=== PATIENT | female | born 1940 | race Caucasian/White ===

== ENCOUNTER 2019-12-02 08:35 | Outpatient (CLI) | payer OTHER, SELFPAY ==
[2019-12-02 08:59] LABS: Basophils Percent Auto 0.6 % (0.2-1.2); Eosinophils Absolute Auto 0.2 K/mm3 (0-0.3); Eosinophils Percent Auto 3.6 % (0-4.4); Hematocrit 39.8 % (37.0-47.0); Hemoglobin 13.2 g/dL (12.0-15.0); Immature Granulocyte Absolute 0.02 K/mm3 (0.00-0.031); Immature Granulocyte Percent A 0.3 % (0-0.5); Lymphocytes Absolute Auto 2.37 K/mm3 (0.9-3.2); Lymphocytes Percent Auto 35.9 % (18.3-44.2); Mean Corpuscular HGB Conc 33.2 g/dl (32-36); Mean Corpuscular Hemoglobin 30.2 pg (26-34); Mean Corpuscular Volume 91.1 fl (80-100); Mean Platelet Volume 9.9 fl (7.4-10.4); Monocytes Absolute Auto 0.5 K/mm3 (0.1-0.6); Neutrophils Absolute Auto 3.5 K/mm3 (1.3-6.7); Neutrophils Percent Auto 52.6 % (45.5-73.1); Platelet Count Result 306 k/mm3 (150-375); Red Blood Count 4.37 M/mm3 (4.2-5.4); Red Cell Distribution Width 13.2 % (11.5-14.5); White Blood Count 6.6 K/mm3 (4.5-10.0)
[2019-12-02 09:17] LABS: Alanine Aminotransferase 15 U/L (4-35); Albumin Level 4.1 g/dL (3.5-5.1); Alkaline Phosphatase 53 U/L (38-126); Anion Gap 4 mmol/L (8-16); Aspartate Amino Transferase 24 U/L (14-36); Bilirubin,Total 0.4 mg/dL (0.2-1.3); Blood Urea Nitrogen 13 mg/dL (7-17); Calcium 9.6 mg/dL (8.4-10.2); Carbon Dioxide 29 mmol/L (22-30); Chloride 105 mmol/L (98-107); Cholesterol 244 mg/dL (0-200); Estimated Glomerular Filt Rate > 60; Glucose 124 mg/dL (65-105); HDL Direct 53 mg/dL; Potassium 4.1 mmol/L (3.4-5.0); Sodium 138 mmol/L (137-145); Triglycerides 188 mg/dL (<150)
[2019-12-02 09:19] LABS: Hemoglobin A1C 6.3 % (<5.7)
[2019-12-02 09:25] LABS: LDL Cholesterol Direct 137 mg/dL
[2019-12-02 09:29] LABS: Iron 104 ug/dL (37-170)
[2019-12-02 09:38] LABS: Percent Iron Saturation 31 % (20-50)
[2019-12-02 09:48] LABS: Vitamin D 25 Hydroxy 37.4 ng/mL
== END 2019-12-02 08:36 | disposition home or self-care (01) ==
PROVIDERS: PCP Internal Medicine; Visit Provider Nurse Practitioner
DX: E03.9 Hypothyroidism, unspecified (principal); E78.2 Mixed hyperlipidemia; E55.9 Vitamin D deficiency, unspecified; R73.03 Prediabetes; D50.9 Iron deficiency anemia, unspecified
CPT/HCPCS: 36415; 80053; 80061; 82306; 83036; 83540; 83550; 84443; 85025

== ENCOUNTER 2020-03-24 06:54 | Outpatient (NON) | payer OTHER, SELFPAY ==
[2020-03-24 22:46] LABS: SARS-CoV-2 RNA PCR Negative
== END 2020-03-24 06:55 ==
LOC: ANHCOVIDDT 07:06
PROVIDERS: PCP Internal Medicine; Visit Provider Internal Medicine
DX: Z20.822 Contact with and (suspected) exposure to COVID-19 (principal); R68.89 Other general symptoms and signs
CPT/HCPCS: C9803; U0003; U0005

== ENCOUNTER 2020-07-11 10:41 | Emergency (ER) | payer OTHER, SELFPAY ==
--- NOTE | 2020-07-11 10:55 | ED.URI ---
HPI - URI/Sore Throat General Chief Complaint: Nausea/Vomiting/Diarrhea Stated Complaint: upper respiratory infection Time Seen by Provider: 07/11/20 11:10 Source: patient and RN notes reviewed Mode of arrival: ambulatory Limitations: no limitations History of Present Illness HPI Narrative: 80-year-old female presents with concern for 5-day history of cough, 2-day history of nausea, diarrhea, body aches and fatigue. Reports cough symptoms have improved with [id number] medications. Reports she is able to tolerate fluids, small amounts of food. She denies shortness of breath, chest pain. She reports she is urinating at least once every 6 hours. She denies loss of sense of taste or smell. MD elicited complaint: cough Related Data Home Medications Medication Instructions Recorded Confirmed loratadine 10 mg tablet 10 mg PO DAILY 01/27/19 05/27/20 Allergies Allergy/AdvReac Type Severity Reaction Status Date / Time ciprofloxacin Allergy Unknown Joint pain Verified 05/27/20 11:36 latex Allergy Unknown Itching Verified 05/27/20 11:36 amoxicillin [From Augmentin] Allergy Nausea and Verified 07/11/20 11:12 Vomiting clavulanic acid Allergy Nausea and Verified 07/11/20 11:12 [From Augmentin] Vomiting Review of Systems Review of Systems: Narrative: CONSTITUTIONAL: Reports malaise, fatigue. Denies chills, sweats, or fever. EYES: Denies visual changes, redness, or discharge. ENT: Reports rhinorrhea, congestion. Denies sinus pain, otalgia and sore throat. CARDIOVASCULAR: Denies chest pain, palpitations, or edema. RESPIRATORY: Reports cough. Denies dyspnea. GASTROINTESTINAL: Denies abdominal pain, nausea, vomiting, diarrhea SKIN: Denies rash or itching. MUSCULOSKELETAL: Reports myalgia. NEUROLOGIC: Denies headache. All systems reviewed & are unremarkable except as noted in HPI and below PMFSH Past Medical History Medical History Cataract fragments in eye following surgery Cholecystectomy planned Polyarthritis Skin tag Surgical History Surgical History H/O knee surgery History of breast biopsy (~2012) History of hysterectomy (~1984) Hx of appendectomy (~1981) Previous back surgery (~1979) Family History Family History Mother Family history of malignant neoplasm Carcinoma of colon Sibling Family history of Parkinson's disease Family history of heart disease in male family member before age 55 Patient's sister is in good health Family history of cardiovascular disease Father Family history of chronic obstructive pulmonary disease Family history of cardiovascular disease Other Family history of lung cancer Family history of lung disease Family history of malignant neoplasm of breast Social History Social History Smoking status: Never smoker Alcohol intake: never Comments At time of signature, agree with nursing past medical, surgical, social and family history. There is no relevant family history pertinent to the presenting complaint Exam Narrative: Exam Narrative: GENERAL: Well-appearing, well-nourished, and in no acute distress. HEAD: Normocephalic EYES: PERRLA, conjunctivae clear ENT: Nares clear, turbinates erythematous, clear discharge. Mucous membranes moist. TM pearly tionco with sharp light reflex bilaterally; no tragal tenderness. NECK: Supple. No lymphadenopathy CHEST: Clear to auscultation, breath sounds equal. No wheezing, rhonchi, rales, or stridor. No respiratory distress, speaks in full sentences. HEART: Regular rate and rhythm. No murmur heard. ABDOMEN: Normal bowel sounds, nontender SKIN: Warm, dry, no rash. NEURO: Alert and oriented x3. PSYCH: Normal mood and affect Course Course Emergency Course: Patient is aware of diagnosis, understands and a
[2020-07-11 10:57] VITALS: BP 167/78; PULSE 97; RESP 20; TEMP 37.5; O2SAT 97
== END 2020-07-11 11:37 | disposition home or self-care (01) ==
PROVIDERS: Emergency Provider Nurse Practitioner; PCP Internal Medicine
DX: U07.1 COVID-19 (principal); M19.90 Unspecified osteoarthritis, unspecified site
CPT/HCPCS: 87426; 99213; C9803; G0463

== ENCOUNTER 2020-07-14 06:47 | Inpatient (IN) | payer OTHER, SELFPAY ==
[2020-07-14] VITALS (31 sets, daily range): BP systolic 116–166; BP diastolic 63–101; PULSE 72–93; RESP 12–29; TEMP 36.3–39.2; O2SAT 55–97; BMI 38.1
--- NOTE | ~2020-07-14 | XR_ITS ---
XR chest 1V portable DATE: 07/22/2020 13:07 INDICATION: Covid TECHNIQUE: Portable upright AP chest on 07/22/2020 at 1307 hours COMPARISON: 07/17/2020 CT pulmonary scan 07/27/2020 portable AP chest FINDINGS: There are scattered patchy infiltrates involving particularly the mid and to a greater exte nt lower lung zones consistent with bilateral pneumonia, with significant improvement bilaterally sin ce 07/27/2020. Normal heart size. Aortic calcification. No pleural effusion or pulmonary vascular congestion or pneumothorax. 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 Status post cholecystectomy IMPRESSION: Moderate patchy bilateral mid and especially lower lung zone infiltrates, significantly improved however since 07/27/2020 Reviewed, dictated and finalized at location A. IMPRESSION: Moderate patchy bilateral mid and especially lower lung zone infil trates, significantly improved however since 07/27/2020
--- NOTE | ~2020-07-14 | XR_ITS ---
XR chest 1V portable 07/17/2020 08:57 Indication: Pneumonia. Hypoxia. Procedure: AP portable chest Comparison: 07/14/2020 Findings: Interval progression of diffuse bilateral airspace disease, compatible with pneumonia. No s ignificant effusion or pneumothorax. No acute osseous abnormality. Heart size normal. Impression: 1: Interval progression of extensive bilateral airspace disease, compatible with progression of pneum onia. Reviewed, dictated and finalized at location A. Impression: 1: Interval progression of extensive bilateral airspace disease, compatible wit h progression of pneumonia.
--- NOTE | ~2020-07-14 | CT_ITS ---
EXAMINATION: CTA chest PE protocol DATE: 07/17/2020 12:10 CDT INDICATION: Shortness of breath TECHNIQUE: Computed tomographic angiography (CTA) of the chest was performed with 100 mL Omnipaque-35 0 intravenous contrast. The dose-length product was 591.04 mGy-cm. Maximum intensity projection 3D-re constructions of the aorta and other arteries were constructed by the technologist on a separate work station. Automated exposure control and iterative reconstruction technique were employed. COMPARISON: Chest x-ray dated 07/17/2020. FINDINGS: Study is technically adequate without evidence for pulmonary embolism. There is mediastinal lymphadenopathy, likely reactive. Cardiomegaly. There is atherosclerosis of the aorta and coronary a rteries. There is extensive patchy groundglass opacification and consolidation throughout all lobes of both christopher ngs, consistent with pneumonia. No significant pleural effusion. No pneumothorax. IMPRESSION: 1. Extensive combination of groundglass opacification and consolidation, consistent with widespread p neumonia. 2: No evidence for pulmonary embolism. 3: Mediastinal lymphadenopathy, likely reactive. Reviewed, dictated and finalized at location A. IMPRESSION: 1. Extensive combination of groundglass opacification and consolidation, consis tent with widespread pneumonia. 2: No evidence for pulmonary embolism. 3: Mediastinal lymphadenopathy, likely reactive.
--- NOTE | ~2020-07-14 | CT_ITS ---
EXAMINATION: CT abdomen pelvis w con EXAM DATE: 07/14/2020 09:17 INDICATION: Abdominal distention, increased weakness. Nausea. TECHNIQUE: Spiral CT of the abdomen and pelvis was performed following intravenous injection of 100 m L Omnipaque 350. Axial, coronal and sagittal images of the abdomen and pelvis were reviewed. The do se-length product (DLP) for this examination was 1100.30 mGy-cm. The exposure was tailored according to patient size (auto mA exposure control), and iterative reconstruction (ASIR) was used as addition al dose reduction technique. There is no prior study for comparison. FINDINGS: There is moderate amount of bibasilar peripheral groundglass airspace disease, distribution and appearance is consistent with acute COVID pneumonia. The liver, spleen, adrenal glands and panc reas are unremarkable. There are cholecystectomy clips. Portal and splenic veins are patent. Kidne ys enhance symmetrically. There is no hydronephrosis. The uterus is not identified and has likely been surgically resected. The bladder is unremarkable. There is no retroperitoneal or pelvic lympha denopathy. There is mild scattered arteriosclerotic disease. The appendix is not positively visualized. There is no pericecal inflammatory change to suggest appe ndicitis. There is mild sigmoid colonic diverticulosis. There is no adjacent inflammatory change to suggest diverticulitis. The stomach and small bowel are unremarkable. There is expected amount of c olonic stool. No free intraperitoneal gas. The heart is normal in size. There are no pericardial or pleural effusions. There are no osteoblastic or osteolytic lesions identified. IMPRESSION: 1. Moderate basilar acute COVID pneumonia. 2. No acute intra-abdominal findings. 3. Mild sigmoid diverticulosis. Reviewed, dictated and finalized at location B.
--- NOTE | ~2020-07-14 | XR_ITS ---
EXAMINATION: XR chest 1V portable EXAM DATE: 07/14/2020 08:04 INDICATION: COVID positive. Weakness and shortness of breath since . TECHNIQUE: Portable AP frontal chest x-ray was obtained. There is no prior study for comparison. FINDINGS: Scattered small to moderate amount of bilateral ill-defined mid and lower lung zone acute a irspace disease, appearance is consistent with COVID pneumonia. No pneumothorax or pleural effusion. Cardiomediastinal silhouette is normal. Cholecystectomy clips. IMPRESSION: Small to moderate scattered bilateral acute airspace disease consistent with COVID pneumo braeden. Reviewed, dictated and finalized at location B. IMPRESSION: Small to moderate scattered bilateral acute airspace disease consis tent with COVID pneumonia.
[2020-07-14 07:42] LABS: Basophils Percent Auto 0.2 % (0.2-1.2); Hematocrit 34.7 % (37.0-47.0); Hemoglobin 11.7 g/dL (12.0-15.0); Immature Granulocyte Absolute 0.02 K/mm3 (0.00-0.031); Immature Granulocyte Percent A 0.5 % (0-0.5); Lymphocytes Absolute Auto 1.26 K/mm3 (0.9-3.2); Lymphocytes Percent Auto 29.7 % (18.3-44.2); Mean Corpuscular HGB Conc 33.7 g/dl (32-36); Mean Corpuscular Hemoglobin 29.8 pg (26-34); Mean Corpuscular Volume 88.5 fl (80-100); Mean Platelet Volume 10.1 fl (7.4-10.4); Monocytes Absolute Auto 0.2 K/mm3 (0.1-0.6); Neutrophils Absolute Auto 2.7 K/mm3 (1.3-6.7); Neutrophils Percent Auto 64.6 % (45.5-73.1); Platelet Count Result 203 k/mm3 (150-375); Red Blood Count 3.92 M/mm3 (4.2-5.4); Red Cell Distribution Width 13.2 % (11.5-14.5); White Blood Count 4.2 K/mm3 (4.5-10.0)
[2020-07-14 07:51] LABS: Lactic Acid Reflex 0.8 mmol/L (0.7-2.1)
--- NOTE | 2020-07-14 07:52 | ED.FEVER ---
HPI - Fever General Chief Complaint: Fever Stated Complaint: Dehydrated, covid+ Time Seen by Provider: 07/14/20 07:10 History of Present Illness HPI Narrative: 80 yo female w/ h/o hypothyroidism presents to the ED for nausea and vomiting. She reports not feeling well for several days. Her primary symptoms is nausea and vomiting. She reports that she has been able to keep anything down for days. She has also developed some mild abdominal pain and bloating as well. In addition to this she has had some body aches, fatigue, and malaise. She denies SOB, although she has been intermittently hypoxic. Related Data Home Medications Medication Instructions Recorded Confirmed loratadine 10 mg tablet 10 mg PO DAILY 01/27/19 05/27/20 Allergies Allergy/AdvReac Type Severity Reaction Status Date / Time ciprofloxacin Allergy Unknown Joint pain Verified 07/14/20 07:55 latex Allergy Unknown Itching Verified 07/14/20 07:55 amoxicillin [From Augmentin] Allergy Nausea and Verified 07/14/20 07:55 Vomiting clavulanic acid Allergy Nausea and Verified 07/14/20 07:55 [From Augmentin] Vomiting Review of Systems Review of Systems: All systems reviewed & are unremarkable except as noted in HPI and below Constitutional: Constitutional: Reports chills, Reports fatigue and Denies fever(s) ENT: Denies sore throat Cardiovascular: Cardiovascular: Denies chest pain Respiratory: Respiratory: Denies dyspnea Gastrointestinal: Gastrointestinal: Reports abdominal pain, Denies diarrhea, Reports nausea and Reports vomiting Genitourinary: Genitourinary: Denies hematuria and Denies dysuria Musculoskeletal: Musculoskeletal: Reports myalgias Integumentary/Breasts: Skin/Breast: Denies rash Neurologic: Reports weakness PMFSH Past Medical History Medical History Cataract fragments in eye following surgery Cholecystectomy planned Polyarthritis Skin tag Surgical History Surgical History H/O knee surgery History of breast biopsy (~2012) History of hysterectomy (~1984) Hx of appendectomy (~1981) Previous back surgery (~1979) Family History Family History Mother Family history of malignant neoplasm Carcinoma of colon Sibling Family history of Parkinson's disease Family history of heart disease in male family member before age 55 Patient's sister is in good health Family history of cardiovascular disease Father Family history of chronic obstructive pulmonary disease Family history of cardiovascular disease Other Family history of lung cancer Family history of lung disease Family history of malignant neoplasm of breast Social History Social History Smoking status: Never smoker Alcohol intake: never Gender identity (if verbalized by the patient): Female Exam Const: General: no acute distress, alert and ill appearing Orientation/consciousness: patient oriented x3 HENMT: Head: normal to inspection Neck: Neck: normal visual inspection Resp: Effort & Inspection: normal respiratory effort Auscultation: crackles Cardio: Rate: regular rate Rhythm: regular rhythm GI: Inspection: distended GI Palp: No Tenderness to palpation present (GI) Skin: General skin exam: normal color Neuro: General: patient oriented x3, moves all extremities, no focal motor deficits and CN's II-XI intact bilaterally Speech: normal speech Extrem: General: normal to inspection and no edema Other: no calf tenderness Course Vital Signs Vital signs: Vital Signs Temperature 39.2 C H 07/14/20 06:57 Pulse Rate 93 07/14/20 06:57 Respiratory Rate 12 07/14/20 06:57 Blood Pressure 166/64 H 07/14/20 06:57 Pulse Oximetry 92 07/14/20 06:57 Temperature 39.2 C H 07/14/20 07:20 Pulse Rate 93 05
[2020-07-14] MEDS: SODIUM CHLORIDE 0.9% IV 500 ML 999 ML IV CONT (08:03)
[2020-07-14] MEDS: ONDANSETRON INJ 4 MG/2 ML VIAL IV PUSH (08:03)
[2020-07-14 08:19] LABS: Alveolar/Arterial O2 Gradient 47.9 mmHg; Base Excess ABG 2.3 mEq/l (+/-2.0); Carboxyhemoglobin 0.3 % THb (0-2.0); Fractional Inspired Oxygen 21 %; Methemoglobin ABG 0.3 %THb (0-1.5); Oxygen Content ABG 15.2 %vol (16.0-22.0); Oxygen Saturation ABG 91.6 % (95.0-100.0); PCO2 ABG 36.9 mmHg (35.0-45.0); PO2 ABG 57.6 mmHg (80.0-100.0); PO2 FiO2 Ratio Arterial Blood 2.74 %; Reduced Hemoglobin 8.4 %THb (0-5.0); Total Hemoglobin 11.9 g/dL (12.0-18.0); pH ABG 7.465 (7.350-7.450)
[2020-07-14 08:23] LABS: Device ROOM AIR; Site Drawn LEFT BRACHIAL
[2020-07-14] MEDS: DEXAMETHASONE SOD PHOS INJ 4 MG/ML VIAL 10 MG IV PUSH (08:27)
[2020-07-14 08:58] LABS: Anion Gap 3 mmol/L (8-16); Blood Urea Nitrogen 8 mg/dL (7-17); Calcium 8.2 mg/dL (8.4-10.2); Carbon Dioxide 33 mmol/L (22-30); Chloride 93 mmol/L (98-107); Estimated CRCL calculation 74 ml/min; Estimated Glomerular Filt Rate > 60; Glucose 136 mg/dL (65-105); Potassium 3.4 mmol/L (3.4-5.0); Sodium 129 mmol/L (137-145)
[2020-07-14 11:45] LABS: Alanine Aminotransferase 29 U/L (4-35); Albumin Level 3.5 g/dL (3.5-5.1); Alkaline Phosphatase 46 U/L (38-126); Aspartate Amino Transferase 51 U/L (14-36); Bilirubin,Total 0.3 mg/dL (0.2-1.3); Magnesium 1.8 mg/dL (1.6-2.3)
[2020-07-14 11:48] LABS: Hemoglobin A1C 7.2 % (<5.7)
[2020-07-14] MEDS: LACTATED RINGERS 1,000 ML 50 ML IV CONT (13:30)
[2020-07-14] MEDS: DOCUSATE SODIUM 100 MG CAPSULE PO (17:44)
[2020-07-14] MEDS: ALBUTEROL SULFATE NEB 2.5 MG/0.5 ML INH 5 MG INHALATION (20:40)
[2020-07-14] MEDS: IPRATROPIUM BR 0.02% INH SOLN 0.5 MG/2.5 ML VIAL INHALATION (20:40)
--- NOTE | 2020-07-14 20:40 | PM.IMHP ---
H&P: HPI History of Present Illness Date/Time: 07/14/20 20:40 80 yo female w/ h/o hypothyroidism presents to the ED for nausea and vomiting and not feeling overall. She reports not feeling well for several days. Her primary symptoms is nausea and vomiting. She reports that she has been able to keep anything down for days. She has also developed some mild abdominal pain and bloating as well. In addition to this she has had some body aches, fatigue, and malaise. She denies SOB, although she has been intermittently hypoxic in the ED. she was tested positive for COVID recently. she started having symptoms with fever, cough, diarrhea and abdominal pain. Chief Complaint: nausea, vomiting, shortness of breath Review of Systems Review of Systems: Narrative: - CONSTITUTIONAL: Denies weight loss, reports some fever and chills. - HEENT: Denies changes in vision and hearing - RESPIRATORY: reports SOB and cough. - CV: Denies palpitations and CP. - GI: reports abdominal pain, nausea, vomiting and diarrhea. - : Denies dysuria and urinary frequency. - MSK: Denies myalgia and joint pain. - SKIN: Denies rash and pruritus. - NEUROLOGICAL: Denies headache and syncope. - PSYCHIATRIC: Denies recent changes in mood. Denies anxiety and depression. All systems reviewed & are unremarkable except as noted in HPI and below Constitutional: Constitutional: Reports fatigue and Reports weakness Neurologic: Reports weakness Endocrine: Endocrine: Reports fatigue PMFSH Past Medical History Medical History Cataract fragments in eye following surgery Cholecystectomy planned Polyarthritis Skin tag Surgical History Surgical History H/O knee surgery History of breast biopsy (~2012) History of hysterectomy (~1984) Hx of appendectomy (~1981) Previous back surgery (~1979) Family History Family History Mother Family history of malignant neoplasm Carcinoma of colon Sibling Family history of Parkinson's disease Family history of heart disease in male family member before age 55 Patient's sister is in good health Family history of cardiovascular disease Father Family history of chronic obstructive pulmonary disease Family history of cardiovascular disease Other Family history of lung cancer Family history of lung disease Family history of malignant neoplasm of breast Social History Social History Smoking status: Never smoker Alcohol intake: never Substance use: never Gender identity (if verbalized by the patient): Female Spiritual care concerns: No Meds Home Medications and Allergies Home Medications Medication Instructions Recorded Confirmed Type loratadine 10 mg tablet 10 mg PO DAILY PRN 01/27/19 07/14/20 History levothyroxine 100 mcg PO QAM 07/14/20 07/14/20 History Allergies Allergy/AdvReac Type Severity Reaction Status Date / Time ciprofloxacin Allergy Unknown Joint pain Verified 07/14/20 07:55 latex Allergy Unknown Itching Verified 07/14/20 07:55 amoxicillin [From Augmentin] Allergy Nausea and Verified 07/14/20 07:55 Vomiting clavulanic acid Allergy Nausea and Verified 07/14/20 07:55 [From Augmentin] Vomiting Vital Signs Vital Signs - 24 hr 07/14/20 06:57 07/14/20 07:20 07/14/20 07:31 Temperature 102.6 F H 102.6 F H Pulse Rate 93 93 90 Respiratory Rate 12 20 23 H Blood Pressure 166/64 H 166/64 H Pulse Oximetry 92 92 92 07/14/20 07:45 07/14/20 08:03 07/14/20 08:15 Temperature Pulse Rate 90 89 84 Respiratory Rate 29 H 18 17 Blood Pressure Pulse Oximetry 80 L 97 91 07/14/20 08:30 07/14/20 08:39 07/14/20 08:47 Temperature Pulse Rate 87 87 87 Respiratory Rate 20 18 17 Blood Pressure 155/70 H Pulse Oximetry 90 90 92 07/14/20
[2020-07-14 21:26] LABS: Alanine Aminotransferase 27 U/L (4-35); Estimated CRCL calculation 68 ml/min; Estimated Glomerular Filt Rate > 60
[2020-07-14 21:27] LABS: INR 0.9
[2020-07-14] MEDS: REMDESIVIR 200 MG/NS 250 ML 200 MG/250 ML BAG 250 MG IVPB (22:02)
[2020-07-14] MEDS: ACETAMINOPHEN 325 MG TABLET 650 MG PO (22:14)
[2020-07-14 23:48] LABS: Glucose Point of Care 350 (65-105)
[2020-07-15] VITALS (15 sets, daily range): BP systolic 140–167; BP diastolic 57–79; PULSE 75–95; RESP 18–20; TEMP 36.3–37.6; O2SAT 90–96
[2020-07-15] MEDS: guaiFENesin/DEXTROMETHORPHAN 10 ML UDC PO (01:30)
[2020-07-15] MEDS: IPRATROPIUM BR 0.02% INH SOLN 0.5 MG/2.5 ML VIAL INHALATION ×4 (02:27→21:09)
[2020-07-15] MEDS: ALBUTEROL SULFATE NEB 2.5 MG/0.5 ML INH 5 MG INHALATION ×4 (02:27→21:08)
[2020-07-15] MEDS: LEVOTHYROXINE SODIUM 100 MCG TABLET PO (05:30)
[2020-07-15 06:29] LABS: Prothrombin Time 13.4 Seconds (11.1-14.7)
[2020-07-15 06:30] LABS: Alanine Aminotransferase 25 U/L (4-35); Estimated CRCL calculation 68 ml/min; Estimated Glomerular Filt Rate > 60
[2020-07-15 07:28] LABS: Hematocrit 33.5 % (37.0-47.0); Hemoglobin 11.1 g/dL (12.0-15.0); Mean Corpuscular HGB Conc 33.1 g/dl (32-36); Mean Corpuscular Hemoglobin 29.1 pg (26-34); Mean Corpuscular Volume 87.9 fl (80-100); Mean Platelet Volume 10.6 fl (7.4-10.4); Platelet Count Result 239 k/mm3 (150-375); Red Blood Count 3.81 M/mm3 (4.2-5.4); Red Cell Distribution Width 12.9 % (11.5-14.5); White Blood Count 6.8 K/mm3 (4.5-10.0)
[2020-07-15 07:30] LABS: Anion Gap 6 mmol/L (8-16); Blood Urea Nitrogen 9 mg/dL (7-17); Calcium 8.5 mg/dL (8.4-10.2); Carbon Dioxide 30 mmol/L (22-30); Chloride 99 mmol/L (98-107); Estimated CRCL calculation 68 ml/min; Estimated Glomerular Filt Rate > 60; Glucose 295 mg/dL (65-105); Potassium 3.5 mmol/L (3.4-5.0); Sodium 135 mmol/L (137-145)
[2020-07-15 08:06] LABS: Glucose Point of Care 246 (65-105)
--- NOTE | 2020-07-15 08:24 | P.PNIM_ITS ---
Progress Note: A&P Assessment and Plan (1) Acute hypoxemic respiratory failure: Code(s): J96.01 - Acute respiratory failure with hypoxia Status: Acute Assessment and Plan: * Covid positive 07/11/20 * Blood gas showed PaO2 57.6 * Room air, no complaints of shortness of breath * No reports of nausea, vomiting * weakness noted: PT/OT ordered * Increase glucose: medication induced sliding scale ordered * Dehydration: LR at 50ml/hr and encourage PO intake * Lovenox (2) COVID-19: Code(s): U07.1 - COVID-19 Status: Acute Assessment and Plan: * See plan above (3) Pneumonia due to 2019-nCoV: Code(s): U07.1 - COVID-19; J12.82 - Pneumonia due to coronavirus disease 2019 Status: Acute Assessment and Plan: * Covid pneumonia noted on CT and Chest xray * No symptoms noted on exam * No reported nausea or vomiting * Better appetite * remedesvir and steroids * Supplemental oxygen if needed to maintain saturations above 90% (4) Nausea & vomiting: Code(s): R11.2 - Nausea with vomiting, unspecified Status: Acute Assessment and Plan: * No nausea or vomiting noted * PRN Zofran ordered * Tolerating diet (5) Hyperglycemia, drug-induced: Code(s): R73.9 - Hyperglycemia, unspecified; T50.905A - Adverse effect of unspecified drugs, medicaments and biological substances, initial encounter Status: Acute Assessment and Plan: * Glucose elevated: 295 per am labs, A1c 7.2 at admission * Most likely medication induced from steroids * Sliding scale ordered * Trend glucose * increase sliding scale as needed * Diet changed to diabetic diet (6) Hypokalemia, inadequate intake: Code(s): E87.6 - Hypokalemia Status: Acute Assessment and Plan: * Potassium 3.4 upon admission and 3.5 with am labs * 40mcq of potassium ordered for replacement * Trend potassium * replace as needed (7) Hypertension: Code(s): I10 - Essential (primary) hypertension Status: Acute Assessment and Plan: * Blood pressure elevated: 153/61 * Trend blood pressure * Educate patient about salt intake Time Spent With Patient Time with patient: 25 - 35 minutes Subjective Date/time seen: 07/15/20 08:24 Patient is an 80 year old female that came in with a complaint of nausea and lack of appetite weakness. Patient was sitting at bedside eating breakfast she stated that she is feeling better today. At home she said at home she did have a lack of appetite and would try to eat things like soup (Chicken noodle or tomato), and would also drink fluids like gatorade, pedilyte, or sprite. However, she did not eat like she would normally eat. She did state that she does try to eat a banana or apple everyday. She denies taking any other medications but what is listed. She denies chest pain, shortness of breath, nausea, vomiting, lack of taste/smell, or abdominal pain. She admits to be in tired and weak, and has a productive cough with what she described as being thick and green. She did state that she would like to get up and move around, which PT/OT has been ordered. Patient did mention concern about her blood pressure and her glucose levels. It was assured that this was from some of the medications. Potassium was 3.5 and Sodium 135 this am. Patient is on fluids, and potassium replaced. Re
--- NOTE | 2020-07-15 08:24 | PM.IMPN ---
Progress Note: A&P Assessment and Plan (1) Acute hypoxemic respiratory failure: Code(s): J96.01 - Acute respiratory failure with hypoxia Status: Acute Assessment and Plan: Covid positive 07/11/20 Blood gas showed PaO2 57.6 Room air, no complaints of shortness of breath No reports of nausea, vomiting weakness noted: PT/OT ordered Increase glucose: medication induced sliding scale ordered Dehydration: LR at 50ml/hr and encourage PO intake Lovenox (2) COVID-19: Code(s): U07.1 - COVID-19 Status: Acute Assessment and Plan: See plan above (3) Pneumonia due to 2019-nCoV: Code(s): U07.1 - COVID-19; J12.82 - Pneumonia due to coronavirus disease 2019 Status: Acute Assessment and Plan: Covid pneumonia noted on CT and Chest xray No symptoms noted on exam No reported nausea or vomiting Better appetite remedesvir and steroids Supplemental oxygen if needed to maintain saturations above 90% (4) Nausea & vomiting: Code(s): R11.2 - Nausea with vomiting, unspecified Status: Acute Assessment and Plan: No nausea or vomiting noted PRN Zofran ordered Tolerating diet (5) Hyperglycemia, drug-induced: Code(s): R73.9 - Hyperglycemia, unspecified; T50.905A - Adverse effect of unspecified drugs, medicaments and biological substances, initial encounter Status: Acute Assessment and Plan: Glucose elevated: 295 per am labs, A1c 7.2 at admission Most likely medication induced from steroids Sliding scale ordered Trend glucose increase sliding scale as needed Diet changed to diabetic diet (6) Hypokalemia, inadequate intake: Code(s): E87.6 - Hypokalemia Status: Acute Assessment and Plan: Potassium 3.4 upon admission and 3.5 with am labs 40mcq of potassium ordered for replacement Trend potassium replace as needed (7) Hypertension: Code(s): I10 - Essential (primary) hypertension Status: Acute Assessment and Plan: Blood pressure elevated: 153/61 Trend blood pressure Educate patient about salt intake Time Spent With Patient Time with patient: 25 - 35 minutes Subjective Date/time seen: 07/15/20 08:24 Patient is an 80 year old female that came in with a complaint of nausea and lack of appetite weakness. Patient was sitting at bedside eating breakfast she stated that she is feeling better today. At home she said at home she did have a lack of appetite and would try to eat things like soup (Chicken noodle or tomato), and would also drink fluids like gatorade, pedilyte, or sprite. However, she did not eat like she would normally eat. She did state that she does try to eat a banana or apple everyday. She denies taking any other medications but what is listed. She denies chest pain, shortness of breath, nausea, vomiting, lack of taste/smell, or abdominal pain. She admits to be in tired and weak, and has a productive cough with what she described as being thick and green. She did state that she would like to get up and move around, which PT/OT has been ordered. Patient did mention concern about her blood pressure and her glucose levels. It was assured that this was from some of the medications. Potassium was 3.5 and Sodium 135 this am. Patient is on fluids, and potassium replaced. Review of Systems Review of Systems: All systems reviewed & are unremarkable except as noted in HPI and below Exam Const: General: cooperative, healthy appearing, comfortable, awake, Physically active and tired appearing Nutritional Appearance: well nourished Orientation/consciousness: patient oriented x3 Limitations: no limitations HENMT: Ears: TM's normal bilaterally Eyes: General: appearance normal, both eyes and all related structures Neck: Neck: no JVD Resp: Effort & Inspection: normal respiratory effort Auscultation:
[2020-07-15] MEDS: INSULIN ASPART (*BKC) 100 UNITS/ML SUB-Q ×3 (09:11→17:31)
[2020-07-15] MEDS: ENOXAPARIN 40 MG/0.4 ML SYRINGE SUB-Q (09:12)
[2020-07-15] MEDS: DEXAMETHASONE SOD PHOS INJ 4 MG/ML VIAL 6 MG IV PUSH (09:12)
[2020-07-15] MEDS: LORATADINE 10 MG TABLET PO (09:12)
[2020-07-15] MEDS: POTASSIUM CHLORIDE 20 MEQ TABLET 40 MEQ PO (09:15)
[2020-07-15] MEDS: LACTATED RINGERS 1,000 ML 50 ML IV CONT (09:35)
[2020-07-15 12:23] LABS: Glucose Point of Care 313 (65-105)
[2020-07-15 17:26] LABS: Glucose Point of Care 271 (65-105)
[2020-07-15] MEDS: REMDESIVIR 100 MG/NS 250 ML 100 MG/250 ML BAG 250 MG IVPB (20:50)
[2020-07-15 21:09] LABS: Glucose Point of Care 295 (65-105)
[2020-07-16] VITALS (16 sets, daily range): BP systolic 157–179; BP diastolic 69–93; PULSE 88–98; RESP 16–24; TEMP 36.4–37.5; O2SAT 90–96
[2020-07-16] MEDS: IPRATROPIUM BR 0.02% INH SOLN 0.5 MG/2.5 ML VIAL INHALATION ×4 (02:48→20:37)
[2020-07-16] MEDS: ALBUTEROL SULFATE NEB 2.5 MG/0.5 ML INH 5 MG INHALATION ×4 (02:48→20:37)
[2020-07-16] MEDS: LACTATED RINGERS 1,000 ML 50 ML IV CONT (05:54)
[2020-07-16] MEDS: LEVOTHYROXINE SODIUM 100 MCG TABLET PO (05:56)
[2020-07-16 06:09] LABS: Alanine Aminotransferase 25 U/L (4-35); Estimated CRCL calculation 80 ml/min; Estimated Glomerular Filt Rate > 60
[2020-07-16 08:05] LABS: Anion Gap 4 mmol/L (8-16); Blood Urea Nitrogen 13 mg/dL (7-17); Calcium 8.7 mg/dL (8.4-10.2); Carbon Dioxide 34 mmol/L (22-30); Chloride 97 mmol/L (98-107); Estimated CRCL calculation 68 ml/min; Estimated Glomerular Filt Rate > 60; Glucose 200 mg/dL (65-105); Magnesium 1.9 mg/dL (1.6-2.3); Phosphorus 2.5 mg/dL (2.5-4.5); Sodium 135 mmol/L (137-145)
[2020-07-16 08:22] LABS: Glucose Point of Care 189 (65-105)
[2020-07-16] MEDS: ENOXAPARIN 40 MG/0.4 ML SYRINGE SUB-Q (08:31)
[2020-07-16] MEDS: DEXAMETHASONE SOD PHOS INJ 4 MG/ML VIAL 6 MG IV PUSH (08:32)
[2020-07-16 12:27] LABS: Glucose Point of Care 312 (65-105)
[2020-07-16] MEDS: INSULIN ASPART (*BKC) 100 UNITS/ML SUB-Q ×2 (12:31→17:14)
[2020-07-16 13:22] LABS: Glucose Point of Care 324 (65-105)
[2020-07-16 14:47] LABS: Glucose Point of Care 271 (65-105)
--- NOTE | 2020-07-16 15:01 | P.PNIM_ITS ---
Progress Note: A&P Assessment and Plan (1) Acute hypoxemic respiratory failure: Code(s): J96.01 - Acute respiratory failure with hypoxia Status: Acute Assessment and Plan: * Covid positive 07/11/20 * Room air, no complaints of shortness of breath * Desaturation with some activity * No reports of nausea, vomiting * weakness noted: PT/OT ordered * Increase glucose: Sliding scale was increased * Dehydration: Encourage PO intake * Lovenox (2) COVID-19: Code(s): U07.1 - COVID-19 Status: Acute Assessment and Plan: * See plan above (3) Pneumonia due to 2019-nCoV: Code(s): U07.1 - COVID-19; J12.82 - Pneumonia due to coronavirus disease 2019 Status: Acute Assessment and Plan: * Covid pneumonia noted on CT and Chest xray * No symptoms noted on exam * No reported nausea or vomiting * Better appetite * remedesvir and steroids * Supplemental oxygen if needed to maintain saturations above 90% * Home oxygen for tomorrow (4) Nausea & vomiting: Code(s): R11.2 - Nausea with vomiting, unspecified Status: Acute Assessment and Plan: * No nausea or vomiting noted * PRN Zofran ordered * Tolerating diet (5) Hyperglycemia, drug-induced: Code(s): R73.9 - Hyperglycemia, unspecified; T50.905A - Adverse effect of unspecified drugs, medicaments and biological substances, initial encounter Status: Acute Assessment and Plan: * Glucose elevated high sliding scale ordered * Most likely medication induced from steroids * Trend glucose * Diet changed to diabetic diet (6) Hypokalemia, inadequate intake: Code(s): E87.6 - Hypokalemia Status: Acute Assessment and Plan: * Potassium 4.0 today * replace as needed (7) Hypertension: Code(s): I10 - Essential (primary) hypertension Status: Acute Assessment and Plan: * Blood pressure elevated * Trend blood pressure * Educate patient about salt intake Time Spent With Patient Time with patient: Greater than 35 minutes Subjective Date/time seen: 07/16/20 15:01 Patient is an 80 year old female that came in with a complaint of nausea and lack of appetite weakness. Today upon initial exam the patient was sitting in the chair and stating that she was hungry and that she was ready for breakfast. Talked to the patient about possible discharge today. She stated that she was not having any chest pain, shortness of breath, nausea, vomiting, abdominal pain, lightheadedness, weakness, or fatigue. She did admit to having a cough that would not subside and kept her up for most of the night. She also stated that she was having a slight headache that she contributed to being hungry. She denies loss of appetite, smell, or taste. At 1330 upon reexamination patient was sitting in the chair complaining of pain in her right side. She admits to having had a small bowel movement, but unsure if it was enough. Pt called me shortly after and stated that the patient did desat with movement, and that she took some time for recovery. Respiratory gave patient a breathing treatment and the patient was able to recover. Review of Systems Review of Systems: All systems reviewed & are unremarkable except as noted in HPI and below Exam Const: General: cooperative, healthy appearing, no acute distress,
--- NOTE | 2020-07-16 15:01 | PM.IMPN ---
Progress Note: A&P Assessment and Plan (1) Acute hypoxemic respiratory failure: Code(s): J96.01 - Acute respiratory failure with hypoxia Status: Acute Assessment and Plan: Covid positive 07/11/20 Room air, no complaints of shortness of breath Desaturation with some activity No reports of nausea, vomiting weakness noted: PT/OT ordered Increase glucose: Sliding scale was increased Dehydration: Encourage PO intake Lovenox (2) COVID-19: Code(s): U07.1 - COVID-19 Status: Acute Assessment and Plan: See plan above (3) Pneumonia due to 2019-nCoV: Code(s): U07.1 - COVID-19; J12.82 - Pneumonia due to coronavirus disease 2019 Status: Acute Assessment and Plan: Covid pneumonia noted on CT and Chest xray No symptoms noted on exam No reported nausea or vomiting Better appetite remedesvir and steroids Supplemental oxygen if needed to maintain saturations above 90% Home oxygen for tomorrow (4) Nausea & vomiting: Code(s): R11.2 - Nausea with vomiting, unspecified Status: Acute Assessment and Plan: No nausea or vomiting noted PRN Zofran ordered Tolerating diet (5) Hyperglycemia, drug-induced: Code(s): R73.9 - Hyperglycemia, unspecified; T50.905A - Adverse effect of unspecified drugs, medicaments and biological substances, initial encounter Status: Acute Assessment and Plan: Glucose elevated high sliding scale ordered Most likely medication induced from steroids Trend glucose Diet changed to diabetic diet (6) Hypokalemia, inadequate intake: Code(s): E87.6 - Hypokalemia Status: Acute Assessment and Plan: Potassium 4.0 today replace as needed (7) Hypertension: Code(s): I10 - Essential (primary) hypertension Status: Acute Assessment and Plan: Blood pressure elevated Trend blood pressure Educate patient about salt intake Time Spent With Patient Time with patient: Greater than 35 minutes Subjective Date/time seen: 07/16/20 15:01 Patient is an 80 year old female that came in with a complaint of nausea and lack of appetite weakness. Today upon initial exam the patient was sitting in the chair and stating that she was hungry and that she was ready for breakfast. Talked to the patient about possible discharge today. She stated that she was not having any chest pain, shortness of breath, nausea, vomiting, abdominal pain, lightheadedness, weakness, or fatigue. She did admit to having a cough that would not subside and kept her up for most of the night. She also stated that she was having a slight headache that she contributed to being hungry. She denies loss of appetite, smell, or taste. At 1330 upon reexamination patient was sitting in the chair complaining of pain in her right side. She admits to having had a small bowel movement, but unsure if it was enough. Pt called me shortly after and stated that the patient did desat with movement, and that she took some time for recovery. Respiratory gave patient a breathing treatment and the patient was able to recover. Review of Systems Review of Systems: All systems reviewed & are unremarkable except as noted in HPI and below Exam Const: General: cooperative, healthy appearing, no acute distress, well developed, alert, awake and tired appearing Nutritional Appearance: average body habitus and well nourished Orientation/consciousness: patient oriented x3 Limitations: no limitations HENMT: Ears: TM's normal bilaterally Eyes: General: appearance normal, both eyes and all related structures Neck: Neck: no JVD Resp: Effort & Inspection: normal respiratory effort, able to speak in complete sentences and symmetric chest movement Auscultation: diminished lung sounds (In the bases) bilateral Cardio: Rate: regular rate Rhythm: regular rhythm GI:
[2020-07-16 17:18] LABS: Glucose Point of Care 244 (65-105)
[2020-07-16] MEDS: REMDESIVIR 100 MG/NS 250 ML 100 MG/250 ML BAG 250 MG IVPB (21:08)
[2020-07-16] MEDS: ACETAMINOPHEN 325 MG TABLET 650 MG PO (21:18)
[2020-07-16 22:59] LABS: Glucose Point of Care 289 (65-105)
[2020-07-17] VITALS (21 sets, daily range): BP systolic 160–185; BP diastolic 76–89; PULSE 87–97; RESP 18–30; TEMP 36.3–36.8; O2SAT 82–97
[2020-07-17] MEDS: ALBUTEROL SULFATE NEB 2.5 MG/0.5 ML INH 5 MG INHALATION ×4 (02:16→20:38)
[2020-07-17] MEDS: IPRATROPIUM BR 0.02% INH SOLN 0.5 MG/2.5 ML VIAL INHALATION ×4 (02:16→20:38)
[2020-07-17] MEDS: LEVOTHYROXINE SODIUM 100 MCG TABLET PO (05:40)
[2020-07-17 06:16] LABS: Hematocrit 33.5 % (37.0-47.0); Hemoglobin 11.2 g/dL (12.0-15.0); Mean Corpuscular HGB Conc 33.4 g/dl (32-36); Mean Corpuscular Hemoglobin 29.2 pg (26-34); Mean Corpuscular Volume 87.5 fl (80-100); Platelet Count Result 315 k/mm3 (150-375); Red Blood Count 3.83 M/mm3 (4.2-5.4); White Blood Count 9.2 K/mm3 (4.5-10.0)
[2020-07-17 06:26] LABS: Prothrombin Time 14.2 Seconds (11.1-14.7)
[2020-07-17 06:46] LABS: Alanine Aminotransferase 26 U/L (4-35); Anion Gap 1 mmol/L (8-16); Blood Urea Nitrogen 11 mg/dL (7-17); Calcium 8.2 mg/dL (8.4-10.2); Carbon Dioxide 38 mmol/L (22-30); Chloride 95 mmol/L (98-107); Estimated CRCL calculation 80 ml/min; Estimated Glomerular Filt Rate > 60; Glucose 279 mg/dL (65-105); Potassium 3.6 mmol/L (3.4-5.0); Sodium 134 mmol/L (137-145)
[2020-07-17 07:49] LABS: Glucose Point of Care 260 (65-105)
[2020-07-17] MEDS: DOCUSATE SODIUM 100 MG CAPSULE PO ×2 (08:26→16:38)
[2020-07-17] MEDS: ENOXAPARIN 40 MG/0.4 ML SYRINGE SUB-Q (08:26)
[2020-07-17] MEDS: DEXAMETHASONE SOD PHOS INJ 4 MG/ML VIAL 6 MG IV PUSH (08:26)
[2020-07-17] MEDS: INSULIN ASPART (*BKC) 100 UNITS/ML SUB-Q ×3 (08:27→16:36)
--- NOTE | 2020-07-17 08:46 | P.PNIM_ITS ---
Progress Note: A&P Assessment and Plan (1) Acute hypoxemic respiratory failure: Code(s): J96.01 - Acute respiratory failure with hypoxia Status: Acute Assessment and Plan: * Covid positive 07/11/20 * Increased oxygen demand Oxymizer at 10L sating 98%. ABG showed PaO2 43.4 with a saturation of 82.3. * Chest xray increasing pneumonia, Pulmonary consult recommendation appreciated * Azithromycin and ceftriaxone for prophylactic coverage * Convalescent plasma also ordered and pending * CTA completed and showed no PE, but did show furthering pneumonia * Continuous Pulsox * cardiac monitoring for increase respiratory problems * 40mg of lasix * Desaturation with activity. * No reports of nausea, vomiting. * weakness noted: PT/OT ordered encourage movement * Increase glucose: Sliding scale was increased * Dehydration: Encourage PO intake * Prophylactic Lovenox (2) COVID-19: Code(s): U07.1 - COVID-19 Status: Acute Assessment and Plan: * See plan above (3) Pneumonia due to 2019-nCoV: Code(s): U07.1 - COVID-19; J12.82 - Pneumonia due to coronavirus disease 2019 Status: Acute Assessment and Plan: * Covid pneumonia noted on CT and Chest xray * Shortness of breath with exertion * Increased O2 demands. ABG show low PaO2 and saturation * No reported nausea or vomiting * remedesvir Day 4 and steroids Day 4, well complete for 10 day course per pulmonology * Supplemental oxygen if needed to maintain saturations above 90% (4) Nausea & vomiting: Code(s): R11.2 - Nausea with vomiting, unspecified Status: Acute Assessment and Plan: * No nausea or vomiting noted * PRN Zofran ordered * Tolerating diet (5) Hyperglycemia, drug-induced: Code(s): R73.9 - Hyperglycemia, unspecified; T50.905A - Adverse effect of unspecified drugs, medicaments and biological substances, initial encounter Status: Acute Assessment and Plan: * Glucose elevated high sliding scale ordered * Most likely medication induced from steroids * Trend glucose * Diet changed to diabetic diet (6) Hypokalemia, inadequate intake: Code(s): E87.6 - Hypokalemia Status: Acute Assessment and Plan: * Potassium 3.6 today * replace as needed (7) Hypertension: Code(s): I10 - Essential (primary) hypertension Status: Acute Assessment and Plan: * Blood pressure elevated at 185/88 * Trend blood pressure * Educate patient about salt intake Time Spent With Patient Time: 60 minutes spent at bedside managing oxygen, saturation, and stabilizing patient Time with patient: Greater than 35 minutes Subjective Date/time seen: 07/17/20 08:46 Patient is an 80-year-old female who came in originally for nausea vomiting and dehydration. Patient has not needed oxygen for the last couple days yesterday evening patient was placed on 2 L. Today she was increased 3 L. patient states that she feels worse today, and just can't get head. Patient denies shortness of breath, chest pain, nausea, vomiting, abdominal pain, numbness and tingling, or abnormal swelling. Patient does admit to weakness and fatigue and a productive cough producing clear sputum. She also states that she is having hard time getting a deep breath. On her IS this morning she was not able to show Volume inhaled. Patient up this morn
--- NOTE | 2020-07-17 08:46 | PM.IMPN ---
Progress Note: A&P Assessment and Plan (1) Acute hypoxemic respiratory failure: Code(s): J96.01 - Acute respiratory failure with hypoxia Status: Acute Assessment and Plan: Covid positive 07/11/20 Increased oxygen demand Oxymizer at 10L sating 98%. ABG showed PaO2 43.4 with a saturation of 82.3. Chest xray increasing pneumonia, Pulmonary consult recommendation appreciated Azithromycin and ceftriaxone for prophylactic coverage Convalescent plasma also ordered and pending CTA completed and showed no PE, but did show furthering pneumonia Continuous Pulsox cardiac monitoring for increase respiratory problems 40mg of lasix Desaturation with activity. No reports of nausea, vomiting. weakness noted: PT/OT ordered encourage movement Increase glucose: Sliding scale was increased Dehydration: Encourage PO intake Prophylactic Lovenox (2) COVID-19: Code(s): U07.1 - COVID-19 Status: Acute Assessment and Plan: See plan above (3) Pneumonia due to 2019-nCoV: Code(s): U07.1 - COVID-19; J12.82 - Pneumonia due to coronavirus disease 2019 Status: Acute Assessment and Plan: Covid pneumonia noted on CT and Chest xray Shortness of breath with exertion Increased O2 demands. ABG show low PaO2 and saturation No reported nausea or vomiting remedesvir Day 4 and steroids Day 4, well complete for 10 day course per pulmonology Supplemental oxygen if needed to maintain saturations above 90% (4) Nausea & vomiting: Code(s): R11.2 - Nausea with vomiting, unspecified Status: Acute Assessment and Plan: No nausea or vomiting noted PRN Zofran ordered Tolerating diet (5) Hyperglycemia, drug-induced: Code(s): R73.9 - Hyperglycemia, unspecified; T50.905A - Adverse effect of unspecified drugs, medicaments and biological substances, initial encounter Status: Acute Assessment and Plan: Glucose elevated high sliding scale ordered Most likely medication induced from steroids Trend glucose Diet changed to diabetic diet (6) Hypokalemia, inadequate intake: Code(s): E87.6 - Hypokalemia Status: Acute Assessment and Plan: Potassium 3.6 today replace as needed (7) Hypertension: Code(s): I10 - Essential (primary) hypertension Status: Acute Assessment and Plan: Blood pressure elevated at 185/88 Trend blood pressure Educate patient about salt intake Time Spent With Patient Time: 60 minutes spent at bedside managing oxygen, saturation, and stabilizing patient Time with patient: Greater than 35 minutes Subjective Date/time seen: 07/17/20 08:46 Patient is an 80-year-old female who came in originally for nausea vomiting and dehydration. Patient has not needed oxygen for the last couple days yesterday evening patient was placed on 2 L. Today she was increased 3 L. patient states that she feels worse today, and just can't get head. Patient denies shortness of breath, chest pain, nausea, vomiting, abdominal pain, numbness and tingling, or abnormal swelling. Patient does admit to weakness and fatigue and a productive cough producing clear sputum. She also states that she is having hard time getting a deep breath. On her IS this morning she was not able to show Volume inhaled. Patient up this morning for breakfast sitting on the side of the bed for breakfast SpO2 while sitting was 80 %. Oxygen was increased to 6 L ABG was taken. PA O2 on ABG was 43.4 with an O2 sat of 82.3 patients switched to Oxymizer. Continuous pulse ox was ordered and chest x-ray. Chest xray showed increasing pneumonia. 07/17/20 1444: Rechecked patient and told her the results from her CTA which showed no PE. Currently patient is sitting in chair just finishing her lunch. She is on 3 L sating about 93%. BMP was elevated at 617 and patient was given 40mg of lasix
[2020-07-17 08:47] LABS: Base Excess ABG 8.3 mEq/l (+/-2.0); Carboxyhemoglobin 0.3 % THb (0-2.0); Fractional Inspired Oxygen 44 %; HCO3 ABG 32.8 mEq/l (22.0-26.0); Methemoglobin ABG 0.3 %THb (0-1.5); Oxygen Content ABG 15.3 %vol (16.0-22.0); Oxyhemoglobin 82.8 % THb (90.0-100.0); PO2 FiO2 Ratio Arterial Blood 0.99 %; Reduced Hemoglobin 16.6 %THb (0-5.0); Total Hemoglobin 13.2 g/dL (12.0-18.0); pH ABG 7.481 (7.350-7.450)
[2020-07-17 08:48] LABS: PO2 ABG 43.4 mmHg (80.0-100.0)
[2020-07-17 08:49] LABS: Device NASAL CANNULA; Modified Allen's Test Pass; Oxygen Saturation ABG 82.3 % (95.0-100.0); Site Drawn RIGHT RADIAL
--- NOTE | 2020-07-17 10:19 | PM.CNPUL ---
Assessment and Plan Assessment and plan (1) Pneumonia due to 2019-nCoV: Code(s): U07.1 - COVID-19; J12.82 - Pneumonia due to coronavirus disease 2019 Status: Acute Assessment and Plan: Patient tested positive for COVID-19 on 07/11 and started on remdesivir on 07/14, Dexamethasone started 07/14. Convalescent plasma ordered 07/17. Emperically started on ceftriaxone and azithromycin on 07/17. - Remdesivir 100 mg for total 10 days - Dexamethasone 6 mg IV for total 10 days - Continuous pulse oximetry - attempt Prone positioning as tolerated. - Avoid any fluid overload, lasix 40 IV today on 07/17. Check BNP now. - emperic azithromycin and ceftraixone for CAP. -Obtain echo to assess LV function on 07/18. - Check D dimer and if positive CTA to exclude PE. 04/19 patient is 13 L nasal cannula with sats 95%. Goal saturations are 90-94% and will utilize nasal cannula oxygen to achieve this. If faile high flow NC at 15L then high-flow NC with airvo, if fails then BiPAP, and if fails then mechanical ventilation. Family Two discuss level of care including BiPAP, mechanical ventilation and ACLS later this afternoon. full code for now Will follow with you. (2) Acute hypoxemic respiratory failure: Code(s): J96.01 - Acute respiratory failure with hypoxia Status: Acute Assessment and Plan: patient with acute hypoxemic respiratory failure likely from COVID pneumonia. As above I will empirically treat for community-acquired pneumonia pending blood cultures and assess for pulmonary embolism. 07/14 14:15 on nasal cannula 2 L oxygen with saturations 92% 07/15 at 7:45 a.m. room air saturations were 94% 07/16 at 8:00 a.m. room air saturations were 90%. Patient had desaturations with physical therapy to 84% on room air and was placed on 3 L cannula at 2:15 p.m. with saturations 96%. 07/17 at 8:43 a.m. patient had a blood gas on 6 L nasal cannula oxygen with a pH of 7.48/45/44. Patient was increased to 13 L high flow nasal cannula with saturations 95%. Goal saturations 90-94%. History of Present Illness History of Present Illness Consult date: 07/17/20 Requesting physician: Suresh Haq APN-C Reason for consult: hypoxemia and other (COVID pneumonia) Chief complaint: acute respiratory w hypoxia covid 19,pneumonia, Narrative: This is a new patient consult for COVID pneumonia with hypoxemic respiratory failure. Patient is an 80-year-old female with a history of hypothyroidism who tested positive for COVID antigen on 07/11/2020. Patient presented to the hospital on 07/14 with nausea vomiting, minimal shortness of breath, a chest x-ray that showed scattered bilateral infiltrates, a blood gas that was with a pH of 7.47/37/57 on room air, a CT scan of the abdomen that demonstrated diffuse alveolar multifocal infiltrates in the lower lung emanuel and no abdominal pathology. Patient was placed on nasal cannula 2 L oxygen with saturations 92% and admitted to the floor. Remdesivir and dexamethasone were started on 07/14. on 07/15 at 7:45 a.m. room air saturations were 94%. On 07/16 at 8:00 a.m. room air saturations were 90%. Patient had desaturations with physical therapy to 84% on room air and was placed on 3 L cannula at 2:15 p.m. with saturations 96%. On 07/17 at 0 8:43 a.m. patient had a blood gas on 6 L nasal cannula oxygen with a pH of 7.48/45/44. Patient was increased to 13 L high flow nasal cannula with saturations 95%. 07/17 when I spoke to the patient this morning she is complaining of some mild shortness of breath. She denies any chest pain. She does produce a minimal amount of clear phlegm. Patient denies hemoptysis. Patient has no specific complaints of chest pain. Chest x-ray obtained this morning demonstrates increased bilateral interstitial and alveolar infiltrates since 07/14/2020. I spoke with the patient and the patient's family regarding convalescent plasma and they are in agreement to initiate that treatment today
[2020-07-17] MEDS: FUROSEMIDE INJ 40 MG/4 ML VIAL IV PUSH (10:20)
[2020-07-17 11:07] LABS: D Dimer 0.89 ug/mL (<0.48)
[2020-07-17 11:13] LABS: NT Pro B Type Natriuretic Pept 617 pg/mL (5-100)
--- NOTE | 2020-07-17 11:45 | PCOTNOTE ---
Patient declined treatment this date due to increased fatigue and pending medical procedure. Per nursing, patient had bedrest orders with bedside commode privileges and receiving high flow O2 due to desat with activity.
--- NOTE | 2020-07-17 11:48 | PC.NURSE ---
Patient to CTA per bed.
--- NOTE | 2020-07-17 12:01 | PC.NURSE ---
Patient returned from CTA per bed.
[2020-07-17 13:06] LABS: Glucose Point of Care 341 (65-105)
[2020-07-17 16:36] LABS: Glucose Point of Care 390 (65-105)
[2020-07-17] MEDS: REMDESIVIR 100 MG/NS 250 ML 100 MG/250 ML BAG 250 MG IVPB (20:52)
[2020-07-17 22:15] LABS: Glucose Point of Care 242 (65-105)
[2020-07-18] VITALS (32 sets, daily range): BP systolic 144–197; BP diastolic 66–108; PULSE 76–111; RESP 16–32; TEMP 36.3–36.9; O2SAT 83–98
[2020-07-18] MEDS: ALBUTEROL SULFATE NEB 2.5 MG/0.5 ML INH 5 MG INHALATION ×3 (01:44→20:32)
[2020-07-18] MEDS: IPRATROPIUM BR 0.02% INH SOLN 0.5 MG/2.5 ML VIAL INHALATION ×3 (01:44→20:32)
[2020-07-18] MEDS: MAG HYDROX/AL HYDROX/SIMETH 30 ML UDC PO (05:31)
[2020-07-18] MEDS: hydrALAZINE HCL 20 MG/ML VIAL 10 MG IV PUSH (05:36)
[2020-07-18] MEDS: SODIUM CHLORIDE 0.9% IV 250 ML 30 ML IV CONT (05:40)
[2020-07-18] MEDS: LEVOTHYROXINE SODIUM 100 MCG TABLET PO (05:42)
[2020-07-18 06:10] LABS: Hematocrit 37.7 % (37.0-47.0); Hemoglobin 12.4 g/dL (12.0-15.0); Mean Corpuscular HGB Conc 32.9 g/dl (32-36); Mean Corpuscular Hemoglobin 28.4 pg (26-34); Mean Corpuscular Volume 86.5 fl (80-100); Mean Platelet Volume 9.8 fl (7.4-10.4); Platelet Count Result 360 k/mm3 (150-375); Red Blood Count 4.36 M/mm3 (4.2-5.4); Red Cell Distribution Width 12.7 % (11.5-14.5); White Blood Count 8.8 K/mm3 (4.5-10.0)
[2020-07-18 06:23] LABS: Prothrombin Time 13.6 Seconds (11.1-14.7)
[2020-07-18 06:29] LABS: Alanine Aminotransferase 28 U/L (4-35); Albumin Level 3.3 g/dL (3.5-5.1); Alkaline Phosphatase 58 U/L (38-126); Aspartate Amino Transferase 40 U/L (14-36); Bilirubin,Total 0.6 mg/dL (0.2-1.3); Blood Urea Nitrogen 14 mg/dL (7-17); Calcium 8.1 mg/dL (8.4-10.2); Carbon Dioxide > 40 mmol/L (22-30); Chloride 91 mmol/L (98-107); Estimated CRCL calculation 80 ml/min; Estimated Glomerular Filt Rate > 60; Glucose 255 mg/dL (65-105); Phosphorus 2.7 mg/dL (2.5-4.5); Potassium 3.3 mmol/L (3.4-5.0); Sodium 134 mmol/L (137-145)
[2020-07-18] MEDS: ENOXAPARIN 40 MG/0.4 ML SYRINGE SUB-Q (08:03)
[2020-07-18] MEDS: FUROSEMIDE INJ 40 MG/4 ML VIAL IV PUSH ×2 (08:03→18:18)
[2020-07-18] MEDS: DEXAMETHASONE SOD PHOS INJ 4 MG/ML VIAL 6 MG IV PUSH (08:03)
[2020-07-18] MEDS: POTASSIUM CHLORIDE 20 MEQ PACKET (FOR LIQUID) 40 MEQ PO (08:03)
[2020-07-18 08:05] LABS: Glucose Point of Care 281 (65-105)
[2020-07-18] MEDS: MAGNESIUM HYDROXIDE SUSP 30 ML UDC PO (08:08)
--- NOTE | 2020-07-18 08:09 | PC.NURSE ---
Patient has had increased O2 demand with activity. She has been between 1-15 lpm via high flow NC. While sleeping, she required O2 as low as 2 lpm with an SpO2 of 97% (with desats, snores, signs of sleep apnea). O2 was often turned up with even minor activity like coughing or using the commode. At 0440, hospitalist was called for an elevated BP per automatic cuff, confirmed by manual BP by RN. A telephone order for hydralazine was placed PRN for elevated BP's. Arvin, a laborer wharf called at 2250 saying there was a crack in the bag of her ordered plasma. A replacement was called in at 0435 for an already thawed bag of plasma. Convalescent plasma was tolerated well though she complained of increased anxiety and was indecisive about needing the commode while receiving it. She had some urinary hesitancy afterward when she agreed to use the commode.
[2020-07-18] MEDS: INSULIN ASPART (*BKC) 100 UNITS/ML SUB-Q ×4 (08:20→18:37)
--- NOTE | 2020-07-18 08:33 | PM.PNPUL ---
Progress Note: A&P Assessment and Plan (1) Pneumonia due to 2019-nCoV: Code(s): U07.1 - COVID-19; J12.82 - Pneumonia due to coronavirus disease 2019 Status: Acute Assessment and Plan: Patient tested positive for COVID-19 on 07/11 and started on remdesivir on 07/14, Dexamethasone started 07/14. Convalescent plasma ordered 07/17. Emperically started on ceftriaxone and azithromycin on 07/17. - Remdesivir 100 mg for total 10 days - Dexamethasone 6 mg IV for total 10 days - Continuous pulse oximetry - attempt Prone positioning as tolerated. - Avoid any fluid overload, lasix 40 IV today on 07/17. Check BNP now. - emperic azithromycin and ceftraixone for CAP. -Obtain echo to assess LV function on 07/18. - Check D dimer and if positive CTA to exclude PE. 07/17 patient is 13 L nasal cannula with sats 95%. Goal saturations are 90-94% and will utilize nasal cannula oxygen to achieve this. If faile high flow NC at 15L then high-flow NC with airvo, if fails then BiPAP, and if fails then mechanical ventilation. Family to discuss level of care including BiPAP, mechanical ventilation and ACLS later this afternoon. full code for now. D dimer 0.89, CTA without PE but with worsening bilateral interstitial and alveolar infiltrates from 07/14. BNP 617 and diuresed 2500 with lasix 40 IV. 07/18 Remdesivir day 5, dexamethasone day 5, given convalescent plasma today at 05:00, ceftraixone and azithro Day 2 (blood cultures 07/14 negative X 2, blood X 2 from 07/17 pending). Echo today. Will follow with you. (2) Acute hypoxemic respiratory failure: Code(s): J96.01 - Acute respiratory failure with hypoxia Status: Acute Assessment and Plan: patient with acute hypoxemic respiratory failure likely from COVID pneumonia. As above I will empirically treat for community-acquired pneumonia pending blood cultures and assess for pulmonary embolism. 07/14 14:15 on nasal cannula 2 L oxygen with saturations 92% 07/15 at 7:45 a.m. room air saturations were 94% 07/16 at 8:00 a.m. room air saturations were 90%. Patient had desaturations with physical therapy to 84% on room air and was placed on 3 L cannula at 2:15 p.m. with saturations 96%. 07/17 at 8:43 a.m. patient had a blood gas on 6 L nasal cannula oxygen with a pH of 7.48/45/44. Patient was increased to 13 L high flow nasal cannula with saturations 95%. 07/18 at 07:00 on NC 10 L with sats 95% (per nurse at bedside, charting in EMR is incorrect). Decreased to 8L NC and ssats now 91%. Wean as tolerated. Goal saturations 90-94%. Subjective Date/time seen: 07/18/20 08:33 Interval history: Patient is an 80-year-old female with a history of hypothyroidism who tested positive for COVID antigen on 07/11/2020. Patient presented to the hospital on 07/14 with nausea vomiting, minimal shortness of breath, a chest x-ray that showed scattered bilateral infiltrates, a blood gas that was with a pH of 7.47/37/57 on room air, a CT scan of the abdomen that demonstrated diffuse alveolar multifocal infiltrates in the lower lung emanuel and no abdominal pathology. Patient was placed on nasal cannula 2 L oxygen with saturations 92% and admitted to the floor. Remdesivir and dexamethasone were started on 07/14. on 07/15 at 7:45 a.m. room air saturations were 94%. On 07/16 at 8:00 a.m. room air saturations were 90%. Patient had desaturations with physical therapy to 84% on room air and was placed on 3 L cannula at 2:15 p.m. with saturations 96%. 07/17 at 0 8:43 a.m. patient had a blood gas on 6 L nasal cannula oxygen with a pH of 7.48/45/44. Patient was increased to 13 L high flow nasal cannula with saturations 95%. 07/17 when I spoke to the patient this morning she is complaining of some mild shortness of breath. She denies any chest pain. She does produce a minimal amount of clear phlegm. Patient denies hemoptysis. Patient has no specific complaints of chest pain. Chest x-ray obtained this morning demonstrates increas
--- NOTE | 2020-07-18 09:45 | PCPTNOTE ---
PT held this A.M. due to change in medical status with increased O2 needs. PT will await further orders to resume.
[2020-07-18] MEDS: DOCUSATE SODIUM 100 MG CAPSULE PO ×2 (09:59→18:36)
[2020-07-18 12:23] LABS: Glucose Point of Care 302 (65-105)
--- NOTE | 2020-07-18 13:26 | P.PNIM_ITS ---
Progress Note: A&P Assessment and Plan (1) Acute hypoxemic respiratory failure: Code(s): J96.01 - Acute respiratory failure with hypoxia Status: Acute Assessment and Plan: * Covid positive 07/11/20 * Transfer to IMU * Increased oxygen demand Oxymizer at 15L sating 90%. Patient placed on Airvo 60L 100% sating 98% * Wean Oxygen to maintain saturation above 90% * Chest xray increasing pneumonia, Pulmonary consult recommendation appreciated * Azithromycin and ceftriaxone for prophylactic coverage * Convalescent plasma (07/17/20) * CTA completed and showed no PE, but did show furthering pneumonia * Continuous Pulsox * cardiac monitoring for increase respiratory problems * 40mg of lasix * Desaturation with activity. * No reports of nausea, vomiting. * weakness noted: PT/OT ordered encourage movement * Increase glucose: Sliding scale was increased * Dehydration: Encourage PO intake * Prophylactic Lovenox (2) COVID-19: Code(s): U07.1 - COVID-19 Status: Acute Assessment and Plan: * See plan above (3) Pneumonia due to 2019-nCoV: Code(s): U07.1 - COVID-19; J12.82 - Pneumonia due to coronavirus disease 2019 Status: Acute Assessment and Plan: * Covid pneumonia noted on CT and Chest xray * Shortness of breath with exertion * Increased O2 demands. ABG show low PaO2 and saturation * No reported nausea or vomiting * remedesvir Day 5 and steroids Day 5, will complete for 10 day course per pulmonology * Supplemental oxygen if needed to maintain saturations above 90% (4) Nausea & vomiting: Code(s): R11.2 - Nausea with vomiting, unspecified Status: Acute Assessment and Plan: * No nausea or vomiting noted * PRN Zofran ordered * Tolerating diet (5) Hyperglycemia, drug-induced: Code(s): R73.9 - Hyperglycemia, unspecified; T50.905A - Adverse effect of unspecified drugs, medicaments and biological substances, initial encounter Status: Acute Assessment and Plan: * Glucose elevated high sliding scale ordered * Add 3 unit of aspart before meals * Most likely medication induced from steroids * Trend glucose * Diet changed to diabetic diet (6) Hypokalemia, inadequate intake: Code(s): E87.6 - Hypokalemia Status: Acute Assessment and Plan: * Potassium 3.3 today * Likely from the lasix * Replaced with 40mcq PO (7) Hypertension: Code(s): I10 - Essential (primary) hypertension Status: Acute Assessment and Plan: * Blood pressure elevated at 155/77 * Trend blood pressure * Educate patient about salt intake * Diuresing patient Subjective Date/time seen: 07/18/20 13:26 Patient is an 80-year-old female with past medical history of hypothyroid who presented to the ED after finding out that she was COVID positive for nausea and vomiting. Patient was rehydrated and was doing well on room air. Yesterday patient had increased demand for oxygen which reached 13 L high-flow cannula. She was titrated down to 2 L. Today initial exam she was on 8 L high-flow cannula with complaints of constipation shortness of breath and slight abdominal pain. Upon re-examination patient was then on 15 L high-flow cannula and being transitioned to Airvo at its 60 L 100%. Patient was only sating 91%. Patient was then transferred to IMU and air was continued on airvo
--- NOTE | 2020-07-18 13:26 | PM.IMPN ---
Progress Note: A&P Assessment and Plan (1) Acute hypoxemic respiratory failure: Code(s): J96.01 - Acute respiratory failure with hypoxia Status: Acute Assessment and Plan: Covid positive 07/11/20 Transfer to IMU Increased oxygen demand Oxymizer at 15L sating 90%. Patient placed on Airvo 60L 100% sating 98% Wean Oxygen to maintain saturation above 90% Chest xray increasing pneumonia, Pulmonary consult recommendation appreciated Azithromycin and ceftriaxone for prophylactic coverage Convalescent plasma (07/17/20) CTA completed and showed no PE, but did show furthering pneumonia Continuous Pulsox cardiac monitoring for increase respiratory problems 40mg of lasix Desaturation with activity. No reports of nausea, vomiting. weakness noted: PT/OT ordered encourage movement Increase glucose: Sliding scale was increased Dehydration: Encourage PO intake Prophylactic Lovenox (2) COVID-19: Code(s): U07.1 - COVID-19 Status: Acute Assessment and Plan: See plan above (3) Pneumonia due to 2019-nCoV: Code(s): U07.1 - COVID-19; J12.82 - Pneumonia due to coronavirus disease 2019 Status: Acute Assessment and Plan: Covid pneumonia noted on CT and Chest xray Shortness of breath with exertion Increased O2 demands. ABG show low PaO2 and saturation No reported nausea or vomiting remedesvir Day 5 and steroids Day 5, will complete for 10 day course per pulmonology Supplemental oxygen if needed to maintain saturations above 90% (4) Nausea & vomiting: Code(s): R11.2 - Nausea with vomiting, unspecified Status: Acute Assessment and Plan: No nausea or vomiting noted PRN Zofran ordered Tolerating diet (5) Hyperglycemia, drug-induced: Code(s): R73.9 - Hyperglycemia, unspecified; T50.905A - Adverse effect of unspecified drugs, medicaments and biological substances, initial encounter Status: Acute Assessment and Plan: Glucose elevated high sliding scale ordered Add 3 unit of aspart before meals Most likely medication induced from steroids Trend glucose Diet changed to diabetic diet (6) Hypokalemia, inadequate intake: Code(s): E87.6 - Hypokalemia Status: Acute Assessment and Plan: Potassium 3.3 today Likely from the lasix Replaced with 40mcq PO (7) Hypertension: Code(s): I10 - Essential (primary) hypertension Status: Acute Assessment and Plan: Blood pressure elevated at 155/77 Trend blood pressure Educate patient about salt intake Diuresing patient Subjective Date/time seen: 07/18/20 13:26 Patient is an 80-year-old female with past medical history of hypothyroid who presented to the ED after finding out that she was COVID positive for nausea and vomiting. Patient was rehydrated and was doing well on room air. Yesterday patient had increased demand for oxygen which reached 13 L high-flow cannula. She was titrated down to 2 L. Today initial exam she was on 8 L high-flow cannula with complaints of constipation shortness of breath and slight abdominal pain. Upon re-examination patient was then on 15 L high-flow cannula and being transitioned to Airvo at its 60 L 100%. Patient was only sating 91%. Patient was then transferred to IMU and air was continued on airvo. Airvo was weaned down to 30 L and 85%. Patient stated that she was feeling a little better. At this time patient denied chest pain, shortness of breath, nausea, vomiting, diarrhea, constipation, numbness and tingling, or headache. Patient did state that she felt that her abdomen is a little bit distended and that she had a bowel movement prior to being moved to her new room. She also admits to feeling warm, but does not feel as she did this morning. Prior to examination 40 mg of Lasix was ordered and given to the patient. Per nursing staff
--- NOTE | 2020-07-18 13:37 | PCOTNOTE ---
Per RN hold Occupational Therapy treatment for today 07/18/2020 due to increased O2 needs, will follow.
[2020-07-18 17:04] LABS: Glucose Point of Care 319 (65-105)
[2020-07-18 21:16] LABS: Glucose Point of Care 291 (65-105)
[2020-07-18] MEDS: INSULIN GLARGINE (*BKC) 100 UNITS/ML 14 UNITS SUB-Q (21:21)
[2020-07-18] MEDS: REMDESIVIR 100 MG/NS 250 ML 100 MG/250 ML BAG 250 MG IVPB (21:21)
[2020-07-18] MEDS: ONDANSETRON INJ 4 MG/2 ML VIAL IV PUSH (22:34)
[2020-07-19] VITALS (26 sets, daily range): BP systolic 137–184; BP diastolic 69–89; PULSE 79–105; RESP 16–24; TEMP 35.6–36.7; O2SAT 87–98
[2020-07-19] MEDS: IPRATROPIUM BR 0.02% INH SOLN 0.5 MG/2.5 ML VIAL INHALATION ×4 (02:27→20:48)
[2020-07-19] MEDS: ALBUTEROL SULFATE NEB 2.5 MG/0.5 ML INH 5 MG INHALATION ×4 (02:27→20:48)
[2020-07-19 05:09] LABS: Hematocrit 36.5 % (37.0-47.0); Hemoglobin 12.1 g/dL (12.0-15.0); Mean Corpuscular HGB Conc 33.2 g/dl (32-36); Mean Corpuscular Hemoglobin 29.5 pg (26-34); Mean Platelet Volume 9.7 fl (7.4-10.4); Platelet Count Result 387 k/mm3 (150-375); Red Cell Distribution Width 12.9 % (11.5-14.5)
[2020-07-19 05:11] LABS: Alveolar/Arterial O2 Gradient 191.6 mmHg; Base Excess ABG 14.6 mEq/l (+/-2.0); Fractional Inspired Oxygen 44 %; HCO3 ABG 39.2 mEq/l (22.0-26.0); Oxygen Content ABG 17.3 %vol (16.0-22.0); Oxyhemoglobin 93.4 % THb (90.0-100.0); PCO2 ABG 47.9 mmHg (35.0-45.0); PO2 ABG 67.5 mmHg (80.0-100.0); PO2 FiO2 Ratio Arterial Blood 1.53 %; Total Hemoglobin 13.2 g/dL (12.0-18.0)
[2020-07-19 05:15] LABS: Device HIGH FLOW NASAL CANN; Modified Allen's Test Pass; Site Drawn RIGHT RADIAL; pH ABG 7.531 (7.350-7.450)
[2020-07-19 05:18] LABS: INR 1.1; Prothrombin Time 14.4 Seconds (11.1-14.7)
[2020-07-19 05:29] LABS: Alanine Aminotransferase 24 U/L (4-35); Blood Urea Nitrogen 17 mg/dL (7-17); Calcium 7.8 mg/dL (8.4-10.2); Carbon Dioxide > 40 mmol/L (22-30); Chloride 90 mmol/L (98-107); Estimated CRCL calculation 59 ml/min; Estimated Glomerular Filt Rate > 60; Glucose 198 mg/dL (65-105); Potassium 3.3 mmol/L (3.4-5.0); Sodium 134 mmol/L (137-145)
[2020-07-19] MEDS: LEVOTHYROXINE SODIUM 100 MCG TABLET PO (06:06)
[2020-07-19 07:07] LABS: Glucose Point of Care 191 (65-105)
--- NOTE | 2020-07-19 07:13 | ECHO_ITS ---
Patient Info Name: Heike Prescott Age: 80 years : 1940 Gender: Female Ht: 62 in Wt: 208 lbs BSA: 2.08 m2 HR: 100 bpm BP: 174 / 82 mmHg Technical Quality: Fair Exam Date: 07/19/2020 8:46 AM Exam Location: [facility] Patient Status: Inpatient Admit Date: 07/15/2020 Staff Ordering Physician: Lester Mccarty MD Health Program Manager: Anna Attending Provider: Radha Stephens MD Referring Physician: Lul RUSH; Exam Type: CA echo doppler w bubble study Study Info Indications J96.91 - Respiratory failure, unspecified with hypoxia Complete two-dimensional, color flow and Doppler transthoracic echocardiogram is performed with agitated saline. Summary 1. Left ventricular chamber dimension is normal. 2. Left ventricular systolic function is normal, estimated at 65-70%. 3. There is mildly increased left ventricular wall thickness. 4. The left ventricular diastolic function is grade I diastolic dysfunction. 5. E/e '19 is elevated. 6. The aortic valve is not well visualized. Cannot determine number of aortic valve leaflets. 7. There is mild to moderate aortic valve stenosis based on a peak velocity of 243 cm/s, mean gradient of 17 mmHg, and aortic valve area of 1.5 cm2. 8. There is mild aortic valve sclerosis. 9. The mitral valve has moderately calcified annulus. 10. No pulmonary hypertension, estimated pulmonary arterial systolic pressure is 15 mmHg. Left Ventricle E/e '19 is elevated. Left ventricular chamber dimension is normal. Left ventricular systolic function is normal, estimated at 65-70%. There is mildly increased left ventricular wall thickness. The left ventricular diastolic function is grade I diastolic dysfunction. Right Ventricle Right ventricular chamber dimension is normal. Right ventricular systolic function is normal. Left Atria Left atrial chamber dimension is normal. Right Atria Right atrial chamber dimension is normal. Atrial Septum Agitated saline injection with and without valsalva maneuver opacified right cardiac chambers without shunt to left cardiac chambers. Intact interatrial septum visualized by agitated saline imaging. Aortic Valve The aortic valve is not well visualized. Cannot determine number of aortic valve leaflets. There is mild to moderate aortic valve stenosis based on a peak velocity of 243 cm/s, mean gradient of 17 mmHg, and aortic valve area of 1.5 cm2. There is mild aortic valve sclerosis. There is no aortic valve regurgitation. Pulmonic Valve There is no pulmonic regurgitation. Mitral Valve The mitral valve has moderately calcified annulus. There is no mitral valve stenosis. There is no mitral valve regurgitation. Tricuspid Valve There is no tricuspid valve regurgitation. No pulmonary hypertension, estimated pulmonary arterial systolic pressure is 15 mmHg. Pericardium/Pleural There is no pericardial effusion. Inferior Vena Cava Normal inferior vena cava with >50% collapse upon inspiration consistent with normal right atrial pressure, 5 mmHg. Aorta The aortic root size at the sinus of Valsalva is normal. Left Ventricular Outflow Tract Name Value Normal LVOT 2D LVOT Diameter 1.7 cm LVOT Do
--- NOTE | 2020-07-19 08:12 | P.PNIM_ITS ---
Progress Note: A&P Assessment and Plan (1) Acute hypoxemic respiratory failure: Code(s): J96.01 - Acute respiratory failure with hypoxia Status: Acute Assessment and Plan: * Covid positive 07/11/20 * Increased oxygen demand Oxymizer at 6L sating 93%. * Wean Oxygen to maintain saturation above 90% * Chest xray increasing pneumonia, Pulmonary consult recommendation appreciated * Azithromycin and ceftriaxone for prophylactic coverage * Blood cultures show no growth Day 2 * Will discontinue antibiotics if no growth on cultures. * Convalescent plasma (07/17/20) * CTA completed and showed no PE, but did show furthering pneumonia * Continuous Pulsox * cardiac monitoring for increase respiratory problems * 40mg of lasix BID * Desaturation with activity. * weakness noted: PT/OT ordered encourage movement * Glucose is better controlled. * Dehydration: Encourage PO intake * Prophylactic Lovenox (2) COVID-19: Code(s): U07.1 - COVID-19 Status: Acute Assessment and Plan: * See plan above (3) Pneumonia due to 2019-nCoV: Code(s): U07.1 - COVID-19; J12.82 - Pneumonia due to coronavirus disease 2019 Status: Acute Assessment and Plan: * Covid pneumonia noted on CT and Chest xray * Shortness of breath with exertion * Increased O2 demands. ABG show PaO2 67.5 and saturation 95% * No reported nausea or vomiting * remedesvir Day 6 and steroids Day 6, will complete for 10 day course per pulmonology * Supplemental oxygen if needed to maintain saturations above 90% (4) Nausea & vomiting: Code(s): R11.2 - Nausea with vomiting, unspecified Status: Acute Assessment and Plan: * No nausea or vomiting noted * PRN Zofran ordered * Tolerating diet (5) Hyperglycemia, drug-induced: Code(s): R73.9 - Hyperglycemia, unspecified; T50.905A - Adverse effect of unspecified drugs, medicaments and biological substances, initial encounter Status: Acute Assessment and Plan: * Glucose this am was 191 * Glucose elevated high sliding scale ordered * Add 3 unit of aspart before meals * Most likely medication induced from steroids * Trend glucose * Diet changed to diabetic diet (6) Hypokalemia, inadequate intake: Code(s): E87.6 - Hypokalemia Status: Acute Assessment and Plan: * Potassium 3.3 today * Likely from the lasix * Replaced with 40mcq PO * Recheck K at 1400 (7) Hypertension: Qualifiers: Hypertension type: unspecified secondary hypertension Qualified Code(s): I15.9 - Secondary hypertension, unspecified Code(s): I10 - Essential (primary) hypertension Status: Acute Assessment and Plan: * Blood pressure elevated at 184/70 * Trend blood pressure * Educate patient about salt intake * Diuresing patient * Start patient on 5 of lisinopril Time Spent With Patient Time with patient: 15 - 25 minutes Subjective Date/time seen: 07/19/20 08:12 Patient is an 80 year old female with history of hypothyroidism that originally came to the ED with complaints of nausea vomiting. Since admission patient has been requiring oxygen. With her maximum demand being 15 L nasal cannula transition to Airvo of 60 L 100%. She was transferred to IMU yesterday for the increased oxygen needs. Since the patient has been weaned down to 6 L nasal c
--- NOTE | 2020-07-19 08:12 | PM.PNPUL ---
Progress Note: A&P Assessment and Plan (1) Pneumonia due to 2019-nCoV: Code(s): U07.1 - COVID-19; J12.82 - Pneumonia due to coronavirus disease 2019 Status: Acute Assessment and Plan: Patient tested positive for COVID-19 on 07/11 and started on remdesivir on 07/14, Dexamethasone started 07/14. Convalescent plasma ordered 07/17. Emperically started on ceftriaxone and azithromycin on 07/17. - Remdesivir 100 mg for total 10 days - Dexamethasone 6 mg IV for total 10 days - Continuous pulse oximetry - attempt Prone positioning as tolerated. - Avoid any fluid overload, lasix 40 IV today on 07/17. Check BNP now. - emperic azithromycin and ceftraixone for CAP. -Obtain echo to assess LV function on 07/18. - Check D dimer and if positive CTA to exclude PE. 07/17 patient is 13 L nasal cannula with sats 95%. Goal saturations are 90-94% and will utilize nasal cannula oxygen to achieve this. If faile high flow NC at 15L then high-flow NC with airvo, if fails then BiPAP, and if fails then mechanical ventilation. Family to discuss level of care including BiPAP, mechanical ventilation and ACLS later this afternoon. full code for now. D dimer 0.89, CTA without PE but with worsening bilateral interstitial and alveolar infiltrates from 07/14. BNP 617 and diuresed 2500 with lasix 40 IV. 07/18 Remdesivir day 5, dexamethasone day 5, given convalescent plasma today at 05:00, ceftraixone and azithro Day 2 (blood cultures 07/14 negative X 2, blood X 2 from 07/17 pending). Echo today. 07/19 Patient states she is a little better today. Day 08/18 remdesivir, day 08/18 dexamethsone. Echo to exclude alternative etiologies of hypoxia. Blood cultures 07/17 negative, if remain negative will DC ceftraixone and azithromycin on 07/19. I have informed the patient that she is receiving maximal recommended medical therapy for COVID pneumonia at this time and that we hope she can continue to slowly improve with time. I explained that if she recovers, the recovery will be slow and likely take months. No additional pulmonary specific recommendations at this time. (2) Acute hypoxemic respiratory failure: Code(s): J96.01 - Acute respiratory failure with hypoxia Status: Acute Assessment and Plan: patient with acute hypoxemic respiratory failure likely from COVID pneumonia. As above I will empirically treat for community-acquired pneumonia pending blood cultures and assess for pulmonary embolism. 07/14 14:15 on nasal cannula 2 L oxygen with saturations 92% 07/15 at 7:45 a.m. room air saturations were 94% 07/16 at 8:00 a.m. room air saturations were 90%. Patient had desaturations with physical therapy to 84% on room air and was placed on 3 L cannula at 2:15 p.m. with saturations 96%. 07/17 at 8:43 a.m. patient had a blood gas on 6 L nasal cannula oxygen with a pH of 7.48/45/44. Patient was increased to 13 L high flow nasal cannula with saturations 95%. 07/18 at 07:00 on NC 10 L with sats 95% (per nurse at bedside, charting in EMR is incorrect). Decreased to 8L NC and sats now 91%. Required high flow for 3 hours later in day (45L and 83%), then on high flow NC at 6L remainder of day.. 07/19 at 08:00 on NC 6 L with sats 90%. ABG on 6L 7.53/48/68. Desats with activity. Wean as tolerated. Goal saturations 90-94%. Will need home O2 assessment and overnight oximetry prior to discharge to determine appropriate oxygen requirements. Will need CXR prior to discharge to serve as discharge baseline . Discussed wtih Suresh Haq, will sign off, please call with any questions. Subjective Date/time seen: 07/19/20 08:12 Interval history: Patient is an 80-year-old female with a history of hypothyroidism who tested positive for COVID antigen on 07/11/2020. Patient presented to the hospital on 07/14 with nausea vomiting, minimal shortness of breath, a chest x-ray that showed scattered bilateral infiltrates, a blood gas that was with a pH of 7.47/37/57 on room air, a CT scan of
--- NOTE | 2020-07-19 08:12 | PM.IMPN ---
Progress Note: A&P Assessment and Plan (1) Acute hypoxemic respiratory failure: Code(s): J96.01 - Acute respiratory failure with hypoxia Status: Acute Assessment and Plan: Covid positive 07/11/20 Increased oxygen demand Oxymizer at 6L sating 93%. Wean Oxygen to maintain saturation above 90% Chest xray increasing pneumonia, Pulmonary consult recommendation appreciated Azithromycin and ceftriaxone for prophylactic coverage Blood cultures show no growth Day 2 Will discontinue antibiotics if no growth on cultures. Convalescent plasma (07/17/20) CTA completed and showed no PE, but did show furthering pneumonia Continuous Pulsox cardiac monitoring for increase respiratory problems 40mg of lasix BID Desaturation with activity. weakness noted: PT/OT ordered encourage movement Glucose is better controlled. Dehydration: Encourage PO intake Prophylactic Lovenox (2) COVID-19: Code(s): U07.1 - COVID-19 Status: Acute Assessment and Plan: See plan above (3) Pneumonia due to 2019-nCoV: Code(s): U07.1 - COVID-19; J12.82 - Pneumonia due to coronavirus disease 2019 Status: Acute Assessment and Plan: Covid pneumonia noted on CT and Chest xray Shortness of breath with exertion Increased O2 demands. ABG show PaO2 67.5 and saturation 95% No reported nausea or vomiting remedesvir Day 6 and steroids Day 6, will complete for 10 day course per pulmonology Supplemental oxygen if needed to maintain saturations above 90% (4) Nausea & vomiting: Code(s): R11.2 - Nausea with vomiting, unspecified Status: Acute Assessment and Plan: No nausea or vomiting noted PRN Zofran ordered Tolerating diet (5) Hyperglycemia, drug-induced: Code(s): R73.9 - Hyperglycemia, unspecified; T50.905A - Adverse effect of unspecified drugs, medicaments and biological substances, initial encounter Status: Acute Assessment and Plan: Glucose this am was 191 Glucose elevated high sliding scale ordered Add 3 unit of aspart before meals Most likely medication induced from steroids Trend glucose Diet changed to diabetic diet (6) Hypokalemia, inadequate intake: Code(s): E87.6 - Hypokalemia Status: Acute Assessment and Plan: Potassium 3.3 today Likely from the lasix Replaced with 40mcq PO Recheck K at 1400 (7) Hypertension: Qualifiers: Hypertension type: unspecified secondary hypertension Qualified Code(s): I15.9 - Secondary hypertension, unspecified Code(s): I10 - Essential (primary) hypertension Status: Acute Assessment and Plan: Blood pressure elevated at 184/70 Trend blood pressure Educate patient about salt intake Diuresing patient Start patient on 5 of lisinopril Time Spent With Patient Time with patient: 15 - 25 minutes Subjective Date/time seen: 07/19/20 08:12 Patient is an 80 year old female with history of hypothyroidism that originally came to the ED with complaints of nausea vomiting. Since admission patient has been requiring oxygen. With her maximum demand being 15 L nasal cannula transition to Airvo of 60 L 100%. She was transferred to IMU yesterday for the increased oxygen needs. Since the patient has been weaned down to 6 L nasal cannula where she stabilized and is sating 93%. Patient stated she is feeling better today admits to shortness of breath, weakness, fatigue. Patient stated that she would prefer to get out of bed. Patient also states that her abdomen is better than yesterday. She also states she has an increased appetite and would like to eat oatmeal. Patient denies chest pain, worsening cough, nausea, vomiting, constipation, diarrhea, abdominal pain, numbness and tingling, headache, or syncope dizziness. Patient currently has a urinary catheter for strict I&Os. Patient has been giv
[2020-07-19] MEDS: DEXAMETHASONE SOD PHOS INJ 4 MG/ML VIAL 6 MG IV PUSH (08:19)
[2020-07-19] MEDS: FUROSEMIDE INJ 40 MG/4 ML VIAL IV PUSH ×2 (08:19→16:18)
[2020-07-19] MEDS: DOCUSATE SODIUM 100 MG CAPSULE PO ×2 (08:20→16:18)
[2020-07-19] MEDS: ENOXAPARIN 40 MG/0.4 ML SYRINGE SUB-Q (08:20)
[2020-07-19] MEDS: INSULIN ASPART (*BKC) 100 UNITS/ML SUB-Q ×5 (08:23→18:11)
[2020-07-19] MEDS: POTASSIUM CHLORIDE 20 MEQ TABLET 40 MEQ PO (08:56)
[2020-07-19] MEDS: ONDANSETRON INJ 4 MG/2 ML VIAL IV PUSH (11:13)
[2020-07-19 11:25] LABS: Glucose Point of Care 321 (65-105)
[2020-07-19] MEDS: lisinopriL 5 MG TABLET PO (12:29)
[2020-07-19 14:16] LABS: Blood Urea Nitrogen 17 mg/dL (7-17); Calcium 7.8 mg/dL (8.4-10.2); Carbon Dioxide > 40 mmol/L (22-30); Chloride 87 mmol/L (98-107); Estimated CRCL calculation 59 ml/min; Estimated Glomerular Filt Rate > 60; Glucose 342 mg/dL (65-105); Potassium 3.9 mmol/L (3.4-5.0); Sodium 130 mmol/L (137-145)
[2020-07-19] MEDS: POTASSIUM CHLORIDE 20 MEQ PACKET (FOR LIQUID) 40 MEQ PO (15:11)
[2020-07-19 16:42] LABS: Glucose Point of Care 303 (65-105)
[2020-07-19 20:27] LABS: Glucose Point of Care 349 (65-105)
[2020-07-19] MEDS: REMDESIVIR 100 MG/NS 250 ML 100 MG/250 ML BAG 250 MG IVPB (21:30)
[2020-07-19] MEDS: INSULIN GLARGINE (*BKC) 100 UNITS/ML 14 UNITS SUB-Q (21:31)
[2020-07-20] VITALS (22 sets, daily range): BP systolic 132–148; BP diastolic 57–80; PULSE 74–102; RESP 18–26; TEMP 36.4–36.7; O2SAT 82–97
[2020-07-20] MEDS: IPRATROPIUM BR 0.02% INH SOLN 0.5 MG/2.5 ML VIAL INHALATION ×4 (02:36→20:16)
[2020-07-20] MEDS: ALBUTEROL SULFATE NEB 2.5 MG/0.5 ML INH 5 MG INHALATION ×4 (02:36→20:16)
[2020-07-20 05:06] LABS: Hematocrit 38.8 % (37.0-47.0); Hemoglobin 12.5 g/dL (12.0-15.0); Mean Corpuscular HGB Conc 32.2 g/dl (32-36); Mean Corpuscular Hemoglobin 28.8 pg (26-34); Mean Corpuscular Volume 89.4 fl (80-100); Mean Platelet Volume 9.4 fl (7.4-10.4); Platelet Count Result 415 k/mm3 (150-375); Red Blood Count 4.34 M/mm3 (4.2-5.4); White Blood Count 10.3 K/mm3 (4.5-10.0)
[2020-07-20 05:21] LABS: INR 1.1
[2020-07-20 05:27] LABS: Alanine Aminotransferase 22 U/L (4-35); Albumin Level 3.2 g/dL (3.5-5.1); Alkaline Phosphatase 51 U/L (38-126); Aspartate Amino Transferase 33 U/L (14-36); Bilirubin,Total 0.5 mg/dL (0.2-1.3); Blood Urea Nitrogen 21 mg/dL (7-17); Calcium 8.1 mg/dL (8.4-10.2); Carbon Dioxide > 40 mmol/L (22-30); Chloride 91 mmol/L (98-107); Estimated CRCL calculation 59 ml/min; Estimated Glomerular Filt Rate > 60; Glucose 184 mg/dL (65-105); Magnesium 2.2 mg/dL (1.6-2.3); Potassium 3.9 mmol/L (3.4-5.0); Sodium 133 mmol/L (137-145)
[2020-07-20] MEDS: LEVOTHYROXINE SODIUM 100 MCG TABLET PO (05:57)
--- NOTE | 2020-07-20 08:31 | P.PNIM_ITS ---
Progress Note: A&P Assessment and Plan (1) Acute hypoxemic respiratory failure: Code(s): J96.01 - Acute respiratory failure with hypoxia Status: Acute Assessment and Plan: * Covid positive 07/11/20 * Increased oxygen demand Oxymizer at 10L sating 92%., Currently 4L NC sating 96% * Did desat overnight to 82%, oxygen was increased * Wean Oxygen to maintain saturation above 90% * Chest xray increasing pneumonia, Will repeat today * Pulmonary consult recommendation appreciated * Azithromycin and ceftriaxone will discontinue * Blood cultures show no growth * Convalescent plasma (07/17/20) * CTA completed and showed no PE, but did show furthering pneumonia * Continuous Pulsox * cardiac monitoring for increase respiratory problems * 40mg of lasix, recieved a total of 5 doses * Diamox 500 IV one time for increased HCO3 and PaCO2 Will repeat one more dose * BMP at 1400, CO2 34 * Will repeat ABG at 1400, showed HCO3 29.1, PaCO2 43.9 * weakness noted: PT/OT ordered, Up to chair with meals for 2hr minimum * Glucose: is more elevated. Increased lantus from 14 to 20 HS, and Aspart 7 units with meals * Dehydration: Encourage PO intake * Prophylactic Lovenox: will increase dose to 40mg BID for covid, and increased time in bed. (2) COVID-19: Code(s): U07.1 - COVID-19 Status: Acute Assessment and Plan: * See plan above (3) Pneumonia due to 2019-nCoV: Code(s): U07.1 - COVID-19; J12.82 - Pneumonia due to coronavirus disease 2019 Status: Acute Assessment and Plan: * Covid pneumonia noted on CT and Chest xray * Shortness of breath with exertion * Increased O2 demands. ABG show PaO2 67.5 and saturation 95% will repeat today * No reported vomiting, however, has nausea Zofran 4mg IV PRN * remedesvir Day 7 and steroids Day 7, will complete for 10 day course per pulmonology * Supplemental oxygen if needed to maintain saturations above 90% (4) Nausea & vomiting: Code(s): R11.2 - Nausea with vomiting, unspecified Status: Acute Assessment and Plan: * No vomiting noted, however did report nausea * PRN Zofran ordered * One time Reglan 10mg IV * Tolerating diet (5) Hyperglycemia, drug-induced: Code(s): R73.9 - Hyperglycemia, unspecified; T50.909U - Adverse effect of unspecified drugs, medicaments and biological substances, initial encounter Status: Acute Assessment and Plan: * Glucose this am was 184 per labs, 303-349 with POC * Glucose elevated high sliding scale ordered * Add 7 unit of aspart before meals * Most likely medication induced from steroids * Trend glucose * Diet changed to diabetic diet (6) Hypokalemia, inadequate intake: Code(s): E87.6 - Hypokalemia Status: Acute Assessment and Plan: * Potassium 3.9 today * Likely from the Lasix, Lasix DC'd * Replaced with 40mcq KCL PO * trend Potassium replace as needed (7) Hypertension: Qualifiers: Hypertension type: unspecified secondary hypertension Qualified Code(s): I15.9 - Secondary hypertension, unspecified Code(s): I10 - Essential (primary) hypertension Status: Acute Assessment and Plan: * Blood pressure currently 132/80 * Trend blood pressure * Educate patient about salt intake * Continue patient on 5mg of lisinopril PO Subjective Date/chriss
--- NOTE | 2020-07-20 08:31 | PM.IMPN ---
Progress Note: A&P Assessment and Plan (1) Acute hypoxemic respiratory failure: Code(s): J96.01 - Acute respiratory failure with hypoxia Status: Acute Assessment and Plan: Covid positive 07/11/20 Increased oxygen demand Oxymizer at 10L sating 92%., Currently 4L NC sating 96% Did desat overnight to 82%, oxygen was increased Wean Oxygen to maintain saturation above 90% Chest xray increasing pneumonia, Will repeat today Pulmonary consult recommendation appreciated Azithromycin and ceftriaxone will discontinue Blood cultures show no growth Convalescent plasma (07/17/20) CTA completed and showed no PE, but did show furthering pneumonia Continuous Pulsox cardiac monitoring for increase respiratory problems 40mg of lasix, recieved a total of 5 doses Diamox 500 IV one time for increased HCO3 and PaCO2 Will repeat one more dose BMP at 1400, CO2 34 Will repeat ABG at 1400, showed HCO3 29.1, PaCO2 43.9 weakness noted: PT/OT ordered, Up to chair with meals for 2hr minimum Glucose: is more elevated. Increased lantus from 14 to 20 HS, and Aspart 7 units with meals Dehydration: Encourage PO intake Prophylactic Lovenox: will increase dose to 40mg BID for covid, and increased time in bed. (2) COVID-19: Code(s): U07.1 - COVID-19 Status: Acute Assessment and Plan: See plan above (3) Pneumonia due to 2019-nCoV: Code(s): U07.1 - COVID-19; J12.82 - Pneumonia due to coronavirus disease 2019 Status: Acute Assessment and Plan: Covid pneumonia noted on CT and Chest xray Shortness of breath with exertion Increased O2 demands. ABG show PaO2 67.5 and saturation 95% will repeat today No reported vomiting, however, has nausea Zofran 4mg IV PRN remedesvir Day 7 and steroids Day 7, will complete for 10 day course per pulmonology Supplemental oxygen if needed to maintain saturations above 90% (4) Nausea & vomiting: Code(s): R11.2 - Nausea with vomiting, unspecified Status: Acute Assessment and Plan: No vomiting noted, however did report nausea PRN Zofran ordered One time Reglan 10mg IV Tolerating diet (5) Hyperglycemia, drug-induced: Code(s): R73.9 - Hyperglycemia, unspecified; T50.905A - Adverse effect of unspecified drugs, medicaments and biological substances, initial encounter Status: Acute Assessment and Plan: Glucose this am was 184 per labs, 303-349 with POC Glucose elevated high sliding scale ordered Add 7 unit of aspart before meals Most likely medication induced from steroids Trend glucose Diet changed to diabetic diet (6) Hypokalemia, inadequate intake: Code(s): E87.6 - Hypokalemia Status: Acute Assessment and Plan: Potassium 3.9 today Likely from the Lasix, Lasix DC'd Replaced with 40mcq KCL PO trend Potassium replace as needed (7) Hypertension: Qualifiers: Hypertension type: unspecified secondary hypertension Qualified Code(s): I15.9 - Secondary hypertension, unspecified Code(s): I10 - Essential (primary) hypertension Status: Acute Assessment and Plan: Blood pressure currently 132/80 Trend blood pressure Educate patient about salt intake Continue patient on 5mg of lisinopril PO Subjective Date/time seen: 07/20/20 08:31 Patient is 80-year-old female with a past medical history of hypothyroidism who presented originally with COVID-19 nausea vomiting. Patient continues to require oxygen this morning she was 10 L Oxymizer and still sating 92%. Yesterday patient remained at 6 L however overnight desated down to 82% and required increased oxygen. Met with respiratory this morning about IPAP therapy. And short IPAP therapy will help increase PEEP palpitation take deeper breaths. Patient does report feeling about the same this a.m. Patient denies chest pain, vomiting, davian
[2020-07-20] MEDS: INSULIN ASPART (*BKC) 100 UNITS/ML 7 UNITS SUB-Q ×3 (08:47→18:54)
[2020-07-20] MEDS: DOCUSATE SODIUM 100 MG CAPSULE PO ×2 (08:47→16:11)
[2020-07-20] MEDS: ENOXAPARIN 40 MG/0.4 ML SYRINGE SUB-Q (08:48)
[2020-07-20] MEDS: DEXAMETHASONE SOD PHOS INJ 4 MG/ML VIAL 6 MG IV PUSH (08:48)
[2020-07-20] MEDS: lisinopriL 5 MG TABLET PO (08:48)
[2020-07-20] MEDS: acetaZOLAMIDE SODIUM FOR INJ 500 MG VIAL IV PUSH (08:54)
[2020-07-20] MEDS: MAGNESIUM HYDROXIDE SUSP 30 ML UDC PO (08:54)
[2020-07-20 08:55] LABS: Glucose Point of Care 154 (65-105)
[2020-07-20] MEDS: WATER, STERILE FOR INJECTION 10 ML VIAL XX (08:58)
[2020-07-20] MEDS: INSULIN ASPART (*BKC) 100 UNITS/ML SUB-Q (12:50)
[2020-07-20] MEDS: BISACODYL 5 MG TABLET EC PO (12:53)
[2020-07-20 12:56] LABS: Glucose Point of Care 258 (65-105)
[2020-07-20] MEDS: METOCLOPRAMIDE HCL INJ 10 MG/2 ML VIAL IV PUSH (13:34)
[2020-07-20 13:58] LABS: Anion Gap 5 mmol/L (8-16); Blood Urea Nitrogen 22 mg/dL (7-17); Calcium 8.6 mg/dL (8.4-10.2); Carbon Dioxide 34 mmol/L (22-30); Chloride 92 mmol/L (98-107); Estimated CRCL calculation 46 ml/min; Estimated Glomerular Filt Rate 60; Glucose 329 mg/dL (65-105); Potassium 4.3 mmol/L (3.4-5.0); Sodium 131 mmol/L (137-145)
[2020-07-20 14:22] LABS: Alveolar/Arterial O2 Gradient 133.7 mmHg; Base Excess ABG 4.3 mEq/l (+/-2.0); Fractional Inspired Oxygen 36 %; HCO3 ABG 29.1 mEq/l (22.0-26.0); Oxygen Content ABG 18.8 %vol (16.0-22.0); Oxyhemoglobin 93.4 % THb (90.0-100.0); PCO2 ABG 43.9 mmHg (35.0-45.0); PO2 ABG 72.1 mmHg (80.0-100.0); Total Hemoglobin 14.3 g/dL (12.0-18.0); pH ABG 7.439 (7.350-7.450)
[2020-07-20 14:23] LABS: Device NASAL CANNULA; Modified Allen's Test Pass; Site Drawn LEFT RADIAL
--- NOTE | 2020-07-20 17:13 | PC.NURSE ---
This patient, Heike Prescott, was transferred to [[id number] ] on 07/20/20 at 1714. Personal belongings sent with patient. Report given to [[phone]]. Appropriate documentation sent with patient.
[2020-07-20 17:38] LABS: Glucose Point of Care 173 (65-105)
[2020-07-20] MEDS: REMDESIVIR 100 MG/NS 250 ML 100 MG/250 ML BAG 250 MG IVPB (21:07)
[2020-07-20] MEDS: INSULIN GLARGINE (*BKC) 100 UNITS/ML 20 UNITS SUB-Q (21:15)
[2020-07-20 23:06] LABS: Glucose Point of Care 278 (65-105)
[2020-07-21] VITALS (18 sets, daily range): BP systolic 128–150; BP diastolic 61–68; PULSE 80–104; RESP 18–24; TEMP 36.2–37.2; O2SAT 90–97
[2020-07-21] MEDS: ALBUTEROL SULFATE NEB 2.5 MG/0.5 ML INH 5 MG INHALATION ×4 (03:15→20:12)
[2020-07-21] MEDS: IPRATROPIUM BR 0.02% INH SOLN 0.5 MG/2.5 ML VIAL INHALATION ×4 (03:15→20:12)
[2020-07-21 06:22] LABS: Hemoglobin 12.7 g/dL (12.0-15.0); Mean Corpuscular HGB Conc 32.6 g/dl (32-36); Mean Corpuscular Hemoglobin 28.5 pg (26-34); Mean Corpuscular Volume 87.6 fl (80-100); Mean Platelet Volume 9.3 fl (7.4-10.4); Platelet Count Result 439 k/mm3 (150-375); Red Blood Count 4.45 M/mm3 (4.2-5.4); Red Cell Distribution Width 13.1 % (11.5-14.5)
[2020-07-21] MEDS: LEVOTHYROXINE SODIUM 100 MCG TABLET PO (06:24)
[2020-07-21 06:33] LABS: Alanine Aminotransferase 23 U/L (4-35); Albumin Level 3.2 g/dL (3.5-5.1); Alkaline Phosphatase 50 U/L (38-126); Anion Gap 4 mmol/L (8-16); Aspartate Amino Transferase 34 U/L (14-36); Bilirubin,Total 0.5 mg/dL (0.2-1.3); Blood Urea Nitrogen 25 mg/dL (7-17); Calcium 8.6 mg/dL (8.4-10.2); Carbon Dioxide 33 mmol/L (22-30); Chloride 96 mmol/L (98-107); Estimated CRCL calculation 50 ml/min; Estimated Glomerular Filt Rate > 60; Glucose 142 mg/dL (65-105); Potassium 3.5 mmol/L (3.4-5.0); Sodium 133 mmol/L (137-145)
[2020-07-21 06:40] LABS: INR 1.1; Prothrombin Time 14.4 Seconds (11.1-14.7)
[2020-07-21 07:40] LABS: Glucose Point of Care 129 (65-105)
[2020-07-21] MEDS: INSULIN ASPART (*BKC) 100 UNITS/ML 7 UNITS SUB-Q ×3 (09:05→18:30)
[2020-07-21] MEDS: acetaZOLAMIDE SODIUM FOR INJ 500 MG VIAL IV PUSH (10:04)
[2020-07-21] MEDS: DEXAMETHASONE SOD PHOS INJ 4 MG/ML VIAL 6 MG IV PUSH (10:05)
[2020-07-21] MEDS: DOCUSATE SODIUM 100 MG CAPSULE PO ×2 (10:05→18:30)
[2020-07-21] MEDS: ENOXAPARIN 40 MG/0.4 ML SYRINGE SUB-Q (10:05)
[2020-07-21] MEDS: lisinopriL 5 MG TABLET PO (10:06)
--- NOTE | 2020-07-21 10:25 | PM.IMPN ---
Progress Note: A&P Assessment and Plan (1) Acute hypoxemic respiratory failure: Code(s): J96.01 - Acute respiratory failure with hypoxia Status: Acute Assessment and Plan: Covid Ag positive 07/11/20. Increased oxygen demand but now down 3L NC. Echo showing EF 65-70% with Grade I diastolic dysfunction and mild-moderate aortic stenosis. CTA Chest 07/19 showing no PE but extensive combination of groundglass opacification and consolidation, consistent with widespread pneumonia. Wean Oxygen to maintain saturation above 90%. Pulmonary consult recommendation appreciated. BCx / negative; BCx 07/17 NGTD. Azithromycin and ceftriaxone stopped. Convalescent plasma given 07/17/20. Diamox 500 IV given x 2 doses. Continue PT/OT. WBC 13K now. COntinue to monitor for now (2) Pneumonia due to 2019-nCoV: Code(s): U07.1 - COVID-19; J12.82 - Pneumonia due to coronavirus disease 2019 Status: Acute Assessment and Plan: Patient with SARS CoV-2 Ag positive on 07/11/20. She was admitted 07/14 for nausea vomiting. Initially was on room air but uultimately required HFNC 45L/min at 83%. Covid pneumonia noted on CT and Chest xray on admission. Was treated with Lasix IV bid for 5 doses. O2 requirement down to 3L. Remedesvir Day 8 and steroids Day 8, will complete for 10 day course per pulmonology. Wean supplemental oxygen to maintain saturations above 90% (3) Nausea & vomiting: Code(s): R11.2 - Nausea with vomiting, unspecified Status: Acute Assessment and Plan: Symptoms better after BM yesterday but recurrent with nausea today. No vomiting. Continue scheduled Colace. Continue to have PRN Zofran ordered (4) Diabetes mellitus: Code(s): E11.9 - Type 2 diabetes mellitus without complications Status: Acute Assessment and Plan: Patient has hx of pre-diabetes with A1c 6.4. A1c now is 7.2. The patient's blood glucose was reviewed on 07/21 Glucose better controlled and was 142 this morning. Complicated by the need for steroids. Hold on Metformin because still has some mild nausea. Continue AccuCheks covering with sliding scale. Hypoglycemia protocol available as needed. Continue current medications with Lantus 20U and Novolog 7U TID. Continue diabetic diet. (5) Hypokalemia, inadequate intake: Code(s): E87.6 - Hypokalemia Status: Acute Assessment and Plan: Resolved. Potassium 3.5 today. (6) Hypertension: Qualifiers: Hypertension type: unspecified secondary hypertension Qualified Code(s): I15.9 - Secondary hypertension, unspecified Code(s): I10 - Essential (primary) hypertension Status: Acute Assessment and Plan: Blood pressure reviewed on 07/21 Blood pressure remains well controlled. Will continue current medications of 5mg of lisinopril. (7) DVT prophylaxis: Code(s): Z29.9 - Encounter for prophylactic measures, unspecified Status: Acute Assessment and Plan: Prophylactic Lovenox Subjective Date/time seen: 07/21/20 10:25 Interval history: 80-year-old female with a history of hypothyroidism who tested positive for COVID antigen on 07/11/2020 who presented to the hospital on 07/14 with nausea, vomiting, minimal shortness of breath and hypoxia. Patient slept well last night. She was up to the chair for breakfast earlier but now back to bed and feels tired. No CP. SOB better. Still with cough productive of green-brown sputum at times. No hemoptysis. Exam Narrative: Exam Narrative: AF 97.2 134/67 87 18 92% 3L HFNC Gen - NARD sitting up in bed Chest - few bibasilar inspiratory crackles, nml RR CV - RRR S1/S2; Tele showing no significnat dyrhythmias Abd - Soft, NT/ND, Positive BS - Hunt secured draining clear yellow urine Ext - No pedal edema Psych - Nml mood and affect Skin - Warm and dry Objective Data Vital Signs Vital Signs: Vital Signs - 24 hr 07/20/20 10:52
[2020-07-21 11:57] LABS: Glucose Point of Care 158 (65-105)
[2020-07-21 17:07] LABS: Glucose Point of Care 145 (65-105)
[2020-07-21] MEDS: REMDESIVIR 100 MG/NS 250 ML 100 MG/250 ML BAG 250 MG IVPB (22:32)
[2020-07-21] MEDS: INSULIN GLARGINE (*BKC) 100 UNITS/ML 20 UNITS SUB-Q (22:49)
[2020-07-22] VITALS (22 sets, daily range): BP systolic 138–158; BP diastolic 56–66; PULSE 67–101; RESP 16–22; TEMP 36.6–37.1; O2SAT 85–97
[2020-07-22 02:08] LABS: Glucose Point of Care 176 (65-105)
[2020-07-22] MEDS: IPRATROPIUM BR 0.02% INH SOLN 0.5 MG/2.5 ML VIAL INHALATION ×4 (02:15→20:44)
[2020-07-22] MEDS: ALBUTEROL SULFATE NEB 2.5 MG/0.5 ML INH 5 MG INHALATION ×4 (02:15→20:45)
[2020-07-22] MEDS: LEVOTHYROXINE SODIUM 100 MCG TABLET PO (05:39)
[2020-07-22 07:10] LABS: Basophils Absolute Auto 0.1 K/mm3 (0.0-0.1); Basophils Percent Auto 0.5 % (0.2-1.2); Eosinophils Percent Auto 0.3 % (0-4.4); Hematocrit 38.6 % (37.0-47.0); Hemoglobin 12.8 g/dL (12.0-15.0); Immature Granulocyte Absolute 0.54 K/mm3 (0.00-0.031); Immature Granulocyte Percent A 4.4 % (0-0.5); Lymphocytes Absolute Auto 1.62 K/mm3 (0.9-3.2); Lymphocytes Percent Auto 13.2 % (18.3-44.2); Mean Corpuscular HGB Conc 33.2 g/dl (32-36); Mean Corpuscular Hemoglobin 29.2 pg (26-34); Mean Corpuscular Volume 87.9 fl (80-100); Mean Platelet Volume 9.5 fl (7.4-10.4); Monocytes Absolute Auto 0.5 K/mm3 (0.1-0.6); Neutrophils Absolute Auto 9.5 K/mm3 (1.3-6.7); Neutrophils Percent Auto 77.6 % (45.5-73.1); Platelet Count Result 406 k/mm3 (150-375); Red Blood Count 4.39 M/mm3 (4.2-5.4); Red Cell Distribution Width 13.2 % (11.5-14.5); White Blood Count 12.3 K/mm3 (4.5-10.0)
[2020-07-22 07:20] LABS: INR 1.1; Prothrombin Time 14.4 Seconds (11.1-14.7)
[2020-07-22 08:15] LABS: Glucose Point of Care 124 (65-105)
[2020-07-22] MEDS: DEXAMETHASONE SOD PHOS INJ 4 MG/ML VIAL 6 MG IV PUSH (10:10)
[2020-07-22] MEDS: lisinopriL 5 MG TABLET PO (10:10)
[2020-07-22] MEDS: ENOXAPARIN 40 MG/0.4 ML SYRINGE SUB-Q (10:10)
[2020-07-22] MEDS: INSULIN ASPART (*BKC) 100 UNITS/ML 7 UNITS SUB-Q ×3 (10:12→17:56)
[2020-07-22] MEDS: DOCUSATE SODIUM 100 MG CAPSULE PO ×2 (10:13→17:56)
[2020-07-22 10:46] LABS: Alanine Aminotransferase 22 U/L (4-35); Anion Gap 4 mmol/L (8-16); Blood Urea Nitrogen 30 mg/dL (7-17); Calcium 8.6 mg/dL (8.4-10.2); Carbon Dioxide 29 mmol/L (22-30); Chloride 99 mmol/L (98-107); Estimated CRCL calculation 45 ml/min; Estimated Glomerular Filt Rate 60; Glucose 131 mg/dL (65-105); Potassium 3.5 mmol/L (3.4-5.0); Sodium 132 mmol/L (137-145)
--- NOTE | 2020-07-22 11:38 | PCNWS ---
Weekly nutritional screen. Patient is tolerating current diet with adequate intake. No weight loss reported. No nutritional needs at this time.
--- NOTE | 2020-07-22 11:54 | PCNSR ---
On 07/22/20, the student, Neelam Franco, provided care and completed [facility] documentation on this patient. I have reviewed the student's documentation and agree with the findings.
[2020-07-22 11:56] LABS: Glucose Point of Care 200 (65-105)
--- NOTE | 2020-07-22 12:38 | PM.IMPN ---
Progress Note: A&P Assessment and Plan (1) Acute hypoxemic respiratory failure: Code(s): J96.01 - Acute respiratory failure with hypoxia Status: Acute Assessment and Plan: Covid Ag positive 07/11/20. Increased oxygen demand but now down 3L NC. Echo showing EF 65-70% with Grade I diastolic dysfunction and mild-moderate aortic stenosis. CTA Chest 07/19 showing no PE but extensive combination of groundglass opacification and consolidation, consistent with widespread pneumonia. Wean Oxygen to maintain saturation above 90%. Pulmonary consult recommendation appreciated. BCx / negative; BCx 07/17 NGTD. Azithromycin and ceftriaxone stopped. Convalescent plasma given 07/17/20. Diamox 500 IV given x 2 doses. Continue PT/OT. WBC 12K now. COntinue to monitor. Home O2 evaluation for planned discharge tomorrow. Family can stay with patient. She refuses SNF but agrees to . (2) Pneumonia due to 2019-nCoV: Code(s): U07.1 - COVID-19; J12.82 - Pneumonia due to coronavirus disease 2018 Status: Acute Assessment and Plan: Patient with SARS CoV-2 Ag positive on 07/11/20. She was admitted 07/14 for nausea vomiting. Initially was on room air but uultimately required HFNC 45L/min at 83% O2. Covid pneumonia noted on CT and Chest xray on admission. Was treated with Lasix IV bid for 5 doses. O2 requirement down to 3L. Remedesvir Day 9 and steroids Day 9, will complete for 10 day course per pulmonology. Wean supplemental oxygen to maintain saturations above 90%. (3) Nausea & vomiting: Code(s): R11.2 - Nausea with vomiting, unspecified Status: Acute Assessment and Plan: Still with intermittent nausea - medication related?. No vomiting. Continue scheduled Colace. Continue to have PRN Zofran ordered (last dose given was 07/19) (4) Diabetes mellitus: Code(s): E11.9 - Type 2 diabetes mellitus without complications Status: Acute Assessment and Plan: Patient has hx of pre-diabetes with A1c 6.4. A1c now is 7.2. The patient's blood glucose was reviewed on 07/22 Glucose better controlled and was 131 this morning. Complicated by the need for steroids. Hold on Metformin because still has some mild nausea. Continue AccuCheks covering with sliding scale. Hypoglycemia protocol available as needed. Continue current medications with Lantus 20U and Novolog 7U TID but will probably stop once off the steroids. Continue diabetic diet. (5) Hypokalemia, inadequate intake: Code(s): E87.6 - Hypokalemia Status: Acute Assessment and Plan: Resolved. Potassium 3.5 again today. (6) Hypertension: Qualifiers: Hypertension type: unspecified secondary hypertension Qualified Code(s): I15.9 - Secondary hypertension, unspecified Code(s): I10 - Essential (primary) hypertension Status: Acute Assessment and Plan: Blood pressure reviewed on 07/22 Blood pressure mildly elevated at times but overall remains well controlled. Will continue current medications of 5mg of lisinopril. (7) DVT prophylaxis: Code(s): Z29.9 - Encounter for prophylactic measures, unspecified Status: Acute Assessment and Plan: Prophylactic Lovenox Subjective Date/time seen: 07/22/20 12:38 Interval history: 80-year-old female with a history of hypothyroidism who tested positive for COVID antigen on 07/11/2020 who presented to the hospital on 07/14 with nausea, vomiting, minimal shortness of breath and hypoxia. Slept off and on last night. SOB better. Minimal assist to get out of chair and with ambulation. Walked to the door this morning. Feels she could do okay at home and refuses SNF. Exam Narrative: Exam Narrative: AF 98.4 158/57 89 18 91% 3L HFNC Gen - NARD sitting up in chair Chest - decreased BS in the left base o/w good air exchange. CV - RRR S1/S2 Abd - Soft, NT/ND, Positive BS Ext - No pedal edema Psych - depressed mood
[2020-07-22 16:53] LABS: Glucose Point of Care 266 (65-105)
--- NOTE | 2020-07-22 17:06 | PCRCNOTE ---
HOME O2 EVAL DONE, PT REQUIRES 3 L REST AND 7 L WITH EXERTION, PT UP FROM BED AND TRANSFERED TO CHAIR FOR DINNER, SATS DROPPED TO 84, DEEP BREATHING ENCOURAGED. CHARGE NURSE NOTIFIED. SAID SHE WILL SPEAK TO
[2020-07-22] MEDS: INSULIN ASPART (*BKC) 100 UNITS/ML SUB-Q (17:57)
--- NOTE | 2020-07-22 18:46 | PC.NURSE ---
nurse Ramesh has been charting telemetry for patient for this shift.
--- NOTE | 2020-07-22 19:00 | PC.NURSE ---
Nurse Ramesh was monitoring telemetry on this patient and charting it during this past 12 hr shift.
[2020-07-22] MEDS: REMDESIVIR 100 MG/NS 250 ML 100 MG/250 ML BAG 250 MG IVPB (19:14)
[2020-07-22 22:08] LABS: Glucose Point of Care 393 (65-105)
[2020-07-22] MEDS: INSULIN GLARGINE (*BKC) 100 UNITS/ML 20 UNITS SUB-Q (22:14)
[2020-07-23] VITALS (17 sets, daily range): BP systolic 139–150; BP diastolic 50–65; PULSE 80–100; RESP 16–24; TEMP 35.9–36.5; O2SAT 91–100
[2020-07-23] MEDS: IPRATROPIUM BR 0.02% INH SOLN 0.5 MG/2.5 ML VIAL INHALATION ×4 (02:26→20:59)
[2020-07-23] MEDS: ALBUTEROL SULFATE NEB 2.5 MG/0.5 ML INH 5 MG INHALATION ×4 (02:26→20:57)
[2020-07-23] MEDS: LEVOTHYROXINE SODIUM 100 MCG TABLET PO (05:51)
[2020-07-23 06:36] LABS: Alanine Aminotransferase 18 U/L (4-35); Estimated CRCL calculation 50 ml/min; Estimated Glomerular Filt Rate > 60
[2020-07-23 06:55] LABS: INR 1.1; Prothrombin Time 15.2 Seconds (11.1-14.7)
[2020-07-23 08:14] LABS: Glucose Point of Care 125 (65-105)
[2020-07-23] MEDS: DEXAMETHASONE SOD PHOS INJ 4 MG/ML VIAL 6 MG IV PUSH (09:04)
[2020-07-23] MEDS: DOCUSATE SODIUM 100 MG CAPSULE PO ×2 (09:05→18:36)
[2020-07-23] MEDS: INSULIN ASPART (*BKC) 100 UNITS/ML 7 UNITS SUB-Q ×3 (09:11→18:34)
[2020-07-23] MEDS: ENOXAPARIN 40 MG/0.4 ML SYRINGE SUB-Q (09:14)
--- NOTE | 2020-07-23 10:27 | PM.IMPN ---
Progress Note: A&P Assessment and Plan (1) Acute hypoxemic respiratory failure: Code(s): J96.01 - Acute respiratory failure with hypoxia Status: Acute Assessment and Plan: Covid Ag positive 07/11/20. Increased oxygen demand but able to get down to 3L NC. Echo showing EF 65-70% with Grade I diastolic dysfunction and mild-moderate aortic stenosis. CTA Chest 07/19 showing no PE but extensive combination of groundglass opacification and consolidation, consistent with widespread pneumonia. Wean oxygen to maintain saturation above 90%. Pulmonary consult recommendation appreciated. BCx 07/14 negative; BCx 07/17 NGTD. Azithromycin and ceftriaxone stopped. Convalescent plasma given 07/17/20. Diamox 500 IV given x 2 doses. Continue PT/OT. Continue to monitor. Home O2 evaluation showing she needs 3L at rest but 7L with activity. She is currently on 7L. She refuses SNF but agrees to HH. CPT started. (2) Pneumonia due to 2019-nCoV: Code(s): U07.1 - COVID-19; J12.82 - Pneumonia due to coronavirus disease 2018 Status: Acute Assessment and Plan: Patient with SARS CoV-2 Ag positive on 07/11/20. She was admitted 07/14 for nausea vomiting. Initially was on room air but ultimately required HFNC 45L/min at 83% O2. Covid pneumonia noted on CT and Chest xray on admission. Was treated with Lasix IV bid for 5 doses. O2 requirement down to 3L but home O2 evaluation showing she needs 7L with exertion. CXR showing much improvement when compared to prior; xray reviewed. Remedesvir Day 10 and steroids Day 10, will stop steroids after today (she received her first dose in the ED). Wean supplemental oxygen to maintain saturations above 90%. (3) Nausea & vomiting: Code(s): R11.2 - Nausea with vomiting, unspecified Status: Acute Assessment and Plan: Nausea better. No vomiting. Continue scheduled Colace. Continue to have PRN Zofran ordered (last dose given was 07/19) (4) Diabetes mellitus: Code(s): E11.9 - Type 2 diabetes mellitus without complications Status: Acute Assessment and Plan: Patient has hx of pre-diabetes with A1c 6.4. A1c now is 7.2. The patient's blood glucose was reviewed on 07/23 Glucose mostly well controlled and was 125 this morning. Complicated by the need for steroids. Nausea better so will start metformin. Continue AccuCheks covering with sliding scale. Hypoglycemia protocol available as needed. Continue current medications with Lantus 20U and Novolog 7U TID but stop after today since she will be off the steroids. Continue diabetic diet. (5) Hypokalemia, inadequate intake: Code(s): E87.6 - Hypokalemia Status: Acute Assessment and Plan: Resolved. Potassium 3.5 yesterday (6) Hypertension: Qualifiers: Hypertension type: unspecified secondary hypertension Qualified Code(s): I15.9 - Secondary hypertension, unspecified Code(s): I10 - Essential (primary) hypertension Status: Acute Assessment and Plan: Blood pressure reviewed on 07/23 Blood pressure mildly elevated at times but overall remains well controlled. Will continue current medications of 5mg of lisinopril. (7) DVT prophylaxis: Code(s): Z29.9 - Encounter for prophylactic measures, unspecified Status: Acute Assessment and Plan: Prophylactic Lovenox Subjective Date/time seen: 07/23/20 10:27 Interval history: 80-year-old female with a history of hypothyroidism who tested positive for COVID antigen on 07/11/2020 who presented to the hospital on 07/14 with nausea, vomiting, minimal shortness of breath and hypoxia. Eating okay. Cough persistent productive of brownish sputum. No hemoptysis. Out of bed to the chair. More hypxoc today. No CP. SOB persistent but no change from yesterday. No n/v. Exam Narrative: Exam Narrative: AF 97.7 148/56 82 20 92% 3L HFNC (on 7L currently) Gen - NARD sitting up in chair C
[2020-07-23 12:26] LABS: Glucose Point of Care 157 (65-105)
[2020-07-23] MEDS: REMDESIVIR 100 MG/NS 250 ML 100 MG/250 ML BAG 250 MG IVPB (12:54)
[2020-07-23] MEDS: lisinopriL 5 MG TABLET PO (13:56)
[2020-07-23 17:21] LABS: Glucose Point of Care 221 (65-105)
[2020-07-23] MEDS: INSULIN ASPART (*BKC) 100 UNITS/ML SUB-Q (18:34)
[2020-07-23] MEDS: metFORMIN HCL 250 MG TABLET PO (18:34)
[2020-07-23] MEDS: DORNASE ALFA INH SOLN 1 MG/ML 2.5 ML AMP 2.5 MG INHALATION (20:57)
[2020-07-23] MEDS: INSULIN GLARGINE (*BKC) 100 UNITS/ML 20 UNITS SUB-Q (22:38)
[2020-07-23 22:52] LABS: Glucose Point of Care 186 (65-105)
[2020-07-24] VITALS (14 sets, daily range): BP systolic 134–150; BP diastolic 60–70; PULSE 87–108; RESP 18–24; TEMP 36.4–36.9; O2SAT 92–97
[2020-07-24] MEDS: ALBUTEROL SULFATE NEB 2.5 MG/0.5 ML INH 5 MG INHALATION ×4 (02:29→20:53)
[2020-07-24] MEDS: IPRATROPIUM BR 0.02% INH SOLN 0.5 MG/2.5 ML VIAL INHALATION ×4 (02:30→20:53)
[2020-07-24] MEDS: LEVOTHYROXINE SODIUM 100 MCG TABLET PO (05:26)
[2020-07-24 07:07] LABS: Hemoglobin 12.1 g/dL (12.0-15.0); Mean Corpuscular HGB Conc 33.6 g/dl (32-36); Mean Corpuscular Hemoglobin 29.4 pg (26-34); Mean Corpuscular Volume 87.6 fl (80-100); Mean Platelet Volume 9.6 fl (7.4-10.4); Platelet Count Result 367 k/mm3 (150-375); Red Blood Count 4.11 M/mm3 (4.2-5.4); Red Cell Distribution Width 13.2 % (11.5-14.5); White Blood Count 13.8 K/mm3 (4.5-10.0)
[2020-07-24 07:16] LABS: Anion Gap 2 mmol/L (8-16); Blood Urea Nitrogen 25 mg/dL (7-17); Calcium 8.3 mg/dL (8.4-10.2); Carbon Dioxide 29 mmol/L (22-30); Chloride 105 mmol/L (98-107); Estimated CRCL calculation 57 ml/min; Estimated Glomerular Filt Rate > 60; Glucose 124 mg/dL (65-105); Sodium 136 mmol/L (137-145)
[2020-07-24 08:08] LABS: Glucose Point of Care 131 (65-105)
[2020-07-24] MEDS: DORNASE ALFA INH SOLN 1 MG/ML 2.5 ML AMP 2.5 MG INHALATION ×2 (08:37→20:54)
[2020-07-24] MEDS: INSULIN ASPART (*BKC) 100 UNITS/ML 7 UNITS SUB-Q ×2 (09:21→11:46)
[2020-07-24] MEDS: lisinopriL 5 MG TABLET PO (09:22)
[2020-07-24] MEDS: metFORMIN HCL 250 MG TABLET PO ×2 (09:22→16:50)
[2020-07-24] MEDS: ENOXAPARIN 40 MG/0.4 ML SYRINGE SUB-Q (09:22)
[2020-07-24] MEDS: LORATADINE 10 MG TABLET PO (09:22)
[2020-07-24] MEDS: DOCUSATE SODIUM 100 MG CAPSULE PO ×2 (09:24→16:52)
[2020-07-24 11:37] LABS: Glucose Point of Care 146 (65-105)
--- NOTE | 2020-07-24 13:51 | PM.IMPN ---
Progress Note: A&P Assessment and Plan (1) Acute hypoxemic respiratory failure: Code(s): J96.01 - Acute respiratory failure with hypoxia Status: Acute Assessment and Plan: COVID Ag positive 07/11/20. Echo showing EF 65-70% with Grade I diastolic dysfunction and mild-moderate aortic stenosis. CTA Chest 07/19 showing no PE but extensive combination of groundglass opacification and consolidation. Increased oxygen demand but able to get down to 3L NC. BCx 07/14 and 07/17 negative. Azithromycin and ceftriaxone stopped. Convalescent plasma given 07/17/20. Diamox 500 IV given x 2 doses. Home O2 evaluation showing she needs 3L at rest but 7L with activity. She refuses SNF but agrees to HH. CPT started. Wean oxygen to maintain saturation above 90%. Pulmonary consult recommendation appreciated. Continue PT/OT. Continue to monitor. (2) Pneumonia due to 2019-nCoV: Code(s): U07.1 - COVID-19; J12.82 - Pneumonia due to coronavirus disease 2018 Status: Acute Assessment and Plan: Patient with SARS CoV-2 Ag positive on 07/11/20. She was admitted 07/14 for nausea vomiting. Initially was on room air but ultimately required HFNC 45L/min at 83% O2. COVID pneumonia noted on CT and Chest xray on admission. Was treated with Lasix IV bid for 5 doses. O2 requirement down to 3L but home O2 evaluation showing she needs 7L with exertion. CXR 07/22 showing much improvement. Completed 10 days of Remedesvir and Dexamethasone on 07/23. Wean supplemental oxygen to maintain saturations above 90%. Repeat home O2 evaluation (3) Nausea & vomiting: Code(s): R11.2 - Nausea with vomiting, unspecified Status: Acute Assessment and Plan: Nausea better. No vomiting. Continue scheduled Colace. Continue to have PRN Zofran ordered (last dose given was 07/19) (4) Diabetes mellitus: Code(s): E11.9 - Type 2 diabetes mellitus without complications Status: Acute Assessment and Plan: Patient has hx of pre-diabetes with A1c 6.4. A1c now is 7.2. The patient's blood glucose was reviewed on 07/24 Glucose well controlled and was 1231 this morning. Complicated by the need for steroids but steroids off now. Will stop Novolog at meal times and cut Lantus dose in half. Continue AccuCheks covering with sliding scale. Hypoglycemia protocol available as needed. Continue diabetic diet. (5) Hypokalemia, inadequate intake: Code(s): E87.6 - Hypokalemia Status: Acute Assessment and Plan: Resolved. Potassium 4 today (6) Hypertension: Qualifiers: Hypertension type: unspecified secondary hypertension Qualified Code(s): I15.9 - Secondary hypertension, unspecified Code(s): I10 - Essential (primary) hypertension Status: Acute Assessment and Plan: Blood pressure reviewed on 07/24 Blood pressure mildly elevated at times but overall remains well controlled - could be related to the steroids. Will continue current medications of 5mg of lisinopril. (7) DVT prophylaxis: Code(s): Z29.9 - Encounter for prophylactic measures, unspecified Status: Acute Assessment and Plan: Prophylactic Lovenox Subjective Date/time seen: 07/24/20 13:51 Interval history: 80-year-old female with a history of hypothyroidism who tested positive for COVID antigen on 07/11/2020 who presented to the hospital on 07/14 with nausea, vomiting, minimal shortness of breath and hypoxia. Cough brown sputum yesterday but light green now. Using the IS and flutter valve. No CP. Exam Narrative: Exam Narrative: AF 97.6 148/60 96 18 96% 3L NC Gen - NARD sitting up in chair Chest - few bibasilar inspiratory crackles CV - RRR S1/S2 Abd - Soft, NT/ND, Positive BS Ext - trace pedal edema. Negative Nivia's sign Psych - depressed mood Skin - Warm and dry Objective Data Vital Signs Vital Signs: Vital Signs - 24 hr 07/23/20 14:00 07/23/20 14:51 07/23/20 1
--- NOTE | 2020-07-24 16:41 | PCOTNOTE ---
Attempt to see Pt for OT tx 2x today. At first attempt, another WASHBURN attempted to see pt however pt was with physical therapy at the time. At 2nd attempt, WASHBURN/L was told from SHEET METAL INSULATOR that patient was eating dinner at this time. Will continue per POC duration/frequency tomorrow.
[2020-07-24 16:46] LABS: Glucose Point of Care 129 (65-105)
[2020-07-24] MEDS: INSULIN GLARGINE (*BKC) 100 UNITS/ML 10 UNITS SUB-Q (21:59)
[2020-07-24 22:11] LABS: Glucose Point of Care 195 (65-105)
[2020-07-25] VITALS (17 sets, daily range): BP systolic 112–134; BP diastolic 59–78; PULSE 84–106; RESP 16–20; TEMP 36.6–37.3; O2SAT 86–99
[2020-07-25] MEDS: IPRATROPIUM BR 0.02% INH SOLN 0.5 MG/2.5 ML VIAL INHALATION ×3 (02:44→14:29)
[2020-07-25] MEDS: ALBUTEROL SULFATE NEB 2.5 MG/0.5 ML INH 5 MG INHALATION ×3 (02:44→14:29)
[2020-07-25] MEDS: LEVOTHYROXINE SODIUM 100 MCG TABLET PO (06:18)
[2020-07-25 08:15] LABS: Glucose Point of Care 90 (65-105)
[2020-07-25] MEDS: ENOXAPARIN 40 MG/0.4 ML SYRINGE SUB-Q (08:18)
[2020-07-25] MEDS: lisinopriL 5 MG TABLET PO (08:18)
[2020-07-25] MEDS: metFORMIN HCL 250 MG TABLET PO ×2 (08:18→17:38)
[2020-07-25] MEDS: LORATADINE 10 MG TABLET PO (08:18)
[2020-07-25] MEDS: DORNASE ALFA INH SOLN 1 MG/ML 2.5 ML AMP 2.5 MG INHALATION (08:51)
--- NOTE | 2020-07-25 10:33 | HOMEO2EVAL ---
Evaluation was performed at [facility] Home Oxygen Evaluation RC: Home Oxygen (O2) Evaluation Start: 07/24/20 14:13 Freq: ONCE Status: Active Protocol: RPE Activity Type Activity Date Activity User E-Sign Co-Sign Detail Recorded Client Recorded Date Recorded By Document 07/25/20 09:45 [email or web address] [email or web address] 07/25/20 10:33 DJO Document 07/25/20 09:50 [email or web address] [email or web address] 07/25/20 10:33 DJO Document 07/25/20 09:55 [email or web address] [email or web address] 07/25/20 10:33 DJO Document 07/25/20 10:00 [email or web address] [email or web address] 07/25/20 10:33 DJO Document 07/25/20 10:05 [email or web address] [email or web address] 07/25/20 10:33 DJO Document 07/25/20 10:10 [email or web address] [email or web address] 07/25/20 10:33 DJO Document 07/25/20 10:25 [email or web address] [email or web address] 07/25/20 10:33 DJO 07/25/20 07/25/20 07/25/20 09:45 09:50 09:55 Home O2 Evaluation Test Phase Resting Resting Resting Oxygen Delivery Room Air Nasal Cannula Nasal Cannula Oxygen Flow Rate (L/min) 1 2 Pulse Oximetry (90-100 %) 86 L 88 L 90 Pulse Rate (60-100 beats/min) 87 85 84 Activity Tolerance Ambulation Distance (feet) Treatment Charges O2 Evaluation - Inpatient 07/25/20 07/25/20 07/25/20 10:00 10:05 10:10 Home O2 Evaluation Test Phase Exercise Exercise Exercise Oxygen Delivery Nasal Cannula Nasal Cannula Nasal Cannula Oxygen Flow Rate (L/min) 2 3 4 Pulse Oximetry (90-100 %) 86 L 88 L 91 Pulse Rate (60-100 beats/min) 102 H 104 H 106 H Activity Tolerance Good Ambulation Distance (feet) 200 Treatment Charges 07/25/20 10:25 Home O2 Evaluation Test Phase Resting Oxygen Delivery Nasal Cannula Oxygen Flow Rate (L/min) 2 Pulse Oximetry (90-100 %) 90 Pulse Rate (60-100 beats/min) 85 Activity Tolerance Ambulation Distance (feet) Treatment Charges
--- NOTE | 2020-07-25 11:17 | PCRCNOTE ---
PT. REQUIRES 2LPM OXYGEN AT REST AND 4LPM WITH ACTIVITY. PT. HAS [employer] INSURANCE. SET PT. UP WITH [facility], REFERENCE SERVICES [facility] WILL DELIVER TANK TODAY. PT. AND DAUGHTER BOTH AWARE. [facility] [phone].
[2020-07-25 12:21] LABS: Glucose Point of Care 165 (65-105)
[2020-07-25 16:25] LABS: Glucose Point of Care 107 (65-105)
--- NOTE | 2020-07-25 16:48 | PM.DS ---
DS: Admitting Diagnosis Admitting Diagnosis Admitting Diagnosis: Nausea and vomiting DS: Discharge Diagnosis Discharge Diagnosis (1) Acute hypoxemic respiratory failure: Code(s): J96.01 - Acute respiratory failure with hypoxia Status: Acute Assessment and Plan: COVID Ag positive 07/11/20. Echo showing EF 65-70% with Grade I diastolic dysfunction and mild-moderate aortic stenosis. CTA Chest 07/19 showing no PE but extensive combination of groundglass opacification and consolidation. Increased oxygen demand but able to get down to 3L NC. BCx 07/14 and 07/17 negative. Azithromycin and ceftriaxone stopped. Convalescent plasma given 07/17/20. Was treated with Lasix IV bid for 5 doses. Diamox 500 IV given x 2 doses. LE venous dopplers ordered due to pedal edema although patient states this happens when she sits too long. She refused the LE dopplers but was on Lovenox during her entire hospital course so DVT less likely (she voiced understanding about not having the ultrasound). Home O2 evaluation showing she needs 3L at rest but 7L with activity so discharge held. She refused SNF but agrees to . CPT started. Repeat Home O2 showing 2L at rest and 4L with exertion now. Home today. (2) Pneumonia due to 2019-nCoV: Code(s): U07.1 - COVID-19; J12.82 - Pneumonia due to coronavirus disease 2019 Status: Acute Assessment and Plan: Patient with SARS CoV-2 Ag positive on 07/11/20. She was admitted 07/14 for nausea vomiting. Initially was on room air but ultimately required HFNC 45L/min at 83% O2. COVID pneumonia noted on CT and Chest xray on admission. O2 requirement down to 3L but initial home O2 evaluation showing she needed 7L with exertion so discharge was held. CXR 07/22 showing much improvement. Completed 10 days of Remedesvir and Dexamethasone on 07/23. She had CPT and other treatments to help improve oxygenation. Repeat home O2 evaluation as above (3) Nausea & vomiting: Code(s): R11.2 - Nausea with vomiting, unspecified Status: Acute Assessment and Plan: Patient presented with nausea and vomiting felt related to COVID. Symptoms improved. Patient eating well. Nml BMs. We had PRN Zofran ordered and last dose given was 6 days before discharge. (4) Diabetes mellitus: Code(s): E11.9 - Type 2 diabetes mellitus without complications Status: Acute Assessment and Plan: Patient has hx of pre-diabetes with A1c 6.4. A1c now is 7.2. The patient's blood glucose was elevated due to the steroids requiring Lantus and Novolog at meal times. She ws monitored closely with AccuCheks covering with sliding scale. Hypoglycemia protocol available as needed. Glucose became better controlled. When steroids were stopped, insulin regiment was stopped as well and she was started on metformin. (5) Hypokalemia, inadequate intake: Code(s): E87.6 - Hypokalemia Status: Acute Assessment and Plan: Potassium low at times to 3.3 and was replaced. Potassium has remained normal majority of her hospital course. (6) Hypertension: Qualifiers: Hypertension type: unspecified secondary hypertension Qualified Code(s): I15.9 - Secondary hypertension, unspecified Code(s): I10 - Essential (primary) hypertension Status: Acute Assessment and Plan: Blood pressure was monitored closely. Blood pressure mildly elevated at times but overall remained well controlled - elevated BP could be related to the steroids. She was treated with 5mg of lisinopril. DS: Summary Hospital Course Reason for hospitalization: 80yo female here for nausea and vomiting found to have COVID. Please see H&P for details. Hospital Course: Please see above for details of hospital course. Status at Discharge Cognitive/behavioral status at discharge: stable Time Spent with Patient Time attestation: Total time spent providing and/or coordinating discharge
== END 2020-07-25 18:05 | disposition home health service (06) | DRG 177 ==
LOC: ANHED 07:41 → ANH3MEDSUR 10:46 → ANHIMU 07-19 18:21 → ANH3MEDSUR 07-20 12:43 → ANHIMU 07-26 15:05
PROVIDERS: Hospitalist; Internal Medicine; Internal Medicine Pulmonary Disease; Nurse Practitioner; Admitting Provider Family Medicine; Emergency Provider Emergency Medicine; PCP Internal Medicine; Visit Provider Internal Medicine
DX: U07.1 COVID-19 (principal); J12.82 Pneumonia due to coronavirus disease 2019; J96.01 Acute respiratory failure with hypoxia; E87.1 Hypo-osmolality and hyponatremia; E11.65 Type 2 diabetes mellitus with hyperglycemia; I15.8 Other secondary hypertension; T38.0X5A Adverse effect of glucocorticoids and synthetic analogues, initial encounter; E86.0 Dehydration; E87.6 Hypokalemia; E03.9 Hypothyroidism, unspecified; M13.0 Polyarthritis, unspecified; Z90.710 Acquired absence of both cervix and uterus; Z90.49 Acquired absence of other specified parts of digestive tract
CPT/HCPCS: 36415; 36430; 36600; 71045; 71275; 74177; 80048; 80053; 80076; 82375; 82565; 82805; 82948; 83036; 83050; 83605; 83735; 83880; 84100; 84439; 84460; 85025; 85027; 85380; 85610; 86900; 86901; 87040; 87070; 87205; 93306; 94618; 94640; 94667; 94668; 96361; 96365; 96372; 96375; 96376; 97110; 97116; 97161; 97165; 97530; 97535; 99291; A9270; G0378; J0360; J0456; J0696; J1100; J1120; J1650; J1815; J1940; J2405; J2765; J7040; J7050; J7120; P9059; Q9967

== ENCOUNTER 2020-08-03 08:22 | Inpatient (IN) | payer OTHER, SELFPAY ==
[2020-08-03] VITALS (28 sets, daily range): BP systolic 149–182; BP diastolic 60–91; PULSE 91–112; RESP 22–44; TEMP 36.9–37.6; O2SAT 91–99; BMI 37.1
--- NOTE | ~2020-08-03 | XR_ITS ---
EXAMINATION: XR chest 1V portable DATE: 08/05/2020 05:27 INDICATION: Acute respiratory distress syndrome. TECHNIQUE: A single frontal view of the chest was obtained. COMPARISON: Chest single view 08/04/2020, chest CT 08/03/2020 FINDINGS: There are airspace opacities in all lung zones bilaterally with relative sparing of left christopher ng apex. No pleural effusion or pneumothorax. The heart size is normal. Surgical clips in the right u pper quadrant are likely from cholecystectomy. IMPRESSION: 1. Stable diffuse lung disease, consistent with pneumonia versus pulmonary edema versus acute respira tory distress syndrome (ARDS). Reviewed, dictated and finalized at location A. IMPRESSION: 1. Stable diffuse lung disease, consistent with pneumonia versus pulmonary francesca a versus acute respiratory distress syndrome (ARDS).
--- NOTE | ~2020-08-03 | XR_ITS ---
EXAMINATION: XR chest 1V portable INDICATION: Pneumonia TECHNIQUE: Portable AP chest at 0513 hours COMPARISON: 07/22/2020 FINDINGS: There are diffuse opacities throughout all lung zones with worsening since the comparison r adiograph but little change since yesterday's CT scan. Small pleural effusions are present. There is no pneumothorax. The cardiomediastinal silhouette is stable. Surgical clips in the right upper quadra nt are likely from prior cholecystectomy. IMPRESSION: 1. Stable diffuse lung disease, consistent with pneumonia and/or pulmonary edema and/or acute respira tory distress syndrome (ARDS). Reviewed, dictated and finalized at location A. IMPRESSION: 1. Stable diffuse lung disease, consistent with pneumonia and/or pulmonary francesca a and/or acute respiratory distress syndrome (ARDS).
--- NOTE | ~2020-08-03 | CT_ITS ---
EXAMINATION: CTA chest PE protocol DATE: 08/03/2020 09:40 INDICATION: COVID positive presenting with dyspnea and worsening hypoxia TECHNIQUE: Computed tomography (CT) pulmonary angiogram of the chest was performed with 100 mL Omnipa que-350 intravenous contrast. Additional 3D reconstructions utilizing coronal maximum intensity proje ction (MIP) were performed. Automated exposure control and iterative reconstruction technique were em ployed. The dose-length product was 535.45 mGy-cm. COMPARISON: 07/17/2020 FINDINGS: Excellent contrast opacification of the pulmonary arteries. There is mild streak artifact from dense contrast in the superior vena cava and right atrium. Mild scattered respiratory motion artifact which decreases sensitivity in some of the smaller subsegmental pulmonary arteries. No pulmonary embolism. Interval increase in size of still small bilateral posteriorly layering pleural effusions. There has also been significant progression in the diffuse bilateral patchy groundglass opacities and consolid ation. No pneumothorax. Heart size is normal. No pericardial effusion. Mild mitral annular and minima l aortic valve calcification. Scattered atherosclerotic plaque along the normal caliber thoracic aort a. Interval progression of likely reactive bilateral hilar and mediastinal lymphadenopathy. Visualize d upper abdomen is unremarkable. Moderate upper thoracic and lower cervical spondylosis. IMPRESSION: 1. No pulmonary embolism. 2. Interval progression of extensive patchy bilateral lung disease and would favor pneumonia potentia lly COVID pneumonia over pulmonary edema or hypersensitivity pneumonitis. 3. Increased small bilateral pleural effusions. 4. Increase in likely reactive bilateral hilar and mediastinal lymphadenopathy. Reviewed, dictated and finalized at location A. IMPRESSION: 1. No pulmonary embolism. 2. Interval progression of extensive patchy bilateral lung disease and would fa vor pneumonia potentially COVID pneumonia over pulmonary edema or hypersensitiv ity pneumonitis. 3. Increased small bilateral pleural effusions. 4. Increase in likely reactive bilateral hilar and mediastinal lymphadenopathy.
--- NOTE | ~2020-08-03 | XR_ITS ---
EXAMINATION: XR chest 1V portable DATE: 08/06/2020 08:33 INDICATION: Pneumonia. TECHNIQUE: A single frontal view of the chest was obtained. COMPARISON: Chest single view 08/05/2020 FINDINGS: There are airspace and interstitial opacities throughout the lungs bilaterally with relativ e sparing of left lung apex. No pleural effusion or pneumothorax. The heart size is normal. IMPRESSION: 1. Stable diffuse lung disease, consistent with pneumonia versus pulmonary edema versus acute respira tory distress syndrome (ARDS). Reviewed, dictated and finalized at location A. IMPRESSION: 1. Stable diffuse lung disease, consistent with pneumonia versus pulmonary francesca a versus acute respiratory distress syndrome (ARDS).
--- NOTE | ~2020-08-03 | US_ITS ---
EXAMINATION: US venous doppler [facility] DATE: 08/05/2020 09:50 INDICATION: Lower limb edema. TECHNIQUE: Grayscale ultrasound images without and with compression and Doppler ultrasound images of the bilateral lower extremity veins were obtained. COMPARISON: Ultrasound 09/22/2012 FINDINGS: The visualized portions of right common femoral vein, profunda (deep) femoral vein, femoral vein, pop liteal vein, peroneal veins, posterior tibial veins, and greater saphenous vein outflow are patent. The visualized portions of left common femoral vein, profunda femoral vein, femoral vein, popliteal v ein, peroneal veins, posterior tibial veins, and greater saphenous vein outflow are patent. IMPRESSION: 1. No deep venous thrombosis. Reviewed, dictated and finalized at location A.
--- NOTE | ~2020-08-03 | XR_ITS ---
EXAMINATION: XR chest 1V portable DATE: 08/09/2020 05:40 INDICATION: Pneumonia TECHNIQUE: frontal view of the chest was obtained. COMPARISON: Chest radiograph dated 08/08/2020 FINDINGS: No interval change in diffuse moderate interstitial and airspace opacities relatively sparing the lef t apex. No pleural effusion or pneumothorax. The cardiomediastinal silhouette is normal. Cholecystect garrett clips in the right upper quadrant. IMPRESSION: 1. Unchanged diffuse lung disease consistent with pneumonia, pulmonary edema, ARDS or some combinatio n thereof. Reviewed, dictated and finalized at location A. IMPRESSION: 1. Unchanged diffuse lung disease consistent with pneumonia, pulmonary edema, A RDS or some combination thereof.
--- NOTE | ~2020-08-03 | XR_ITS ---
EXAMINATION: XR chest 1V portable EXAM DATE: 08/19/2020 05:53 INDICATION: post COVID. TECHNIQUE: Portable AP frontal chest x-ray was obtained. Comparison is made to prior examination from 08/16/2020, 08/12/2020. FINDINGS: Diffuse bilateral airspace disease with peripheral predominance, stable or with minimal imp rovement. Appearance is consistent with COVID pneumonia. No pneumothorax or pleural effusion. Cardiom ediastinal silhouette is normal. There are cholecystectomy clips. There are mild bony degenerative c hanges. IMPRESSION: Diffuse bilateral COVID pneumonia, stable or minimal improvement. Reviewed, dictated and finalized at location A.
--- NOTE | ~2020-08-03 | XR_ITS ---
EXAMINATION: XR chest 1V portable DATE: 08/12/2020 05:48 INDICATION: Post-COVID organizing pneumonia TECHNIQUE: frontal view of the chest was obtained. COMPARISON: Chest radiograph dated 08/09/2020 FINDINGS: Lung volumes are decreased. Interval increase in diffuse indistinct interstitial and patchy airspace opacities throughout both lungs relatively sparing the apices. No pneumothorax or evident pleural eff usion. The cardiomediastinal silhouette is normal. Cholecystectomy clips in the right upper quadrant. IMPRESSION: 1. Increase in diffuse interstitial and patchy airspace opacities in both lungs. Differential would i nclude pneumonia/organizing pneumonia, pulmonary edema or some combination thereof with with interval change due to either worsening or superimposed atelectasis resulting from the decreased lung volumes . Reviewed, dictated and finalized at location A. IMPRESSION: 1. Increase in diffuse interstitial and patchy airspace opacities in both lungs . Differential would include pneumonia/organizing pneumonia, pulmonary edema or some combination thereof with with interval change due to either worsening or superimposed atelectasis resulting from the decreased lung volumes.
--- NOTE | ~2020-08-03 | XR_ITS ---
EXAMINATION: XR chest 1V portable EXAM DATE: 08/16/2020 05:24 INDICATION: COVID pneumonia. TECHNIQUE: Portable AP frontal chest x-ray was obtained. Comparison is made to prior examination from 08/12/2020. FINDINGS: Diffuse bilateral airspace disease with small regions of confluence. Appearance is consiste nt with edema and atelectasis from subacute COVID pneumonia. Cardiac silhouette is enlarged but stabl e in size compared to prior exam. There is no pneumothorax suspected. There are no pleural effusions. There are mild bony degenerative changes. There is no significant interval change. IMPRESSION: Diffuse subacute COVID pneumonia unchanged. Reviewed, dictated and finalized at location A.
--- NOTE | ~2020-08-03 | XR_ITS ---
EXAMINATION: XR chest 1V portable DATE: 08/08/2020 05:19 INDICATION: Pneumonia. TECHNIQUE: A single frontal view of the chest was obtained. COMPARISON: Chest single view 08/06/2020, chest CT 08/03/2020 FINDINGS: There are airspace and interstitial opacities in all lung zones bilaterally with relative s paring of left lung apex. No pleural effusion or pneumothorax. The heart size is normal. Surgical cli ps in the right upper quadrant are likely from cholecystectomy. IMPRESSION: 1. Stable diffuse lung disease, consistent with pneumonia versus pulmonary edema versus acute respira tory distress syndrome (ARDS). Reviewed, dictated and finalized at location A. IMPRESSION: 1. Stable diffuse lung disease, consistent with pneumonia versus pulmonary francesca a versus acute respiratory distress syndrome (ARDS).
--- NOTE | 2020-08-03 08:28 | ED.SOB ---
HPI - SOB/Dyspnea General Chief Complaint: Shortness of Breath/Dyspnea Stated Complaint: low O2, SOB Time Seen by Provider: 08/03/20 08:28 Source: patient and family Mode of arrival: wheelchair Limitations: no limitations History of Present Illness HPI Narrative: Patient is an 80-year-old female with history of hypothyroidism, recent Covid infection, recent hospitalization and discharged this facility on July 25, who presents for evaluation of worsening shortness of breath and hypoxemia. Patient initially discharged home on 2 L oxygen via nasal cannula, was tolerating this well at home and completing all activities of daily living. Patient has home health at home and also daughter present to help her. Patient was doing well and had a recent follow-up with her primary care physician on the where she reported some mild lower extremity swelling but otherwise no acute changes in her status. Overnight, patient reports that she developed acutely worsening shortness of breath, requiring up to 5 L of oxygen on her nasal cannula and still feeling quite dyspneic despite this increase. Patient denies cough. She denies hemoptysis. No fever or chills. She reports no significant increase in lower extremity swelling, denies calf pain or redness. Patient denies any chest pain. No back or shoulder pain. No jaw pain. No nausea or vomiting. Related Data Home Medications Medication Instructions Recorded Confirmed loratadine 10 mg tablet 10 mg PO DAILY PRN 01/27/19 08/01/20 levothyroxine 100 mcg PO QAM 07/14/20 08/01/20 Allergies Allergy/AdvReac Type Severity Reaction Status Date / Time ciprofloxacin Allergy Unknown Joint pain Verified 08/03/20 08:44 latex Allergy Unknown Itching Verified 08/03/20 08:44 amoxicillin [From Augmentin] Allergy Nausea and Verified 08/03/20 08:44 Vomiting clavulanic acid Allergy Nausea and Verified 08/03/20 08:44 [From Augmentin] Vomiting Review of Systems Review of Systems: Narrative: CONSTITUTIONAL: Denies fever, chills, or sweats. EYES: Denies visual changes, redness, or discharge. ENT: Denies rhinorrhea, congestion, sore throat, or otalgia. CARDIOVASCULAR: Denies chest pain, palpitations, or edema. RESPIRATORY: Reports dry cough and dyspnea GASTROINTESTINAL: Denies abdominal pain, nausea, vomiting, or diarrhea. GENITOURINARY: Denies dysuria or hematuria. SKIN: Denies rash or itching. MUSCULOSKELETAL: Denies back pain, joint pain, or myalgia. NEUROLOGIC: Denies headache, numbness, or weakness. [facility] Past Medical History Medical History Cataract fragments in eye following surgery Cholecystectomy planned COVID-19 Diabetes mellitus Polyarthritis Skin tag Surgical History Surgical History H/O knee surgery History of breast biopsy (~2012) History of hysterectomy (~1984) Hx of appendectomy (~1981) Previous back surgery (~1979) Family History Family History Mother Family history of malignant neoplasm Carcinoma of colon Sibling Family history of Parkinson's disease Family history of heart disease in male family member before age 55 Patient's sister is in good health Family history of cardiovascular disease Father Family history of chronic obstructive pulmonary disease Family history of cardiovascular disease Other Family history of lung cancer Family history of lung disease Family history of malignant neoplasm of breast Social History Social History Smoking status: Never smoker Second hand tobacco smoke exposure: No Alcohol intake: never Substance use: never Gender identity (if verbalized by the patient): Female Spiritual care concerns: No Exam Narrative: Exam Narrative: GENERAL: Awake, alert, conversant HEAD: Normocephalic, atraumatic.
--- NOTE | 2020-08-03 08:30 | ECG_ITS ---
Measurements Intervals [place] Rate: 108 P: 9 VT: 153 QRS: 5 QRSD: 87 T: 2 QT: 311 QTc: 417 Interpretive Statements SINUS TACHYCARDIA POSSIBLE LEFT ATRIAL ENLARGEMENT POSSIBLE LEFT VENTRICULAR HYPERTROPHY BASELINE ARTIFACT- I, III, AVR, AVL, AVF, V1-V6 ABNORMAL ECG Electronically Signed On 08-03-2020 8:45:22 CDT by Rigoberto Odell D.O.
[2020-08-03 08:47] LABS: Alveolar/Arterial O2 Gradient 140.3 mmHg; Base Excess ABG 6.8 mEq/l (+/-2.0); Fractional Inspired Oxygen 36 %; HCO3 ABG 31.1 mEq/l (22.0-26.0); Oxygen Saturation ABG 94.1 % (95.0-100.0); Oxyhemoglobin 92.6 % THb (90.0-100.0); PCO2 ABG 43.5 mmHg (35.0-45.0); PO2 ABG 65.9 mmHg (80.0-100.0); PO2 FiO2 Ratio Arterial Blood 1.83 %; Total Hemoglobin 10.7 g/dL (12.0-18.0); pH ABG 7.472 (7.350-7.450)
[2020-08-03 08:48] LABS: Basophils Percent Auto 0.2 % (0.2-1.2); Eosinophils Absolute Auto 0.1 K/mm3 (0-0.3); Eosinophils Percent Auto 0.7 % (0-4.4); Hematocrit 31.3 % (37.0-47.0); Hemoglobin 10.1 g/dL (12.0-15.0); Immature Granulocyte Absolute 0.08 K/mm3 (0.00-0.031); Immature Granulocyte Percent A 0.7 % (0-0.5); Lymphocytes Absolute Auto 1.17 K/mm3 (0.9-3.2); Lymphocytes Percent Auto 10.6 % (18.3-44.2); Mean Corpuscular HGB Conc 32.3 g/dl (32-36); Mean Corpuscular Hemoglobin 28.6 pg (26-34); Mean Corpuscular Volume 88.7 fl (80-100); Mean Platelet Volume 9.5 fl (7.4-10.4); Monocytes Absolute Auto 0.5 K/mm3 (0.1-0.6); Monocytes Percent Auto 4.1 % (2.6-8.5); Neutrophils Absolute Auto 9.3 K/mm3 (1.3-6.7); Neutrophils Percent Auto 83.7 % (45.5-73.1); Platelet Count Result 289 k/mm3 (150-375); Red Blood Count 3.53 M/mm3 (4.2-5.4); Red Cell Distribution Width 13.5 % (11.5-14.5); White Blood Count 11.1 K/mm3 (4.5-10.0)
[2020-08-03 08:48] LABS: Device NASAL CANNULA; Modified Allen's Test Pass; Site Drawn RIGHT RADIAL
[2020-08-03 08:58] LABS: INR 1.2; Prothrombin Time 15.9 Seconds (11.1-14.7)
[2020-08-03 08:59] LABS: Partial Thromboplastin Time 44.2 SECONDS (22.3-36.8)
[2020-08-03 09:05] LABS: Lactic Acid Reflex 1.3 mmol/L (0.7-2.1)
[2020-08-03 09:07] LABS: Alanine Aminotransferase 53 U/L (4-35); Albumin Level 3.2 g/dL (3.5-5.1); Alkaline Phosphatase 116 U/L (38-126); Anion Gap 5 mmol/L (8-16); Aspartate Amino Transferase 53 U/L (14-36); Bilirubin,Total 1.3 mg/dL (0.2-1.3); Blood Urea Nitrogen 9 mg/dL (7-17); Calcium 8.7 mg/dL (8.4-10.2); Carbon Dioxide 35 mmol/L (22-30); Chloride 95 mmol/L (98-107); Estimated CRCL calculation 69 ml/min; Estimated Glomerular Filt Rate > 60; Glucose 209 mg/dL (65-105); Potassium 3.2 mmol/L (3.4-5.0); Sodium 135 mmol/L (137-145)
[2020-08-03 09:16] LABS: NT Pro B Type Natriuretic Pept 1880 pg/mL (5-100)
[2020-08-03 09:17] LABS: Troponin I 0.031 ng/mL (0.000-0.034)
[2020-08-03] MEDS: FUROSEMIDE INJ 40 MG/4 ML VIAL 20 MG IV PUSH (11:07)
[2020-08-03] MEDS: SODIUM CHLORIDE 0.9% IV 500 ML 999 ML IV CONT (11:07)
--- NOTE | 2020-08-03 12:28 | ADMGEN ---
This patient, Heike Prescott, was admitted to Intensive Care Unit-4. Patient/family oriented to hospital policies and general routines including ID bracelet, bed and alarms, visiting hours, pain management, procedures, bathroom and other care routines, personal items, smoking policy, room service/diet, and visiting hours. Information on how to activate the Rapid Response Team has been discussed. Patient/Family are encouraged to report perceived risks to care and to ask questions if they do not understand what they are told or what they should do.
--- NOTE | 2020-08-03 13:09 | WPDCNINT ---
Assessment and Plan Assessment and plan (1) Respiratory failure: Qualifiers: Chronicity: acute Respiratory failure complication: hypoxia Qualified Code(s): J96.01 - Acute respiratory failure with hypoxia Code(s): J96.90 - Respiratory failure, unspecified, unspecified whether with hypoxia or hypercapnia Status: Acute Assessment and Plan: Patient presented with respiratory distress, acute respiratory failure likely related to pneumonia -ABGs and chest CT reviewed, no PE -continue Airvo for increased work of breathing. -maintain O2 sats greater than 92% -continue cefepime and vancomycin (2) Pneumonia: Qualifiers: Laterality: bilateral Lung location: upper lobe of lung Pneumonia type: due to unspecified organism Qualified Code(s): J18.9 - Pneumonia, unspecified organism Code(s): J18.9 - Pneumonia, unspecified organism Status: Acute Assessment and Plan: CT chest revealed bilatreal pneumonia treatment as above -will start bronchodilators -pulmonology has been consulted (3) Sepsis: Qualifiers: Sepsis acute organ dysfunction status: unspecified Sepsis type: sepsis due to unspecified organism Qualified Code(s): A41.9 - Sepsis, unspecified organism Code(s): A41.9 - Sepsis, unspecified organism Status: Acute Assessment and Plan: Tachypnea, respiratory distress, elevated WBC count, normal lactic acid -blood cultures obtained and pending -continue antibiotics as above (4) Bilateral lower extremity edema: Code(s): R60.0 - Localized edema Status: Acute Assessment and Plan: Will obtain venous Doppler -continue diuresis (5) Diabetes mellitus: Code(s): E11.9 - Type 2 diabetes mellitus without complications Status: Acute Assessment and Plan: Monitor Accu-Cheks and sliding scale insulin -check hemoglobin A1c on 07/14/2020 was 7.2 (6) DVT prophylaxis: Code(s): Z29.9 - Encounter for prophylactic measures, unspecified Status: Acute Assessment and Plan: Lovenox SQ (7) Hypertension: Qualifiers: Hypertension type: unspecified secondary hypertension Qualified Code(s): I15.9 - Secondary hypertension, unspecified Code(s): I10 - Essential (primary) hypertension Status: Acute Assessment and Plan: Continue lisinopril, will add p.r.n. hydralazine Additional Plan Discussed with patient and her daughter and updated them with patient's condition and plan of care. I answered all questions. I did discuss with the patient that her condition worsens and comes 2 point which she requires a mechanical ventilation, she agrees to be intubated and placed on mechanical ventilator. Code status: Full code Critical care time spent: 47 minutes This dictation may have been done utilizing a voice recognition system. Attempts have been made to correct errors. However, there may be uncorrected grammatical, spelling, and recognition errors present. Due to a high probability of clinically significant, life threatening deterioration, the patient required my highest level of preparedness to intervene emergently and I personally spent this critical care time directly and personally managing the patient. This critical care time included obtaining a history; examining the patient; pulse oximetry; ordering and review of studies; arranging urgent treatment with development of a management plan; evaluation of patient's response to treatment; frequent reassessment; and discussions with other providers. It was exclusive of separately billable procedures and treating other patients and teaching time. Please see Assessment and Plan section and the rest of the note for further information on patient assessment and treatment Oxyacetylene Burner Consult Note Consult date: 08/03/20 Time Seen: 12:11 Reason for consult: Acute respiratory failure requiring Airvo high-flow nasal cannula, pneumonia L>R HPI:
[2020-08-03] MEDS: lisinopriL 5 MG TABLET PO (14:27)
[2020-08-03] MEDS: acetaZOLAMIDE SODIUM FOR INJ 500 MG VIAL 250 MG IV PUSH (14:27)
[2020-08-03] MEDS: WATER, STERILE FOR INJECTION 10 ML VIAL XX (14:31)
[2020-08-03 14:47] LABS: Troponin I 0.022 ng/mL (0.000-0.034)
[2020-08-03] MEDS: hydrALAZINE HCL 20 MG/ML VIAL 10 MG IV PUSH ×2 (16:08→20:08)
--- NOTE | 2020-08-03 16:17 | PM.IMHP ---
H&P: HPI History of Present Illness Date/Time: 08/03/20 16:17 PATIENT ADMITTED UNDER OBSERVATION Chief Complaint: Shortness of breath Narrative: 80yo female who recently had COVID-19 PNA who presents with increasing shortness of breath and hypoxia. Patient with SARS CoV-2 Ag positive on 07/11/20. She was admitted 07/14/20 for nausea and vomiting. Initially was on room air but ultimately required HFNC. COVID pneumonia noted on CT and Chest xray on admission. Was treated with Lasix IV bid for 5 doses. Completed 10 days of Remedesvir and Dexamethasone on 07/23. CXR 07/22 showing much improvement. Home O2 evaluation showing she needed 2L at rest and 4L with exertion. She was discharged home on 07/25/20. Daughter states patient was doing well at home walking to the BR on 2.5L and only dropping to 89%. She is having therapy and home healthy in the home. She was ambulating independently and taking care of all her own ADL's. Her mobility was improving and her appetite was better. Family noted increasing O2 requirement on the evening of July 31. No headache or chest pain. She was having increasing SOB. Orthopnea and had to sleep in a recliner. no PND. She complained of right upper back/posterior shoulder pain but no pleuritic components. Was having diarrhea and nausea with Metformin but diarrhea stopped after stopping Metformin. Still with nausea intermittently but no vomiting. No Fever or chills. No odynophagia or dysphagia. Appetite has decreased over the past few days. Also with increasing pedal edema. She has a cough productive of whitish sputum. She was seen by PCP on 08/01 and noted to have SpO2 of 92% on 4L. She was having bilateral lower leg edema. HCTZ started but patient has not taken any yet. Yesterday, the therapist was working iwth the patient and the patient's SpO2 dropped into the 60s. She was turned up to 5L and remained in the high 80's. She also was becoming more symptomatic with tachypnea. She presented to the ED this morning. In the ED, patient was tachypneic and hypoxic. She was placed on HFNC. ABG 7.47/44/66 4L. CTA showing no PE but interval progression of extensive patchy bilateral lung disease, small bilateral pleural effusions and reactive bilateral hilar and mediastinal lymphadenopathy. BNP 1170. WBC 11K. Lactic acid 1.3. She was treated with Lasix IV, abx, and nebs. She was admitted to the ICU for further care. Review of Systems Review of Systems: All systems reviewed & are unremarkable except as noted in HPI and below PMFSH Past Medical History Medical History Cataract fragments in eye following surgery Cholecystectomy planned COVID-19 Diabetes mellitus Polyarthritis Skin tag Surgical History Surgical History H/O knee surgery History of breast biopsy (~2012) History of hysterectomy (~1984) Hx of appendectomy (~1981) Previous back surgery (~1979) Family History Family History Mother Family history of malignant neoplasm Carcinoma of colon Sibling Family history of Parkinson's disease Family history of heart disease in male family member before age 55 Patient's sister is in good health Family history of cardiovascular disease Father Family history of chronic obstructive pulmonary disease Family history of cardiovascular disease Other Family history of lung cancer Family history of lung disease Family history of malignant neoplasm of breast Social History Social History (Updated 08/03/20 @ 17:30 by Juan David Garcia MD) Social History: Lifelong nonsmoker. No alcohol or drug use. She lives alone. Family has been staying with her since her last hospitalization. She is unsure of her code status. Smoking status: Never smoker Second hand tobacco smoke exposure: No Alcohol intake: never Substanc
[2020-08-03] MEDS: IPRATROPIUM BR 0.02% INH SOLN 0.5 MG/2.5 ML VIAL INHALATION (17:06)
[2020-08-03] MEDS: ALBUTEROL SULFATE NEB 2.5 MG/0.5 ML INH INHALATION (17:06)
[2020-08-03 17:35] LABS: Alveolar/Arterial O2 Gradient 473.5 mmHg; Base Excess ABG 1.9 mEq/l (+/-2.0); Carboxyhemoglobin 0.2 % THb (0-2.0); Fractional Inspired Oxygen 80 %; HCO3 ABG 24.8 mEq/l (22.0-26.0); Methemoglobin ABG 0.4 %THb (0-1.5); Oxygen Content ABG 14.2 %vol (16.0-22.0); Oxygen Saturation ABG 93.8 % (95.0-100.0); Oxyhemoglobin 90.6 % THb (90.0-100.0); PCO2 ABG 33.1 mmHg (35.0-45.0); PO2 ABG 62.2 mmHg (80.0-100.0); PO2 FiO2 Ratio Arterial Blood 0.78 %; Reduced Hemoglobin 8.8 %THb (0-5.0); Total Hemoglobin 11.1 g/dL (12.0-18.0); pH ABG 7.493 (7.350-7.450)
[2020-08-03 17:48] LABS: Modified Allen's Test Pass; Site Drawn LEFT RADIAL
[2020-08-03 17:49] LABS: Device HIGH FLOW THERAPY
[2020-08-03 18:10] LABS: Glucose Point of Care 140 mg/dl (65-105)
[2020-08-03] MEDS: POTASSIUM CHLORIDE 20 MEQ TABLET 40 MEQ PO (18:10)
[2020-08-03] MEDS: ACETAMINOPHEN 325 MG TABLET 650 MG PO (20:13)
[2020-08-03 23:28] LABS: Glucose Point of Care 158 mg/dl (65-105)
[2020-08-04] VITALS (27 sets, daily range): BP systolic 139–186; BP diastolic 66–86; PULSE 87–109; RESP 16–37; TEMP 36.6–37.3; O2SAT 94–99
[2020-08-04] MEDS: ALBUTEROL SULFATE NEB 2.5 MG/0.5 ML INH INHALATION ×4 (01:35→20:14)
[2020-08-04] MEDS: IPRATROPIUM BR 0.02% INH SOLN 0.5 MG/2.5 ML VIAL INHALATION ×4 (01:35→20:14)
[2020-08-04 04:25] LABS: Basophils Percent Auto 0.2 % (0.2-1.2); Eosinophils Absolute Auto 0.2 K/mm3 (0-0.3); Eosinophils Percent Auto 1.7 % (0-4.4); Hematocrit 28.2 % (37.0-47.0); Immature Granulocyte Absolute 0.05 K/mm3 (0.00-0.031); Immature Granulocyte Percent A 0.5 % (0-0.5); Lymphocytes Absolute Auto 0.86 K/mm3 (0.9-3.2); Mean Corpuscular HGB Conc 31.9 g/dl (32-36); Mean Corpuscular Hemoglobin 28.5 pg (26-34); Mean Corpuscular Volume 89.2 fl (80-100); Mean Platelet Volume 9.5 fl (7.4-10.4); Monocytes Absolute Auto 0.4 K/mm3 (0.1-0.6); Monocytes Percent Auto 3.9 % (2.6-8.5); Neutrophils Absolute Auto 8.1 K/mm3 (1.3-6.7); Neutrophils Percent Auto 84.7 % (45.5-73.1); Platelet Count Result 278 k/mm3 (150-375); Red Blood Count 3.16 M/mm3 (4.2-5.4); Red Cell Distribution Width 13.5 % (11.5-14.5); White Blood Count 9.6 K/mm3 (4.5-10.0)
[2020-08-04 04:35] LABS: Alveolar/Arterial O2 Gradient 468.4 mmHg; Base Excess ABG 4.6 mEq/l (+/-2.0); Carboxyhemoglobin 0.2 % THb (0-2.0); Fractional Inspired Oxygen 83 %; HCO3 ABG 28.9 mEq/l (22.0-26.0); Methemoglobin ABG 0.4 %THb (0-1.5); Oxygen Content ABG 14.2 %vol (16.0-22.0); Oxygen Saturation ABG 96.3 % (95.0-100.0); Oxyhemoglobin 94.7 % THb (90.0-100.0); PCO2 ABG 41.6 mmHg (35.0-45.0); PO2 FiO2 Ratio Arterial Blood 0.96 %; Reduced Hemoglobin 4.7 %THb (0-5.0); Total Hemoglobin 10.6 g/dL (12.0-18.0); pH ABG 7.459 (7.350-7.450)
[2020-08-04 04:36] LABS: Device HIGH FLOW THERAPY; Modified Allen's Test Pass; Site Drawn LEFT RADIAL
[2020-08-04 04:58] LABS: Alanine Aminotransferase 49 U/L (4-35); Albumin Level 2.9 g/dL (3.5-5.1); Alkaline Phosphatase 106 U/L (38-126); Anion Gap 3 mmol/L (8-16); Aspartate Amino Transferase 51 U/L (14-36); Blood Urea Nitrogen 9 mg/dL (7-17); CRP > 27.0 mg/dL (<1.0); Calcium 8.6 mg/dL (8.4-10.2); Carbon Dioxide 35 mmol/L (22-30); Chloride 99 mmol/L (98-107); Estimated CRCL calculation 58 ml/min; Estimated Glomerular Filt Rate > 60; Glucose 131 mg/dL (65-105); Potassium 3.2 mmol/L (3.4-5.0); Sodium 137 mmol/L (137-145)
[2020-08-04 05:19] LABS: Glucose Point of Care 130 mg/dl (65-105)
[2020-08-04] MEDS: hydrALAZINE HCL 20 MG/ML VIAL 10 MG IV PUSH (05:21)
[2020-08-04] MEDS: lisinopriL 5 MG TABLET PO (08:40)
[2020-08-04] MEDS: amLODIPine BESYLATE 2.5 MG TABLET PO (08:40)
[2020-08-04] MEDS: ENOXAPARIN 40 MG/0.4 ML SYRINGE SUB-Q (08:48)
--- NOTE | 2020-08-04 08:53 | PM.CNPUL ---
Assessment and Plan Assessment and plan (1) Acute hypoxemic respiratory failure: Code(s): J96.01 - Acute respiratory failure with hypoxia Status: Acute Assessment and Plan: Patient is post COVID pneumonia and now with hypoxemic respiratory failure. 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 Patient is DNR/DNI and now requiring BiPAP support. Patient is on vancomycin, cefepime and Levaquin for possible bacterial pneumonia following her recent hospitalization. Patient with BNP [address] without classic pulmonary edema, she has been given IV Lasix with a good response and has diuresed 1.45 L since admission. 08/04 High flow nasal canulla 60L and 83% with sats 94% and currently being transitioned to BiPAP for respiratory distress. Given the severity of her hypoxemic respiratory failure I will initiate Treatment of post COVID interstitial lung disease/organizing pneumonia with steroids as has been reported ([facility] Vol18, No 5, [id number]). I will initiate Solu-Medrol 40 mg IV Q 6 1st dose now. Discussed with Dr. Garcia on 08/[address] Scott on 08/04. Will follow with you. History of Present Illness History of Present Illness Consult date: 08/04/20 Requesting physician: Juan David Garcia MD Reason for consult: hypoxemia Chief complaint: RESPIRATORY FAILURE,PNEUMONIA Narrative: This 80-year-old woman with a history of hypothyroidism and COVID admitted to the hospital from 07/14 to 07/25 with hypoxemic respiratory failure. Patient was treated with dexamethasone, Remdesivir for 10 days and was given convalescent plasma on 07/18. at the worst level of her hypoxemia she required 13 L high-flow nasal cannula. This was weaned and she was discharged on 2 L oxygen at rest and 4 with activity. Of note patient had a CT angiogram of the chest on 07/17 that demonstrated no pulmonary embolism and worsening interstitial and alveolar infiltrates. Patient had an echocardiogram on 07/20/2019 with an LVEF of 65-70%, grade 1 diastolic dysfunction, [id number] aortic stenosis, normal RV size and function normal right atrium, pulmonary artery systolic pressure 15 and no right to left shunt with agitated saline. Patient returned to the emergency department on 08/03 with worsening shortness of breath and hypoxemic respiratory failure. She denied fever, chills, rigors, phlegm production or hemoptysis. She had a blood gas on 4 L nasal cannula with a pH of 7.47/43/66. And later she required high-flow oxygen at 60 L with 80% FiO2 with a blood gas of 7.47/33/62. Patient had a CT angiogram of the chest on 08/03 that showed no pulmonary embolism but interval progression of extensive bilateral interstitial and alveolar infiltrates with areas of dense consolidation. Patient was empirically started on vancomycin, cefepime and Levaquin And admitted to the ICU. 08/04 patient tells me today that she feels about the same as yesterday and is struggling to breathe. Patient is tachypneic and she is on high-flow nasal cannula 60 L and 83% FiO2 with saturations 94%. The claims associate spoke with the patient and she is DNR DNI but BiPAP is acceptable and she will be given a trial of BiPAP at this time. DATA: Echo 07/19/2020 8:46 AM Summary 1. Left ventricular chamber dimension is normal. 2. Left ventricular systolic function is normal, estimated at 65-70%. 3. There is mildly increased left ventricular wall thickness. 4. The left ventricular diastolic function is grade I diastolic dysfunction. 5. E/e '19 is elevated. 6. The aortic valve is not well visualized. Cannot determine number of aortic valve leaflets. 7. There is mild to moderate aortic valve stenosis based on a peak velocity of 243 cm/s, mean gradient of 17 mmHg, and aortic valve area of 1.5 cm2. 8. There is mild aortic valve sclerosis. 9. The mitral valve has moderately calcified annulus. 10
[2020-08-04] MEDS: methylPREDNISolone SOD SUCC 40 MG VIAL IV PUSH ×3 (09:20→20:04)
--- NOTE | 2020-08-04 09:54 | WPDINTPN ---
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 -patient now is a do not resuscitate and do not intubate -ABGs and chest x-ray reviewed from today -CT chest on admission did not show any PE -patient is on Airvo with increased respiratory distress and tachypnea, will place patient on BiPAP. -maintain O2 sats greater than 92% -continue cefepime, Levaquin and vancomycin -appreciate pulmonology evaluation and recommendation, Solu-Medrol was added (2) Pneumonia: Qualifiers: Laterality: bilateral Lung location: upper lobe of lung Pneumonia type: due to unspecified organism Qualified Code(s): J18.9 - Pneumonia, unspecified organism Code(s): J18.9 - Pneumonia, unspecified organism Status: Acute Assessment and Plan: CT chest revealed bilatreal pneumonia treatment as above -continue bronchodilators (3) Sepsis: Qualifiers: Sepsis acute organ dysfunction status: unspecified Sepsis type: sepsis due to unspecified organism Qualified Code(s): A41.9 - Sepsis, unspecified organism Code(s): A41.9 - Sepsis, unspecified organism Status: Acute Assessment and Plan: Tachypnea, respiratory distress, elevated WBC count, normal lactic acid -blood cultures negative -continue antibiotics as above (4) Bilateral lower extremity edema: Code(s): R60.0 - Localized edema Status: Acute Assessment and Plan: Will obtain venous Doppler (5) Diabetes mellitus: Code(s): E11.9 - Type 2 diabetes mellitus without complications Status: Acute Assessment and Plan: Monitor Accu-Cheks and sliding scale insulin -check hemoglobin A1c on 07/14/2020 was 7.2 (6) DVT prophylaxis: Code(s): Z29.9 - Encounter for prophylactic measures, unspecified Status: Acute Assessment and Plan: Lovenox SQ (7) Hypertension: Qualifiers: Hypertension type: unspecified secondary hypertension Qualified Code(s): I15.9 - Secondary hypertension, unspecified Code(s): I10 - Essential (primary) hypertension Status: Acute Assessment and Plan: Continue lisinopril, continue p.r.n. hydralazine - add Amlodipine Additional Plan Discussed with patient and her daughter and updated them with patient's condition and plan of care. Pt voiced her concerns to the night RN that she wanted to be a DNR/DNI. I also discussed with her along with the ICU supercharger mechanic, Chery Shook, pt reiterated the same. Code status: DNR/DNI Critical care time spent: 34 minutes This dictation may have been done utilizing a voice recognition system. Attempts have been made to correct errors. However, there may be uncorrected grammatical, spelling, and recognition errors present. Due to a high probability of clinically significant, life threatening deterioration, the patient required my highest level of preparedness to intervene emergently and I personally spent this critical care time directly and personally managing the patient. This critical care time included obtaining a history; examining the patient; pulse oximetry; ordering and review of studies; arranging urgent treatment with development of a management plan; evaluation of patient's response to treatment; frequent reassessment; and discussions with other providers. It was exclusive of separately billable procedures and treating other patients and teaching time. Please see Assessment and Plan section and the rest of the note for further informatio
--- NOTE | 2020-08-04 11:20 | PM.IMPN ---
Progress Note: A&P Assessment and Plan (1) Acute hypoxemic respiratory failure: Code(s): J96.01 - Acute respiratory failure with hypoxia Status: Acute Assessment and Plan: CTA showing interval progression of extensive patchy bilateral lung groundglass opacities and consolidation. Most likely related to COVID pneumonia cannot rule out secondary bacterial infection Broad-spectrum IV antibiotics Treated with steroids and remdesiver Prognosis guarded to poor (2) Sepsis: Qualifiers: Sepsis acute organ dysfunction status: unspecified Sepsis type: sepsis due to unspecified organism Qualified Code(s): A41.9 - Sepsis, unspecified organism Code(s): A41.9 - Sepsis, unspecified organism Status: Acute Assessment and Plan: Present on admission with patient in respiratory failure with tachycardia and leukocytosis. [place] related to PNA. Continue broad spectrum IV abx and neb treatments. Complicated with ARDS pulmonology recreation therapy director following (3) Pneumonia: Qualifiers: Laterality: bilateral Lung location: upper lobe of lung Pneumonia type: due to unspecified organism Qualified Code(s): J18.9 - Pneumonia, unspecified organism Code(s): J18.9 - Pneumonia, unspecified organism Status: Acute Assessment and Plan: See above (4) Bilateral lower extremity edema: Code(s): R60.0 - Localized edema Status: Acute Assessment and Plan: No pulmonary HTN by Echo. Started on IV Lasix on 08/04/2020 (5) Diabetes mellitus: Code(s): E11.9 - Type 2 diabetes mellitus without complications Status: Acute Assessment and Plan: Insulin sliding scale. (6) Hypertension: Qualifiers: Hypertension type: unspecified secondary hypertension Qualified Code(s): I15.9 - Secondary hypertension, unspecified Code(s): I10 - Essential (primary) hypertension Status: Acute Assessment and Plan: Uncontrolled DC lisinopril increased dose of amlodipine to 10 mg daily continue diuresis (7) DVT prophylaxis: Code(s): Z29.9 - Encounter for prophylactic measures, unspecified Status: Acute Assessment and Plan: Lovenox Subjective Date/time seen: 08/04/20 11:20 Interval history: Patient seen and examined Patient still requiring high oxygen Patient is DNR DNI Concern for ARDS IV steroid added on 08/04/2020 On broad-spectrum IV antibiotics Currently requiring intermittent restraints I am seeing the patient for pneumonia Objective Data Vital Signs Vital Signs: Vital Signs - 24 hr 08/03/20 11:31 08/03/20 11:40 08/03/20 12:00 Temperature Pulse Rate 103 H 100 Respiratory Rate 22 H 28 H Blood Pressure 166/89 H 153/82 H Pulse Oximetry 96 97 94 08/03/20 12:20 08/03/20 12:38 08/03/20 14:00 Temperature 98.5 F Pulse Rate 99 91 Respiratory Rate 33 H 33 H Blood Pressure 182/88 H 162/73 H Pulse Oximetry 93 94 92 08/03/20 16:00 08/03/20 17:05 08/03/20 17:08 Temperature 98.8 F Pulse Rate 96 111 H Respiratory Rate 35 H 34 H Blood Pressure 175/90 H Pulse Oximetry 92 91 08/03/20 17:13 08/03/20 17:23 08/03/20 18:00 Temperature Pulse Rate 110 H 104 H Respiratory Rate 34 H 38 H Blood Pressure 172/91 H Pulse Oximetry 93 96 08/03/20 19:55 08/03/20 20:00 08/03/20 20:04 Temperature 99.7 F H Pulse Rate 112 H 110 H 111 H Respiratory Rate 26 H 25 H 30 H Blood Pressure 174/81 H Pulse Oximetry 99 97 98 08/03/20 20:13 08/03/20 21:13 08/03/20 22:00 Temperature 99.7 F H 99.0 F Pulse Rate 98 Respiratory Rate 29 H Blood Pressure 149/60 H Pulse Oximetry 97 08/04/20 00:00 08/04/20 01:34 08/04/20 01:35 Temperature 99.1 F Pulse Rate 108 H 95 101 H Respiratory Rate 30 H 29 H 29 H Blood Pressure 154/71 H Pulse Oximetry 97 97 08/04/20 01:46 08/04/20 02:00 08/04/20 04:00 Temperature 98.0 F Pulse Rate 102 H 99 87 Respirat
[2020-08-04 12:49] LABS: Glucose Point of Care 220 mg/dl (65-105)
[2020-08-04] MEDS: INSULIN ASPART (*BKC) 100 UNITS/ML SUB-Q (12:51)
--- NOTE | 2020-08-04 13:21 | PM.IMPN ---
Progress Note: A&P Assessment and Plan (1) Acute hypoxemic respiratory failure: Code(s): J96.01 - Acute respiratory failure with hypoxia Status: Acute Assessment and Plan: CTA showing interval progression of extensive patchy bilateral lung groundglass opacities and consolidation. Most likely related to COVID pneumonia cannot rule out secondary bacterial infection. CHF less likely. Continue broad-spectrum IV antibiotics. Steroids added today. Prognosis is guarded to poor. (2) Sepsis: Qualifiers: Sepsis acute organ dysfunction status: unspecified Sepsis type: sepsis due to unspecified organism Qualified Code(s): A41.9 - Sepsis, unspecified organism Code(s): A41.9 - Sepsis, unspecified organism Status: Acute Assessment and Plan: Present on admission with patient in respiratory failure with tachycardia and leukocytosis. [place] related to PNA. Continue broad spectrum IV abx and neb treatments. Complicated with ARDS. Pulmonology and motor overhauler following (3) Pneumonia: Qualifiers: Laterality: bilateral Lung location: upper lobe of lung Pneumonia type: due to unspecified organism Qualified Code(s): J18.9 - Pneumonia, unspecified organism Code(s): J18.9 - Pneumonia, unspecified organism Status: Acute Assessment and Plan: See above (4) Bilateral lower extremity edema: Code(s): R60.0 - Localized edema Status: Acute Assessment and Plan: No pulmonary HTN by Echo. Given one dose of IV Lasix on 08/04/2020. Continue to monitor. Consider repeating Lasix. (5) Diabetes mellitus: Code(s): E11.9 - Type 2 diabetes mellitus without complications Status: Acute Assessment and Plan: The patient's blood glucose was reviewed on 08/04 Glucose well controlled but she required high dose insulin when on steroids last admission,. Continue AccuCheks covering with sliding scale. Hypoglycemia protocol available as needed. Continue to monitor for now (6) Hypertension: Qualifiers: Hypertension type: unspecified secondary hypertension Qualified Code(s): I15.9 - Secondary hypertension, unspecified Code(s): I10 - Essential (primary) hypertension Status: Acute Assessment and Plan: Patient's blood pressure was reviewed on 08/04 Blood pressure elevated with SBP 130-180 range. Possibly related to steroids and the resp distress. Will continue current medications with lisinopril and amlodipine. Advance medications as needed (7) DVT prophylaxis: Code(s): Z29.9 - Encounter for prophylactic measures, unspecified Status: Acute Assessment and Plan: Ruddy Subjective Date/time seen: 08/04/20 13:21 Interval history: 80yo female who recently had COVID-19 PNA who presents with increasing shortness of breath and hypoxia. Patient with SARS CoV-2 Ag positive on 07/11/20. She was admitted 07/14/20 for nausea and vomiting. Initially was on room air but ultimately required HFNC. COVID pneumonia noted on CT and Chest xray on admission. Was treated with Lasix IV bid for 5 doses. Completed 10 days of Remedesvir and Dexamethasone on 07/23. CXR 07/22 showing much improvement. Home O2 evaluation showing she needed 2L at rest and 4L with exertion. She was discharged home on 07/25/20. Patient is now DNR. She is now on BiPAP. She feels her SOB slightly better. She is hungry. Currently NPO. No joint aches with levaquin Exam Narrative: Exam Narrative: AF 97.8 158/85 96 23 97% BiPAP Gen - tachypneic made worse with even minimal exertion; BiPAP secured Chest - diffuse inspiratory crackles, elevated RR CV - RRR. S1-S2. Tele showing PVCs Abd - soft. protuberant but not tense or firm. Positive bowel sounds. - Hunt secured draining clear yellow urine Ext - Tr-1+ pitting pedal edema Neuro - patient is alert and appropriate. Psych - Patient is pleasant and cooperative. Skin - w
[2020-08-04] MEDS: SALINE 0.65% NAS SOLN 44 ML BTL 1 SPRAY NASAL ×2 (13:55→20:05)
[2020-08-04 16:54] LABS: Glucose Point of Care 197 mg/dl (65-105)
[2020-08-04] MEDS: ONDANSETRON INJ 4 MG/2 ML VIAL IV PUSH (17:06)
[2020-08-04] MEDS: ACETAMINOPHEN 325 MG TABLET 650 MG PO (20:10)
[2020-08-04 23:33] LABS: Glucose Point of Care 180 mg/dl (65-105)
[2020-08-05] VITALS (27 sets, daily range): BP systolic 138–167; BP diastolic 62–91; PULSE 76–111; RESP 22–36; TEMP 36.1–36.6; O2SAT 89–99
[2020-08-05] MEDS: IPRATROPIUM BR 0.02% INH SOLN 0.5 MG/2.5 ML VIAL INHALATION ×4 (02:14→20:26)
[2020-08-05] MEDS: ALBUTEROL SULFATE NEB 2.5 MG/0.5 ML INH INHALATION ×4 (02:14→20:26)
[2020-08-05 04:17] LABS: Basophils Percent Auto 0.1 % (0.2-1.2); Hematocrit 30.9 % (37.0-47.0); Immature Granulocyte Absolute 0.05 K/mm3 (0.00-0.031); Immature Granulocyte Percent A 0.5 % (0-0.5); Lymphocytes Absolute Auto 0.73 K/mm3 (0.9-3.2); Lymphocytes Percent Auto 7.7 % (18.3-44.2); Mean Corpuscular HGB Conc 32.4 g/dl (32-36); Mean Corpuscular Hemoglobin 28.7 pg (26-34); Mean Corpuscular Volume 88.5 fl (80-100); Mean Platelet Volume 10.2 fl (7.4-10.4); Monocytes Absolute Auto 0.2 K/mm3 (0.1-0.6); Monocytes Percent Auto 2.1 % (2.6-8.5); Neutrophils Absolute Auto 8.5 K/mm3 (1.3-6.7); Neutrophils Percent Auto 89.6 % (45.5-73.1); Platelet Count Result 364 k/mm3 (150-375); Red Blood Count 3.49 M/mm3 (4.2-5.4); Red Cell Distribution Width 13.6 % (11.5-14.5); White Blood Count 9.4 K/mm3 (4.5-10.0)
[2020-08-05 04:47] LABS: Alanine Aminotransferase 48 U/L (4-35); Alkaline Phosphatase 127 U/L (38-126); Anion Gap 6 mmol/L (8-16); Aspartate Amino Transferase 43 U/L (14-36); Bilirubin,Total 0.5 mg/dL (0.2-1.3); Blood Urea Nitrogen 11 mg/dL (7-17); Carbon Dioxide 31 mmol/L (22-30); Chloride 98 mmol/L (98-107); Estimated CRCL calculation 67 ml/min; Estimated Glomerular Filt Rate > 60; Glucose 243 mg/dL (65-105); Magnesium 2.1 mg/dL (1.6-2.3); Phosphorus 3.9 mg/dL (2.5-4.5); Potassium 3.6 mmol/L (3.4-5.0); Sodium 135 mmol/L (137-145)
[2020-08-05] MEDS: methylPREDNISolone SOD SUCC 40 MG VIAL IV PUSH ×4 (05:11→21:16)
[2020-08-05 05:12] LABS: CRP 42.3 mg/dL (<1.0)
[2020-08-05] MEDS: INSULIN ASPART (*BKC) 100 UNITS/ML SUB-Q ×4 (05:17→21:13)
[2020-08-05 05:24] LABS: Glucose Point of Care 225 mg/dl (65-105)
--- NOTE | 2020-08-05 08:40 | PM.IMPN ---
Progress Note: A&P Assessment and Plan (1) Acute hypoxemic respiratory failure: Code(s): J96.01 - Acute respiratory failure with hypoxia Status: Acute Assessment and Plan: CTA showing interval progression of extensive patchy bilateral lung groundglass opacities and consolidation. Consider post-COVID hypersensitivity pneumonitis, HCAP bacterial PNA, atypical PNA. Also consider a component of CHF. Solu-Medrol started 08/04. CXR slightly better today. Continue with broad spectrum IV antibiotics and nebs. Continue to wean O2 as toelrated. Appreciate party host input. Patient remains a DNR. (2) Sepsis: Qualifiers: Sepsis acute organ dysfunction status: unspecified Sepsis type: sepsis due to unspecified organism Qualified Code(s): A41.9 - Sepsis, unspecified organism Code(s): A41.9 - Sepsis, unspecified organism Status: Acute Assessment and Plan: Present on admission with patient in respiratory failure with tachycardia and leukocytosis. [place] related to PNA/pneumonitis. Continue broad spectrum IV abx and neb treatments. (3) Pneumonia: Qualifiers: Laterality: bilateral Lung location: upper lobe of lung Pneumonia type: due to unspecified organism Qualified Code(s): J18.9 - Pneumonia, unspecified organism Code(s): J18.9 - Pneumonia, unspecified organism Status: Acute Assessment and Plan: CTA showing interval progression of extensive patchy bilateral lung groundglass opacities and consolidation. Consider post-COVID hypersensitivity pneumonitis. Bacterial PNA seems less likely but consider atypical; fungal?. Continue with the broad spectrum antibiotics to cover for HCAP and continue nebs. BCx NGTD. Sputum culture not able to be collected yet. Pulmonary input appreciated. Induce sputum (4) Bilateral lower extremity edema: Code(s): R60.0 - Localized edema Status: Acute Assessment and Plan: No pulmonary HTN by Echo. Patient received Lasix and Diamox (one dose each) on admisison and she has had good UOP. DVT also to be considered since she was just in the hospital. CTA negative for PE. Check Doppler LE. Repeat Lasix. (5) Diabetes mellitus: Code(s): E11.9 - Type 2 diabetes mellitus without complications Status: Acute Assessment and Plan: Patient has hx of pre-diabetes with A1c 6.4. A1c more recently was 7.2. Could not tolerate metformin. Glucose poorly controlled due to Solu-Medrol. Continue AccuCheks covering with sliding scale. Hypoglycemia protocol will be available as needed. Continue clear liquid diet. Consider Lantus but only required sliding scale intervention twice since admission so will monitor for now. (6) Hypertension: Qualifiers: Hypertension type: unspecified secondary hypertension Qualified Code(s): I15.9 - Secondary hypertension, unspecified Code(s): I10 - Essential (primary) hypertension Status: Acute Assessment and Plan: BP reviewed on 08/05 and mildly elevated possibly related to her respiratory failure. Home Lisinopril has been started. HCTZ listed but she just received this for her pedal edema and had not yet started. Norvasc added 08/04. Continue to use Hydralazine PRN for markedly elevated BP. (7) DVT prophylaxis: Code(s): Z29.9 - Encounter for prophylactic measures, unspecified Status: Acute Assessment and Plan: Lovenox Subjective Date/time seen: 08/05/20 08:40 Interval history: 80yo female who recently had COVID-19 PNA who presents with increasing shortness of breath and hypoxia. Patient with SARS CoV-2 Ag positive on 07/11/20. She was admitted 07/14/20 for nausea and vomiting. Initially was on room air but ultimately required HFNC. Completed 10 days of Remedesvir and Dexamethasone on 07/23. CXR 07/22 showing much improvement. Home O2 evaluation showing she needed 2L at rest and 4L with exertion. She was
[2020-08-05] MEDS: amLODIPine BESYLATE 2.5 MG TABLET PO (08:45)
[2020-08-05] MEDS: ENOXAPARIN 40 MG/0.4 ML SYRINGE SUB-Q (08:46)
[2020-08-05] MEDS: lisinopriL 5 MG TABLET PO (09:00)
--- NOTE | 2020-08-05 09:04 | PM.PNPUL ---
Progress Note: A&P Assessment and Plan (1) Acute hypoxemic respiratory failure: Code(s): J96.01 - Acute respiratory failure with hypoxia Status: Acute Assessment and Plan: Patient is post COVID pneumonia and now with hypoxemic respiratory failure. 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 Patient is DNR/DNI and now requiring BiPAP support. Patient is on vancomycin, cefepime and Levaquin for possible bacterial pneumonia following her recent hospitalization. Patient with BNP [address] without classic pulmonary edema, she has been given IV Lasix with a good response and has diuresed 1.45 L since admission. 08/04 High flow nasal canulla 60L and 83% with sats 94% and currently being transitioned to BiPAP for respiratory distress. Given the severity of her hypoxemic respiratory failure I will initiate Treatment of post COVID interstitial lung disease/organizing pneumonia with steroids as has been reported ([facility] Vol18, No 5, [id number]). I will initiate Solu-Medrol 40 mg IV Q 6 1st dose now. 08/05 Wore BiPAP overnight at RR 18, 14/8, 90% with sats 93-97%. Transitioned to Airvo 60 L 75% with sats 95% this morning. Required 90% with eating. States she is minimally improved. CXR unchanged. Blood culture negative. Continue vanco (day 3), cefepime (day 3) and levaquin (day 2). Would continue solumedrol 40 Q 6 today. Goal saturations 90-94 with Airvo and BiPAP PRN. Will follow with you. Subjective Date/time seen: 08/05/20 09:04 Interval history: 08/04 New consult for : hypoxemia Chief complaint: RESPIRATORY FAILURE,PNEUMONIA Narrative: This 80-year-old woman with a history of hypothyroidism and COVID admitted to the hospital from 07/14 to 07/25 with hypoxemic respiratory failure. Patient was treated with dexamethasone, Remdesivir for 10 days and was given convalescent plasma on 07/18. at the worst level of her hypoxemia she required 13 L high-flow nasal cannula. This was weaned and she was discharged on 2 L oxygen at rest and 4 with activity. Of note patient had a CT angiogram of the chest on 07/17 that demonstrated no pulmonary embolism and worsening interstitial and alveolar infiltrates. Patient had an echocardiogram on 07/20/2019 with an LVEF of 65-70%, grade 1 diastolic dysfunction, [id number] aortic stenosis, normal RV size and function normal right atrium, pulmonary artery systolic pressure 15 and no right to left shunt with agitated saline. Patient returned to the emergency department on 08/03 with worsening shortness of breath and hypoxemic respiratory failure. She denied fever, chills, rigors, phlegm production or hemoptysis. She had a blood gas on 4 L nasal cannula with a pH of 7.47/43/66. And later she required high-flow oxygen at 60 L with 80% FiO2 with a blood gas of 7.47/33/62. Patient had a CT angiogram of the chest on 08/03 that showed no pulmonary embolism but interval progression of extensive bilateral interstitial and alveolar infiltrates with areas of dense consolidation. Patient was empirically started on vancomycin, cefepime and Levaquin And admitted to the ICU. 08/04 patient tells me today that she feels about the same as yesterday and is struggling to breathe. Patient is tachypneic and she is on high-flow nasal cannula 60 L and 83% FiO2 with saturations 94%. The field director spoke with the patient and she is DNR DNI but BiPAP is acceptable and she will be given a trial of BiPAP at this time. Solumedrol 40 mg IV Q 6. 08/05 Wore BiPAP overnight at 18, 14/8, 90% with sats 93-97%. Transitioned to Airvo 60 L 75% with sats 95% this morning. Required 90% with eating. States sheis minimally improved. CXR unchanged. Blood culture negative. DATA: Echo 07/19/2020 8:46 AM Summary 1. Left ventricular chamber dimension is normal. 2. Left ventricular systolic function is normal, estimated at 65-70%. 3. There is mildl
--- NOTE | 2020-08-05 09:50 | WPDINTPN ---
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 -patient now is a do not resuscitate and do not intubate -ABGs and chest x-ray reviewed from today -CT chest on admission did not show any PE -patient was BiPAP overnight, and this morning is Airvo, 70% of 60 L flow rate -maintain O2 sats greater than 92% -continue cefepime, Levaquin and vancomycin -appreciate pulmonology evaluation and recommendation, continue Solu-Medrol -will diurese today (2) Pneumonia: Qualifiers: Laterality: bilateral Lung location: upper lobe of lung Pneumonia type: due to unspecified organism Qualified Code(s): J18.9 - Pneumonia, unspecified organism Code(s): J18.9 - Pneumonia, unspecified organism Status: Acute Assessment and Plan: CT chest revealed bilatreal pneumonia treatment as above -continue bronchodilators (3) Sepsis: Qualifiers: Sepsis acute organ dysfunction status: unspecified Sepsis type: sepsis due to unspecified organism Qualified Code(s): A41.9 - Sepsis, unspecified organism Code(s): A41.9 - Sepsis, unspecified organism Status: Acute Assessment and Plan: Tachypnea, respiratory distress, elevated WBC count, normal lactic acid -blood cultures negative -continue antibiotics as above (4) Bilateral lower extremity edema: Code(s): R60.0 - Localized edema Status: Acute Assessment and Plan: Venous Dopplers obtained but pending result (5) Diabetes mellitus: Code(s): E11.9 - Type 2 diabetes mellitus without complications Status: Acute Assessment and Plan: Monitor Accu-Cheks and sliding scale insulin -check hemoglobin A1c on 07/14/2020 was 7.2 (6) DVT prophylaxis: Code(s): Z29.9 - Encounter for prophylactic measures, unspecified Status: Acute Assessment and Plan: Lovenox SQ (7) Hypertension: Qualifiers: Hypertension type: unspecified secondary hypertension Qualified Code(s): I15.9 - Secondary hypertension, unspecified Code(s): I10 - Essential (primary) hypertension Status: Acute Assessment and Plan: Continue lisinopril, continue p.r.n. hydralazine -continue Amlodipine Additional Plan Discussed with patient and her daughter and updated them with patient's condition and plan of care. Pt voiced her concerns to the night RN that she wanted to be a DNR/DNI. I also discussed with her along with the ICU rim fire charger operator, Chery Shook, pt reiterated the same. Code status: DNR/DNI Critical care time spent: 33 minutes This dictation may have been done utilizing a voice recognition system. Attempts have been made to correct errors. However, there may be uncorrected grammatical, spelling, and recognition errors present. Due to a high probability of clinically significant, life threatening deterioration, the patient required my highest level of preparedness to intervene emergently and I personally spent this critical care time directly and personally managing the patient. This critical care time included obtaining a history; examining the patient; pulse oximetry; ordering and review of studies; arranging urgent treatment with development of a management plan; evaluation of patient's response to treatment; frequent reassessment; and discussions with other providers. It was exclusive of separately billable procedures and treating other patients and teaching time. Please see Assessment and Plan section and the rest of the note for
[2020-08-05] MEDS: BUMETANIDE INJ 1 MG/4 ML VIAL 2 MG IV PUSH (10:00)
[2020-08-05] MEDS: LEVOTHYROXINE SODIUM 100 MCG TABLET PO (10:15)
[2020-08-05 12:00] LABS: Glucose Point of Care 271 mg/dl (65-105)
[2020-08-05] MEDS: ACETAMINOPHEN 325 MG TABLET 650 MG PO ×2 (14:08→22:00)
[2020-08-05 17:51] LABS: Glucose Point of Care 332 mg/dl (65-105)
[2020-08-05 18:31] LABS: Vancomycin Trough 8.6 ug/mL (10.0-20.0)
[2020-08-05 21:14] LABS: Glucose Point of Care 398 mg/dl (65-105)
[2020-08-05] MEDS: INSULIN GLARGINE (*BKC) 100 UNITS/ML 14 UNITS SUB-Q (21:15)
[2020-08-06] VITALS (24 sets, daily range): BP systolic 140–177; BP diastolic 60–91; PULSE 79–108; RESP 20–31; TEMP 36.3–36.6; O2SAT 93–98
[2020-08-06 01:25] LABS: Glucose Point of Care 230 mg/dl (65-105)
[2020-08-06] MEDS: ALBUTEROL SULFATE NEB 2.5 MG/0.5 ML INH INHALATION ×4 (02:20→21:07)
[2020-08-06] MEDS: IPRATROPIUM BR 0.02% INH SOLN 0.5 MG/2.5 ML VIAL INHALATION ×4 (02:20→21:07)
[2020-08-06] MEDS: methylPREDNISolone SOD SUCC 40 MG VIAL IV PUSH ×2 (04:45→08:17)
[2020-08-06 04:56] LABS: Basophils Percent Auto 0.1 % (0.2-1.2); Hematocrit 31.9 % (37.0-47.0); Hemoglobin 10.4 g/dL (12.0-15.0); Immature Granulocyte Percent A 0.9 % (0-0.5); Lymphocytes Absolute Auto 0.86 K/mm3 (0.9-3.2); Mean Corpuscular HGB Conc 32.6 g/dl (32-36); Mean Corpuscular Hemoglobin 28.8 pg (26-34); Mean Corpuscular Volume 88.4 fl (80-100); Mean Platelet Volume 10.3 fl (7.4-10.4); Monocytes Absolute Auto 0.3 K/mm3 (0.1-0.6); Monocytes Percent Auto 3.2 % (2.6-8.5); Neutrophils Absolute Auto 9.5 K/mm3 (1.3-6.7); Neutrophils Percent Auto 87.8 % (45.5-73.1); Platelet Count Result 497 k/mm3 (150-375); Red Blood Count 3.61 M/mm3 (4.2-5.4); Red Cell Distribution Width 13.5 % (11.5-14.5); White Blood Count 10.8 K/mm3 (4.5-10.0)
[2020-08-06 05:12] LABS: Glucose Point of Care 167 mg/dl (65-105)
[2020-08-06 05:24] LABS: Alanine Aminotransferase 66 U/L (4-35); Albumin Level 2.9 g/dL (3.5-5.1); Alkaline Phosphatase 120 U/L (38-126); Anion Gap 4 mmol/L (8-16); Aspartate Amino Transferase 66 U/L (14-36); Bilirubin,Total 0.4 mg/dL (0.2-1.3); Blood Urea Nitrogen 18 mg/dL (7-17); Calcium 9.1 mg/dL (8.4-10.2); Carbon Dioxide 38 mmol/L (22-30); Chloride 94 mmol/L (98-107); Estimated CRCL calculation 57 ml/min; Estimated Glomerular Filt Rate > 60; Glucose 234 mg/dL (65-105); Magnesium 2.2 mg/dL (1.6-2.3); Phosphorus 3.5 mg/dL (2.5-4.5); Potassium 3.2 mmol/L (3.4-5.0); Sodium 136 mmol/L (137-145)
[2020-08-06 05:42] LABS: CRP 22.9 mg/dL (<1.0)
[2020-08-06] MEDS: LEVOTHYROXINE SODIUM 100 MCG TABLET PO (06:40)
[2020-08-06] MEDS: amLODIPine BESYLATE 2.5 MG TABLET PO ×2 (08:17→08:38)
[2020-08-06] MEDS: ENOXAPARIN 40 MG/0.4 ML SYRINGE SUB-Q (08:17)
[2020-08-06] MEDS: lisinopriL 5 MG TABLET PO ×2 (08:17→08:38)
[2020-08-06] MEDS: POTASSIUM CHLORIDE 20 MEQ TABLET 40 MEQ PO (08:37)
[2020-08-06] MEDS: INSULIN GLARGINE (*BKC) 100 UNITS/ML 8 UNITS SUB-Q (08:39)
--- NOTE | 2020-08-06 09:39 | WPDINTPN ---
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 -patient now is a do not resuscitate and do not intubate -ABGs and chest x-ray reviewed from today -CT chest on admission did not show any PE -patient was BiPAP overnight, and switched to high-flow Airvo therapy during the day is Airvo, 74% of 60 L flow rate -maintain O2 sats greater than 92% -continue cefepime, Levaquin and vancomycin -appreciate pulmonology evaluation and recommendation, did will decrease Solu-Medrol dose per pulmonology. -will diurese with low-dose Bumex again today (2) Pneumonia: Qualifiers: Laterality: bilateral Lung location: upper lobe of lung Pneumonia type: due to unspecified organism Qualified Code(s): J18.9 - Pneumonia, unspecified organism Code(s): J18.9 - Pneumonia, unspecified organism Status: Acute Assessment and Plan: CT chest revealed bilatreal pneumonia treatment as above -continue bronchodilators (3) Sepsis: Qualifiers: Sepsis acute organ dysfunction status: unspecified Sepsis type: sepsis due to unspecified organism Qualified Code(s): A41.9 - Sepsis, unspecified organism Code(s): A41.9 - Sepsis, unspecified organism Status: Acute Assessment and Plan: Tachypnea, respiratory distress, elevated WBC count, normal lactic acid -blood cultures negative -continue antibiotics as above (4) Bilateral lower extremity edema: Code(s): R60.0 - Localized edema Status: Acute Assessment and Plan: Venous Dopplers obtained Negative for DVTs (5) Diabetes mellitus: Code(s): E11.9 - Type 2 diabetes mellitus without complications Status: Acute Assessment and Plan: Monitor Accu-Cheks and sliding scale insulin -check hemoglobin A1c on 07/14/2020 was 7.2 -will add small dose Lantus as blood sugars a elevated (6) DVT prophylaxis: Code(s): Z29.9 - Encounter for prophylactic measures, unspecified Status: Acute Assessment and Plan: Lovenox SQ (7) Hypertension: Qualifiers: Hypertension type: unspecified secondary hypertension Qualified Code(s): I15.9 - Secondary hypertension, unspecified Code(s): I10 - Essential (primary) hypertension Status: Acute Assessment and Plan: Continue amlodipine, lisinopril, continue p.r.n. hydralazine -will increase dosage of lisinopril and amlodipine Additional Plan Discussed with patient and her daughter and updated them with patient's condition and plan of care. Code status: DNR/DNI Critical care time spent: 32 minutes This dictation may have been done utilizing a voice recognition system. Attempts have been made to correct errors. However, there may be uncorrected grammatical, spelling, and recognition errors present. Due to a high probability of clinically significant, life threatening deterioration, the patient required my highest level of preparedness to intervene emergently and I personally spent this critical care time directly and personally managing the patient. This critical care time included obtaining a history; examining the patient; pulse oximetry; ordering and review of studies; arranging urgent treatment with development of a management plan; evaluation of patient's response to treatment; frequent reassessment; and discussions with other providers. It was exclusive of separately billable procedures and treating other patients and teaching time. Please see Assessment and Plan section and the
[2020-08-06] MEDS: BUMETANIDE INJ 1 MG/4 ML VIAL IV PUSH (10:26)
[2020-08-06 11:28] LABS: Glucose Point of Care 380 mg/dl (65-105)
[2020-08-06] MEDS: INSULIN ASPART (*BKC) 100 UNITS/ML SUB-Q ×2 (11:37→17:07)
--- NOTE | 2020-08-06 12:01 | PM.PNPUL ---
Progress Note: A&P Assessment and Plan (1) Acute hypoxemic respiratory failure: Code(s): J96.01 - Acute respiratory failure with hypoxia Status: Acute Assessment and Plan: Patient is post COVID pneumonia and now with hypoxemic respiratory failure. 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 Patient is DNR/DNI and now requiring BiPAP support. Patient is on vancomycin, cefepime and Levaquin for possible bacterial pneumonia following her recent hospitalization. Patient with BNP [address] without classic pulmonary edema, she has been given IV Lasix with a good response and has diuresed 1.45 L since admission. 08/04 High flow nasal canulla 60L and 83% with sats 94% and currently being transitioned to BiPAP for respiratory distress. Given the severity of her hypoxemic respiratory failure I will initiate Treatment of post COVID interstitial lung disease/organizing pneumonia with steroids as has been reported ([employer] [facility] Vol 18, No 5, [id number]). I will initiate Solu-Medrol 40 mg IV Q 6 1st dose 12:00. 08/05 Wore BiPAP overnight at RR 18, 14/8, 90% with sats 93-97%. Transitioned to Airvo 60 L 75% with sats 95% this morning. Required 90% with eating. States she is minimally improved. CXR unchanged. Blood culture negative. Continue vanco (day 3), cefepime (day 3) and levaquin (day 2). Would continue solumedrol 40 Q 6 today. 08/06 Wore AVAPS 14, Tidal volume 450, EPAP 5, inspiratory pressure minimum 6, inspiratory pressure maximum 20, 80% overnight and PRN today. Was on Airfo 50L and 75% with sats 93% this morning. States she is minimally improved. CXR essentially unchanged. Blood culture negative. Continue vanco (day 4), cefepime (day 4) and levaquin (day 3). Will decrease solumedrol to 20 Q 6 today. Goal saturations 90-94 with Airvo and BiPAP PRN. Will follow with you. Subjective Date/time seen: 08/06/20 12:01 Interval history: 08/04 New consult for : hypoxemia Chief complaint: RESPIRATORY FAILURE,PNEUMONIA Narrative: This 80-year-old woman with a history of hypothyroidism and COVID admitted to the hospital from 07/14 to 07/25 with hypoxemic respiratory failure. Patient was treated with dexamethasone, Remdesivir for 10 days and was given convalescent plasma on 07/18. at the worst level of her hypoxemia she required 13 L high-flow nasal cannula. This was weaned and she was discharged on 2 L oxygen at rest and 4 with activity. Of note patient had a CT angiogram of the chest on 07/17 that demonstrated no pulmonary embolism and worsening interstitial and alveolar infiltrates. Patient had an echocardiogram on 07/20/2019 with an LVEF of 65-70%, grade 1 diastolic dysfunction, [id number] aortic stenosis, normal RV size and function normal right atrium, pulmonary artery systolic pressure 15 and no right to left shunt with agitated saline. Patient returned to the emergency department on 08/03 with worsening shortness of breath and hypoxemic respiratory failure. She denied fever, chills, rigors, phlegm production or hemoptysis. She had a blood gas on 4 L nasal cannula with a pH of 7.47/43/66. And later she required high-flow oxygen at 60 L with 80% FiO2 with a blood gas of 7.47/33/62. Patient had a CT angiogram of the chest on 08/03 that showed no pulmonary embolism but interval progression of extensive bilateral interstitial and alveolar infiltrates with areas of dense consolidation. Patient was empirically started on vancomycin, cefepime and Levaquin And admitted to the ICU. 08/04 patient tells me today that she feels about the same as yesterday and is struggling to breathe. Patient is tachypneic and she is on high-flow nasal cannula 60 L and 83% FiO2 with saturations 94%. The manager call spoke with the patient and she is DNR DNI but BiPAP is acceptable and she will be given a trial of BiPAP at this time. Solumedrol 40 mg IV Q 6. 08/05 Wore BiPAP ov
[2020-08-06] MEDS: methylPREDNISolone SOD SUCC 40 MG VIAL 20 MG IV PUSH (15:34)
[2020-08-06] MEDS: LORATADINE 10 MG TABLET PO (15:35)
[2020-08-06 16:20] LABS: Glucose Point of Care 278 mg/dl (65-105)
[2020-08-06 20:32] LABS: Glucose Point of Care 347 mg/dl (65-105)
[2020-08-06] MEDS: INSULIN GLARGINE (*BKC) 100 UNITS/ML 14 UNITS SUB-Q (20:34)
[2020-08-06 23:08] LABS: Glucose Point of Care 250 mg/dl (65-105)
[2020-08-07] VITALS (25 sets, daily range): BP systolic 100–167; BP diastolic 48–89; PULSE 81–110; RESP 18–31; TEMP 36.4–36.6; O2SAT 92–98
[2020-08-07] MEDS: methylPREDNISolone SOD SUCC 40 MG VIAL 20 MG IV PUSH ×5 (00:36→23:18)
[2020-08-07] MEDS: IPRATROPIUM BR 0.02% INH SOLN 0.5 MG/2.5 ML VIAL INHALATION ×4 (02:46→20:35)
[2020-08-07] MEDS: ALBUTEROL SULFATE NEB 2.5 MG/0.5 ML INH INHALATION ×4 (02:46→20:35)
[2020-08-07] MEDS: ACETAMINOPHEN 325 MG TABLET 650 MG PO (03:30)
[2020-08-07] MEDS: LEVOTHYROXINE SODIUM 100 MCG TABLET PO (05:41)
[2020-08-07 05:42] LABS: Basophils Percent Auto 0.2 % (0.2-1.2); Hematocrit 33.4 % (37.0-47.0); Hemoglobin 10.8 g/dL (12.0-15.0); Immature Granulocyte Absolute 0.21 K/mm3 (0.00-0.031); Immature Granulocyte Percent A 1.9 % (0-0.5); Lymphocytes Absolute Auto 1.34 K/mm3 (0.9-3.2); Lymphocytes Percent Auto 11.9 % (18.3-44.2); Mean Corpuscular HGB Conc 32.3 g/dl (32-36); Mean Corpuscular Hemoglobin 28.4 pg (26-34); Mean Corpuscular Volume 87.9 fl (80-100); Mean Platelet Volume 10.2 fl (7.4-10.4); Monocytes Absolute Auto 0.3 K/mm3 (0.1-0.6); Monocytes Percent Auto 2.9 % (2.6-8.5); Neutrophils Absolute Auto 9.3 K/mm3 (1.3-6.7); Neutrophils Percent Auto 83.1 % (45.5-73.1); Platelet Count Result 579 k/mm3 (150-375); Red Cell Distribution Width 13.7 % (11.5-14.5); White Blood Count 11.2 K/mm3 (4.5-10.0)
[2020-08-07 05:57] LABS: Alanine Aminotransferase 60 U/L (4-35); Alkaline Phosphatase 110 U/L (38-126); Anion Gap 2 mmol/L (8-16); Aspartate Amino Transferase 41 U/L (14-36); Bilirubin,Total 0.4 mg/dL (0.2-1.3); Blood Urea Nitrogen 24 mg/dL (7-17); CRP 8.7 mg/dL (<1.0); Carbon Dioxide 39 mmol/L (22-30); Chloride 93 mmol/L (98-107); Estimated CRCL calculation 46 ml/min; Estimated Glomerular Filt Rate 60; Glucose 240 mg/dL (65-105); Magnesium 2.2 mg/dL (1.6-2.3); Phosphorus 3.3 mg/dL (2.5-4.5); Potassium 3.8 mmol/L (3.4-5.0); Sodium 134 mmol/L (137-145)
[2020-08-07 08:02] LABS: Lactic Acid Reflex 1.4 mmol/L (0.7-2.1)
[2020-08-07 08:05] LABS: Glucose Point of Care 244 mg/dl (65-105)
[2020-08-07] MEDS: INSULIN ASPART (*BKC) 100 UNITS/ML SUB-Q ×3 (08:07→17:50)
[2020-08-07] MEDS: INSULIN GLARGINE (*BKC) 100 UNITS/ML 12 UNITS SUB-Q (08:08)
[2020-08-07] MEDS: lisinopriL 10 MG TABLET PO (08:09)
[2020-08-07] MEDS: amLODIPine BESYLATE 5 MG TABLET PO (08:09)
[2020-08-07] MEDS: LORATADINE 10 MG TABLET PO (08:09)
[2020-08-07] MEDS: ENOXAPARIN 40 MG/0.4 ML SYRINGE SUB-Q (08:10)
--- NOTE | 2020-08-07 08:45 | WPDINTPN ---
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 -patient now is a do not resuscitate and do not intubate -ABGs and chest x-ray reviewed from today -CT chest on admission did not show any PE -patient was BiPAP /AVAPS overnight, and switched to high-flow Airvo therapy during the day is Airvo, oxygen requirements trending down -maintain O2 sats greater than 92% -continue cefepime, Levaquin and vancomycin -appreciate pulmonology evaluation and recommendation, continue Solu-Medrol -will diurese with Diamox Up in chair (2) Pneumonia: Qualifiers: Laterality: bilateral Lung location: upper lobe of lung Pneumonia type: due to unspecified organism Qualified Code(s): J18.9 - Pneumonia, unspecified organism Code(s): J18.9 - Pneumonia, unspecified organism Status: Acute Assessment and Plan: CT chest revealed bilatreal pneumonia treatment as above -continue bronchodilators (3) Sepsis: Qualifiers: Sepsis acute organ dysfunction status: unspecified Sepsis type: sepsis due to unspecified organism Qualified Code(s): A41.9 - Sepsis, unspecified organism Code(s): A41.9 - Sepsis, unspecified organism Status: Acute Assessment and Plan: Tachypnea, respiratory distress, elevated WBC count, normal lactic acid -blood cultures negative -continue antibiotics as above (4) Bilateral lower extremity edema: Code(s): R60.0 - Localized edema Status: Acute Assessment and Plan: Venous Dopplers obtained on 08/05/2020: Negative for DVTs (5) Diabetes mellitus: Code(s): E11.9 - Type 2 diabetes mellitus without complications Status: Acute Assessment and Plan: Monitor Accu-Cheks and sliding scale insulin -check hemoglobin A1c on 07/14/2020 was 7.2 -increase Lantus (6) DVT prophylaxis: Code(s): Z29.9 - Encounter for prophylactic measures, unspecified Status: Acute Assessment and Plan: Lovenox SQ (7) Hypertension: Qualifiers: Hypertension type: unspecified secondary hypertension Qualified Code(s): I15.9 - Secondary hypertension, unspecified Code(s): I10 - Essential (primary) hypertension Status: Acute Assessment and Plan: Continue amlodipine, lisinopril, continue p.r.n. hydralazine -continue lisinopril and amlodipine Additional Plan Discussed with patient and her daughter and updated them with patient's condition and plan of care. Code status: DNR/DNI Critical care time spent: 32 minutes This dictation may have been done utilizing a voice recognition system. Attempts have been made to correct errors. However, there may be uncorrected grammatical, spelling, and recognition errors present. Due to a high probability of clinically significant, life threatening deterioration, the patient required my highest level of preparedness to intervene emergently and I personally spent this critical care time directly and personally managing the patient. This critical care time included obtaining a history; examining the patient; pulse oximetry; ordering and review of studies; arranging urgent treatment with development of a management plan; evaluation of patient's response to treatment; frequent reassessment; and discussions with other providers. It was exclusive of separately billable procedures and treating other patients and teaching time. Please see Assessment and Plan section and the rest of the note for further information on patient as
[2020-08-07] MEDS: WATER, STERILE FOR INJECTION 10 ML VIAL XX (09:31)
[2020-08-07] MEDS: acetaZOLAMIDE SODIUM FOR INJ 500 MG VIAL 250 MG IV PUSH (09:31)
--- NOTE | 2020-08-07 10:30 | PM.PNPUL ---
Progress Note: A&P Assessment and Plan (1) Acute hypoxemic respiratory failure: Code(s): J96.01 - Acute respiratory failure with hypoxia Status: Acute Assessment and Plan: Patient is post COVID pneumonia and now with hypoxemic respiratory failure. 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 Patient is DNR/DNI and now requiring BiPAP support. Patient is on vancomycin, cefepime and Levaquin for possible bacterial pneumonia following her recent hospitalization. Patient with BNP [address] without classic pulmonary edema, she has been given IV Lasix with a good response and has diuresed 1.45 L since admission. 08/04 High flow nasal canulla 60L and 83% with sats 94% and currently being transitioned to BiPAP for respiratory distress. Given the severity of her hypoxemic respiratory failure I will initiate Treatment of post COVID interstitial lung disease/organizing pneumonia with steroids as has been reported ([employer] [facility] Vol 18, No 5, [id number]). I will initiate Solu-Medrol 40 mg IV Q 6 1st dose 12:00. 08/05 Wore BiPAP overnight at RR 18, 14/8, 90% FIO2 with sats 93-97%. Transitioned to Airvo 60 L 75% with sats 95% this morning. Required 90% with eating. States she is minimally improved. CXR unchanged. Blood culture negative. Continue vanco (day 3), cefepime (day 3) and levaquin (day 2). Would continue solumedrol 40 Q 6 today. 08/06 Wore AVAPS 14, Tidal volume 450, EPAP 5, inspiratory pressure minimum 6, inspiratory pressure maximum 20, 80% overnight and PRN today. Was on Airfo 50L and 75% with sats 93% this morning. States she is minimally improved. CXR essentially unchanged. Blood culture negative. Continue vanco (day 4), cefepime (day 4) and levaquin (day 3). Will decrease solumedrol to 20 Q 6 today. Off AVAPS all day on Airvo at 60L and 74% throughtout day 08/07 Wore AVAPS overnight FIO2 decreased to 50%. Today she tells me she is a little bit better. She still has shortness of breath at rest. Currently on high-flow nasal cannula at 45 L and 60% with saturations 94%. Mild improvement in oxygenation and will continue solumedrol 20 Q 6 today. Check CXR in morning. Continue vanco (day 5), cefepime (day 5) and levaquin (day 4). Plan for 7 days antibiotics then DC. Goal saturations 90-94 with Airvo and BiPAP PRN. Will follow with you. Subjective Date/time seen: 08/07/20 10:30 Interval history: 08/04 New consult for : hypoxemia Chief complaint: RESPIRATORY FAILURE,PNEUMONIA Narrative: This 80-year-old woman with a history of hypothyroidism and COVID admitted to the hospital from 07/14 to 07/25 with hypoxemic respiratory failure. Patient was treated with dexamethasone, Remdesivir for 10 days and was given convalescent plasma on 07/18. at the worst level of her hypoxemia she required 13 L high-flow nasal cannula. This was weaned and she was discharged on 2 L oxygen at rest and 4 with activity. Of note patient had a CT angiogram of the chest on 07/17 that demonstrated no pulmonary embolism and worsening interstitial and alveolar infiltrates. Patient had an echocardiogram on 07/20/2019 with an LVEF of 65-70%, grade 1 diastolic dysfunction, [id number] aortic stenosis, normal RV size and function normal right atrium, pulmonary artery systolic pressure 15 and no right to left shunt with agitated saline. Patient returned to the emergency department on 08/03 with worsening shortness of breath and hypoxemic respiratory failure. She denied fever, chills, rigors, phlegm production or hemoptysis. She had a blood gas on 4 L nasal cannula with a pH of 7.47/43/66. And later she required high-flow oxygen at 60 L with 80% FiO2 with a blood gas of 7.47/33/62. Patient had a CT angiogram of the chest on 08/03 that showed no pulmonary embolism but interval progression of extensive bilateral interstitial and alveolar infiltrates with areas of dense consolidation. Leona
[2020-08-07 11:20] LABS: Glucose Point of Care 277 mg/dl (65-105)
--- NOTE | 2020-08-07 12:27 | PM.IMPN ---
Progress Note: A&P Assessment and Plan (1) Acute hypoxemic respiratory failure: Code(s): J96.01 - Acute respiratory failure with hypoxia Status: Acute Assessment and Plan: Continue steroids (Solu-Medrol 20mg IV q 6h) for [id number] pneumonitis. Wean oxygen as possible (2) Pneumonia: Qualifiers: Laterality: bilateral Lung location: upper lobe of lung Pneumonia type: due to unspecified organism Qualified Code(s): J18.9 - Pneumonia, unspecified organism Code(s): J18.9 - Pneumonia, unspecified organism Status: Acute Assessment and Plan: CTA showing interval progression of extensive patchy bilateral lung groundglass opacities and consolidation. 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 Bacterial PNA seems less likely but consider atypical; fungal?. Continue with the antibiotics and nebs. Folow up on BCx. Check sputum cultures. Pulmonary consult ordered. Continue Vancomycin, Cefepime, Levaquin (3) Bilateral lower extremity edema: Code(s): R60.0 - Localized edema Status: Acute Assessment and Plan: No pulmonary HTN by Echo. Treated with bumetanide 08/06, acetazolamide 08/07 (4) Diabetes mellitus: Qualifiers: Diabetes mellitus type: type 2 Diabetes mellitus senior living insulin use: without senior living use Diabetes mellitus complication status: with hyperglycemia Qualified Code(s): E11.65 - Type 2 diabetes mellitus with hyperglycemia Code(s): E11.9 - Type 2 diabetes mellitus without complications Status: Acute Assessment and Plan: Continue SSI 08/07 FBS 240, so basal glargine incr to 18 U (5) Hypertension: Qualifiers: Hypertension type: unspecified secondary hypertension Qualified Code(s): I15.9 - Secondary hypertension, unspecified Code(s): I10 - Essential (primary) hypertension Status: Acute Assessment and Plan: Continue to monitor on current regimen (6) Sepsis: Qualifiers: Sepsis acute organ dysfunction status: unspecified Sepsis type: sepsis due to unspecified organism Qualified Code(s): A41.9 - Sepsis, unspecified organism Code(s): A41.9 - Sepsis, unspecified organism Status: Acute Assessment and Plan: Resolved Subjective Date/time seen: 08/07/20 12:27 Interval history: 80yo female who recently had COVID-19 PNA who presents with increasing shortness of breath and hypoxia. Patient with SARS CoV-2 Ag positive on 07/11/20. She was admitted 07/14/20 for nausea and vomiting. Initially was on room air but ultimately required HFNC. Completed 10 days of Remedesvir and Dexamethasone on 07/23. CXR 07/22 showing much improvement. Home O2 evaluation showing she needed 2L at rest and 4L with exertion. She was discharged home on 07/25/20. Admitted again to acute care 08/03 for dyspnea. 08/07: Remains on HFNC. Tolerating liquids. Denied pain. Denied sob at rest. Passed flatus but no stool yet. Review of Systems Review of Systems: All systems reviewed & are unremarkable except as noted in HPI and below Exam Narrative: Exam Narrative: AF 97.6 154/79 94 28 91% HFNC Gen - mild tachypnea with conversation Chest - diffuse inspiratory crackles, coarse BS, decr BS at bases CV - RRR, NL S1-S2. No audible murmur. Abd - soft. protuberant but not tense. Positive bowel sounds. - Hunt secured draining clear yellow urine Ext - No pitting edema. No cyanosis. Psych - Patient is pleasant and cooperative. A/O x3. Skin - warm and dry. Objective Data Vital Signs Vital Signs: Vital Signs - 24 hr 08/06/20 13:53 08/06/20 14:00 08/06/20 14:04 Temperature Pulse Rate 98 99 106 H Respiratory Rate 24 H 23 H 24 H Blood Pressure 159/76 H Pulse Oximetry 94 08/06/20 16:00 08/06/20 18:00 08/06/20 20:00 Temperature 97.8 F 97.8 F Pulse Rate 95 108 H 101 H Respiratory Rate 31 H 27 H 29 H Blood Pressure 141/78 H 160/73 H 140/60 P
[2020-08-07 17:00] LABS: Glucose Point of Care 298 mg/dl (65-105)
[2020-08-07] MEDS: INSULIN GLARGINE (*BKC) 100 UNITS/ML 18 UNITS SUB-Q (20:24)
[2020-08-07 20:32] LABS: Glucose Point of Care 247 mg/dl (65-105)
[2020-08-08] VITALS (24 sets, daily range): BP systolic 142–170; BP diastolic 58–82; PULSE 83–108; RESP 20–39; TEMP 36.4–36.6; O2SAT 91–98
[2020-08-08] MEDS: ALBUTEROL SULFATE NEB 2.5 MG/0.5 ML INH INHALATION ×4 (01:55→21:10)
[2020-08-08] MEDS: IPRATROPIUM BR 0.02% INH SOLN 0.5 MG/2.5 ML VIAL INHALATION ×4 (01:56→21:10)
--- NOTE | 2020-08-08 02:07 | PC.NURSE ---
Spoke with Dr. Turner for persistent High Blood pressure. Order 10mg Hydralazine IV Q4h PRN for SBP >/= 170 or DBP >100
[2020-08-08] MEDS: hydrALAZINE HCL 20 MG/ML VIAL 10 MG IV PUSH (02:22)
[2020-08-08 04:22] LABS: Basophils Absolute Auto 0.1 K/mm3 (0.0-0.1); Basophils Percent Auto 0.5 % (0.2-1.2); Hematocrit 34.2 % (37.0-47.0); Hemoglobin 11.2 g/dL (12.0-15.0); Immature Granulocyte Absolute 0.71 K/mm3 (0.00-0.031); Immature Granulocyte Percent A 4.9 % (0-0.5); Lymphocytes Absolute Auto 2.28 K/mm3 (0.9-3.2); Lymphocytes Percent Auto 15.7 % (18.3-44.2); Mean Corpuscular HGB Conc 32.7 g/dl (32-36); Mean Corpuscular Hemoglobin 28.9 pg (26-34); Mean Corpuscular Volume 88.4 fl (80-100); Monocytes Absolute Auto 0.5 K/mm3 (0.1-0.6); Monocytes Percent Auto 3.5 % (2.6-8.5); Neutrophils Absolute Auto 10.9 K/mm3 (1.3-6.7); Neutrophils Percent Auto 75.4 % (45.5-73.1); Platelet Count Result 653 k/mm3 (150-375); Red Blood Count 3.87 M/mm3 (4.2-5.4); Red Cell Distribution Width 13.8 % (11.5-14.5); White Blood Count 14.5 K/mm3 (4.5-10.0)
[2020-08-08 04:37] LABS: Alanine Aminotransferase 57 U/L (4-35); Alkaline Phosphatase 102 U/L (38-126); Anion Gap 3 mmol/L (8-16); Aspartate Amino Transferase 40 U/L (14-36); Bilirubin,Total 0.4 mg/dL (0.2-1.3); Blood Urea Nitrogen 28 mg/dL (7-17); CRP 5.5 mg/dL (<1.0); Calcium 9.2 mg/dL (8.4-10.2); Carbon Dioxide 35 mmol/L (22-30); Chloride 96 mmol/L (98-107); Estimated CRCL calculation 41 ml/min; Estimated Glomerular Filt Rate 53; Glucose 212 mg/dL (65-105); Magnesium 2.4 mg/dL (1.6-2.3); Phosphorus 3.3 mg/dL (2.5-4.5); Potassium 3.6 mmol/L (3.4-5.0); Sodium 134 mmol/L (137-145)
[2020-08-08] MEDS: methylPREDNISolone SOD SUCC 40 MG VIAL 20 MG IV PUSH (04:40)
[2020-08-08] MEDS: LEVOTHYROXINE SODIUM 100 MCG TABLET PO (04:40)
[2020-08-08] MEDS: amLODIPine BESYLATE 5 MG TABLET PO (08:05)
[2020-08-08] MEDS: INSULIN ASPART (*BKC) 100 UNITS/ML SUB-Q ×3 (08:05→16:44)
[2020-08-08] MEDS: ENOXAPARIN 40 MG/0.4 ML SYRINGE SUB-Q (08:06)
[2020-08-08] MEDS: lisinopriL 10 MG TABLET PO (08:07)
[2020-08-08] MEDS: INSULIN GLARGINE (*BKC) 100 UNITS/ML 20 UNITS SUB-Q ×2 (08:07→19:42)
[2020-08-08] MEDS: LORATADINE 10 MG TABLET PO (08:08)
--- NOTE | 2020-08-08 09:11 | WPDINTPN ---
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 -patient now is a DNR/DNI -chest x-ray from today seems to have improved -CT chest on admission did not show any PE -patient was BiPAP /AVAPS overnight, and switched to high-flow Airvo therapy during the day is Airvo, oxygen requirements trending down -maintain O2 sats greater than 92% -continue cefepime, Levaquin and vancomycin -appreciate pulmonology evaluation and recommendation, continue Solu-Medrol -up in chair again today (2) Pneumonia: Qualifiers: Laterality: bilateral Lung location: upper lobe of lung Pneumonia type: due to unspecified organism Qualified Code(s): J18.9 - Pneumonia, unspecified organism Code(s): J18.9 - Pneumonia, unspecified organism Status: Acute Assessment and Plan: CT chest revealed bilatreal pneumonia treatment as above -continue bronchodilators (3) Sepsis: Qualifiers: Sepsis acute organ dysfunction status: unspecified Sepsis type: sepsis due to unspecified organism Qualified Code(s): A41.9 - Sepsis, unspecified organism Code(s): A41.9 - Sepsis, unspecified organism Status: Acute Assessment and Plan: Tachypnea, respiratory distress, elevated WBC count, normal lactic acid -blood cultures negative -continue antibiotics as above (4) Bilateral lower extremity edema: Code(s): R60.0 - Localized edema Status: Acute Assessment and Plan: Venous Dopplers obtained on 08/05/2020: Negative for DVTs (5) Diabetes mellitus: Qualifiers: Diabetes mellitus type: type 2 Diabetes mellitus terminal superintendent insulin use: without terminal superintendent use Diabetes mellitus complication status: with hyperglycemia Qualified Code(s): E11.65 - Type 2 diabetes mellitus with hyperglycemia Code(s): E11.9 - Type 2 diabetes mellitus without complications Status: Acute Assessment and Plan: Monitor Accu-Cheks and sliding scale insulin -check hemoglobin A1c on 07/14/2020 was 7.2 -increase Lantus (6) DVT prophylaxis: Code(s): Z29.9 - Encounter for prophylactic measures, unspecified Status: Acute Assessment and Plan: Lovenox SQ (7) Hypertension: Qualifiers: Hypertension type: unspecified secondary hypertension Qualified Code(s): I15.9 - Secondary hypertension, unspecified Code(s): I10 - Essential (primary) hypertension Status: Acute Assessment and Plan: Continue amlodipine, lisinopril, continue p.r.n. hydralazine -continue lisinopril and amlodipine Additional Plan Discussed with patient and her daughter and updated them with patient's condition and plan of care. Code status: DNR/DNI Critical care time spent: 32 minutes This dictation may have been done utilizing a voice recognition system. Attempts have been made to correct errors. However, there may be uncorrected grammatical, spelling, and recognition errors present. Due to a high probability of clinically significant, life threatening deterioration, the patient required my highest level of preparedness to intervene emergently and I personally spent this critical care time directly and personally managing the patient. This critical care time included obtaining a history; examining the patient; pulse oximetry; ordering and review of studies; arranging urgent treatment with development of a management plan; evaluation of patient's response to treatment; frequent reassessment; and discussions with ot
--- NOTE | 2020-08-08 09:16 | PM.PNPUL ---
Progress Note: A&P Assessment and Plan (1) Acute hypoxemic respiratory failure: Code(s): J96.01 - Acute respiratory failure with hypoxia Status: Acute Assessment and Plan: Patient is post COVID pneumonia and now with hypoxemic respiratory failure. 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 Patient is DNR/DNI and now requiring BiPAP support. Patient is on vancomycin, cefepime and Levaquin for possible bacterial pneumonia following her recent hospitalization. Patient with BNP [address] without classic pulmonary edema, she has been given IV Lasix with a good response and has diuresed 1.45 L since admission. 08/04 High flow nasal canulla 60L and 83% with sats 94% and currently being transitioned to BiPAP for respiratory distress. Given the severity of her hypoxemic respiratory failure I will initiate Treatment of post COVID interstitial lung disease/organizing pneumonia with steroids as has been reported ([facility] Vol 18, No 5, [id number]). I will initiate Solu-Medrol 40 mg IV Q 6 1st dose 12:00. 08/05 Wore BiPAP overnight at RR 18, 14/8, 90% FIO2 with sats 93-97%. Transitioned to Airvo 60 L 75% with sats 95% this morning. Required 90% with eating. States she is minimally improved. CXR unchanged. Blood culture negative. Continue vanco (day 3), cefepime (day 3) and levaquin (day 2). Would continue solumedrol 40 Q 6 today. 08/06 Wore AVAPS 14, Tidal volume 450, EPAP 5, inspiratory pressure minimum 6, inspiratory pressure maximum 20, 80% overnight and PRN today. Was on Airfo 50L and 75% with sats 93% this morning. States she is minimally improved. CXR essentially unchanged. Blood culture negative. Continue vanco (day 4), cefepime (day 4) and levaquin (day 3). Will decrease solumedrol to 20 Q 6 today. Off AVAPS all day on Airvo at 60L and 74% throughtout day 08/07 Wore AVAPS overnight FIO2 decreased to 50%. Today she tells me she is a little bit better. She still has shortness of breath at rest. Currently on high-flow nasal cannula at 45 L and 60% with saturations 94%. Mild improvement in oxygenation and will continue solumedrol 20 Q 6 today. Check CXR in morning. Continue vanco (day 5), cefepime (day 5) and levaquin (day 4). Plan for 7 days antibiotics then DC. 08/08 Wore AVAPS overnight FIO2 at 50%. Today she tells me she is a little bit better. Currently on Airvo 45L 60% with sats 97%. CXR continued bilateral infiltrates with improvement since 08/04. Will change to prednisone 50 mg PO today. Will try off BiPAP tonight. Continue vanco (day 6), cefepime (day 6) and levaquin (day 5) Goal saturations 90-94 with Airvo and BiPAP PRN. Will follow with you. Subjective Date/time seen: 08/08/20 09:16 Interval history: 08/04 New consult for : hypoxemia Chief complaint: RESPIRATORY FAILURE,PNEUMONIA Narrative: This 80-year-old woman with a history of hypothyroidism and COVID admitted to the hospital from 07/14 to 07/25 with hypoxemic respiratory failure. Patient was treated with dexamethasone, Remdesivir for 10 days and was given convalescent plasma on 07/18. at the worst level of her hypoxemia she required 13 L high-flow nasal cannula. This was weaned and she was discharged on 2 L oxygen at rest and 4 with activity. Of note patient had a CT angiogram of the chest on 07/17 that demonstrated no pulmonary embolism and worsening interstitial and alveolar infiltrates. Patient had an echocardiogram on 07/20/2019 with an LVEF of 65-70%, grade 1 diastolic dysfunction, [id number] aortic stenosis, normal RV size and function normal right atrium, pulmonary artery systolic pressure 15 and no right to left shunt with agitated saline. Patient returned to the emergency department on 08/03 with worsening shortness of breath and hypoxemic respiratory failure. She denied fever, chills, rigors, phlegm production or hemoptysis. She had a blood gas on 4 L nasal cannula with
[2020-08-08 11:40] LABS: Glucose Point of Care 343 mg/dl (65-105)
[2020-08-08] MEDS: predniSONE 10 MG TABLET 50 MG PO (11:48)
--- NOTE | 2020-08-08 15:20 | PM.IMPN ---
Progress Note: A&P Assessment and Plan (1) Acute hypoxemic respiratory failure: Code(s): J96.01 - Acute respiratory failure with hypoxia Status: Acute Assessment and Plan: Continue steroids (Solu-Medrol 20mg IV q 6h) for [id number] pneumonitis. Wean oxygen as possible 08/08/20 15:20 Upon arrival patient with acute hypoxemic respiratory failure possibly secondary to COVID-19 pneumonia and secondary bacterial pneumonia patient is being treated patient Cefepime (day6), vancomycin (day6) and Levaquin (day5) CT of the chest shows improvement in patchy consolidation pneumonia and ground-glass appearance, patient's symptoms are improving now on Airvo during the day and BiPAP at night, seen by feed mill manager taper Solu-Medrol to prednisone 50 mg q.day, patient clinical symptoms are improving will transfer patient out of ICU to IMU, patient is seen by pulmonology and optics manufacturing technician and appreciate (2) Pneumonia: Qualifiers: Laterality: bilateral Lung location: upper lobe of lung Pneumonia type: due to unspecified organism Qualified Code(s): J18.9 - Pneumonia, unspecified organism Code(s): J18.9 - Pneumonia, unspecified organism Status: Acute Assessment and Plan: CTA showing interval progression of extensive patchy bilateral lung groundglass opacities and consolidation. 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 Bacterial PNA seems less likely but consider atypical; fungal?. Continue with the antibiotics and nebs. Folow up on BCx. Check sputum cultures. Pulmonary consult ordered. Continue Vancomycin, Cefepime, Levaquin (3) Bilateral lower extremity edema: Code(s): R60.0 - Localized edema Status: Acute Assessment and Plan: No pulmonary HTN by Echo. Treated with bumetanide 08/06, acetazolamide 08/07 (4) Diabetes mellitus: Qualifiers: Diabetes mellitus type: type 2 Diabetes mellitus chcf insulin use: without termite control technician use Diabetes mellitus complication status: with hyperglycemia Qualified Code(s): E11.65 - Type 2 diabetes mellitus with hyperglycemia Code(s): E11.9 - Type 2 diabetes mellitus without complications Status: Acute Assessment and Plan: Continue SSI 08/07 FBS 240, so basal glargine incr to 18 U (5) Hypertension: Qualifiers: Hypertension type: unspecified secondary hypertension Qualified Code(s): I15.9 - Secondary hypertension, unspecified Code(s): I10 - Essential (primary) hypertension Status: Acute Assessment and Plan: Continue to monitor on current regimen (6) Sepsis: Qualifiers: Sepsis acute organ dysfunction status: unspecified Sepsis type: sepsis due to unspecified organism Qualified Code(s): A41.9 - Sepsis, unspecified organism Code(s): A41.9 - Sepsis, unspecified organism Status: Acute Assessment and Plan: Resolved Subjective Date/time seen: 08/08/20 15:20 Upon arrival patient with acute hypoxemic respiratory failure possibly secondary to COVID-19 pneumonia and secondary bacterial pneumonia patient is being treated patient Cefepime (day6), vancomycin (day6) and Levaquin (day5) CT of the chest shows improvement in patchy consolidation pneumonia and ground-glass appearance, patient's symptoms are improving now on Airvo during the day and BiPAP at night, seen by feed mill manager taper Solu-Medrol to prednisone 50 mg q.day, patient clinical symptoms are improving will transfer patient out of ICU to IMU, patient is seen by pulmonology and optics manufacturing technician and appreciate Review of Systems Review of Systems: All systems reviewed & are unremarkable except as noted in HPI and below Exam Narrative: Exam Narrative: Elderly frail Patient is comfortable, NAD HEENT: eyes are clear and none icteric, Aervo LUNGS: Bilateral fair air entry with rhonchi HEART: RR S1S2 ABD: BS+, Soft and nontender Lower extremities: no edema SKIN: nonjaundice
[2020-08-08 16:40] LABS: Glucose Point of Care 233 mg/dl (65-105)
[2020-08-08 19:48] LABS: Glucose Point of Care 295 mg/dl (65-105)
[2020-08-09] VITALS (26 sets, daily range): BP systolic 107–166; BP diastolic 52–80; PULSE 76–108; RESP 16–96; TEMP 36.4–36.8; O2SAT 23–98
[2020-08-09] MEDS: hydrALAZINE HCL 20 MG/ML VIAL 10 MG IV PUSH (00:33)
[2020-08-09] MEDS: ALBUTEROL SULFATE NEB 2.5 MG/0.5 ML INH INHALATION ×4 (01:27→21:12)
[2020-08-09] MEDS: IPRATROPIUM BR 0.02% INH SOLN 0.5 MG/2.5 ML VIAL INHALATION ×4 (01:27→21:12)
[2020-08-09 04:28] LABS: Hemoglobin 10.8 g/dL (12.0-15.0); Mean Corpuscular HGB Conc 32.7 g/dl (32-36); Mean Corpuscular Hemoglobin 28.3 pg (26-34); Mean Corpuscular Volume 86.4 fl (80-100); Mean Platelet Volume 9.6 fl (7.4-10.4); Platelet Count Result 706 k/mm3 (150-375); Red Blood Count 3.82 M/mm3 (4.2-5.4); White Blood Count 16.4 K/mm3 (4.5-10.0)
[2020-08-09 04:42] LABS: Alanine Aminotransferase 46 U/L (4-35); Albumin Level 2.8 g/dL (3.5-5.1); Alkaline Phosphatase 85 U/L (38-126); Anion Gap 4 mmol/L (8-16); Aspartate Amino Transferase 44 U/L (14-36); Bilirubin,Total 0.3 mg/dL (0.2-1.3); Blood Urea Nitrogen 27 mg/dL (7-17); Calcium 8.9 mg/dL (8.4-10.2); Carbon Dioxide 34 mmol/L (22-30); Chloride 96 mmol/L (98-107); Estimated CRCL calculation 45 ml/min; Estimated Glomerular Filt Rate 60; Glucose 169 mg/dL (65-105); Magnesium 2.4 mg/dL (1.6-2.3); Phosphorus 3.1 mg/dL (2.5-4.5); Potassium 3.5 mmol/L (3.4-5.0); Sodium 134 mmol/L (137-145)
[2020-08-09 04:50] LABS: Band Neutrophils Percent 3 % (0-6); Lymphocytes Absolute Manual 3.28 K/mm3 (1.1-4.5); Metamyelocytes Percent 1 %; Monocytes Absolute Manual 0.98 K/mm3 (0.1-0.90); Monocytes Percent Manual 6 % (3-9); Neutrophils Absolute Manual 11.97 K/mm3 (1.7-7.2); Neutrophils Percent Manual 70 % (46-73); Platelet Estimate Adequate (Adequate); Total Cells Counted 100
[2020-08-09] MEDS: LEVOTHYROXINE SODIUM 100 MCG TABLET PO (04:50)
[2020-08-09] MEDS: ENOXAPARIN 40 MG/0.4 ML SYRINGE SUB-Q (08:34)
[2020-08-09] MEDS: lisinopriL 10 MG TABLET PO (08:34)
[2020-08-09] MEDS: LORATADINE 10 MG TABLET PO (08:34)
[2020-08-09] MEDS: amLODIPine BESYLATE 5 MG TABLET PO (08:34)
[2020-08-09] MEDS: predniSONE 10 MG TABLET 50 MG PO (08:35)
[2020-08-09 08:38] LABS: Glucose Point of Care 92 mg/dl (65-105)
--- NOTE | 2020-08-09 10:25 | PM.PNPUL ---
Progress Note: A&P Assessment and Plan (1) Acute hypoxemic respiratory failure: Code(s): J96.01 - Acute respiratory failure with hypoxia Status: Acute Assessment and Plan: Patient is post COVID pneumonia and now with hypoxemic respiratory failure. 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 Patient is DNR/DNI and now requiring BiPAP support. Patient is on vancomycin, cefepime and Levaquin for possible bacterial pneumonia following her recent hospitalization. Patient with BNP [address] without classic pulmonary edema, she has been given IV Lasix with a good response and has diuresed 1.45 L since admission. 08/04 High flow nasal canulla 60L and 83% with sats 94% and currently being transitioned to BiPAP for respiratory distress. Given the severity of her hypoxemic respiratory failure I will initiate Treatment of post COVID interstitial lung disease/organizing pneumonia with steroids as has been reported ([facility] [facility] Vol 18, No 5, [id number]). I will initiate Solu-Medrol 40 mg IV Q 6 1st dose 12:00. 08/05 Wore BiPAP overnight at RR 18, 14/8, 90% FIO2 with sats 93-97%. Transitioned to Airvo 60 L 75% with sats 95% this morning. Required 90% with eating. States she is minimally improved. CXR unchanged. Blood culture negative. Continue vanco (day 3), cefepime (day 3) and levaquin (day 2). Would continue solumedrol 40 Q 6 today (day 2). 08/06 Wore AVAPS 14, Tidal volume 450, EPAP 5, inspiratory pressure minimum 6, inspiratory pressure maximum 20, 80% overnight and PRN today. Was on Airfo 50L and 75% with sats 93% this morning. States she is minimally improved. CXR essentially unchanged. Blood culture negative. Continue vanco (day 4), cefepime (day 4) and levaquin (day 3). Will decrease solumedrol to 20 Q 6 today. Off AVAPS all day on Airvo at 60L and 74% throughtout day 08/07 Wore AVAPS overnight FIO2 decreased to 50%. Today she tells me she is a little bit better. She still has shortness of breath at rest. Currently on high-flow nasal cannula at 45 L and 60% with saturations 94%. Mild improvement in oxygenation and will continue solumedrol 20 Q 6 today (day 2). Check CXR in morning. Continue vanco (day 5), cefepime (day 5) and levaquin (day 4). Plan for 7 days antibiotics then DC. 08/08 Wore AVAPS overnight FIO2 at 50%. Today she tells me she is a little bit better. Currently on Airvo 45L 60% with sats 97%. CXR continued bilateral infiltrates with improvement since 08/04. Will change to prednisone 50 mg PO today. Will try off BiPAP tonight. Continue vanco (day 6), cefepime (day 6) and levaquin (day 5) 08/09 Off BiPAP 24 hours now, wore Airvo last night at 35L and 55%. Did well and feels like she is improving each day. OOB during day. Currently on Airvo 35L 55% with sats 91% while eating breakfast. CXR continued bilateral infiltrates with improvement since 08/04. On day 2 of prednisone 50 mg PO today. Will try NC 15 L later today. Will DC antibiotics today. Goal saturations 90-94 with Airvo and high flow NC as tolerated. Will follow with you. Subjective Date/time seen: 08/09/20 10:25 Interval history: 08/04 New consult for : hypoxemia Chief complaint: RESPIRATORY FAILURE,PNEUMONIA Narrative: This 80-year-old woman with a history of hypothyroidism and COVID admitted to the hospital from 07/14 to 07/25 with hypoxemic respiratory failure. Patient was treated with dexamethasone, Remdesivir for 10 days and was given convalescent plasma on 07/18. at the worst level of her hypoxemia she required 13 L high-flow nasal cannula. This was weaned and she was discharged on 2 L oxygen at rest and 4 with activity. Of note patient had a CT angiogram of the chest on 07/17 that demonstrated no pulmonary embolism and worsening interstitial and alveolar infiltrates. Patient had an echocardiogram on 07/20/2019 with an LVEF of 65-70%, grade 1 diastolic dysfunction, [id number] ao
--- NOTE | 2020-08-09 10:26 | PCRCNOTE ---
MN ANGELY AVINA, PT TOLERATED HIGH FLOW THERAPY WEAN WELL WHILE LYING IN BED BUT DROPPED SPO2 QUICKLY DURING PT. CHANGES MADE ON AIRVO TO 25LPM/80%.
[2020-08-09 12:33] LABS: Glucose Point of Care 179 mg/dl (65-105)
[2020-08-09 16:25] LABS: Glucose Point of Care 292 mg/dl (65-105)
[2020-08-09] MEDS: INSULIN ASPART (*BKC) 100 UNITS/ML SUB-Q (16:27)
--- NOTE | 2020-08-09 16:28 | PM.IMPN ---
Progress Note: A&P Assessment and Plan (1) Acute hypoxemic respiratory failure: Code(s): J96.01 - Acute respiratory failure with hypoxia Status: Acute Assessment and Plan: Upon arrival, patient with acute hypoxemic respiratory failure possibly secondary to COVID-19 pneumonia and/or bacterial pneumonia. CTA chest showing diffuse extensive patchy bilateral lung disease. Patient was treated with Cefepime (day7), vancomycin (day7) and Levaquin (day6). IVSteroids started. Patient DNR. She was on AirVo but able to be weaned to HFNC. Welder Gas following. Steroids tapered to prednisone. Wean O2 as toelrated. COntinue supportive care. (2) Pneumonia: Qualifiers: Laterality: bilateral Lung location: upper lobe of lung Pneumonia type: due to unspecified organism Qualified Code(s): J18.9 - Pneumonia, unspecified organism Code(s): J18.9 - Pneumonia, unspecified organism Status: Acute Assessment and Plan: CTA showing interval progression of extensive patchy bilateral lung groundglass opacities and consolidation. Consider post-COVID hypersensitivity pneumonitis. Bacterial PNA seems less likely but was covered with broad spectrum abx. CXR showing marked improvement. Continue with the nebs. BCx negative. Abx stopped. (3) Bilateral lower extremity edema: Code(s): R60.0 - Localized edema Status: Acute Assessment and Plan: No pulmonary HTN by Echo. Venous doppler negative for DVT. Treated with bumetanide 08/06, acetazolamide 08/07. Edema much improved. (4) Diabetes mellitus: Qualifiers: Diabetes mellitus type: type 2 Diabetes mellitus senior living insulin use: without senior living use Diabetes mellitus complication status: with hyperglycemia Qualified Code(s): E11.65 - Type 2 diabetes mellitus with hyperglycemia Code(s): E11.9 - Type 2 diabetes mellitus without complications Status: Acute Assessment and Plan: The patient's blood glucose was reviewed on 08/09 Glucose better controlled. Cut Lantus back. Continue AccuCheks covering with sliding scale. Hypoglycemia protocol available as needed. (5) Hypertension: Qualifiers: Hypertension type: unspecified secondary hypertension Qualified Code(s): I15.9 - Secondary hypertension, unspecified Code(s): I10 - Essential (primary) hypertension Status: Acute Assessment and Plan: Patient's blood pressure was reviewed on 08/09 Blood pressure remains mostly well controlled. Will continue current medications with Norvasc and Lisinopril. (6) Sepsis: Qualifiers: Sepsis acute organ dysfunction status: unspecified Sepsis type: sepsis due to unspecified organism Qualified Code(s): A41.9 - Sepsis, unspecified organism Code(s): A41.9 - Sepsis, unspecified organism Status: Acute Assessment and Plan: Resolved. Abx stopped. (7) DVT prophylaxis: Code(s): Z29.9 - Encounter for prophylactic measures, unspecified Status: Acute Assessment and Plan: Lovenox Subjective Date/time seen: 08/09/20 16:28 Interval history: 80yo female who recently had COVID-19 PNA who presents with increasing shortness of breath and hypoxia. Patient with SARS CoV-2 Ag positive on 07/11/20. She was admitted 07/14/20 for nausea and vomiting. Initially was on room air but ultimately required HFNC. Completed 10 days of Remedesvir and Dexamethasone on 07/23. CXR 07/22 showing much improvement. Home O2 evaluation showing she needed 2L at rest and 4L with exertion. She was discharged home on 07/25/20. Resuming care. Chart reviewed. Feeling better. Eating well. Has episodes of hypoxia when moving to/from the bed. Exam Narrative: Exam Narrative: AF 98.2 136/65 104 22 98% HFNC Gen - NARD, no conversatinal dyspnea sitting up in chair feeding herself dinner Chest - distatn, clear BS, nml RR CV - tachycardia; Tele showing no
[2020-08-09 16:55] LABS: Vancomycin Trough 15.2 ug/mL (10.0-20.0)
[2020-08-09] MEDS: INSULIN GLARGINE (*BKC) 100 UNITS/ML 20 UNITS SUB-Q (20:18)
[2020-08-09 20:20] LABS: Glucose Point of Care 338 mg/dl (65-105)
[2020-08-10] VITALS (26 sets, daily range): BP systolic 131–153; BP diastolic 50–60; PULSE 70–108; RESP 16–24; TEMP 35.7–36.9; O2SAT 91–100
[2020-08-10] MEDS: ALBUTEROL SULFATE NEB 2.5 MG/0.5 ML INH INHALATION ×4 (02:21→20:21)
[2020-08-10] MEDS: IPRATROPIUM BR 0.02% INH SOLN 0.5 MG/2.5 ML VIAL INHALATION ×4 (02:21→20:21)
[2020-08-10 04:55] LABS: Hematocrit 33.9 % (37.0-47.0); Hemoglobin 10.8 g/dL (12.0-15.0); Mean Corpuscular HGB Conc 31.9 g/dl (32-36); Mean Corpuscular Hemoglobin 28.1 pg (26-34); Mean Corpuscular Volume 88.3 fl (80-100); Mean Platelet Volume 9.6 fl (7.4-10.4); Platelet Count Result 696 k/mm3 (150-375); Red Blood Count 3.84 M/mm3 (4.2-5.4); Red Cell Distribution Width 14.3 % (11.5-14.5); White Blood Count 16.4 K/mm3 (4.5-10.0)
[2020-08-10 05:10] LABS: Alanine Aminotransferase 41 U/L (4-35); Albumin Level 2.6 g/dL (3.5-5.1); Alkaline Phosphatase 76 U/L (38-126); Anion Gap 3 mmol/L (8-16); Aspartate Amino Transferase 37 U/L (14-36); Bilirubin,Total 0.2 mg/dL (0.2-1.3); Blood Urea Nitrogen 32 mg/dL (7-17); Calcium 8.6 mg/dL (8.4-10.2); Carbon Dioxide 36 mmol/L (22-30); Chloride 97 mmol/L (98-107); Estimated CRCL calculation 45 ml/min; Estimated Glomerular Filt Rate 60; Glucose 102 mg/dL (65-105); Magnesium 2.5 mg/dL (1.6-2.3); Phosphorus 3.5 mg/dL (2.5-4.5); Potassium 3.4 mmol/L (3.4-5.0); Sodium 136 mmol/L (137-145)
[2020-08-10 05:45] LABS: Band Neutrophils Percent 3 % (0-6); Lymphocytes Absolute Manual 3.28 K/mm3 (1.1-4.5); Metamyelocytes Percent 3 %; Monocytes Absolute Manual 0.98 K/mm3 (0.1-0.90); Monocytes Percent Manual 6 % (3-9); Neutrophils Absolute Manual 11.64 K/mm3 (1.7-7.2); Neutrophils Percent Manual 68 % (46-73); Total Cells Counted 100
[2020-08-10 05:46] LABS: Platelet Estimate Adequate (Adequate)
[2020-08-10] MEDS: LEVOTHYROXINE SODIUM 100 MCG TABLET PO (06:28)
[2020-08-10 08:44] LABS: Glucose Point of Care 66 mg/dl (65-105)
--- NOTE | 2020-08-10 08:45 | PM.PNPUL ---
Progress Note: A&P Assessment and Plan (1) Acute hypoxemic respiratory failure: Code(s): J96.01 - Acute respiratory failure with hypoxia Status: Acute Assessment and Plan: Patient is post COVID pneumonia and now with hypoxemic respiratory failure. 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 Patient is DNR/DNI and now requiring BiPAP support. Patient is on vancomycin, cefepime and Levaquin for possible bacterial pneumonia following her recent hospitalization. Patient with BNP [address] without classic pulmonary edema, she has been given IV Lasix with a good response and has diuresed 1.45 L since admission. 08/04 High flow nasal canulla 60L and 83% with sats 94% and currently being transitioned to BiPAP for respiratory distress. Given the severity of her hypoxemic respiratory failure I will initiate Treatment of post COVID interstitial lung disease/organizing pneumonia with steroids as has been reported ([facility] Vol 18, No 5, [id number]). I will initiate Solu-Medrol 40 mg IV Q 6 1st dose 12:00. 08/05 Wore BiPAP overnight at RR 18, 14/8, 90% FIO2 with sats 93-97%. Transitioned to Airvo 60 L 75% with sats 95% this morning. Required 90% with eating. States she is minimally improved. CXR unchanged. Blood culture negative. Continue vanco (day 3), cefepime (day 3) and levaquin (day 2). Would continue solumedrol 40 Q 6 today (day 2). 08/06 Wore AVAPS 14, Tidal volume 450, EPAP 5, inspiratory pressure minimum 6, inspiratory pressure maximum 20, 80% overnight and PRN today. Was on Airfo 50L and 75% with sats 93% this morning. States she is minimally improved. CXR essentially unchanged. Blood culture negative. Continue vanco (day 4), cefepime (day 4) and levaquin (day 3). Will decrease solumedrol to 20 Q 6 today. Off AVAPS all day on Airvo at 60L and 74% throughtout day 08/07 Wore AVAPS overnight FIO2 decreased to 50%. Today she tells me she is a little bit better. She still has shortness of breath at rest. Currently on high-flow nasal cannula at 45 L and 60% with saturations 94%. Mild improvement in oxygenation and will continue solumedrol 20 Q 6 today (day 2). Check CXR in morning. Continue vanco (day 5), cefepime (day 5) and levaquin (day 4). Plan for 7 days antibiotics then DC. 08/08 Wore AVAPS overnight FIO2 at 50%. Today she tells me she is a little bit better. Currently on Airvo 45L 60% with sats 97%. CXR continued bilateral infiltrates with improvement since 08/04. Will change to prednisone 50 mg PO today. Will try off BiPAP tonight. Continue vanco (day 6), cefepime (day 6) and levaquin (day 5) 08/09 Off BiPAP 24 hours now, wore Airvo last night at 35L and 55%. Did well and feels like she is improving each day. OOB during day. Currently on Airvo 35L 55% with sats 91% while eating breakfast. CXR continued bilateral infiltrates with improvement since 08/04. On day 2 of prednisone 50 mg PO today. Will try NC 15 L later today. Out of ICU. Will DC antibiotics today. 08/10 Off BiPAP 48 hours now. Wore NC 15 L overnight and stated she slept well. Slowly improving. Currently on NC 13 L with sats 91%, desats with activity. Change to prednisone 40 PO Q day today. Goal saturations 90-94 with NC as tolerated. Will follow with you. Subjective Date/time seen: 08/10/20 08:45 Interval history: 08/04 New consult for : hypoxemia Chief complaint: RESPIRATORY FAILURE,PNEUMONIA Narrative: This 80-year-old woman with a history of hypothyroidism and COVID admitted to the hospital from 07/14 to 07/25 with hypoxemic respiratory failure. Patient was treated with dexamethasone, Remdesivir for 10 days and was given convalescent plasma on 07/18. at the worst level of her hypoxemia she required 13 L high-flow nasal cannula. This was weaned and she was discharged on 2 L oxygen at rest and 4 with activity. Of note patient had a CT angiogram of the chest on 07/17 that demonstrated no
[2020-08-10] MEDS: amLODIPine BESYLATE 5 MG TABLET PO (08:56)
[2020-08-10] MEDS: ENOXAPARIN 40 MG/0.4 ML SYRINGE SUB-Q (08:57)
[2020-08-10] MEDS: lisinopriL 10 MG TABLET PO (08:57)
[2020-08-10] MEDS: LORATADINE 10 MG TABLET PO (08:58)
[2020-08-10] MEDS: predniSONE 20 MG TABLET 40 MG PO (09:17)
[2020-08-10 12:05] LABS: Glucose Point of Care 145 mg/dl (65-105)
--- NOTE | 2020-08-10 13:50 | PM.IMPN ---
Progress Note: A&P Assessment and Plan (1) Acute hypoxemic respiratory failure: Code(s): J96.01 - Acute respiratory failure with hypoxia Status: Acute Assessment and Plan: Upon arrival, patient with acute hypoxemic respiratory failure possibly secondary to COVID-19 pneumonia and/or bacterial pneumonia. CTA chest showing diffuse extensive patchy bilateral lung disease. Patient was treated with a course of Cefepime, vancomycin and Levaquin. IV Steroids started and now has been transitioned to oral Prednisone. Patient DNR. She was on AirVo but able to be weaned to HFNC. Utility Bag Assembler following. Wean O2 as toelrated. Continue supportive care. Discussed with Pulmonary. Was felt patient will need long-term care. Discussed with patient and son about LTAC. social media campaign manager to follow-up to have this arranged. (2) Pneumonia: Qualifiers: Laterality: bilateral Lung location: upper lobe of lung Pneumonia type: due to unspecified organism Qualified Code(s): J18.9 - Pneumonia, unspecified organism Code(s): J18.9 - Pneumonia, unspecified organism Status: Acute Assessment and Plan: CTA showing interval progression of extensive patchy bilateral lung groundglass opacities and consolidation. 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 Bacterial PNA seems less likely but was covered with broad spectrum abx. CXR showing improvement. Continue with the nebs. BCx negative. Abx stopped. Continue supportive care (3) Bilateral lower extremity edema: Code(s): R60.0 - Localized edema Status: Acute Assessment and Plan: No pulmonary HTN by Echo. Venous doppler negative for DVT. Treated with bumetanide 08/06, acetazolamide 08/07. Edema much improved. (4) Diabetes mellitus: Qualifiers: Diabetes mellitus type: type 2 Diabetes mellitus longwall foreman insulin use: without longwall foreman use Diabetes mellitus complication status: with hyperglycemia Qualified Code(s): E11.65 - Type 2 diabetes mellitus with hyperglycemia Code(s): E11.9 - Type 2 diabetes mellitus without complications Status: Acute Assessment and Plan: The patient's blood glucose was reviewed on 08/10 Glucose well controlled. Glucose 66 this morning so will cut Lantus back again. Continue AccuCheks covering with sliding scale. Hypoglycemia protocol available as needed. (5) Hypertension: Qualifiers: Hypertension type: unspecified secondary hypertension Qualified Code(s): I15.9 - Secondary hypertension, unspecified Code(s): I10 - Essential (primary) hypertension Status: Acute Assessment and Plan: Patient's blood pressure was reviewed on 08/10 Blood pressure remains well controlled. Will continue current medications with Norvasc and Lisinopril. (6) Sepsis: Qualifiers: Sepsis acute organ dysfunction status: unspecified Sepsis type: sepsis due to unspecified organism Qualified Code(s): A41.9 - Sepsis, unspecified organism Code(s): A41.9 - Sepsis, unspecified organism Status: Acute Assessment and Plan: Resolved. Abx stopped. (7) DVT prophylaxis: Code(s): Z29.9 - Encounter for prophylactic measures, unspecified Status: Acute Assessment and Plan: Lovenox Subjective Date/time seen: 08/10/20 13:50 Interval history: 80yo female who recently had COVID-19 PNA who presents with increasing shortness of breath and hypoxia. Patient with SARS CoV-2 Ag positive on 07/11/20. She was admitted 07/14/20 for nausea and vomiting. Initially was on room air but ultimately required HFNC. Completed 10 days of Remedesvir and Dexamethasone on 07/23. CXR 07/22 showing much improvement. Home O2 evaluation showing she needed 2L at rest and 4L with exertion. She was discharged home on 07/25/20. She did well initially at home but then developed acute respiratory failure requiring rehospitalization. She wore 14-15L HFNC o
[2020-08-10] MEDS: polyethylene glycoL 3350 17 GM POWD.PACK PO (14:43)
[2020-08-10] MEDS: INSULIN ASPART (*BKC) 100 UNITS/ML SUB-Q (17:28)
[2020-08-10 17:34] LABS: Glucose Point of Care 287 mg/dl (65-105)
[2020-08-10 19:44] LABS: Glucose Point of Care 401 mg/dl (65-105)
[2020-08-10] MEDS: INSULIN GLARGINE (*BKC) 100 UNITS/ML 10 UNITS SUB-Q (19:51)
[2020-08-10] MEDS: INSULIN ASPART (*BKC) 100 UNITS/ML 6 UNITS SUB-Q (19:52)
[2020-08-10 22:42] LABS: Glucose Point of Care 212 mg/dl (65-105)
[2020-08-11] VITALS (24 sets, daily range): BP systolic 134–159; BP diastolic 48–62; PULSE 83–119; RESP 16–20; TEMP 36.4–36.6; O2SAT 88–100
[2020-08-11] MEDS: IPRATROPIUM BR 0.02% INH SOLN 0.5 MG/2.5 ML VIAL INHALATION ×4 (02:10→17:55)
[2020-08-11] MEDS: ALBUTEROL SULFATE NEB 2.5 MG/0.5 ML INH INHALATION ×4 (02:11→17:55)
[2020-08-11 02:47] LABS: Glucose Point of Care 98 mg/dl (65-105)
[2020-08-11 04:37] LABS: Basophils Absolute Auto 0.1 K/mm3 (0.0-0.1); Basophils Percent Auto 0.6 % (0.2-1.2); Eosinophils Absolute Auto 0.3 K/mm3 (0-0.3); Eosinophils Percent Auto 1.6 % (0-4.4); Hematocrit 31.7 % (37.0-47.0); Hemoglobin 10.3 g/dL (12.0-15.0); Immature Granulocyte Absolute 1.72 K/mm3 (0.00-0.031); Immature Granulocyte Percent A 10.1 % (0-0.5); Lymphocytes Absolute Auto 3.84 K/mm3 (0.9-3.2); Lymphocytes Percent Auto 22.5 % (18.3-44.2); Mean Corpuscular HGB Conc 32.5 g/dl (32-36); Mean Corpuscular Hemoglobin 28.9 pg (26-34); Mean Corpuscular Volume 88.8 fl (80-100); Mean Platelet Volume 9.4 fl (7.4-10.4); Monocytes Absolute Auto 0.8 K/mm3 (0.1-0.6); Monocytes Percent Auto 4.9 % (2.6-8.5); Neutrophils Absolute Auto 10.3 K/mm3 (1.3-6.7); Neutrophils Percent Auto 60.3 % (45.5-73.1); Platelet Count Result 641 k/mm3 (150-375); Red Blood Count 3.57 M/mm3 (4.2-5.4); Red Cell Distribution Width 14.3 % (11.5-14.5); White Blood Count 17.1 K/mm3 (4.5-10.0)
[2020-08-11 05:02] LABS: Blood Urea Nitrogen 30 mg/dL (7-17); Calcium 8.5 mg/dL (8.4-10.2); Carbon Dioxide > 40 mmol/L (22-30); Chloride 96 mmol/L (98-107); Estimated CRCL calculation 45 ml/min; Estimated Glomerular Filt Rate 60; Glucose 102 mg/dL (65-105); NT Pro B Type Natriuretic Pept 190 pg/mL (5-100); Potassium 3.9 mmol/L (3.4-5.0); Sodium 136 mmol/L (137-145)
[2020-08-11 05:23] LABS: Atypical Lymphocytes Present; Platelet Estimate Adequate (Adequate)
[2020-08-11] MEDS: LEVOTHYROXINE SODIUM 100 MCG TABLET PO (06:22)
[2020-08-11 07:52] LABS: Glucose Point of Care 72 mg/dl (65-105)
[2020-08-11] MEDS: lisinopriL 10 MG TABLET PO (08:50)
[2020-08-11] MEDS: amLODIPine BESYLATE 5 MG TABLET PO (08:50)
[2020-08-11] MEDS: LORATADINE 10 MG TABLET PO (08:50)
[2020-08-11] MEDS: predniSONE 20 MG TABLET 40 MG PO (08:50)
[2020-08-11] MEDS: ENOXAPARIN 40 MG/0.4 ML SYRINGE SUB-Q (08:50)
[2020-08-11] MEDS: polyethylene glycoL 3350 17 GM POWD.PACK PO (08:51)
--- NOTE | 2020-08-11 10:47 | PM.PNPUL ---
Progress Note: A&P Assessment and Plan (1) Acute hypoxemic respiratory failure: Code(s): J96.01 - Acute respiratory failure with hypoxia Status: Acute Assessment and Plan: Patient is post COVID pneumonia and now with hypoxemic respiratory failure. 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 Patient is DNR/DNI and now requiring BiPAP support. Patient is on vancomycin, cefepime and Levaquin for possible bacterial pneumonia following her recent hospitalization. Patient with BNP [address] without classic pulmonary edema, she has been given IV Lasix with a good response and has diuresed 1.45 L since admission. 08/04 High flow nasal canulla 60L and 83% with sats 94% and currently being transitioned to BiPAP for respiratory distress. Given the severity of her hypoxemic respiratory failure I will initiate Treatment of post COVID interstitial lung disease/organizing pneumonia with steroids as has been reported ([facility] Vol 18, No 5, [id number]). I will initiate Solu-Medrol 40 mg IV Q 6 1st dose 12:00. 08/05 Wore BiPAP overnight at RR 18, 14/8, 90% FIO2 with sats 93-97%. Transitioned to Airvo 60 L 75% with sats 95% this morning. Required 90% with eating. States she is minimally improved. CXR unchanged. Blood culture negative. Continue vanco (day 3), cefepime (day 3) and levaquin (day 2). Would continue solumedrol 40 Q 6 today (day 2). 08/06 Wore AVAPS 14, Tidal volume 450, EPAP 5, inspiratory pressure minimum 6, inspiratory pressure maximum 20, 80% overnight and PRN today. Was on Airfo 50L and 75% with sats 93% this morning. States she is minimally improved. CXR essentially unchanged. Blood culture negative. Continue vanco (day 4), cefepime (day 4) and levaquin (day 3). Will decrease solumedrol to 20 Q 6 today. Off AVAPS all day on Airvo at 60L and 74% throughtout day 08/07 Wore AVAPS overnight FIO2 decreased to 50%. Today she tells me she is a little bit better. She still has shortness of breath at rest. Currently on high-flow nasal cannula at 45 L and 60% with saturations 94%. Mild improvement in oxygenation and will continue solumedrol 20 Q 6 today (day 2). Check CXR in morning. Continue vanco (day 5), cefepime (day 5) and levaquin (day 4). Plan for 7 days antibiotics then DC. 08/08 Wore AVAPS overnight FIO2 at 50%. Today she tells me she is a little bit better. Currently on Airvo 45L 60% with sats 97%. CXR continued bilateral infiltrates with improvement since 08/04. Will change to prednisone 50 mg PO today. Will try off BiPAP tonight. Continue vanco (day 6), cefepime (day 6) and levaquin (day 5) 08/09 Off BiPAP 24 hours now, wore Airvo last night at 35L and 55%. Did well and feels like she is improving each day. OOB during day. Currently on Airvo 35L 55% with sats 91% while eating breakfast. CXR continued bilateral infiltrates with improvement since 08/04. On day 2 of prednisone 50 mg PO today. Will try NC 15 L later today. Out of ICU. Will DC antibiotics today. 08/10 Off BiPAP 48 hours now. Wore NC 15 L overnight and stated she slept well. Slowly improving. Currently on NC 13 L with sats 91%, desats with activity. Change to prednisone 40 PO Q day today. 08/11 Wore NC 12 L overnight and stated she slept well. Slowly improving. Currently on NC 12 L with sats 91%. Continue prednisone 40 PO Q day today. Decrease to 30 PO on 08/12. Patient oxygenation improving slowly and unclear rate of recovery regarding discharge planning. May need facility that can handle higher levels of oxygen. Goal saturations 90-94 with NC as tolerated. Will follow with you. Subjective Date/time seen: 08/11/20 10:47 Interval history: 08/04 New consult for : hypoxemia Chief complaint: RESPIRATORY FAILURE,PNEUMONIA Narrative: This 80-year-old woman with a history of hypothyroidism and COVID admitted to the hospital from 07/14 to 07/25 with hypoxemic respiratory failure. Patient was treated
--- NOTE | 2020-08-11 10:48 | PM.IMPN ---
Progress Note: A&P Assessment and Plan (1) Acute hypoxemic respiratory failure: Code(s): J96.01 - Acute respiratory failure with hypoxia Status: Acute Assessment and Plan: Upon arrival, patient with acute hypoxemic respiratory failure possibly secondary to COVID-19 pneumonia and/or bacterial pneumonia. CTA chest showing diffuse extensive patchy bilateral lung disease. Patient was treated with a course of Cefepime, vancomycin and Levaquin. IV Steroids started and now has been transitioned to oral Prednisone. Patient DNR. She was on AirVo but able to be weaned to HFNC. Serum bicarb>40. Expander following. Pulmonary felt patient will need long-term care and patient now agreeable to have CC look into arranging this. Diamox once. Wean O2 as tolerated. Continue supportive care. (2) Pneumonia: Qualifiers: Laterality: bilateral Lung location: upper lobe of lung Pneumonia type: due to unspecified organism Qualified Code(s): J18.9 - Pneumonia, unspecified organism Code(s): J18.9 - Pneumonia, unspecified organism Status: Acute Assessment and Plan: CTA chest showing interval progression of extensive patchy bilateral lung ground glass opacities and consolidation. 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 Bacterial PNA seems less likely but was covered with broad spectrum abx; abx have been stopped. CXR showing improvement. WBC still elevated but on steroids. Not having diarrhea. Continue with the neb treatments. BCx negative. Continue supportive care. Repeat cXR in the morning. (3) Bilateral lower extremity edema: Code(s): R60.0 - Localized edema Status: Acute Assessment and Plan: No pulmonary HTN by Echo. Venous doppler negative for DVT. Treated with bumetanide 08/06, acetazolamide 08/07. BNP 190 today. Edema mildly persistent but much improved. (4) Diabetes mellitus: Qualifiers: Diabetes mellitus complication status: with hyperglycemia Diabetes mellitus care home insulin use: without care home use Diabetes mellitus type: type 2 Qualified Code(s): E11.65 - Type 2 diabetes mellitus with hyperglycemia Code(s): E11.9 - Type 2 diabetes mellitus without complications Status: Acute Assessment and Plan: The patient's blood glucose was reviewed on 08/11 Glucose wildly flucuating (401 last night and 72 this morning). Lantus at 10U qhs. Continue AccuCheks covering with sliding scale. Hypoglycemia protocol available as needed. Continue Lantus at current dose and follow. (5) Hypertension: Qualifiers: Hypertension type: unspecified secondary hypertension Qualified Code(s): I15.9 - Secondary hypertension, unspecified Code(s): I10 - Essential (primary) hypertension Status: Acute Assessment and Plan: Patient's blood pressure was reviewed on 08/11 Blood pressure remains well controlled. Will continue current medications with Norvasc and Lisinopril. (6) Sepsis: Qualifiers: Sepsis acute organ dysfunction status: unspecified Sepsis type: sepsis due to unspecified organism Qualified Code(s): A41.9 - Sepsis, unspecified organism Code(s): A41.9 - Sepsis, unspecified organism Status: Acute Assessment and Plan: Resolved. Related to above. Abx stopped. (7) DVT prophylaxis: Code(s): Z29.9 - Encounter for prophylactic measures, unspecified Status: Acute Assessment and Plan: Lovenox Subjective Date/time seen: 08/11/20 10:48 Interval history: 80yo female who recently had COVID-19 PNA who presents with increasing shortness of breath and hypoxia. Patient with SARS CoV-2 Ag positive on 07/11/20. She was admitted 07/14/20 for nausea and vomiting. Initially was on room air but ultimately required HFNC. Completed 10 days of Remedesvir and Dexamethasone on 07/23. CXR 07/22 showing much improvement. Home O2 evaluation showing she needed
--- NOTE | 2020-08-11 11:14 | PCDIET ---
Weekly nutritional screen. Patient is tolerating current diet with adequate intake. Reports appetite much improved from admission and currently eating 90-100% of most meals on diabetic diet. Weight down from admission following diuresis. No previous weight loss reported. BMI 37.1. No nutritional needs at this time.
[2020-08-11 11:43] LABS: Glucose Point of Care 140 mg/dl (65-105)
[2020-08-11 16:20] LABS: Glucose Point of Care 312 mg/dl (65-105)
[2020-08-11] MEDS: INSULIN ASPART (*BKC) 100 UNITS/ML SUB-Q (17:19)
[2020-08-11 17:20] LABS: Glucose Point of Care 321 mg/dl (65-105)
[2020-08-11] MEDS: INSULIN GLARGINE (*BKC) 100 UNITS/ML 10 UNITS SUB-Q (21:30)
[2020-08-12] VITALS (26 sets, daily range): BP systolic 131–170; BP diastolic 56–71; PULSE 81–106; RESP 18–26; TEMP 36.2–37.1; O2SAT 88–98
[2020-08-12 00:27] LABS: Glucose Point of Care 320 mg/dl (65-105)
[2020-08-12 00:27] LABS: Glucose Point of Care 212 mg/dl (65-105)
[2020-08-12] MEDS: IPRATROPIUM BR 0.02% INH SOLN 0.5 MG/2.5 ML VIAL INHALATION ×4 (02:30→19:38)
[2020-08-12] MEDS: ALBUTEROL SULFATE NEB 2.5 MG/0.5 ML INH INHALATION ×4 (02:30→19:38)
[2020-08-12 05:11] LABS: Basophils Absolute Auto 0.1 K/mm3 (0.0-0.1); Basophils Percent Auto 0.6 % (0.2-1.2); Eosinophils Absolute Auto 0.1 K/mm3 (0-0.3); Eosinophils Percent Auto 0.8 % (0-4.4); Hematocrit 31.9 % (37.0-47.0); Hemoglobin 10.1 g/dL (12.0-15.0); Immature Granulocyte Absolute 1.61 K/mm3 (0.00-0.031); Immature Granulocyte Percent A 8.9 % (0-0.5); Lymphocytes Absolute Auto 3.23 K/mm3 (0.9-3.2); Lymphocytes Percent Auto 17.9 % (18.3-44.2); Mean Corpuscular HGB Conc 31.7 g/dl (32-36); Mean Corpuscular Hemoglobin 28.5 pg (26-34); Mean Corpuscular Volume 89.9 fl (80-100); Mean Platelet Volume 9.7 fl (7.4-10.4); Monocytes Percent Auto 5.4 % (2.6-8.5); Neutrophils Percent Auto 66.4 % (45.5-73.1); Platelet Count Result 637 k/mm3 (150-375); Red Blood Count 3.55 M/mm3 (4.2-5.4); Red Cell Distribution Width 14.4 % (11.5-14.5)
[2020-08-12 05:23] LABS: Anion Gap 2 mmol/L (8-16); Blood Urea Nitrogen 25 mg/dL (7-17); Calcium 8.4 mg/dL (8.4-10.2); Carbon Dioxide 34 mmol/L (22-30); Chloride 100 mmol/L (98-107); Estimated CRCL calculation 52 ml/min; Estimated Glomerular Filt Rate > 60; Glucose 137 mg/dL (65-105); Sodium 136 mmol/L (137-145)
[2020-08-12] MEDS: LEVOTHYROXINE SODIUM 100 MCG TABLET PO (06:10)
[2020-08-12 07:51] LABS: Glucose Point of Care 110 mg/dl (65-105)
[2020-08-12] MEDS: ENOXAPARIN 40 MG/0.4 ML SYRINGE SUB-Q (08:39)
[2020-08-12] MEDS: polyethylene glycoL 3350 17 GM POWD.PACK PO (08:40)
[2020-08-12] MEDS: predniSONE 10 MG TABLET 30 MG PO (08:40)
[2020-08-12] MEDS: lisinopriL 10 MG TABLET PO (08:40)
[2020-08-12] MEDS: amLODIPine BESYLATE 5 MG TABLET PO (08:40)
[2020-08-12] MEDS: LORATADINE 10 MG TABLET PO (08:40)
--- NOTE | 2020-08-12 09:05 | PM.IMPN ---
Progress Note: A&P Assessment and Plan (1) Acute hypoxemic respiratory failure: Code(s): J96.01 - Acute respiratory failure with hypoxia Status: Acute Assessment and Plan: Upon arrival, patient with acute hypoxemic respiratory failure possibly secondary to COVID-19 pneumonia and/or bacterial pneumonia. CTA chest showing diffuse extensive patchy bilateral lung disease. Patient was treated with a course of Cefepime, vancomycin and Levaquin. IV Steroids started and now has been transitioned to oral Prednisone. Patient DNR. She was on AirVo but able to be weaned to HFNC. Serum bicarb>40 and given Diamox; Bicarb 34. Supervisor Of Instruction following. Pulmonary felt patient will need long-term care or SNF and CC looking into arranging this. Stop Diamox. Wean O2 as tolerated. Continue supportive care. (2) Pneumonia: Qualifiers: Laterality: bilateral Lung location: upper lobe of lung Pneumonia type: due to unspecified organism Qualified Code(s): J18.9 - Pneumonia, unspecified organism Code(s): J18.9 - Pneumonia, unspecified organism Status: Acute Assessment and Plan: CTA chest showing interval progression of extensive patchy bilateral lung ground glass opacities and consolidation. 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 Bacterial PNA seems less likely but was covered with broad spectrum abx; abx have been stopped. CHF also seems less likely but with persistent pedal edema. BCx negative. CXR reviewed personally and showing minimal overall improvement; clinically much better. WBC still elevated but on steroids. Not having diarrhea. Continue with the neb treatments. Continue supportive care. (3) Bilateral lower extremity edema: Code(s): R60.0 - Localized edema Status: Acute Assessment and Plan: No pulmonary HTN by Echo. Venous doppler negative for DVT. Treated with bumetanide 08/06, acetazolamide 08/07. BNP 190 yesterday. Edema mildly persistent. Repeat Bumex (4) Diabetes mellitus: Qualifiers: Diabetes mellitus type: type 2 Diabetes mellitus [facility] insulin use: without local intermodal truck driver use Diabetes mellitus complication status: with hyperglycemia Qualified Code(s): E11.65 - Type 2 diabetes mellitus with hyperglycemia Code(s): E11.9 - Type 2 diabetes mellitus without complications Status: Acute Assessment and Plan: The patient's blood glucose was reviewed on 08/12 Glucose fluctuations better (321 last night and 110 this morning). Lantus at 10U qhs. Continue AccuCheks covering with sliding scale. Hypoglycemia protocol available as needed. Continue Lantus at current dose and add Novolog at lunch. (5) Hypertension: Qualifiers: Hypertension type: unspecified secondary hypertension Qualified Code(s): I15.9 - Secondary hypertension, unspecified Code(s): I10 - Essential (primary) hypertension Status: Acute Assessment and Plan: Patient's blood pressure was reviewed on 08/12 Blood pressure remains well controlled (SBP 100-150). Will continue current medications with Norvasc and Lisinopril. (6) Sepsis: Qualifiers: Sepsis acute organ dysfunction status: unspecified Sepsis type: sepsis due to unspecified organism Qualified Code(s): A41.9 - Sepsis, unspecified organism Code(s): A41.9 - Sepsis, unspecified organism Status: Acute Assessment and Plan: Resolved. Related to above. Abx stopped. (7) DVT prophylaxis: Code(s): Z29.9 - Encounter for prophylactic measures, unspecified Status: Acute Assessment and Plan: Lovenox Subjective Date/time seen: 08/12/20 09:05 Interval history: 80yo female who recently had COVID-19 PNA who presents with increasing shortness of breath and hypoxia. Patient with SARS CoV-2 Ag positive on 07/11/20. She was admitted 07/14/20 for nausea and vomiting. Initially was on room air but ultimately required HFN
[2020-08-12] MEDS: BUMETANIDE INJ 1 MG/4 ML VIAL IV PUSH (09:50)
[2020-08-12] MEDS: INSULIN ASPART (*BKC) 100 UNITS/ML SUB-Q ×2 (11:55→17:06)
--- NOTE | 2020-08-12 12:25 | P.PNPL_ITS ---
Progress Note: A&P Assessment and Plan (1) Acute hypoxemic respiratory failure: Code(s): J96.01 - Acute respiratory failure with hypoxia Status: Acute Assessment and Plan: Patient is post COVID pneumonia and now with hypoxemic respiratory failure. 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 Patient is DNR/DNI and now requiring BiPAP support. Patient is on vancomycin, cefepime and Levaquin for possible bacterial pneumonia following her recent hospitalization. Patient with BNP [address] without classic pulmonary edema, she has been given IV Lasix with a good response and has diuresed 1.45 L since admission. 08/04 High flow nasal canulla 60L and 83% with sats 94% and currently being transitioned to BiPAP for respiratory distress. Given the severity of her hypoxemic respiratory failure I will initiate Treatment of post COVID interstitial lung disease/organizing pneumonia with steroids as has been reported ([facility] Vol 18, No 5, [id number]). I will initiate Solu- Medrol 40 mg IV Q 6 1st dose 12:00. 08/05 Wore BiPAP overnight at RR 18, 14/8, 90% FIO2 with sats 93-97%. Transitioned to Airvo 60 L 75% with sats 95% this morning. Required 90% with eating. States she is minimally improved. CXR unchanged. Blood culture negative. Continue vanco (day 3), cefepime (day 3) and levaquin (day 2). Would continue s olumedrol 40 Q 6 today (day 2). 08/06 Wore AVAPS 14, Tidal volume 450, EPAP 5, inspiratory pressure minimum 6, inspiratory pressure maximum 20, 80% overnight and PRN today. Was on Airfo 50L and 75% with sats 93% this morning. States she is minimally improved. CXR essentially unchanged. Blood culture negative. Continue vanco (day 4), cefepime (day 4) and levaquin (day 3). Will decrease solumedrol to 20 Q 6 today. Off AVAPS all day on Airvo at 60L and 74% throughtout day 08/07 Wore AVAPS overnight FIO2 decreased to 50%. Today she tells me she is a little bit better. She still has shortness of breath at rest. Currently on high-flow nasal cannula at 45 L and 60% with saturations 94%. Mild improvement in oxygenation and will continue solumedrol 20 Q 6 today (day 2). Check CXR in morning. Continue vanco (day 5), cefepime (day 5) and levaquin (day 4). Plan for 7 days antibiotics then DC. 08/08 Wore AVAPS overnight FIO2 at 50%. Today she tells me she is a little bit better. Currently on Airvo 45L 60% with sats 97%. CXR continued bilateral infiltrates with improvement since 08/04. Will change to prednisone 50 mg PO today. Will try off BiPAP tonight. Continue vanco (day 6), cefepime (day 6) and levaquin (day 5) 08/09 Off BiPAP 24 hours now, wore Airvo last night at 35L and 55%. Did well and feels like she is improving each day. OOB during day. Currently on Airvo 35L 55% with sats 91% while eating breakfast. CXR continued bilateral infiltrates with improvement since 08/04. On day 2 of prednisone 50 mg PO today. Will try NC 15 L later today. Out of ICU. Will DC antibiotics today. 08/10 Off BiPAP 48 hours now. Wore NC 15 L overnight and stated she slept well. Slowly improving. Currently on NC 13 L with sats 91%, desats with activity. Change to prednisone 40 PO Q day today. 08/11 Wore NC 12 L overnight and stated she slept well. Slowly improving. Currently on NC 12 L with sats 91%. Continue prednisone 40 PO Q day today. Decrease to 30 PO on 08/12. Patient oxygenation improving slowly and unclear rate of recovery regarding discharge planning. May need facility that can handle higher levels of oxygen. 08/12 feeling better each day, currently on 6 L NC with sats 94% but desats with activity and eating and now on 10L NRB. First dose of prednisone 30 mg PO Q day.
[2020-08-12 13:16] LABS: Glucose Point of Care 190 mg/dl (65-105)
[2020-08-12 18:57] LABS: Glucose Point of Care 252 mg/dl (65-105)
[2020-08-12 22:01] LABS: Glucose Point of Care 177 mg/dl (65-105)
[2020-08-12] MEDS: INSULIN GLARGINE (*BKC) 100 UNITS/ML 10 UNITS SUB-Q (22:15)
[2020-08-13] VITALS (18 sets, daily range): BP systolic 147–184; BP diastolic 54–65; PULSE 78–110; RESP 16–28; TEMP 36.1–37.2; O2SAT 91–98
[2020-08-13] MEDS: ALBUTEROL SULFATE NEB 2.5 MG/0.5 ML INH INHALATION ×4 (01:39→19:49)
[2020-08-13] MEDS: IPRATROPIUM BR 0.02% INH SOLN 0.5 MG/2.5 ML VIAL INHALATION ×4 (01:39→19:49)
[2020-08-13 05:26] LABS: Basophils Absolute Auto 0.1 K/mm3 (0.0-0.1); Basophils Percent Auto 0.4 % (0.2-1.2); Eosinophils Absolute Auto 0.4 K/mm3 (0-0.3); Eosinophils Percent Auto 1.9 % (0-4.4); Hematocrit 33.1 % (37.0-47.0); Hemoglobin 10.4 g/dL (12.0-15.0); Immature Granulocyte Absolute 1.29 K/mm3 (0.00-0.031); Immature Granulocyte Percent A 6.9 % (0-0.5); Lymphocytes Absolute Auto 4.22 K/mm3 (0.9-3.2); Lymphocytes Percent Auto 22.4 % (18.3-44.2); Mean Corpuscular HGB Conc 31.4 g/dl (32-36); Mean Corpuscular Hemoglobin 28.5 pg (26-34); Mean Corpuscular Volume 90.7 fl (80-100); Mean Platelet Volume 9.9 fl (7.4-10.4); Monocytes Absolute Auto 1.1 K/mm3 (0.1-0.6); Monocytes Percent Auto 5.7 % (2.6-8.5); Neutrophils Absolute Auto 11.8 K/mm3 (1.3-6.7); Neutrophils Percent Auto 62.7 % (45.5-73.1); Platelet Count Result 648 k/mm3 (150-375); Red Blood Count 3.65 M/mm3 (4.2-5.4); Red Cell Distribution Width 14.5 % (11.5-14.5); White Blood Count 18.8 K/mm3 (4.5-10.0)
[2020-08-13] MEDS: LEVOTHYROXINE SODIUM 100 MCG TABLET PO (06:07)
[2020-08-13 06:12] LABS: Anion Gap 4 mmol/L (8-16); Blood Urea Nitrogen 26 mg/dL (7-17); CRP 4.4 mg/dL (<1.0); Carbon Dioxide 33 mmol/L (22-30); Chloride 100 mmol/L (98-107); Estimated CRCL calculation 52 ml/min; Estimated Glomerular Filt Rate > 60; Glucose 112 mg/dL (65-105); Potassium 4.1 mmol/L (3.4-5.0); Sodium 137 mmol/L (137-145)
[2020-08-13 07:50] LABS: Glucose Point of Care 92 mg/dl (65-105)
[2020-08-13] MEDS: amLODIPine BESYLATE 5 MG TABLET PO (09:35)
[2020-08-13] MEDS: polyethylene glycoL 3350 17 GM POWD.PACK PO (09:35)
[2020-08-13] MEDS: ENOXAPARIN 40 MG/0.4 ML SYRINGE SUB-Q (09:35)
[2020-08-13] MEDS: lisinopriL 10 MG TABLET PO (09:37)
[2020-08-13] MEDS: LORATADINE 10 MG TABLET PO (09:37)
[2020-08-13] MEDS: predniSONE 10 MG TABLET 30 MG PO (09:37)
[2020-08-13 12:27] LABS: Glucose Point of Care 205 mg/dl (65-105)
--- NOTE | 2020-08-13 13:00 | PM.IMPN ---
Progress Note: A&P Assessment and Plan (1) Acute hypoxemic respiratory failure: Code(s): J96.01 - Acute respiratory failure with hypoxia Status: Acute Assessment and Plan: Upon arrival, patient with acute hypoxemic respiratory failure possibly secondary to COVID-19 pneumonia and/or bacterial pneumonia. CTA chest showing diffuse extensive patchy bilateral lung disease. Patient was treated with a course of Cefepime, vancomycin and Levaquin. IV Steroids started and now has been transitioned to oral Prednisone. Patient DNR. She was on AirVo but able to be weaned to HFNC. Serum bicarb>40 and given Diamox; Bicarb 34. Line Prep Cook following. Pulmonary felt patient will need long-term care or SNF and CC looking into arranging this. Stop Diamox. Wean O2 as tolerated. Continue supportive care. 08/13/20 remains O2 dependent and requiring NRB w transfers cont current care encourage OOB and mobilization (2) Pneumonia: Qualifiers: Laterality: bilateral Lung location: upper lobe of lung Pneumonia type: due to unspecified organism Qualified Code(s): J18.9 - Pneumonia, unspecified organism Code(s): J18.9 - Pneumonia, unspecified organism Status: Acute Assessment and Plan: CTA chest showing interval progression of extensive patchy bilateral lung ground glass opacities and consolidation. 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 Bacterial PNA seems less likely but was covered with broad spectrum abx; abx have been stopped. CHF also seems less likely but with persistent pedal edema. BCx negative. CXR reviewed personally and showing minimal overall improvement; clinically much better. WBC still elevated but on steroids. Not having diarrhea. Continue with the neb treatments. Continue supportive care. (3) Bilateral lower extremity edema: Code(s): R60.0 - Localized edema Status: Acute Assessment and Plan: No pulmonary HTN by Echo. Venous doppler negative for DVT. Treated with bumetanide 08/06, acetazolamide 08/07. BNP 190 yesterday. Edema mildly persistent. Repeat Bumex 08/11/20 edema resolving (4) Diabetes mellitus: Qualifiers: Diabetes mellitus type: type 2 Diabetes mellitus equipment operator intermodal yard insulin use: without equipment operator intermodal yard use Diabetes mellitus complication status: with hyperglycemia Qualified Code(s): E11.65 - Type 2 diabetes mellitus with hyperglycemia Code(s): E11.9 - Type 2 diabetes mellitus without complications Status: Acute Assessment and Plan: The patient's blood glucose was reviewed on 08/12 Glucose fluctuations better (321 last night and 110 this morning). Lantus at 10U qhs. Continue AccuCheks covering with sliding scale. Hypoglycemia protocol available as needed. Continue Lantus at current dose and add Novolog at lunch. 08/11/20 BG near goal cont to monitor will adjust tomorrow if appropriate (5) Hypertension: Qualifiers: Hypertension type: unspecified secondary hypertension Qualified Code(s): I15.9 - Secondary hypertension, unspecified Code(s): I10 - Essential (primary) hypertension Status: Acute Assessment and Plan: Patient's blood pressure was reviewed on 08/12 Blood pressure remains well controlled (SBP 100-150). Will continue current medications with Norvasc and Lisinopril. 08/13/20 BP still not at goal linsinopril dose increased to 20mg PO QD (6) Sepsis: Qualifiers: Sepsis acute organ dysfunction status: unspecified Sepsis type: sepsis due to unspecified organism Qualified Code(s): A41.9 - Sepsis, unspecified organism Code(s): A41.9 - Sepsis, unspecified organism Status: Acute Assessment and Plan: Resolved. Related to above. Abx stopped. (7) DVT prophylaxis: Code(s): Z29.9 - Encounter for prophylactic measures, unspecified Status: Acute Assessment and Plan: Lovenox Subjective Date/time seen: 08/13/20 1
[2020-08-13] MEDS: INSULIN ASPART (*BKC) 100 UNITS/ML SUB-Q ×2 (13:20→13:21)
[2020-08-13 16:52] LABS: Glucose Point of Care 173 mg/dl (65-105)
[2020-08-13] MEDS: hydrALAZINE HCL 20 MG/ML VIAL 10 MG IV PUSH (20:22)
[2020-08-13 20:35] LABS: Glucose Point of Care 278 mg/dl (65-105)
[2020-08-13] MEDS: INSULIN GLARGINE (*BKC) 100 UNITS/ML 10 UNITS SUB-Q (21:44)
[2020-08-14] VITALS (21 sets, daily range): BP systolic 140–173; BP diastolic 44–77; PULSE 84–117; RESP 16–24; TEMP 36.2–36.8; O2SAT 85–99
[2020-08-14] MEDS: IPRATROPIUM BR 0.02% INH SOLN 0.5 MG/2.5 ML VIAL INHALATION ×4 (02:36→20:10)
[2020-08-14] MEDS: ALBUTEROL SULFATE NEB 2.5 MG/0.5 ML INH INHALATION ×4 (02:36→20:09)
[2020-08-14 05:32] LABS: Glucose Point of Care 111 mg/dl (65-105)
[2020-08-14 05:37] LABS: Basophils Absolute Auto 0.1 K/mm3 (0.0-0.1); Basophils Percent Auto 0.5 % (0.2-1.2); Eosinophils Absolute Auto 0.2 K/mm3 (0-0.3); Eosinophils Percent Auto 1.1 % (0-4.4); Hemoglobin 10.1 g/dL (12.0-15.0); Immature Granulocyte Absolute 1.09 K/mm3 (0.00-0.031); Lymphocytes Percent Auto 22.4 % (18.3-44.2); Mean Corpuscular HGB Conc 32.6 g/dl (32-36); Mean Corpuscular Hemoglobin 28.9 pg (26-34); Mean Corpuscular Volume 88.6 fl (80-100); Monocytes Absolute Auto 1.3 K/mm3 (0.1-0.6); Monocytes Percent Auto 6.9 % (2.6-8.5); Neutrophils Absolute Auto 11.5 K/mm3 (1.3-6.7); Neutrophils Percent Auto 63.1 % (45.5-73.1); Platelet Count Result 626 k/mm3 (150-375); Red Cell Distribution Width 14.6 % (11.5-14.5); White Blood Count 18.3 K/mm3 (4.5-10.0)
[2020-08-14 05:49] LABS: Anion Gap 3 mmol/L (8-16); Blood Urea Nitrogen 22 mg/dL (7-17); Carbon Dioxide 34 mmol/L (22-30); Chloride 100 mmol/L (98-107); Estimated CRCL calculation 58 ml/min; Estimated Glomerular Filt Rate > 60; Glucose 102 mg/dL (65-105); Magnesium 2.1 mg/dL (1.6-2.3); Potassium 4.2 mmol/L (3.4-5.0); Sodium 137 mmol/L (137-145)
[2020-08-14] MEDS: LEVOTHYROXINE SODIUM 100 MCG TABLET PO (06:28)
[2020-08-14 08:45] LABS: Glucose Point of Care 91 mg/dl (65-105)
[2020-08-14] MEDS: amLODIPine BESYLATE 5 MG TABLET PO (09:25)
[2020-08-14] MEDS: predniSONE 10 MG TABLET 30 MG PO (09:25)
[2020-08-14] MEDS: ENOXAPARIN 40 MG/0.4 ML SYRINGE SUB-Q (09:26)
[2020-08-14] MEDS: LORATADINE 10 MG TABLET PO (09:26)
[2020-08-14] MEDS: lisinopriL 20 MG TABLET PO (09:26)
[2020-08-14 12:49] LABS: Glucose Point of Care 159 mg/dl (65-105)
--- NOTE | 2020-08-14 13:09 | PM.IMPN ---
Progress Note: A&P Assessment and Plan (1) Acute hypoxemic respiratory failure: Code(s): J96.01 - Acute respiratory failure with hypoxia Status: Acute Assessment and Plan: Upon arrival, patient with acute hypoxemic respiratory failure possibly secondary to COVID-19 pneumonia and/or bacterial pneumonia. CTA chest showing diffuse extensive patchy bilateral lung disease. Patient was treated with a course of Cefepime, vancomycin and Levaquin. IV Steroids started and now has been transitioned to oral Prednisone. Patient DNR. She was on AirVo but able to be weaned to HFNC. Serum bicarb>40 and given Diamox; Bicarb 34. Supervisor [employer] Store following. Pulmonary felt patient will need long-term care or SNF and CC looking into arranging this. Stop Diamox. Wean O2 as tolerated. Continue supportive care. (2) Pneumonia: Qualifiers: Laterality: bilateral Lung location: upper lobe of lung Pneumonia type: due to unspecified organism Qualified Code(s): J18.9 - Pneumonia, unspecified organism Code(s): J18.9 - Pneumonia, unspecified organism Status: Acute Assessment and Plan: CTA chest showing interval progression of extensive patchy bilateral lung ground glass opacities and consolidation. 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 Bacterial PNA seems less likely but was covered with broad spectrum abx; abx have been stopped. CHF also seems less likely but with persistent pedal edema. BCx negative. CXR reviewed personally and showing minimal overall improvement; clinically much better. WBC still elevated but on steroids. Not having diarrhea. Continue with the neb treatments. Continue supportive care. (3) Bilateral lower extremity edema: Code(s): R60.0 - Localized edema Status: Acute Assessment and Plan: No pulmonary HTN by Echo. Venous doppler negative for DVT. Treated with bumetanide 08/06, acetazolamide 08/07. BNP 190 yesterday. Edema mildly persistent. Repeat Bumex 08/11/20 edema resolving (4) Diabetes mellitus: Qualifiers: Diabetes mellitus type: type 2 Diabetes mellitus penitentiary insulin use: without penitentiary use Diabetes mellitus complication status: with hyperglycemia Qualified Code(s): E11.65 - Type 2 diabetes mellitus with hyperglycemia Code(s): E11.9 - Type 2 diabetes mellitus without complications Status: Acute Assessment and Plan: The patient's blood glucose was reviewed on 08/12 Glucose fluctuations better (321 last night and 110 this morning). Lantus at 10U qhs. Continue AccuCheks covering with sliding scale. Hypoglycemia protocol available as needed. Continue Lantus at current dose and add Novolog at lunch. 08/11/20 BG near goal cont to monitor will adjust tomorrow if appropriate (5) Hypertension: Qualifiers: Hypertension type: unspecified secondary hypertension Qualified Code(s): I15.9 - Secondary hypertension, unspecified Code(s): I10 - Essential (primary) hypertension Status: Acute Assessment and Plan: Patient's blood pressure was reviewed on 08/12 Blood pressure remains well controlled (SBP 100-150). Will continue current medications with Norvasc and Lisinopril. 08/13/20 BP still not at goal linsinopril dose increased to 20mg PO QD (6) Sepsis: Qualifiers: Sepsis acute organ dysfunction status: unspecified Sepsis type: sepsis due to unspecified organism Qualified Code(s): A41.9 - Sepsis, unspecified organism Code(s): A41.9 - Sepsis, unspecified organism Status: Acute Assessment and Plan: Resolved. Related to above. Abx stopped. (7) DVT prophylaxis: Code(s): Z29.9 - Encounter for prophylactic measures, unspecified Status: Acute Assessment and Plan: Lovenox Additional Plan 08/13/20 remains O2 dependent and requiring NRB w transfers cont current care encourage OOB and mobilization 08/14/2020 Remains
[2020-08-14] MEDS: INSULIN ASPART (*BKC) 100 UNITS/ML SUB-Q ×2 (13:59→19:24)
[2020-08-14 18:01] LABS: Glucose Point of Care 257 mg/dl (65-105)
[2020-08-14] MEDS: hydrALAZINE HCL 20 MG/ML VIAL 10 MG IV PUSH (19:24)
[2020-08-14 20:53] LABS: Glucose Point of Care 277 mg/dl (65-105)
[2020-08-14] MEDS: INSULIN GLARGINE (*BKC) 100 UNITS/ML 10 UNITS SUB-Q (21:15)
[2020-08-15] VITALS (20 sets, daily range): BP systolic 131–177; BP diastolic 48–63; PULSE 85–111; RESP 18–22; TEMP 36.1–37; O2SAT 91–100
[2020-08-15] MEDS: ALBUTEROL SULFATE NEB 2.5 MG/0.5 ML INH INHALATION ×4 (01:18→19:56)
[2020-08-15] MEDS: IPRATROPIUM BR 0.02% INH SOLN 0.5 MG/2.5 ML VIAL INHALATION ×4 (01:18→19:55)
[2020-08-15 05:23] LABS: Hematocrit 32.5 % (37.0-47.0); Hemoglobin 10.3 g/dL (12.0-15.0); Mean Corpuscular HGB Conc 31.7 g/dl (32-36); Mean Corpuscular Hemoglobin 28.3 pg (26-34); Mean Corpuscular Volume 89.3 fl (80-100); Mean Platelet Volume 9.8 fl (7.4-10.4); Platelet Count Result 562 k/mm3 (150-375); Red Blood Count 3.64 M/mm3 (4.2-5.4); Red Cell Distribution Width 14.6 % (11.5-14.5); White Blood Count 19.8 K/mm3 (4.5-10.0)
[2020-08-15] MEDS: LEVOTHYROXINE SODIUM 100 MCG TABLET PO (05:27)
[2020-08-15 05:35] LABS: Anion Gap 4 mmol/L (8-16); Blood Urea Nitrogen 21 mg/dL (7-17); Calcium 9.2 mg/dL (8.4-10.2); Carbon Dioxide 32 mmol/L (22-30); Chloride 101 mmol/L (98-107); Estimated CRCL calculation 58 ml/min; Estimated Glomerular Filt Rate > 60; Glucose 125 mg/dL (65-105); Sodium 137 mmol/L (137-145)
[2020-08-15 07:19] LABS: Glucose Point of Care 97 mg/dl (65-105)
--- NOTE | 2020-08-15 08:46 | PM.PNPUL ---
Progress Note: A&P Assessment and Plan (1) Acute hypoxemic respiratory failure: Code(s): J96.01 - Acute respiratory failure with hypoxia Status: Acute Assessment and Plan: Patient is post COVID pneumonia and now with hypoxemic respiratory failure. 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 Patient is DNR/DNI and now requiring BiPAP support. Patient is on vancomycin, cefepime and Levaquin for possible bacterial pneumonia following her recent hospitalization. Patient with BNP [address] without classic pulmonary edema, she has been given IV Lasix with a good response and has diuresed 1.45 L since admission. 08/04 High flow nasal canulla 60L and 83% with sats 94% and currently being transitioned to BiPAP for respiratory distress. Given the severity of her hypoxemic respiratory failure I will initiate Treatment of post COVID interstitial lung disease/organizing pneumonia with steroids as has been reported ([facility] Vol 18, No 5, [id number]). I will initiate Solu-Medrol 40 mg IV Q 6 1st dose 12:00. 08/05 Wore BiPAP overnight at RR 18, 14/8, 90% FIO2 with sats 93-97%. Transitioned to Airvo 60 L 75% with sats 95% this morning. Required 90% with eating. States she is minimally improved. CXR unchanged. Blood culture negative. Continue vanco (day 3), cefepime (day 3) and levaquin (day 2). Would continue solumedrol 40 Q 6 today (day 2). 08/06 Wore AVAPS 14, Tidal volume 450, EPAP 5, inspiratory pressure minimum 6, inspiratory pressure maximum 20, 80% overnight and PRN today. Was on Airfo 50L and 75% with sats 93% this morning. States she is minimally improved. CXR essentially unchanged. Blood culture negative. Continue vanco (day 4), cefepime (day 4) and levaquin (day 3). Will decrease solumedrol to 20 Q 6 today. Off AVAPS all day on Airvo at 60L and 74% throughtout day 08/07 Wore AVAPS overnight FIO2 decreased to 50%. Today she tells me she is a little bit better. She still has shortness of breath at rest. Currently on high-flow nasal cannula at 45 L and 60% with saturations 94%. Mild improvement in oxygenation and will continue solumedrol 20 Q 6 today (day 2). Check CXR in morning. Continue vanco (day 5), cefepime (day 5) and levaquin (day 4). Plan for 7 days antibiotics then DC. 08/08 Wore AVAPS overnight FIO2 at 50%. Today she tells me she is a little bit better. Currently on Airvo 45L 60% with sats 97%. CXR continued bilateral infiltrates with improvement since 08/04. Will change to prednisone 50 mg PO today. Will try off BiPAP tonight. Continue vanco (day 6), cefepime (day 6) and levaquin (day 5) 08/09 Off BiPAP 24 hours now, wore Airvo last night at 35L and 55%. Did well and feels like she is improving each day. OOB during day. Currently on Airvo 35L 55% with sats 91% while eating breakfast. CXR continued bilateral infiltrates with improvement since 08/04. On day 2 of prednisone 50 mg PO today. Will try NC 15 L later today. Out of ICU. Will DC antibiotics today. 08/10 Off BiPAP 48 hours now. Wore NC 15 L overnight and stated she slept well. Slowly improving. Currently on NC 13 L with sats 91%, desats with activity. Change to prednisone 40 PO Q day today. 08/11 Wore NC 12 L overnight and stated she slept well. Slowly improving. Currently on NC 12 L with sats 91%. Continue prednisone 40 PO Q day today. Decrease to 30 PO on 08/12. Patient oxygenation improving slowly and unclear rate of recovery regarding discharge planning. May need facility that can handle higher levels of oxygen. 08/12 feeling better each day, currently on 6 L NC with sats 94% but desats with activity and eating and now on 10L NRB. First dose of prednisone 30 mg PO Q day. Improved clinically and CXR today with low lung volumes with increased bilateral infiltrates. Continue prednisone 30 mg PO Q day for 7 days (through 08/18). 6/ feeling better each day, currently on 4 L NC with rest with sats 92%
[2020-08-15] MEDS: predniSONE 10 MG TABLET 30 MG PO (09:26)
[2020-08-15] MEDS: amLODIPine BESYLATE 5 MG TABLET PO (09:26)
[2020-08-15] MEDS: lisinopriL 20 MG TABLET PO (09:26)
[2020-08-15] MEDS: LORATADINE 10 MG TABLET PO (09:26)
[2020-08-15] MEDS: ENOXAPARIN 40 MG/0.4 ML SYRINGE SUB-Q (09:27)
[2020-08-15 12:06] LABS: Glucose Point of Care 173 mg/dl (65-105)
--- NOTE | 2020-08-15 13:06 | PM.IMPN ---
Progress Note: A&P Assessment and Plan (1) Acute hypoxemic respiratory failure: Code(s): J96.01 - Acute respiratory failure with hypoxia Status: Acute Assessment and Plan: Upon arrival, patient with acute hypoxemic respiratory failure possibly secondary to COVID-19 pneumonia and/or bacterial pneumonia. CTA chest showing diffuse extensive patchy bilateral lung disease. Patient was treated with a course of Cefepime, vancomycin and Levaquin. IV Steroids started and now has been transitioned to oral Prednisone. Patient DNR. She was on AirVo but able to be weaned to NC. Serum bicarb>40 and given Diamox; Bicarb 32 now. Photograph Enlarger following. Pulmonary felt patient will need long-term care or SNF and CC looking into arranging this. Wean O2 as tolerated. Continue supportive care. (2) Pneumonia: Qualifiers: Laterality: bilateral Lung location: upper lobe of lung Pneumonia type: due to unspecified organism Qualified Code(s): J18.9 - Pneumonia, unspecified organism Code(s): J18.9 - Pneumonia, unspecified organism Status: Acute Assessment and Plan: CTA chest showing interval progression of extensive patchy bilateral lung ground glass opacities and consolidation. 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 Bacterial PNA seems less likely but was covered with broad spectrum abx; abx have been stopped. CHF also seems less likely but with persistent pedal edema. BCx negative. CXR 08/12 showing minimal overall improvement; clinically much better. WBC still elevated but on steroids. Not having diarrhea. Continue with the neb treatments. Continue supportive care. Repeat CXR in the morning (3) Bilateral lower extremity edema: Code(s): R60.0 - Localized edema Status: Acute Assessment and Plan: No pulmonary HTN by Echo 07/19/20. Venous doppler negative for DVT. Treated with bumetanide 08/06, acetazolamide 08/07. BNP 190. Edema worse today. Developing pulmonary HTN? Will schedule Bumex. Add Eduard champagne (4) Diabetes mellitus: Qualifiers: Diabetes mellitus complication status: with hyperglycemia Diabetes mellitus penitentiary insulin use: without predatory animal exterminator use Diabetes mellitus type: type 2 Qualified Code(s): E11.65 - Type 2 diabetes mellitus with hyperglycemia Code(s): E11.9 - Type 2 diabetes mellitus without complications Status: Acute Assessment and Plan: The patient's blood glucose was reviewed on 08/15 Persistent glucose fluctuations(277 last night and 97 this morning). Lantus at 10U qhs and Novolog 4U at noon. Continue AccuCheks covering with sliding scale. Hypoglycemia protocol available as needed. Continue current insulin regiment. (5) Hypertension: Qualifiers: Hypertension type: unspecified secondary hypertension Qualified Code(s): I15.9 - Secondary hypertension, unspecified Code(s): I10 - Essential (primary) hypertension Status: Acute Assessment and Plan: Patient's blood pressure was reviewed on 08/15 Blood pressure remains poorly controlled (SBP 140-170). Lisinopril increased 08/14. Will continue current medications with Norvasc and Lisinopril. (6) Sepsis: Qualifiers: Sepsis acute organ dysfunction status: unspecified Sepsis type: sepsis due to unspecified organism Qualified Code(s): A41.9 - Sepsis, unspecified organism Code(s): A41.9 - Sepsis, unspecified organism Status: Acute Assessment and Plan: Resolved. Related to above. Abx stopped. (7) DVT prophylaxis: Code(s): Z29.9 - Encounter for prophylactic measures, unspecified Status: Acute Assessment and Plan: Lovenox Subjective Date/time seen: 08/15/20 13:06 Interval history: 80yo female who recently had COVID-19 PNA who presents with increasing shortness of breath and hypoxia. Patient with SARS CoV-2 Ag positive on 07/11/20. She was admitted 07/14/20 for nausea and vomitin
[2020-08-15] MEDS: INSULIN ASPART (*BKC) 100 UNITS/ML SUB-Q ×2 (13:29→17:33)
[2020-08-15 16:57] LABS: Glucose Point of Care 269 mg/dl (65-105)
[2020-08-15] MEDS: BUMETANIDE INJ 1 MG/4 ML VIAL IV PUSH (17:34)
[2020-08-15] MEDS: INSULIN GLARGINE (*BKC) 100 UNITS/ML 10 UNITS SUB-Q (21:01)
[2020-08-15 21:12] LABS: Glucose Point of Care 240 mg/dl (65-105)
[2020-08-16] VITALS (26 sets, daily range): BP systolic 140–170; BP diastolic 62–70; PULSE 78–109; RESP 16–26; TEMP 36.4–37.2; O2SAT 91–98
[2020-08-16] MEDS: ALBUTEROL SULFATE NEB 2.5 MG/0.5 ML INH INHALATION ×4 (02:42→20:55)
[2020-08-16] MEDS: IPRATROPIUM BR 0.02% INH SOLN 0.5 MG/2.5 ML VIAL INHALATION ×4 (02:42→20:55)
[2020-08-16 04:51] LABS: Basophils Absolute Auto 0.1 K/mm3 (0.0-0.1); Basophils Percent Auto 0.3 % (0.2-1.2); Eosinophils Absolute Auto 0.2 K/mm3 (0-0.3); Eosinophils Percent Auto 0.8 % (0-4.4); Hemoglobin 9.7 g/dL (12.0-15.0); Immature Granulocyte Absolute 0.74 K/mm3 (0.00-0.031); Immature Granulocyte Percent A 3.9 % (0-0.5); Lymphocytes Absolute Auto 4.17 K/mm3 (0.9-3.2); Lymphocytes Percent Auto 21.8 % (18.3-44.2); Mean Corpuscular HGB Conc 31.3 g/dl (32-36); Mean Corpuscular Hemoglobin 28.4 pg (26-34); Mean Corpuscular Volume 90.6 fl (80-100); Mean Platelet Volume 9.8 fl (7.4-10.4); Monocytes Absolute Auto 1.2 K/mm3 (0.1-0.6); Monocytes Percent Auto 6.3 % (2.6-8.5); Neutrophils Absolute Auto 12.8 K/mm3 (1.3-6.7); Neutrophils Percent Auto 66.9 % (45.5-73.1); Platelet Count Result 493 k/mm3 (150-375); Red Blood Count 3.42 M/mm3 (4.2-5.4); Red Cell Distribution Width 14.7 % (11.5-14.5); White Blood Count 19.2 K/mm3 (4.5-10.0)
[2020-08-16 05:10] LABS: Albumin Level 2.8 g/dL (3.5-5.1); Anion Gap 2 mmol/L (8-16); Blood Urea Nitrogen 21 mg/dL (7-17); Carbon Dioxide 37 mmol/L (22-30); Chloride 98 mmol/L (98-107); Estimated CRCL calculation 57 ml/min; Estimated Glomerular Filt Rate > 60; Glucose 115 mg/dL (65-105); Magnesium 1.8 mg/dL (1.6-2.3); Phosphorus 3.9 mg/dL (2.5-4.5); Potassium 4.1 mmol/L (3.4-5.0); Sodium 137 mmol/L (137-145)
[2020-08-16] MEDS: LEVOTHYROXINE SODIUM 100 MCG TABLET PO (06:30)
[2020-08-16 08:03] LABS: Glucose Point of Care 97 mg/dl (65-105)
[2020-08-16] MEDS: lisinopriL 20 MG TABLET PO (09:16)
[2020-08-16] MEDS: amLODIPine BESYLATE 5 MG TABLET PO (09:16)
[2020-08-16] MEDS: ENOXAPARIN 40 MG/0.4 ML SYRINGE SUB-Q (09:16)
[2020-08-16] MEDS: predniSONE 10 MG TABLET 30 MG PO (09:16)
[2020-08-16] MEDS: LORATADINE 10 MG TABLET PO (09:16)
[2020-08-16] MEDS: BUMETANIDE INJ 1 MG/4 ML VIAL IV PUSH ×2 (09:17→17:27)
--- NOTE | 2020-08-16 11:47 | PM.IMPN ---
Progress Note: A&P Assessment and Plan (1) Acute hypoxemic respiratory failure: Code(s): J96.01 - Acute respiratory failure with hypoxia Status: Acute Assessment and Plan: Upon arrival to the ED, patient with acute hypoxemic respiratory failure possibly secondary to COVID-19 pneumonia and/or bacterial pneumonia. CTA chest showing diffuse extensive patchy bilateral lung disease. Patient was treated with a course of Cefepime, vancomycin and Levaquin. IV Steroids started and now has been transitioned to oral Prednisone. Patient DNR. She was on AirVo but able to be weaned down. Serum bicarb>40 and given Diamox on 08/11; Bicarb 37 now. Dairy Machine Operator Farmworker following. Pulmonary felt patient will need long-term care or SNF and CC looking into arranging this. Wean O2 as tolerated. Continue supportive care. 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 Bacterial PNA seems less likely but was covered with broad spectrum abx; abx have been stopped. CHF also seems less likely but with persistent pedal edema. BCx negative. CXR today showing minimal overall improvement; clinically much better. Was on solu-Medrol but transitioned to Prednisone. WBC still elevated but on steroids. Not having diarrhea. Continue with the neb treatments. Continue supportive care. Plan to wean Prednisone by 10mg every 7 days. Bumex started and pedal edema better. Bicarb and renal function okay. Contineu Bumex for one more day. (3) Bilateral lower extremity edema: Code(s): R60.0 - Localized edema Status: Acute Assessment and Plan: No pulmonary HTN by Echo 07/19/20. Venous doppler negative for DVT. Treated with bumetanide 08/06, acetazolamide 08/07. BNP 190. Edema worse yesterday so Bumex given. Improving hypoxia but no change by CXR. Developing pulmonary HTN? Will continue Bumex and Eduard hose. (4) Diabetes mellitus: Qualifiers: Diabetes mellitus complication status: with hyperglycemia Diabetes mellitus marine oil terminal superintendent insulin use: without [facility] use Diabetes mellitus type: type 2 Qualified Code(s): E11.65 - Type 2 diabetes mellitus with hyperglycemia Code(s): E11.9 - Type 2 diabetes mellitus without complications Status: Acute Assessment and Plan: The patient's blood glucose was reviewed on 08/16 Persistent glucose fluctuations(240 last night and 97 this morning). Lantus at 10U qhs and Novolog 4U at noon. Continue AccuCheks covering with sliding scale. Hypoglycemia protocol available as needed. Will advance meal time insulin. (5) Hypertension: Qualifiers: Hypertension type: unspecified secondary hypertension Qualified Code(s): I15.9 - Secondary hypertension, unspecified Code(s): I10 - Essential (primary) hypertension Status: Acute Assessment and Plan: Patient's blood pressure was reviewed on 08/16 Blood pressure remains somewhat better controlled (SBP 130-160). Lisinopril increased 08/14. Will continue current medications with Norvasc and Lisinopril. (6) Sepsis: Qualifiers: Sepsis acute organ dysfunction status: unspecified Sepsis type: sepsis due to unspecified organism Qualified Code(s): A41.9 - Sepsis, unspecified organism Code(s): A41.9 - Sepsis, unspecified organism Status: Acute Assessment and Plan: Resolved. Related to above. Abx stopped. (7) DVT prophylaxis: Code(s): Z29.9 - Encounter for prophylactic measures, unspecified Status: Acute Assessment and Plan: Lovenox Subjective Date/time seen: 08/16/20 11:47 Interval history: 80yo female who recently had COVID-19 PNA who presents with increasing shortness of breath and hyp
[2020-08-16 12:19] LABS: Glucose Point of Care 184 mg/dl (65-105)
[2020-08-16] MEDS: INSULIN ASPART (*BKC) 100 UNITS/ML 7 UNITS SUB-Q (13:14)
[2020-08-16 17:09] LABS: Glucose Point of Care 222 mg/dl (65-105)
[2020-08-16] MEDS: INSULIN ASPART (*BKC) 100 UNITS/ML SUB-Q (17:28)
[2020-08-16 20:43] LABS: Glucose Point of Care 295 mg/dl (65-105)
[2020-08-16] MEDS: INSULIN GLARGINE (*BKC) 100 UNITS/ML 10 UNITS SUB-Q (21:00)
[2020-08-17] VITALS (27 sets, daily range): BP systolic 150–173; BP diastolic 56–78; PULSE 89–195; RESP 16–22; TEMP 36–36.4; O2SAT 92–97
[2020-08-17] MEDS: ALBUTEROL SULFATE NEB 2.5 MG/0.5 ML INH INHALATION ×4 (01:56→19:17)
[2020-08-17] MEDS: IPRATROPIUM BR 0.02% INH SOLN 0.5 MG/2.5 ML VIAL INHALATION ×4 (01:56→19:17)
[2020-08-17 05:16] LABS: Albumin Level 2.8 g/dL (3.5-5.1); Anion Gap 3 mmol/L (8-16); Blood Urea Nitrogen 26 mg/dL (7-17); Calcium 8.9 mg/dL (8.4-10.2); Carbon Dioxide 39 mmol/L (22-30); Chloride 95 mmol/L (98-107); Estimated CRCL calculation 57 ml/min; Estimated Glomerular Filt Rate > 60; Glucose 119 mg/dL (65-105); Hematocrit 30.5 % (37.0-47.0); Hemoglobin 9.7 g/dL (12.0-15.0); Mean Corpuscular HGB Conc 31.8 g/dl (32-36); Mean Corpuscular Hemoglobin 28.8 pg (26-34); Mean Corpuscular Volume 90.5 fl (80-100); Platelet Count Result 454 k/mm3 (150-375); Potassium 3.8 mmol/L (3.4-5.0); Red Blood Count 3.37 M/mm3 (4.2-5.4); Red Cell Distribution Width 14.8 % (11.5-14.5); Sodium 137 mmol/L (137-145); White Blood Count 17.8 K/mm3 (4.5-10.0)
[2020-08-17] MEDS: LEVOTHYROXINE SODIUM 100 MCG TABLET PO (05:16)
[2020-08-17 07:20] LABS: Glucose Point of Care 101 mg/dl (65-105)
[2020-08-17] MEDS: amLODIPine BESYLATE 5 MG TABLET PO (09:09)
[2020-08-17] MEDS: predniSONE 10 MG TABLET 30 MG PO (09:09)
[2020-08-17] MEDS: lisinopriL 20 MG TABLET PO (09:10)
[2020-08-17] MEDS: BUMETANIDE INJ 1 MG/4 ML VIAL IV PUSH ×2 (09:10→17:52)
[2020-08-17] MEDS: LORATADINE 10 MG TABLET PO (09:10)
[2020-08-17] MEDS: ENOXAPARIN 40 MG/0.4 ML SYRINGE SUB-Q (09:10)
--- NOTE | 2020-08-17 09:52 | PM.IMPN ---
Progress Note: A&P Assessment and Plan (1) Acute hypoxemic respiratory failure: Code(s): J96.01 - Acute respiratory failure with hypoxia Status: Acute Assessment and Plan: Upon arrival to the ED, patient with acute hypoxemic respiratory failure possibly secondary to organizing PNA related to COVID-19 pneumonia and/or bacterial pneumonia. CTA chest showing diffuse extensive patchy bilateral lung disease. Patient was treated with a course of Cefepime, vancomycin and Levaquin. IV Steroids started and now has been transitioned to oral Prednisone. Patient is DNR. She was on AirVo but able to be weaned down. Serum bicarb>40 and given Diamox on 08/11; Bicarb 39 now. Gambling Counsellor following. Pulmonary felt patient will need long-term care or SNF and CC looking into arranging this. Wean O2 as tolerated. Continue supportive care. 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 Bacterial PNA seems less likely but was covered with broad spectrum abx; abx have been stopped. CHF also seems less likely but with persistent pedal edema so treated with Bumex IV. BCx negative. CXR yesterday showing minimal overall improvement but clinically much better. Was on solu-Medrol but transitioned to Prednisone. Continue with the neb treatments. Continue supportive care. Plan to wean Prednisone by 10mg every 7 days. WBC as mentioned below. (3) Leukocytosis: Code(s): D72.829 - Elevated white blood cell count, unspecified Status: Acute Assessment and Plan: WBC essentially normal on admisison but climbed to 17-19 range. Patient was started on steroids early in his hospital course. Not having diarrhea. Will monitor as we wean steroids. (4) Bilateral lower extremity edema: Code(s): R60.0 - Localized edema Status: Acute Assessment and Plan: No pulmonary HTN by Echo 07/19/20. Venous doppler negative for DVT. Treated with bumetanide 08/06, acetazolamide 08/07. BNP 190. Edema worse so Bumex IV started. Improving hypoxia but no change by 08/16 CXR. Developing pulmonary HTN? Edema better. Will continue Eduard hose. (5) Diabetes mellitus: Qualifiers: Diabetes mellitus complication status: with hyperglycemia Diabetes mellitus long-term insulin use: without long-term use Diabetes mellitus type: type 2 Qualified Code(s): E11.65 - Type 2 diabetes mellitus with hyperglycemia Code(s): E11.9 - Type 2 diabetes mellitus without complications Status: Acute Assessment and Plan: The patient's blood glucose was reviewed on 08/17 Persistent glucose fluctuations(295 last night and 101 this morning). Lantus at 10U qhs and Novolog 7U at noon. Continue AccuCheks covering with sliding scale. Hypoglycemia protocol available as needed. Will follow (6) Hypertension: Qualifiers: Hypertension type: unspecified secondary hypertension Qualified Code(s): I15.9 - Secondary hypertension, unspecified Code(s): I10 - Essential (primary) hypertension Status: Acute Assessment and Plan: Patient's blood pressure was reviewed on 08/17 Blood pressure remains somewhat better controlled (SBP 140-170). Could be related to the steroids. Lisinopril increased 08/14. Will continue current medications with Norvasc and Lisinopril. Will moniotr to see if this improves with weaning of steroids. (7) Sepsis: Qualifiers: Sepsis acute organ dysfunction status: unspecified Sepsis type: sepsis due to unspecified organism Qualified Code(s): A41.9 - Sepsis, unspecified organism Code(s): A41.9 - Sepsis, unspecified organism Status: Acute Assessment and Plan: Resolved. Related
--- NOTE | 2020-08-17 10:55 | PCDIET ---
Weekly nutritional screen. Patient is tolerating current diet with adequate intake. Weight loss appears related to fluid. Patient likes the food and reports good appetite; eating 100% of most meals. No nutritional needs at this time.
[2020-08-17 12:20] LABS: Glucose Point of Care 235 mg/dl (65-105)
[2020-08-17] MEDS: INSULIN ASPART (*BKC) 100 UNITS/ML 7 UNITS SUB-Q (13:19)
[2020-08-17] MEDS: INSULIN ASPART (*BKC) 100 UNITS/ML SUB-Q ×2 (13:20→17:51)
[2020-08-17 16:43] LABS: Glucose Point of Care 207 mg/dl (65-105)
[2020-08-17 20:59] LABS: Glucose Point of Care 244 mg/dl (65-105)
[2020-08-17] MEDS: INSULIN GLARGINE (*BKC) 100 UNITS/ML 10 UNITS SUB-Q (21:56)
[2020-08-18] VITALS (22 sets, daily range): BP systolic 132–148; BP diastolic 49–81; PULSE 76–104; RESP 16–22; TEMP 36.2–36.6; O2SAT 91–98
[2020-08-18] MEDS: ALBUTEROL SULFATE NEB 2.5 MG/0.5 ML INH INHALATION ×4 (02:40→22:22)
[2020-08-18] MEDS: IPRATROPIUM BR 0.02% INH SOLN 0.5 MG/2.5 ML VIAL INHALATION ×4 (02:40→22:23)
[2020-08-18 05:36] LABS: Hematocrit 30.1 % (37.0-47.0); Hemoglobin 9.7 g/dL (12.0-15.0); Mean Corpuscular HGB Conc 32.2 g/dl (32-36); Mean Corpuscular Hemoglobin 28.2 pg (26-34); Mean Corpuscular Volume 87.5 fl (80-100); Mean Platelet Volume 10.1 fl (7.4-10.4); Platelet Count Result 461 k/mm3 (150-375); Red Blood Count 3.44 M/mm3 (4.2-5.4); Red Cell Distribution Width 14.4 % (11.5-14.5); White Blood Count 17.1 K/mm3 (4.5-10.0)
[2020-08-18 05:49] LABS: Blood Urea Nitrogen 26 mg/dL (7-17); Calcium 8.9 mg/dL (8.4-10.2); Carbon Dioxide > 40 mmol/L (22-30); Chloride 94 mmol/L (98-107); Estimated CRCL calculation 66 ml/min; Estimated Glomerular Filt Rate > 60; Glucose 104 mg/dL (65-105); Potassium 3.5 mmol/L (3.4-5.0); Sodium 136 mmol/L (137-145)
[2020-08-18] MEDS: LEVOTHYROXINE SODIUM 100 MCG TABLET PO (06:16)
[2020-08-18 08:06] LABS: Glucose Point of Care 105 mg/dl (65-105)
[2020-08-18] MEDS: amLODIPine BESYLATE 5 MG TABLET PO (08:19)
[2020-08-18] MEDS: predniSONE 10 MG TABLET 30 MG PO (08:19)
[2020-08-18] MEDS: lisinopriL 20 MG TABLET PO (08:19)
[2020-08-18] MEDS: LORATADINE 10 MG TABLET PO (08:19)
[2020-08-18] MEDS: polyethylene glycoL 3350 17 GM POWD.PACK PO (08:20)
[2020-08-18] MEDS: BUMETANIDE INJ 1 MG/4 ML VIAL IV PUSH (08:21)
[2020-08-18] MEDS: ENOXAPARIN 40 MG/0.4 ML SYRINGE SUB-Q (08:21)
[2020-08-18] MEDS: acetaZOLAMIDE SODIUM FOR INJ 500 MG VIAL 250 MG IV PUSH (12:10)
--- NOTE | 2020-08-18 12:10 | PM.IMPN ---
Progress Note: A&P Assessment and Plan (1) Acute hypoxemic respiratory failure: Code(s): J96.01 - Acute respiratory failure with hypoxia Status: Acute Assessment and Plan: Upon arrival to the ED, patient with acute hypoxemic respiratory failure possibly secondary to organizing PNA related to COVID-19 pneumonia and/or bacterial pneumonia. CTA chest showing diffuse extensive patchy bilateral lung disease. Patient was treated with a course of Cefepime, vancomycin and Levaquin. IV Steroids started and now has been transitioned to oral Prednisone. Patient is DNR. She was on AirVo but able to be weaned down. Serum bicarb>40 and given Diamox on 08/11; Bicarb improved. Small Craft Operator following. On Bumex and serum Bicarb>40 again. Will stop Bumex and gie one dose of Diamox. Pulmonary felt patient will need long-term care or SNF and CC looking into arranging this. LTAC refused patient; patieint on too much O2 for SNF. Wean O2 as tolerated. Continue supportive care. TRC consult. 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 Bacterial PNA seems less likely but was covered with broad spectrum abx; abx have been stopped. CHF also seems less likely but with persistent pedal edema so treated with Bumex IV. BCx negative. CXR 08/16 showing minimal overall improvement but clinically much better. Was on solu-Medrol but transitioned to Prednisone. Continue with the neb treatments. Continue supportive care. Has completed 7 days of 30mg Prednisone so will decrease to 20mg tomorrow. WBC as mentioned below. (3) Leukocytosis: Code(s): D72.829 - Elevated white blood cell count, unspecified Status: Acute Assessment and Plan: WBC essentially normal on admisison but climbed to 17-19 range. Patient was started on steroids early in his hospital course. Not having diarrhea. Will monitor as we wean steroids. (4) Bilateral lower extremity edema: Code(s): R60.0 - Localized edema Status: Acute Assessment and Plan: No pulmonary HTN by Echo 07/19/20. Venous doppler negative for DVT. Treated with bumetanide 08/06, acetazolamide 08/07. BNP was 1880 but now 190. Pedal edema worsened so Bumex IV started. Improving hypoxia but no change by 08/16 CXR. Developing pulmonary HTN? Edema better with Bumex. Will continue Eduard hose. Serum bicarb elevated. Stop Bumex now. (5) Diabetes mellitus: Qualifiers: Diabetes mellitus complication status: with hyperglycemia Diabetes mellitus detention insulin use: without bed bug exterminator use Diabetes mellitus type: type 2 Qualified Code(s): E11.65 - Type 2 diabetes mellitus with hyperglycemia Code(s): E11.9 - Type 2 diabetes mellitus without complications Status: Acute Assessment and Plan: The patient's blood glucose was reviewed on 08/18 Persistent glucose fluctuations(244 last night and 105 this morning). Lantus at 10U qhs and Novolog 7U at noon. Continue AccuCheks covering with sliding scale. Hypoglycemia protocol available as needed. Advance the meal time Novolog. (6) Hypertension: Qualifiers: Hypertension type: unspecified secondary hypertension Qualified Code(s): I15.9 - Secondary hypertension, unspecified Code(s): I10 - Essential (primary) hypertension Status: Acute Assessment and Plan: Patient's blood pressure was reviewed on 08/18 Blood pressure remains somewhat better controlled (SBP 140-150). Could be related to the steroids. Lisinopril increased 08/14. Will continue current medications with Norvasc and Lisinopril. Will monitor to see if this improves with weaning of steroids. (7) Sepsis:
[2020-08-18] MEDS: INSULIN ASPART (*BKC) 100 UNITS/ML 10 UNITS SUB-Q (12:12)
[2020-08-18 12:32] LABS: Glucose Point of Care 193 mg/dl (65-105)
[2020-08-18 16:26] LABS: Glucose Point of Care 198 mg/dl (65-105)
[2020-08-18] MEDS: INSULIN GLARGINE (*BKC) 100 UNITS/ML 10 UNITS SUB-Q (20:27)
[2020-08-18 20:37] LABS: Glucose Point of Care 350 mg/dl (65-105)
[2020-08-19] VITALS (22 sets, daily range): BP systolic 136–156; BP diastolic 48–67; PULSE 74–113; RESP 16–24; TEMP 36.1–36.3; O2SAT 90–100
[2020-08-19] MEDS: IPRATROPIUM BR 0.02% INH SOLN 0.5 MG/2.5 ML VIAL INHALATION ×4 (02:49→20:53)
[2020-08-19] MEDS: ALBUTEROL SULFATE NEB 2.5 MG/0.5 ML INH INHALATION ×4 (02:50→20:53)
[2020-08-19 05:10] LABS: Basophils Percent Auto 0.2 % (0.2-1.2); Eosinophils Absolute Auto 0.1 K/mm3 (0-0.3); Eosinophils Percent Auto 0.9 % (0-4.4); Hematocrit 30.4 % (37.0-47.0); Hemoglobin 9.6 g/dL (12.0-15.0); Immature Granulocyte Absolute 0.17 K/mm3 (0.00-0.031); Immature Granulocyte Percent A 1.1 % (0-0.5); Lymphocytes Absolute Auto 3.43 K/mm3 (0.9-3.2); Lymphocytes Percent Auto 22.2 % (18.3-44.2); Mean Corpuscular HGB Conc 31.6 g/dl (32-36); Mean Corpuscular Hemoglobin 28.3 pg (26-34); Mean Corpuscular Volume 89.7 fl (80-100); Monocytes Absolute Auto 0.9 K/mm3 (0.1-0.6); Monocytes Percent Auto 5.9 % (2.6-8.5); Neutrophils Absolute Auto 10.8 K/mm3 (1.3-6.7); Neutrophils Percent Auto 69.7 % (45.5-73.1); Platelet Count Result 389 k/mm3 (150-375); Red Blood Count 3.39 M/mm3 (4.2-5.4); Red Cell Distribution Width 14.6 % (11.5-14.5); White Blood Count 15.4 K/mm3 (4.5-10.0)
[2020-08-19 05:23] LABS: Anion Gap 1 mmol/L (8-16); Blood Urea Nitrogen 24 mg/dL (7-17); Calcium 8.9 mg/dL (8.4-10.2); Carbon Dioxide 36 mmol/L (22-30); Chloride 99 mmol/L (98-107); Estimated CRCL calculation 57 ml/min; Estimated Glomerular Filt Rate > 60; Glucose 113 mg/dL (65-105); Potassium 3.7 mmol/L (3.4-5.0); Sodium 136 mmol/L (137-145)
[2020-08-19] MEDS: LEVOTHYROXINE SODIUM 100 MCG TABLET PO (07:16)
[2020-08-19] MEDS: amLODIPine BESYLATE 5 MG TABLET PO (08:21)
[2020-08-19] MEDS: lisinopriL 20 MG TABLET PO (08:21)
[2020-08-19] MEDS: ENOXAPARIN 40 MG/0.4 ML SYRINGE SUB-Q (08:21)
[2020-08-19] MEDS: predniSONE 20 MG TABLET PO (08:21)
[2020-08-19] MEDS: LORATADINE 10 MG TABLET PO (08:21)
[2020-08-19] MEDS: INSULIN ASPART (*BKC) 100 UNITS/ML 10 UNITS SUB-Q (12:06)
[2020-08-19 12:23] LABS: Glucose Point of Care 160 mg/dl (65-105)
--- NOTE | 2020-08-19 16:32 | PM.IMPN ---
Progress Note: A&P Assessment and Plan (1) Acute hypoxemic respiratory failure: Code(s): J96.01 - Acute respiratory failure with hypoxia Status: Acute Assessment and Plan: Upon arrival to the ED, patient with acute hypoxemic respiratory failure possibly secondary to organizing PNA related to COVID-19 pneumonia and/or bacterial pneumonia. CTA chest showing diffuse extensive patchy bilateral lung disease. Patient was treated with a course of Cefepime, vancomycin and Levaquin. IV Steroids started and now has been transitioned to oral Prednisone. Patient is DNR. She was on AirVo but able to be weaned down to HFNC. Serum bicarb>40 and given Diamox on 08/11; Bicarb improved. Disc Pad Grinding Machine Feeder following. On Bumex and serum Bicarb>40 again so Bumex stopped and Diamox repeated x 1 on 08/18. Pulmonary fibrosis now? Pulmonary felt patient will need long-term care or SNF and CC looking into arranging this. LTAC refused patient; [facility] refused patient. Patieint on too much O2 for SNF. Wean O2 as tolerated. Continue supportive care. 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 Bacterial PNA seems less likely but was covered with broad spectrum abx; abx have been stopped. CHF also seems less likely but with persistent pedal edema so treated with Bumex IV. BCx negative. CXR today again showing minimal improvement but clinically much better. Was on solu-Medrol but transitioned to Prednisone. Continue with the neb treatments. Continue supportive care. Down to Prednisone 20mg daily now. Continue to wean steroids every 7 days by 10mg. (3) Leukocytosis: Code(s): D72.829 - Elevated white blood cell count, unspecified Status: Acute Assessment and Plan: WBC essentially normal on admisison but climbed to 17-19 range. Patient was started on steroids early in his hospital course. Not having diarrhea. WBC better at 15K now. Will monitor as we wean steroids. (4) Bilateral lower extremity edema: Code(s): R60.0 - Localized edema Status: Acute Assessment and Plan: No pulmonary HTN by Echo 07/19/20. Venous doppler negative for DVT. Treated with bumetanide 08/06, acetazolamide 08/07. BNP was 1880 but now 190. Pedal edema worsened so Bumex IV started. Improving hypoxia but minimal benefit by CXR. Developing pulmonary HTN? Edema better with Bumex. Bumex off now. Will continue Eduard champagne. (5) Diabetes mellitus: Qualifiers: Diabetes mellitus complication status: with hyperglycemia Diabetes mellitus mcfp insulin use: without mcfp use Diabetes mellitus type: type 2 Qualified Code(s): E11.65 - Type 2 diabetes mellitus with hyperglycemia Code(s): E11.9 - Type 2 diabetes mellitus without complications Status: Acute Assessment and Plan: The patient's blood glucose was reviewed on 08/19 Persistent glucose fluctuations(350 last night and 115 this morning). Lantus at 10U qhs and Novolog 10U at noon. Continue AccuCheks covering with sliding scale. Hypoglycemia protocol available as needed. Will not advance the meal time Novolog given that the steroids were decreased today. Follow. Watch for lows. (6) Hypertension: Qualifiers: Hypertension type: unspecified secondary hypertension Qualified Code(s): I15.9 - Secondary hypertension, unspecified Code(s): I10 - Essential (primary) hypertension Status: Acute Assessment and Plan: Patient's blood pressure was reviewed on 08/19 Blood pressure remains somewhat better controlled (SBP 130-150). Better overall as we wean the steroids. Lisinopril increased 08/14. Will continue current medications with Norvasc and Sharona
[2020-08-19 16:58] LABS: Glucose Point of Care 192 mg/dl (65-105)
--- NOTE | 2020-08-19 19:34 | PC.NURSE ---
orders to transfer 3rd medical- report given to Chery RN- pt moved to room 340 via bed with High Flow O2 on - belongings with joseph santiago
[2020-08-19] MEDS: INSULIN GLARGINE (*BKC) 100 UNITS/ML 10 UNITS SUB-Q (20:59)
[2020-08-19 21:21] LABS: Glucose Point of Care 251 mg/dl (65-105)
[2020-08-20] VITALS (15 sets, daily range): BP systolic 142–165; BP diastolic 53–73; PULSE 82–116; RESP 17–26; TEMP 36.2–36.8; O2SAT 90–100
[2020-08-20] MEDS: ALBUTEROL SULFATE NEB 2.5 MG/0.5 ML INH INHALATION ×4 (02:26→20:53)
[2020-08-20] MEDS: IPRATROPIUM BR 0.02% INH SOLN 0.5 MG/2.5 ML VIAL INHALATION ×4 (02:26→20:53)
[2020-08-20] MEDS: LEVOTHYROXINE SODIUM 100 MCG TABLET PO (05:39)
[2020-08-20 07:44] LABS: Glucose Point of Care 91 mg/dl (65-105)
[2020-08-20] MEDS: lisinopriL 20 MG TABLET PO (08:30)
[2020-08-20] MEDS: polyethylene glycoL 3350 17 GM POWD.PACK PO (08:30)
[2020-08-20] MEDS: amLODIPine BESYLATE 5 MG TABLET PO (08:30)
[2020-08-20] MEDS: LORATADINE 10 MG TABLET PO (08:30)
[2020-08-20] MEDS: predniSONE 20 MG TABLET PO (08:30)
[2020-08-20] MEDS: ENOXAPARIN 40 MG/0.4 ML SYRINGE SUB-Q (08:30)
[2020-08-20] MEDS: INSULIN ASPART (*BKC) 100 UNITS/ML 10 UNITS SUB-Q (11:59)
[2020-08-20 12:17] LABS: Glucose Point of Care 165 mg/dl (65-105)
--- NOTE | 2020-08-20 12:59 | PM.IMPN ---
Progress Note: A&P Assessment and Plan (1) Acute hypoxemic respiratory failure: Code(s): J96.01 - Acute respiratory failure with hypoxia Status: Acute Assessment and Plan: Upon arrival to the ED, patient with acute hypoxemic respiratory failure possibly secondary to organizing PNA related to COVID-19 pneumonia and/or bacterial pneumonia. CTA chest showing diffuse extensive patchy bilateral lung disease. Patient was treated with a course of Cefepime, vancomycin and Levaquin. IV Steroids started and now has been transitioned to oral Prednisone. Patient is DNR. She was on AirVo but able to be weaned down to HFNC. Serum bicarb>40 and given Diamox on 08/11; Bicarb improved. Bankman following. On Bumex and serum Bicarb>40 again so Bumex stopped and Diamox repeated x 1 on 08/18. Pulmonary fibrosis now? Pulmonary felt patient will need long-term care or SNF and CC looking into arranging this. LTAC refused patient; [facility] refused patient. Patieint on too much O2 for SNF. SHE WOULD LIKE TO GO HOME WITH HH AND HAS CHILDREN WHO ARE WILLING TO STAY WITH HER. Wean O2 as tolerated. Continue supportive care. 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 Bacterial PNA seems less likely but was covered with broad spectrum abx; abx have been stopped. CHF also seems less likely but with persistent pedal edema so treated with Bumex IV. BCx negative. CXR today again showing minimal improvement but clinically much better. Was on solu-Medrol but transitioned to Prednisone. Continue with the neb treatments. Continue supportive care. 08/19 Prednisone decreased to 20mg daily Continue to wean steroids every 7 days by 10mg (next reduction 08/26 to 10mg daily, then 09/02 to 0/stop). (3) Leukocytosis: Qualifiers: Leukocytosis type: unspecified Qualified Code(s): D72.829 - Elevated white blood cell count, unspecified Code(s): D72.829 - Elevated white blood cell count, unspecified Status: Acute Assessment and Plan: WBC essentially normal on admisison but climbed to 17-19 range. Patient was started on steroids early in his hospital course. Not having diarrhea. WBC better at 15K now. Monitor as steroids are weaned. (4) Bilateral lower extremity edema: Code(s): R60.0 - Localized edema Status: Acute Assessment and Plan: No pulmonary HTN by Echo 07/19/20. Venous doppler negative for DVT. Treated with bumetanide 08/06, acetazolamide 08/07. BNP was 1880 but now 190. Pedal edema worsened so Bumex IV started. Improving hypoxia but minimal benefit by CXR. Developing pulmonary HTN? Edema better with Bumex. Bumex off now. Will continue ROCIO hose. (5) Diabetes mellitus: Qualifiers: Diabetes mellitus type: type 2 Diabetes mellitus group home insulin use: without group home use Diabetes mellitus complication status: with hyperglycemia Qualified Code(s): E11.65 - Type 2 diabetes mellitus with hyperglycemia Code(s): E11.9 - Type 2 diabetes mellitus without complications Status: Acute Assessment and Plan: The patient's blood glucose was reviewed on 08/19 Persistent glucose fluctuations(350 last night and 115 this morning). Lantus at 10U qhs and Novolog 10U at noon. Continue AccuCheks covering with sliding scale. Hypoglycemia protocol available as needed. Will not advance the meal time Novolog given that the steroids were decreased 08/19. Follow. Watch for lows. (6) Hypertension: Qualifiers: Hypertension type: unspecified secondary hypertension Qualified Code(s): I15.9 - Secondary hypertension, unspecified Code(s): I10 - Essential (primary) hypertension
[2020-08-20 18:06] LABS: Glucose Point of Care 173 mg/dl (65-105)
[2020-08-20] MEDS: INSULIN GLARGINE (*BKC) 100 UNITS/ML 10 UNITS SUB-Q (21:53)
[2020-08-20 21:58] LABS: Glucose Point of Care 173 mg/dl (65-105)
[2020-08-21] VITALS (15 sets, daily range): BP systolic 145–156; BP diastolic 54–62; PULSE 77–106; RESP 16–22; TEMP 35.8–36.9; O2SAT 95–98
[2020-08-21] MEDS: ALBUTEROL SULFATE NEB 2.5 MG/0.5 ML INH INHALATION ×4 (03:12→21:33)
[2020-08-21] MEDS: IPRATROPIUM BR 0.02% INH SOLN 0.5 MG/2.5 ML VIAL INHALATION ×4 (03:12→21:34)
[2020-08-21] MEDS: LEVOTHYROXINE SODIUM 100 MCG TABLET PO (05:57)
[2020-08-21 07:44] LABS: Glucose Point of Care 85 mg/dl (65-105)
[2020-08-21] MEDS: lisinopriL 20 MG TABLET PO (08:47)
[2020-08-21] MEDS: predniSONE 20 MG TABLET PO (08:47)
[2020-08-21] MEDS: amLODIPine BESYLATE 5 MG TABLET PO (08:47)
[2020-08-21] MEDS: LORATADINE 10 MG TABLET PO (08:47)
[2020-08-21] MEDS: ENOXAPARIN 40 MG/0.4 ML SYRINGE SUB-Q (08:47)
[2020-08-21 12:31] LABS: Glucose Point of Care 149 mg/dl (65-105)
[2020-08-21] MEDS: INSULIN ASPART (*BKC) 100 UNITS/ML 10 UNITS SUB-Q (12:57)
--- NOTE | 2020-08-21 13:22 | P.PNIM_ITS ---
Progress Note: A&P Assessment and Plan (1) Acute hypoxemic respiratory failure: Code(s): J96.01 - Acute respiratory failure with hypoxia Status: Acute Assessment and Plan: Upon arrival to the ED, patient with acute hypoxemic respiratory failure possibly secondary to organizing PNA related to COVID-19 pneumonia and/or bacterial pneumonia. CTA chest showing diffuse extensive patchy bilateral lung disease. Patient was treated with a course of Cefepime, vancomycin and Levaquin. IV Steroids started and now has been transitioned to oral Prednisone. Patient is DNR. She was on AirVo but able to be weaned down to HFNC. Serum bicarb>40 and given Diamox on 08/11; Bicarb improved. Clinical Documentation Clerk following. On Bumex and serum Bicarb>40 again so Bumex stopped and Diamox repeated x 1 on 08/18. Pulmonary fibrosis now? Pulmonary felt patient will need long-term care or SNF and CC looking into arranging this. LTAC refused patient; [facility] refused patient. Patieint on too much O2 for SNF. SHE WOULD LIKE TO GO HOME WITH HH AND HAS CHILDREN WHO ARE WILLING TO STAY WITH HER. Wean O2 as tolerated. Continue supportive care. 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 Bacterial PNA seems less likely but was covered with broad spectrum abx; abx have been stopped. CHF also seems less likely but with persistent pedal edema so treated with Bumex IV. BCx negative. CXR today again showing minimal improvement but clinically much better. Was on solu-Medrol but transitioned to Prednisone. Continue with the neb treatments. Continue supportive care. 08/19 Prednisone decreased to 20mg daily Continue to wean steroids every 7 days by 10mg (next reduction 08/26 to 10mg daily, then 09/02 to 0/stop). (3) Leukocytosis: Qualifiers: Leukocytosis type: unspecified Qualified Code(s): D72.829 - Elevated white blood cell count, unspecified Code(s): D72.829 - Elevated white blood cell count, unspecified Status: Acute Assessment and Plan: WBC essentially normal on admisison but climbed to 17-19 range. Patient was started on steroids early in his hospital course. Not having diarrhea. WBC better at 15K now. Monitor as steroids are weaned. (4) Bilateral lower extremity edema: Code(s): R60.0 - Localized edema Status: Acute Assessment and Plan: No pulmonary HTN by Echo 07/19/20. Venous doppler negative for DVT. Treated with bumetanide 08/06, acetazolamide 08/07. BNP was 1880 but now 190. Pedal edema worsened so Bumex IV started. Improving hypoxia but minimal benefit by CXR. Developing pulmonary HTN? Edema better with Bumex. Bumex off now. Will continue ROCIO hose. (5) Diabetes mellitus: Qualifiers: Diabetes mellitus type: type 2 Diabetes mellitus residential insulin use: without residential use Diabetes mellitus complication status: with hyperglycemia Qualified Code(s): E11.65 - Type 2 diabetes mellitus with hyperglycemia Code(s): E11.9 - Type 2 diabetes mellitus without complications Status: Acute Assessment and Plan: The patient's blood glucose was reviewed on 08/19 Persistent glucose fluctuations(350 last night and 115 this morning). Lantus at 10U qhs and Novolog 10U at noon. Continue AccuCheks covering with sliding scale. Hypoglycemia protocol available as needed. Will not advance the meal
[2020-08-21 18:18] LABS: Glucose Point of Care 235 mg/dl (65-105)
[2020-08-21] MEDS: INSULIN ASPART (*BKC) 100 UNITS/ML SUB-Q (18:48)
[2020-08-21] MEDS: INSULIN GLARGINE (*BKC) 100 UNITS/ML 10 UNITS SUB-Q (21:48)
[2020-08-21 21:51] LABS: Glucose Point of Care 152 mg/dl (65-105)
[2020-08-22] VITALS (17 sets, daily range): BP systolic 152–157; BP diastolic 58–63; PULSE 82–110; RESP 18–20; TEMP 36.6; O2SAT 85–95
[2020-08-22] MEDS: IPRATROPIUM BR 0.02% INH SOLN 0.5 MG/2.5 ML VIAL INHALATION ×3 (02:49→15:31)
[2020-08-22] MEDS: ALBUTEROL SULFATE NEB 2.5 MG/0.5 ML INH INHALATION ×3 (02:49→15:31)
[2020-08-22] MEDS: LEVOTHYROXINE SODIUM 100 MCG TABLET PO (05:22)
[2020-08-22 08:34] LABS: Glucose Point of Care 81 mg/dl (65-105)
[2020-08-22] MEDS: predniSONE 20 MG TABLET PO (08:34)
[2020-08-22] MEDS: LORATADINE 10 MG TABLET PO (08:34)
[2020-08-22] MEDS: lisinopriL 20 MG TABLET PO (08:34)
[2020-08-22] MEDS: ENOXAPARIN 40 MG/0.4 ML SYRINGE SUB-Q (08:34)
[2020-08-22] MEDS: amLODIPine BESYLATE 5 MG TABLET PO (08:34)
[2020-08-22] MEDS: polyethylene glycoL 3350 17 GM POWD.PACK PO (08:35)
[2020-08-22 11:31] LABS: Glucose Point of Care 146 mg/dl (65-105)
[2020-08-22] MEDS: INSULIN ASPART (*BKC) 100 UNITS/ML 10 UNITS SUB-Q (11:49)
--- NOTE | 2020-08-22 12:14 | HOMEO2EVAL ---
Evaluation was performed at [facility] Home Oxygen Evaluation RC: Home Oxygen (O2) Evaluation Start: 08/22/20 10:25 Freq: ONCE Status: Active Protocol: RPE Activity Type Activity Date Activity User E-Sign Co-Sign Detail Recorded Client Recorded Date Recorded By Document 08/22/20 11:30 JASMIN [email or web address] 08/22/20 12:14 JASMIN Document 08/22/20 11:31 JASMIN [email or web address] 08/22/20 12:14 JASMIN Document 08/22/20 11:32 JASMIN [email or web address] 08/22/20 12:14 JASMIN Document 08/22/20 11:33 JASMIN [email or web address] 08/22/20 12:14 JASMIN Document 08/22/20 11:34 JASMIN [email or web address] 08/22/20 12:14 JASMIN Document 08/22/20 11:36 JASMIN [email or web address] 08/22/20 12:14 JASMIN Document 08/22/20 11:37 JASMIN [email or web address] 08/22/20 12:14 JASMIN Document 08/22/20 11:38 JASMIN [email or web address] 08/22/20 12:14 JASMIN Document 08/22/20 11:45 JASMIN [email or web address] 08/22/20 12:14 JASMIN 08/22/20 08/22/20 08/22/20 11:30 11:31 11:32 Home O2 Evaluation Test Phase Resting Resting Resting Oxygen Delivery Room Air Nasal Cannula Nasal Cannula Oxygen Flow Rate (L/min) 1 2 Pulse Oximetry (90-100 %) 87 L 87 L 87 L Pulse Rate (60-100 beats/min) 89 Home Oxygen Evaluation Comments Treatment Charges O2 Evaluation - Inpatient 08/22/20 08/22/20 08/22/20 11:33 11:34 11:36 Home O2 Evaluation Test Phase Resting Resting Exercise Oxygen Delivery Nasal Cannula Nasal Cannula Nasal Cannula Oxygen Flow Rate (L/min) 3 3.5 3.5 Pulse Oximetry (90-100 %) 87 L 90 85 L Pulse Rate (60-100 beats/min) 110 H Home Oxygen Evaluation Comments Treatment Charges 08/22/20 08/22/20 08/22/20 11:37 11:38 11:45 Home O2 Evaluation Test Phase Exercise Exercise Resting Oxygen Delivery Nasal Cannula Nasal Cannula Nasal Cannula Oxygen Flow Rate (L/min) 5 6 3.5 Pulse Oximetry (90-100 %) 86 L 90 90 Pulse Rate (60-100 beats/min) 98 Home Oxygen Evaluation Comments PT REQUIRES 3. 5L AT REST AND 6 L WITH ACTIVITY Treatment Charges
--- NOTE | 2020-08-22 12:20 | PCRCNOTE ---
HOME O2 WITH [facility], WILL CONTACT OFFICE TO UPDATE WITH CURRENT O2 NEEDS, ALSO NEEDS A TANK BROUGHT TO HOSPITAL FOR TRANSPORT BACK HOME.
--- NOTE | 2020-08-22 16:01 | PM.DS ---
DS: Admitting Diagnosis Admitting Diagnosis Admitting Diagnosis: shortness of breath DS: Discharge Diagnosis Discharge Diagnosis (1) Acute hypoxemic respiratory failure: Code(s): J96.01 - Acute respiratory failure with hypoxia Status: Acute Assessment and Plan: Upon arrival to the ED, patient with acute hypoxemic respiratory failure felt secondary to organizing PNA related to COVID-19 pneumonia and/or bacterial pneumonia. CTA chest showing diffuse extensive patchy bilateral lung disease. Patient was treated with a course of Cefepime, vancomycin and Levaquin. IV Steroids started and now has been transitioned to oral Prednisone. Patient is DNR. She was on AirVo but able to be weaned down to NC. Serum bicarb>40 and given Diamox on 08/11; Bicarb improved. Mechanist followed along. On Bumex IV with mild improvement in her hypoxia; serum Bicarb>40 again so Bumex stopped and Diamox repeated x 1 on 08/18. Able to wean O2 down to levels which allowed her to be discharged home. 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 Bacterial PNA seems less likely but was covered with broad spectrum abx; abx have been stopped. CHF also seems less likely but with persistent pedal edema so treated with Bumex IV. BCx negative. CXR showing minimal improvement but clinically much better. Was on solu-Medrol but transitioned to Prednisone. Treated with the neb treatments. Continue to wean steroids every 7 days by 10mg (next reduction 08/26 to 10mg daily, then 09/02 to 0/stop). (3) Leukocytosis: Qualifiers: Leukocytosis type: unspecified Qualified Code(s): D72.829 - Elevated white blood cell count, unspecified Code(s): D72.829 - Elevated white blood cell count, unspecified Status: Acute Assessment and Plan: WBC essentially normal on admisison but climbed to 17-19 range felt related to steroids. Not having diarrhea. WBC improved as steroids were weaned. (4) Bilateral lower extremity edema: Code(s): R60.0 - Localized edema Status: Acute Assessment and Plan: No pulmonary HTN by Echo 07/19/20. Venous doppler negative for DVT. Treated with bumetanide 08/06, acetazolamide 08/07. BNP was 1880 but now 190. Pedal edema worsened so Bumex IV started. Improving hypoxia with the Bumex but minimal benefit by CXR. Edema better with Bumex. Bumex off now. Will continue ROCIO champagne. (5) Diabetes mellitus: Qualifiers: Diabetes mellitus type: type 2 Diabetes mellitus emt intermediate insulin use: without mcc use Diabetes mellitus complication status: with hyperglycemia Qualified Code(s): E11.65 - Type 2 diabetes mellitus with hyperglycemia Code(s): E11.9 - Type 2 diabetes mellitus without complications Status: Acute Assessment and Plan: A1c 7.2 last month. The patient's blood glucose was monitored closely with AccuCheks covering with sliding scale. Hypoglycemia protocol was available as needed. Siginficnat hyperglycemia with the steroids. Also, patietn with persistent glucose fluctuations. Lantus was weaned down as we tapered the steroids. (6) Hypertension: Qualifiers: Hypertension type: unspecified secondary hypertension Qualified Code(s): I15.9 - Secondary hypertension, unspecified Code(s): I10 - Essential (primary) hypertension Status: Acute Assessment and Plan: Patient's blood pressure was monitored closely. It was elevated at times. Lisinopril increased /. BP improved as steroids were weaned. Will continue current medications with Norvasc and Lisinopril. (7) Sepsis: Qualifiers: Sepsis acute organ dysfunction status: uns
== END 2020-08-22 17:40 | disposition home health service (06) | DRG 871 ==
LOC: ANHED 11:00 → ANHICU 11:31 → ANHIMU 08-09 18:55 → ANH3MED 08-19 19:28
PROVIDERS: Hospitalist; Internal Medicine; Admitting Provider Internal Medicine; Emergency Provider Emergency Medicine; PCP Internal Medicine; Visit Provider Internal Medicine
DX: A41.9 Sepsis, unspecified organism (principal); J96.01 Acute respiratory failure with hypoxia; I10 Essential (primary) hypertension; B94.8 Sequelae of other specified infectious and parasitic diseases; J84.178 Other interstitial pulmonary diseases with fibrosis in diseases classified elsewhere; E11.9 Type 2 diabetes mellitus without complications; Z66 Do not resuscitate; R60.0 Localized edema
CPT/HCPCS: 36415; 36600; 71045; 71275; 80048; 80053; 80069; 80202; 82375; 82805; 82948; 83050; 83605; 83735; 83880; 84100; 84484; 85025; 85027; 85610; 85730; 86140; 87040; 93005; 93970; 94002; 94003; 94618; 94640; 94660; 96365; 96366; 96367; 96372; 96375; 96376; 97110; 97116; 97162; 97166; 97530; 97535; 99285; A9270; G0378; J0360; J0692; J1120; J1650; J1815; J1940; J1956; J2405; J2920; J3370; J3480; J7040; J7512; Q9967

== ENCOUNTER 2020-09-29 15:51 | Outpatient (CLI) | payer OTHER, SELFPAY ==
--- NOTE | ~2020-09-29 | XR_ITS ---
XR chest 2V DATE: 09/29/2020 16:11 INDICATION: Covid 19 check up. History of pneumonia. TECHNIQUE: PA and lateral views COMPARISON: 08/19/2020 portable AP chest FINDINGS: There are diffuse patchy bilateral pulmonary infiltrates, improved moderately since 08/20/19 21. Borderline heart size. Aortic calcification and unfolding. No pleural effusion or pulmonary vascular congestion or pneumothorax. Status post cholecystectomy. IMPRESSION: Diffuse patchy bilateral pulmonary infiltrates, improved bilaterally since 08/19/2020 Reviewed, dictated and finalized at location A. IMPRESSION: Diffuse patchy bilateral pulmonary infiltrates, improved bilaterall y since 08/19/2020
== END 2020-09-29 15:52 | disposition home or self-care (01) ==
PROVIDERS: PCP Internal Medicine; Visit Provider Internal Medicine Pulmonary Disease
DX: U07.1 COVID-19 (principal); J12.82 Pneumonia due to coronavirus disease 2019
CPT/HCPCS: 71046

== ENCOUNTER 2021-03-24 12:04 | Emergency (ER) | payer OTHER, SELFPAY ==
--- NOTE | 2021-03-24 12:16 | ED.URI ---
HPI - URI/Sore Throat General Chief Complaint: Upper Respiratory Infection Stated Complaint: Sinus Infection Time Seen by Provider: 03/24/21 13:20 Source: patient and RN notes reviewed Mode of arrival: ambulatory Limitations: no limitations History of Present Illness HPI Narrative: 81-year-old female presents with concern for nasal congestion and, rhinorrhea, cough. She reports symptoms started Saturday. Reports she has been taking vrks-fcx-[id number] DayQuil and NyQuil with occasional relief. She denies shortness of breath, fever. Reports she had COVID-pneumonia in August 2020 MD elicited complaint: cough and rhinorrhea Related Data Home Medications Medication Instructions Recorded Confirmed nekhowzszlbv-huesvaau-ivqlhza-folic 1 tablet PO DAILY 11/24/20 12/06/20 acid 400 mcg-vit K1 20 mcg tablet metformin mg 03/24/21 Allergies Allergy/AdvReac Type Severity Reaction Status Date / Time ciprofloxacin Allergy Unknown Joint pain Verified 12/06/20 14:13 latex Allergy Unknown Itching Verified 12/06/20 14:13 clavulanic acid AdvReac Nausea and Verified 12/06/20 14:13 [From Augmentin] Vomiting Review of Systems Review of Systems: CONSTITUTIONAL: Denies malaise, chills, sweats, or fever. EYES: Denies visual changes, redness, or discharge. ENT: Reports rhinorrhea. Denies congestion, sinus pain, otalgia and sore throat. CARDIOVASCULAR: Denies chest pain, palpitations, or edema. RESPIRATORY: Reports cough. Denies dyspnea. GASTROINTESTINAL: Denies abdominal pain, nausea, vomiting, diarrhea SKIN: Denies rash or itching. MUSCULOSKELETAL: Denies myalgia. NEUROLOGIC: Denies headache. All systems reviewed & are unremarkable except as noted in HPI and below PMFSH Past Medical History Medical History Cataract fragments in eye following surgery Cholecystectomy planned COVID-19 Diabetes mellitus Polyarthritis Skin tag Surgical History Surgical History H/O knee surgery History of breast biopsy (~2012) History of hysterectomy (~1984) Hx of appendectomy (~1981) Previous back surgery (~1979) Family History Family History Mother Family history of malignant neoplasm Carcinoma of colon Sibling Family history of Parkinson's disease Family history of heart disease in male family member before age 55 Patient's sister is in good health Family history of cardiovascular disease Father Family history of chronic obstructive pulmonary disease Family history of cardiovascular disease Other Family history of lung cancer Family history of lung disease Family history of malignant neoplasm of breast Social History Social History Social History: Lifelong nonsmoker. No alcohol or drug use. She lives alone. Family has been staying with her since her last hospitalization. She is unsure of her code status. Smoking status: Never smoker Second hand tobacco smoke exposure: No Alcohol intake: never Substance use: never Gender identity (if verbalized by the patient): Female Spiritual care concerns: No Comments At time of signature, agree with nursing past medical, surgical, social and family history. There is no relevant family history pertinent to the presenting complaint Exam Narrative: GENERAL: Well-appearing, well-nourished, and in no acute distress. HEAD: Normocephalic EYES: PERRLA, conjunctivae clear ENT: Nares clear, clear discharge. Mucous membranes moist. TM pearly tinoco with dull light reflex bilaterally; no tragal tenderness. Oropharynx not erythematous without lesions. Tonsils not enlarged and without exudate, no drooling, no hoarseness, no trismus, uvula midline. NECK: Supple. No lymphadenopathy CHEST: Clear to auscultation, breath sounds equal. No wheezing, rhonchi, rales, or stridor. N
[2021-03-24 12:27] VITALS: BP 160/64; PULSE 91; RESP 20; TEMP 36.6; O2SAT 95
== END 2021-03-24 13:31 | disposition home or self-care (01) ==
PROVIDERS: Emergency Provider Nurse Practitioner; PCP Internal Medicine
DX: U07.1 COVID-19 (principal); E11.9 Type 2 diabetes mellitus without complications
CPT/HCPCS: 87426; 99213; C9803; G0463

== ENCOUNTER 2021-06-06 08:48 | Outpatient (CLI) | payer OTHER, SELFPAY ==
[2021-06-06 09:27] LABS: Basophils Absolute Auto 0.1 K/mm3 (0.0-0.1); Basophils Percent Auto 0.7 % (0.2-1.2); Eosinophils Absolute Auto 0.8 K/mm3 (0-0.3); Eosinophils Percent Auto 10.3 % (0-4.4); Hematocrit 41.1 % (37.0-47.0); Hemoglobin 13.4 g/dL (12.0-15.0); Immature Granulocyte Absolute 0.01 K/mm3 (0.00-0.031); Immature Granulocyte Percent A 0.1 % (0-0.5); Lymphocytes Absolute Auto 2.93 K/mm3 (0.9-3.2); Lymphocytes Percent Auto 39.6 % (18.3-44.2); Mean Corpuscular HGB Conc 32.6 g/dl (32-36); Mean Corpuscular Hemoglobin 29.6 pg (26-34); Mean Corpuscular Volume 90.7 fl (80-100); Mean Platelet Volume 10.3 fl (7.4-10.4); Monocytes Absolute Auto 0.4 K/mm3 (0.1-0.6); Monocytes Percent Auto 5.8 % (2.6-8.5); Neutrophils Absolute Auto 3.2 K/mm3 (1.3-6.7); Neutrophils Percent Auto 43.5 % (45.5-73.1); Platelet Count Result 281 k/mm3 (150-375); Red Blood Count 4.53 M/mm3 (4.2-5.4); Red Cell Distribution Width 12.8 % (11.5-14.5); White Blood Count 7.4 K/mm3 (4.5-10.0)
[2021-06-06 09:39] LABS: Alanine Aminotransferase 17 U/L (4-35); Alkaline Phosphatase 66 U/L (38-126); Anion Gap 6 mmol/L (8-16); Aspartate Amino Transferase 28 U/L (14-36); Bilirubin,Total 0.6 mg/dL (0.2-1.3); Blood Urea Nitrogen 19 mg/dL (7-17); Calcium 9.1 mg/dL (8.4-10.2); Carbon Dioxide 28 mmol/L (22-30); Chloride 106 mmol/L (98-107); Cholesterol 252 mg/dL (0-200); Estimated Glomerular Filt Rate > 60; Glucose 122 mg/dL (65-110); HDL Direct 51 mg/dL; Potassium 3.9 mmol/L (3.4-5.0); Sodium 140 mmol/L (137-145); Triglycerides 202 mg/dL (<150)
[2021-06-06 09:51] LABS: LDL Cholesterol Direct 124 mg/dL
[2021-06-06 10:09] LABS: Thyroid Stimulating Hormone 0.527 uIU/mL (0.465-4.680)
[2021-06-06 10:17] LABS: Iron 117 ug/dL (37-170)
[2021-06-06 10:27] LABS: Percent Iron Saturation 34 % (20-50)
[2021-06-06 10:44] LABS: Hemoglobin A1C 6.1 % (<5.7)
== END 2021-06-06 08:49 | disposition home or self-care (01) ==
LOC: ANHLAB 08:54
PROVIDERS: PCP Internal Medicine; Visit Provider Internal Medicine
DX: D50.9 Iron deficiency anemia, unspecified (principal); E78.2 Mixed hyperlipidemia; E11.65 Type 2 diabetes mellitus with hyperglycemia; E03.9 Hypothyroidism, unspecified
CPT/HCPCS: 36415; 80053; 80061; 83036; 83540; 83550; 84443; 85025

== ENCOUNTER 2021-08-01 14:55 | Outpatient (CLI) | payer OTHER, SELFPAY ==
--- NOTE | ~2021-08-01 | XR_ITS ---
XR chest 2V 08/01/2021 15:17 Indication: Covid 19 infection Procedure: 2 view chest Comparison: Comparison to multiple prior studies sequentially, with oldest reviewed study dated 06/2020. Findings: Bibasilar infiltrates, consistent with pneumonia. No pleural effusion, edema or pneumothora x. No acute osseous abnormality. There is pectus excavatum. No acute osseous abnormality. Impression: 1: Bibasilar infiltrates, consistent with pneumonia. Reviewed, dictated and finalized at location A. Impression: 1: Bibasilar infiltrates, consistent with pneumonia.
== END 2021-08-01 14:56 | disposition home or self-care (01) ==
PROVIDERS: PCP Internal Medicine; Visit Provider Internal Medicine Pulmonary Disease
DX: U07.1 COVID-19 (principal); J12.82 Pneumonia due to coronavirus disease 2019; R92.8 Other abnormal and inconclusive findings on diagnostic imaging of breast
CPT/HCPCS: 71046

== ENCOUNTER 2021-09-19 14:26 | Outpatient (CLI) | payer OTHER, SELFPAY ==
--- NOTE | ~2021-09-19 | MM_ITS ---
EXAMINATION: MM screening [facility] BI w estela HISTORY: Screening mammogram TECHNIQUE: Craniocaudal and mediolateral oblique 3-D tomosynthesis images were obtained and synthetic 2-D images were generated. CAD analysis was submitted and interpreted. COMPARISON: 02/13/2019, 05/28/1916, 06/14/2014 BREAST PARENCHYMAL COMPOSITION: There are scattered areas of fibroglandular density. FINDINGS: There is no suspicious mass, calcification, or architectural distortion to suggest malignan cy in either breast. There has been no suspicious interval change. IMPRESSION: 1. No mammographic evidence of malignancy. 2. Recommend routine screening mammography while the patient remains in good health. BI-RADS Category 1: Negative Reviewed, dictated and finalized at location A. IMPRESSION: 1. No mammographic evidence of malignancy. 2. Recommend routine screening mammography while the patient remains in good he alth. BI-RADS Category 1: Negative
== END 2021-09-19 14:27 | disposition home or self-care (01) ==
LOC: ANHIMG 14:27
PROVIDERS: PCP Internal Medicine; Visit Provider Nurse Practitioner
DX: Z12.31 Encounter for screening mammogram for malignant neoplasm of breast (principal)
CPT/HCPCS: 77063; 77067

== ENCOUNTER 2022-01-16 08:37 | Outpatient (CLI) | payer OTHER, SELFPAY ==
[2022-01-16 09:12] LABS: Alanine Aminotransferase 16 U/L (6-35); Albumin Level 4.1 g/dL (3.5-5.1); Alkaline Phosphatase 64 U/L (38-126); Anion Gap 11 mmol/L (8-16); Aspartate Amino Transferase 23 U/L (14-36); Bilirubin,Total 0.6 mg/dL (0.2-1.3); Blood Urea Nitrogen 14 mg/dL (7-17); Carbon Dioxide 29 mmol/L (22-30); Chloride 102 mmol/L (98-107); Cholesterol 271 mg/dL (0-200); Estimated Glomerular Filt Rate > 60; Glucose 127 mg/dL (65-110); HDL Direct 55 mg/dL; Sodium 142 mmol/L (137-145); Triglycerides 195 mg/dL (<150)
[2022-01-16 09:24] LABS: LDL Cholesterol Direct 138 mg/dL
[2022-01-16 09:25] LABS: Hemoglobin A1C 6.5 % (<5.7)
[2022-01-16 09:29] LABS: Vitamin D 25 Hydroxy 38.9 ng/mL
[2022-01-16 09:39] LABS: Creatinine Urine 74.9 mg/dL
[2022-01-16 09:44] LABS: MALB Creatinine Ratio 17.4 mg/g (0-30)
== END 2022-01-16 08:38 | disposition home or self-care (01) ==
LOC: ANHLAB 08:40
PROVIDERS: PCP Internal Medicine; Visit Provider Nurse Practitioner
DX: E55.9 Vitamin D deficiency, unspecified (principal); E03.9 Hypothyroidism, unspecified; E11.9 Type 2 diabetes mellitus without complications; E78.2 Mixed hyperlipidemia
CPT/HCPCS: 36415; 80053; 80061; 82043; 82306; 83036; 84443

== ENCOUNTER 2022-07-13 12:02 | Outpatient (CLI) | payer OTHER, SELFPAY ==
[2022-07-13 12:53] LABS: Strep Group A RT-PCR NOT DETECTED (Negative)
== END 2022-07-13 12:03 | disposition home or self-care (01) ==
PROVIDERS: PCP Internal Medicine; Visit Provider Family Medicine
DX: J02.9 Acute pharyngitis, unspecified (principal)
CPT/HCPCS: 87651

== ENCOUNTER 2022-09-25 08:59 | Outpatient (CLI) | payer OTHER, SELFPAY ==
[2022-09-25 10:10] LABS: Basophils Absolute Auto 0.1 K/mm3 (0.0-0.1); Basophils Percent Auto 0.6 % (0.2-1.2); Eosinophils Absolute Auto 0.4 K/mm3 (0-0.3); Eosinophils Percent Auto 4.9 % (0-4.4); Hemoglobin 13.1 g/dL (12.0-15.0); Immature Granulocyte Absolute 0.02 K/mm3 (0.00-0.031); Immature Granulocyte Percent A 0.2 % (0-0.5); Lymphocytes Absolute Auto 3.03 K/mm3 (0.9-3.2); Lymphocytes Percent Auto 36.8 % (18.3-44.2); Mean Corpuscular Hemoglobin 29.4 pg (26-34); Mean Corpuscular Volume 92.1 fl (80-100); Mean Platelet Volume 10.3 fl (7.4-10.4); Monocytes Absolute Auto 0.5 K/mm3 (0.1-0.6); Monocytes Percent Auto 6.3 % (2.6-8.5); Neutrophils Absolute Auto 4.2 K/mm3 (1.3-6.7); Neutrophils Percent Auto 51.2 % (45.5-73.1); Platelet Count Result 351 k/mm3 (150-375); Red Blood Count 4.45 M/mm3 (4.2-5.4); Red Cell Distribution Width 13.3 % (11.5-14.5); White Blood Count 8.2 K/mm3 (4.5-10.0)
[2022-09-25 11:46] LABS: Hemoglobin A1C 6.5 % (<5.7)
[2022-09-25 12:53] LABS: Alanine Aminotransferase 18 U/L (6-35); Albumin Level 3.9 g/dL (3.5-5.1); Alkaline Phosphatase 57 U/L (38-126); Anion Gap 6 mmol/L (8-16); Aspartate Amino Transferase 37 U/L (14-36); Bilirubin,Total 0.5 mg/dL (0.2-1.3); Blood Urea Nitrogen 13 mg/dL (7-17); Calcium 8.9 mg/dL (8.4-10.2); Carbon Dioxide 29 mmol/L (22-30); Chloride 104 mmol/L (98-107); Cholesterol 245 mg/dL (0-200); Estimated Glomerular Filt Rate > 60; Glucose 125 mg/dL (65-110); HDL Direct 52 mg/dL; Potassium 4.1 mmol/L (3.4-5.0); Sodium 139 mmol/L (137-145); Triglycerides 168 mg/dL (<150)
[2022-09-25 12:58] LABS: Creatinine Urine 92.1 mg/dL
[2022-09-25 12:59] LABS: MALB Creatinine Ratio 6.8 mg/g (0-30); Microalbumin Urine Random 6.3 mg/L (0-16.7)
[2022-09-25 13:13] LABS: LDL Cholesterol Direct 127 mg/dL
[2022-09-25 13:31] LABS: Thyroid Stimulating Hormone 0.471 uIU/mL (0.465-4.680)
== END 2022-09-25 09:00 | disposition home or self-care (01) ==
LOC: ANHLAB 09:00
PROVIDERS: PCP Family Medicine; Visit Provider Family Medicine
DX: D50.9 Iron deficiency anemia, unspecified (principal); I10 Essential (primary) hypertension; E11.9 Type 2 diabetes mellitus without complications; I73.9 Peripheral vascular disease, unspecified; E78.49 Other hyperlipidemia; M54.50 Low back pain, unspecified; E55.9 Vitamin D deficiency, unspecified; E03.9 Hypothyroidism, unspecified; H90.A11 Conductive hearing loss, unilateral, right ear with restricted hearing on the contralateral side; M13.0 Polyarthritis, unspecified; J30.2 Other seasonal allergic rhinitis
CPT/HCPCS: 36415; 80053; 80061; 82043; 83036; 84443; 85025

== ENCOUNTER 2022-10-18 07:47 | Outpatient (CLI) | payer OTHER, SELFPAY | END 2022-10-18 07:48 | disposition home or self-care (01) | LOC: ANHAUDASC 07:48 | PROVIDERS: PCP Family Medicine; Visit Provider Otolaryngology | DX: H91.93 Unspecified hearing loss, bilateral (principal) | CPT/HCPCS: 92557; 92567 ==

== ENCOUNTER 2023-02-12 15:00 | Outpatient (RCR) | payer OTHER, SELFPAY | END 2023-02-12 23:59 | disposition home or self-care (01) | LOC: ANHAUDIO 15:00 | PROVIDERS: PCP Family Medicine; Visit Provider Otolaryngology | DX: Z46.1 Encounter for fitting and adjustment of hearing aid (principal) | CPT/HCPCS: 99199; V5261 ==

== ENCOUNTER 2023-04-12 11:20 | Outpatient (CLI) | payer OTHER, SELFPAY ==
[2023-04-12 12:39] LABS: Influenza A QL RT-PCR Negative (Negative); Influenza B QL RT-PCR Negative (Negative); RSV RNA, RT-PCR Negative (Negative); SARS-CoV-2 RNA PCR Negative (Negative)
[2023-04-12 12:57] LABS: Strep Group A RT-PCR NOT DETECTED (Negative)
== END 2023-04-12 11:21 | disposition home or self-care (01) ==
LOC: ANHLAB 11:20
PROVIDERS: PCP Family Medicine; Visit Provider Nurse Practitioner Family
DX: J02.9 Acute pharyngitis, unspecified (principal); Z20.822 Contact with and (suspected) exposure to COVID-19
CPT/HCPCS: 87637; 87651; 87880

== ENCOUNTER 2023-05-13 08:57 | Outpatient (CLI) | payer OTHER, SELFPAY ==
[2023-05-13 09:33] LABS: Hematocrit 43.3 % (37.0-47.0); Hemoglobin 13.7 g/dL (12.0-15.0); Mean Corpuscular HGB Conc 31.6 g/dl (32-36); Mean Corpuscular Hemoglobin 29.5 pg (26-34); Mean Corpuscular Volume 93.1 fl (80-100); Mean Platelet Volume 10.3 fl (7.4-10.4); Platelet Count Result 309 k/mm3 (150-375); Red Blood Count 4.65 M/mm3 (4.2-5.4); Red Cell Distribution Width 12.8 % (11.5-14.5); White Blood Count 7.3 K/mm3 (4.5-10.0)
[2023-05-13 09:56] LABS: Alanine Aminotransferase 17 U/L (6-35); Albumin Level 4.1 g/dL (3.5-5.1); Alkaline Phosphatase 66 U/L (38-126); Anion Gap 5 mmol/L (8-16); Aspartate Amino Transferase 27 U/L (14-36); Bilirubin,Total 0.8 mg/dL (0.2-1.3); Blood Urea Nitrogen 15 mg/dL (7-17); Calcium 9.4 mg/dL (8.4-10.2); Carbon Dioxide 27 mmol/L (22-30); Chloride 107 mmol/L (98-107); Estimated Glomerular Filt Rate > 60; Glucose 134 mg/dL (65-110); Sodium 139 mmol/L (137-145)
[2023-05-13 10:25] LABS: Thyroid Stimulating Hormone 0.499 uIU/mL (0.465-4.680)
[2023-05-13 10:58] LABS: Hemoglobin A1C 6.5 % (<5.7)
== END 2023-05-13 08:58 | disposition home or self-care (01) ==
PROVIDERS: PCP Family Medicine; Visit Provider Family Medicine
DX: E11.9 Type 2 diabetes mellitus without complications (principal); E78.49 Other hyperlipidemia; E87.6 Hypokalemia; I10 Essential (primary) hypertension; I73.9 Peripheral vascular disease, unspecified
CPT/HCPCS: 36415; 80053; 83036; 84443; 85027

== ENCOUNTER 2023-06-24 14:31 | Outpatient (CLI) | payer OTHER, SELFPAY ==
--- NOTE | 2023-06-24 14:39 | ECHO_ITS ---
Patient Info Name: Heike Prescott Age: 83 years : 1940 Gender: Female Ht: 62 in Wt: 190 lbs BSA: 1.98 m2 HR: 82 bpm BP: 164 / 76 mmHg Heart Rhythm: Sinus Rhythm Technical Quality: Fair Exam Date: 06/24/2023 3:12 PM Exam Location: Echo Lab Patient Status: Outpatient Admit Date: 06/24/2023 Staff Ordering Physician: Darron Kapadia MD [employer] Presenter: Madison Nova RDCS Attending Provider: Darron Kapadia MD Referring Physician: Kang VAZQUEZ; Exam Type: CA echo dop color flow w con Study Info Indications J96.01 - Acute respiratory failure with hypoxia Complete two-dimensional, color flow and Doppler transthoracic echocardiogram is performed with contrast to opacify the left ventricle and to improve the deliniation of the left ventricle endocardial borders. Contrast/Agitated Saline Contrast/Ag. Saline: Definity Amount: 2.00 ml Administered By: Madison Nova [facility] [[email or web address]] Existing IV Access: Yes New IV Access: Left Site Condition: IV removed Summary 1. Definity contrast administered improved wall motion interpretation. 2. Left ventricular chamber dimension is normal. 3. Left ventricular systolic function is normal, estimated at 65-70%. 4. The left ventricular diastolic function is grade I diastolic dysfunction. 5. E/e' 16 is elevated. 6. There is mild aortic valve sclerosis. 7. There is mild aortic valve regurgitation. 8. The mitral valve has mildly calcified leaflets and moderately calcified annulus. 9. There is mild tricuspid valve regurgitation. 10. No pulmonary hypertension, estimated pulmonary arterial systolic pressure is 33 mmHg. Left Ventricle E/e' 16 is elevated. Definity contrast administered improved wall motion interpretation. Left ventricular chamber dimension is normal. Left ventricular systolic function is normal, estimated at 65-70%. The left ventricular diastolic function is grade I diastolic dysfunction. Right Ventricle Right ventricular chamber dimension is normal. Right ventricular systolic function is normal. Left Atria Left atrial chamber dimension is normal. Right Atria Right atrial chamber dimension is normal. Aortic Valve The aortic valve is trileaflet. There is mild aortic valve sclerosis. There is no aortic valve stenosis. There is mild aortic valve regurgitation. Pulmonic Valve There is no pulmonic regurgitation. Mitral Valve The mitral valve has mildly calcified leaflets and moderately calcified annulus. There is no mitral valve stenosis. There is no mitral valve regurgitation. Tricuspid Valve There is mild tricuspid valve regurgitation. No pulmonary hypertension, estimated pulmonary arterial systolic pressure is 33 mmHg. Pericardium/Pleural There is no pericardial effusion. Inferior Vena Cava Normal inferior vena cava with >50% collapse upon inspiration consistent with normal right atrial pressure, 5 mmHg. Aorta The aortic root size at the sinus of Valsalva is normal. Left Ventricular Outflow Tract Name Value Normal LVOT 2D LVOT Diameter 2.00 cm LVOT Doppler LVOT Peak Gradient 6 mmHg LVOT Mean Gradient 3 mmHg LVOT VTI
[2023-06-24] MEDS: PERFLUTREN LIPID MICROSPHERES 1.5 ML VIAL DILUTED TO 10 ML TOTAL VOLUME IV PUSH (16:00)
--- NOTE | 2023-06-24 16:33 | IVDEFINITY ---
Prior to administration of IV Definity the patient was educated on the risks and benefits of the imaging enhancing agent including potential adverse side effects. The patient verbalized understanding. Allergies were verified. No exclusion criteria were identified and at least one of the following inclusion criteria were met: 1) physician request, 2) patient technically difficult to image (per the [place] [employer] of Echocardi[employer] guidelines of two or more segments not discernable within the apical view), or 3) questionable left ventricular function. ?
== END 2023-06-24 14:32 | disposition home or self-care (01) ==
PROVIDERS: PCP Family Medicine; Visit Provider Family Medicine
DX: J96.01 Acute respiratory failure with hypoxia (principal); I35.8 Other nonrheumatic aortic valve disorders; R93.1 Abnormal findings on diagnostic imaging of heart and coronary circulation; I35.1 Nonrheumatic aortic (valve) insufficiency; I34.81 Nonrheumatic mitral (valve) annulus calcification
CPT/HCPCS: C8929; Q9957

== ENCOUNTER 2023-12-05 08:33 | Outpatient (CLI) | payer OTHER, SELFPAY ==
[2023-12-05 09:07] LABS: Hematocrit 42.7 % (37.0-47.0); Hemoglobin 13.6 g/dL (12.0-15.0); Mean Corpuscular HGB Conc 31.9 g/dl (32-36); Mean Corpuscular Hemoglobin 29.3 pg (26-34); Platelet Count Result 335 k/mm3 (150-375); Red Blood Count 4.64 M/mm3 (4.2-5.4); Red Cell Distribution Width 13.2 % (11.5-14.5); White Blood Count 7.4 K/mm3 (4.5-10.0)
[2023-12-05 09:19] LABS: Alanine Aminotransferase 15 U/L (6-35); Alkaline Phosphatase 58 U/L (38-126); Anion Gap 6 mmol/L (4-12); Aspartate Amino Transferase 29 U/L (14-36); Bilirubin,Total 0.7 mg/dL (0.2-1.3); Blood Urea Nitrogen 15 mg/dL (7-17); Calcium 9.1 mg/dL (8.4-10.2); Carbon Dioxide 27 mmol/L (22-30); Chloride 105 mmol/L (98-107); Estimated Glomerular Filt Rate > 60; Glucose 128 mg/dL (65-110); Potassium 3.9 mmol/L (3.4-5.0); Sodium 138 mmol/L (137-145)
[2023-12-05 09:33] LABS: Hemoglobin A1C 6.8 % (<5.7)
[2023-12-05 09:46] LABS: Thyroid Stimulating Hormone 0.802 uIU/mL (0.465-4.680)
[2023-12-05 10:22] LABS: Creatinine Urine 130.1 mg/dL
[2023-12-05 10:26] LABS: MALB Creatinine Ratio 11.2 mg/g (0-30); Microalbumin Urine Random 14.6 mg/L (0-16.7)
== END 2023-12-05 08:34 | disposition home or self-care (01) ==
PROVIDERS: PCP Family Medicine; Visit Provider Family Medicine
DX: E11.9 Type 2 diabetes mellitus without complications (principal); I10 Essential (primary) hypertension; E03.9 Hypothyroidism, unspecified
CPT/HCPCS: 36415; 80053; 82043; 83036; 84443; 85027

== ENCOUNTER 2024-04-20 15:23 | Outpatient (CLI) | payer MEDICARE, SELFPAY ==
--- NOTE | ~2024-04-20 | MM_ITS ---
EXAMINATION: MM screening [facility] BI w estela HISTORY: Screening TECHNIQUE: Craniocaudal and mediolateral oblique 3-D tomosynthesis images were obtained and synthetic 2-D images were generated. CAD analysis was submitted and interpreted. COMPARISON: Comparison to multiple prior studies sequentially, with oldest reviewed study dated 2014. BREAST PARENCHYMAL COMPOSITION: Not dense: There are scattered areas of fibroglandular density. FINDINGS: There is no evidence of suspicious mass, calcification, or architectural distortion to sugg est malignancy in either breast. There has been no suspicious interval change. IMPRESSION: 1. No mammographic evidence of malignancy. 2. Recommend routine screening mammography in one year. BI-RADS Category 1: Negative Reviewed, dictated and finalized at location B. PROCESSOR
== END 2024-04-20 15:24 | disposition home or self-care (01) ==
LOC: ANHIMG 15:25
PROVIDERS: PCP Family Medicine; Visit Provider Family Medicine
DX: Z12.31 Encounter for screening mammogram for malignant neoplasm of breast (principal)
CPT/HCPCS: 77063; 77067

== ENCOUNTER 2024-09-15 09:07 | Outpatient (CLI) | payer MEDICARE, SELFPAY ==
[2024-09-15 09:36] LABS: Hematocrit 42.9 % (37.0-47.0); Hemoglobin 14.0 g/dL (12.0-15.0); Mean Corpuscular HGB Conc 32.6 g/dl (32-36); Mean Corpuscular Hemoglobin 29.5 pg (26-34); Mean Corpuscular Volume 90.3 fl (80-100); Platelet Count Result 290 k/mm3 (150-375); Red Blood Count 4.75 M/mm3 (4.2-5.4); White Blood Count 7.5 K/mm3 (4.5-10.0)
[2024-09-15 09:49] LABS: Alanine Aminotransferase 16 U/L (6-35); Albumin Level 4.0 g/dL (3.5-5.1); Alkaline Phosphatase 57 U/L (38-126); Anion Gap 7 mmol/L (4-12); Aspartate Amino Transferase 27 U/L (14-36); Bilirubin,Total 0.6 mg/dL (0.2-1.3); Blood Urea Nitrogen 12 mg/dL (7-17); Calcium 9.6 mg/dL (8.4-10.2); Carbon Dioxide 26 mmol/L (22-30); Chloride 105 mmol/L (98-107); Estimated Glomerular Filt Rate > 60; Glucose 139 mg/dL (65-110); Potassium 4.5 mmol/L (3.4-5.0); Sodium 138 mmol/L (137-145); Total Protein 7.4 g/dL (6.3-8.2)
[2024-09-15 10:21] LABS: Thyroid Stimulating Hormone 1.300 uIU/mL (0.465-4.680)
== END 2024-09-15 09:08 | disposition home or self-care (01) ==
LOC: ANHLAB 09:08
PROVIDERS: PCP Family Medicine; Visit Provider Family Medicine
DX: D50.9 Iron deficiency anemia, unspecified (principal); Z53.29 Procedure and treatment not carried out because of patient's decision for other reasons; Z00.00 Encounter for general adult medical examination without abnormal findings; I35.8 Other nonrheumatic aortic valve disorders; E03.9 Hypothyroidism, unspecified; E55.9 Vitamin D deficiency, unspecified; E78.49 Other hyperlipidemia
CPT/HCPCS: 36415; 80053; 84443; 85027

== ENCOUNTER 2024-11-02 11:34 | Outpatient (CLI) | payer MEDICARE, SELFPAY ==
[2024-11-02 12:21] LABS: Add Urine Microscopic? YES; Appearance Urine Cloudy (Clear); Glucose Urine UA Negative (Negative); Leukocyte Esterase Ur Negative LEU/UL (Negative); Nitrate Urine Negative (Negative); Non Pathogenic Casts 0-2; Specific Grav Ur 1.007 (1.001-1.035)
== END 2024-11-02 11:35 | disposition home or self-care (01) ==
PROVIDERS: PCP Family Medicine; Visit Provider Family Medicine
DX: N39.0 Urinary tract infection, site not specified (principal)
CPT/HCPCS: 81001; 87086

== ENCOUNTER 2025-02-15 12:37 | Outpatient (CLI) | payer MEDICARE, SELFPAY | END 2025-02-15 12:38 | disposition home or self-care (01) | LOC: ANHAUDASC 12:37 | PROVIDERS: PCP Family Medicine; Visit Provider Otolaryngology | DX: H90.71 Mixed conductive and sensorineural hearing loss, unilateral, right ear, with unrestricted hearing on the contralateral side (principal); H93.13 Tinnitus, bilateral | CPT/HCPCS: 92557; 92567 ==